=== PATIENT | female | born 1950 | race Caucasian/White ===

== ENCOUNTER 2016-06-30 12:23 | Inpatient (IN) | payer MEDICARE, OTHER ==
[2016-06-30] MEDS ORDERED: Hydrocortisone TAB* 5 MG PO SCH (14:00)
[2016-06-30] MEDS: Heparin VIAL(*) 5000 UNITS/ML VIAL (FIVE THOUSAND) SUBCUT SCH ×2 (15:27→20:55)
--- NOTE | 2016-06-30 15:40 | ECHO ---
Patient: GIOVANNI RADFORD [facility] Rec#: [id number] : 1950 Date: 06/30/2016 Age: 66y Height: 157.48 cm / 62.0 in Weight: 73.48 kg / 161.9 lbs Sex: F BSA: 1.75 Room#: 431 Admit Date#: 06/30/2016 Type: Inpatient Referring: Prakash JOYNER,Gisela Tillman Reading: Regla Bello MD Revenue Cycle Consultant: Magda Pro ANDRZEJ CC: Kwame Walden MD Transthoracic Echocardiogram Indication: Pericardial Effusion/Edema BP: 94/47 HR: 104 Rhythm: Tachycardia Findings History: Stage IV esophageal cancer with metatisis,recent pneumonia,chronic right pleural effusion, a-fib,former smoker, pericardial effusion seen on prior echo09/2015. Technical Comments: The study quality is fair. Completed at 1444. Left Ventricle: The left ventricular chamber size is normal. There is normal left ventricular systolic function. The estimated ejection fraction is 55-60%. septum appears hypokinetic with septal bounce. Abnormal left ventricular diastolic function is observed. Left Atrium: The left atrial chamber size is normal. Right Ventricle: The right ventricular cavity size is normal. The right ventricular global systolic function is normal. Right Atrium: The right atrium is mildly dilated. Aortic Valve: The aortic valve is trileaflet. There is no evidence of aortic regurgitation. There is no evidence of aortic stenosis. Mitral Valve: There is mitral annular calcification. The mitral valve leaflets are mildly thickened. There is mild mitral regurgitation. There is no evidence of mitral stenosis. Tricuspid Valve: The tricuspid valve leaflets are normal. There is trace tricuspid regurgitation. Unable to estimate the right ventricular systolic pressure. Pulmonic Valve: The pulmonic valve appears normal. There is no evidence of pulmonic regurgitation. There is no pulmonic stenosis. Pericardium: There are no signs of significant hemodynamic compromise.MV inflow change,6% LVOT change,12% TV inflow change. There is a circumferential pericardial effusion.Mild to moderate, maximal diameter 1.4 cm. The pericardial effusion is fluid filled. A left pleural effusion is present. There is a large pleural effusion. Aorta: The ascending aorta is not well visualized. There is no dilatation of the aortic arch. There is no dilation of the aortic root. Pulmonary Artery: The main pulmonary artery appears normal. Venous: The inferior vena cava appears normal in size. There is a greater than 50% respiratory change in the inferior vena cava dimension. Conclusions The estimated ejection fraction is 55-60%. septum appears hypokinetic with septal bounce. Abnormal left ventricular diastolic function is observed. The right ventricular global systolic function is normal. There is mild mitral regurgitation. There is trace tricuspid regurgitation. There is a mild to moderate sized circumferential pericardial effusion, maximal diameter 1.4 cm. There are no signs of significant hemodynamic compromise: MV inflow change,6% LVOT change,12% TV inflow change. Septal bounce noted. Compared with prior echo report of 05/19/16, EF is stable, no evidence of increase in pericardial effusion or new filling compromise, compared with the images of prior echo 09/11/15, no significant changes. Measurements Name Value Normal Range RVIDd (AP) 2D 2.5 cm (0.9 - 2.6) RVDdMajor (2D) 3 cm (2.2 - 4.4) RAd ISD 4CH 5.6 cm (3.4 - 4.9) RA (A4C)W 4.2 cm (2.9 - 4.6) IVSd (2D) 1.1 cm (0.6 - 1) LVPWd (2D) 1 cm (0.6 - 1) LVIDd (2D) 3.6 cm (3.6 - 5.4) LVIDs (2D) 2.4 cm - LV FS (2D) 33 % (25 - 45) Aortic Annulus 1.5 cm (1.4 - 2.6) Ao root diameter (2D) 2.7 cm (2.1 - 3.5) Aortic arch 2 cm (1.8 - 3.4) LA dimension (AP) 2D 3 cm (2.3 - 3.8) LAd ISD 4CH 5.5 cm (2.9 - 5.3) LA ISD 4CH W 4.8 cm (2.5 - 4.5) Name Value Normal Range LA ESV SP 4CH (A/L) 73 ml - LA ESV SP 2CH (A/L) 28 ml - LA ESV BP (A/L) 48 ml - LA ESV BP (A/L) index 27.38 ml/m2 - LA ESV SP 4CH (MOD) 75 ml - LA ESV SP 2CH (MOD) 28 ml - Name Value Normal Range MV E-wave Vmax 1.1 m/sec - MV deceleration time 121 msec - MV A-wave Vmax 0.7 m/sec - MV E:A ratio 1.6 ratio - LV septal e' Vmax 0.07 m/sec - LV lateral e' Vmax 0.06 m/sec - LV E:e' septal ratio 15.71 ratio - LV E:e' lateral ratio 18.33 ratio - Name Value Normal Range AV Vmax 1.5 m/sec - AV VTI 28 cm - AV peak gradient 9.39 mmHg - AV mean gradient 5.82 mmHg - LVOT Vmax 1.4 m/sec - LVOT VTI 24.5 cm - LVOT peak gradient 7.56 mmHg - LVOT mean gradient 3.5 mmHg - Name Value Normal Range IVC diameter 1.9 cm - Name Value Normal Range PV Vmax 0.7 m/sec - PV peak gradient 1.93 mmHg -
[2016-06-30] MEDS: Amiodarone TAB* 200 MG PO SCH (17:12)
[2016-06-30] MEDS: Hydrocortisone TAB* 5 MG PO SCH (17:13)
[2016-06-30] MEDS: Zolpidem TAB* 5 MG PO PRN (23:03)
[2016-06-30] MEDS: guaiFENesin/CODIEN 100MG-10MG* 5 ML UDC PO PRN (23:03)
[2016-07-01 05:10] LABS: Add Diff/Slide Review? Slide Review Added; Comments Flag Yes; Hematocrit 24 % (35-47); Hemoglobin 7.8 g/dl (12.0-16.0); Mean Corpuscular HGB Conc 32 g/dl (31-36); Mean Corpuscular Hemoglobin 31 pg (27-31); Mean Corpuscular Volume 95 fL (80-97); Red Blood Count 2.55 10^6/ul (4.0-5.4); Red Cell Distribution Width 16 % (10.5-15); White Blood Count 7.7 10^3/ul (3.5-10.8)
[2016-07-01 05:20] LABS: BUN/Creatinine Ratio 13.8 (8-20); Calcium 8.1 mg/dL (8.6-10.3); EGFR Non-African American 103.4 (>60); Globulin 2.2 g/dL (2-4); Magnesium 1.9 mg/dL (1.9-2.7); Potassium 3.3 mmol/L (3.5-5.0); Total Bilirubin 0.7 mg/dL (0.2-1.0); Total Protein 5.2 g/dL (6.4-8.9)
[2016-07-01] MEDS: Heparin VIAL(*) 5000 UNITS/ML VIAL (FIVE THOUSAND) SUBCUT SCH ×3 (05:46→21:26)
[2016-07-01] MEDS: guaiFENesin/CODIEN 100MG-10MG* 5 ML UDC PO PRN ×2 (05:49→20:19)
[2016-07-01] MEDS ORDERED: Furosemide IV* 10 MG/ML 2 ML VIAL (20 MG) IV ONE ×2 (07:35→09:16)
[2016-07-01] MEDS: Fludrocortisone Acetate TAB* 0.1 MG PO SCH (08:07)
[2016-07-01] MEDS: KCL 20 MEQ/100 ML IVPREMIX* 20 MEQ/100 ML BAG IV SCH ×3 (08:08→13:18)
[2016-07-01] MEDS: Hydrocortisone TAB* 5 MG PO SCH ×3 (08:08→17:34)
--- NOTE | 2016-07-01 08:50 | PN ---
Addendum entered and electronically signed by Catina Sebastian NP 07/01/16 09:47 : Moderate malnutrition: pre-albumin 8, request nutrition consult Original Note: Progress Note - Progress Note SOAP: Subjective: []Very tired, easily exhausted with any exertion. SOB and coughing all the time. "I get coughing and coughing and finally bring up a very tiny bit and then I'm pooped." Denies chest pain and pressure. Slept a little last night. Doesn't feel like her legs changed much at all overnight, though states maybe a little. UO good. Questions if she can have nebs again. Medications: Acetaminophen (Tylenol Tab*) 650 mg PO Q6H PRN PRN Reason: FEVER/PAIN Amiodarone HCl (Cordarone Tab*) 100 mg PO 1700 [facility] Last Admin: 06/30/16 17:12 Dose: 100 mg Fludrocortisone Acetate (Florinef Tab*) 0.2 mg PO QAM [facility] Last Admin: 07/01/16 08:07 Dose: 0.2 mg Guaifenesin/Codeine Phosphate (Robitussin Ac 100mg-10mg*) 5 ml PO Q6HR PRN PRN Reason: COUGH Last Admin: 07/01/16 05:49 Dose: 5 ml Heparin Sodium (Porcine) (Heparin Vial(*)) 5,000 units SUBCUT Q8HR [facility] Last Admin: 07/01/16 05:46 Dose: 5,000 units Heparin Sodium (Porcine) (Heparin Flush Port (Ivad)*) 5 ml FLUSH DAILY [facility] PRN Reason: Protocol Last Admin: 07/01/16 08:05 Dose: Not Given Hydrocortisone (Cortef Tab*) 5 mg PO TID WITH MEALS [facility] Last Admin: 07/01/16 08:08 Dose: 5 mg Potassium Chloride (Potassium Chloride 20 Meq/100 Ml Ivpremix*) 20 meq in 100 mls @ 50 mls/hr IV Q2H [facility] Stop: 07/01/16 13:59 Last Admin: 07/01/16 08:08 Dose: 50 mls/hr Oxycodone HCl (Roxycodone Tab*) 5 mg PO Q6HR PRN PRN Reason: PAIN Potassium Chloride (Klor-Con Liquid*) 40 meq PO QAM [facility] Last Admin: 07/01/16 08:07 Dose: 40 meq Prochlorperazine (Compazine Tab*) 10 mg PO Q6H PRN PRN Reason: NAUSEA Zolpidem Tartrate (Ambien Tab*) 5 mg PO BEDTIME PRN PRN Reason: INSOMNIA Last Admin: 06/30/16 23:03 Dose: 5 mg Objective: [] Vital Signs Temp Pulse Resp BP Pulse Ox 99.0 F 98 20 92/50 97 07/01/16 03:49 07/01/16 03:52 07/01/16 03:49 07/01/16 03:52 07/01/16 03:49 A&Ox3, EOMI, PERRLA, LOVELACE, neuro grossly non-focal HRR, slight murmur noted, S1S2, ST on tele per my review -- EKG with increasing QT interval over last year LS diminished to bilat. bases with wet cough and crackles noted intermittently +BS, abd. soft and non-tender +PP=bilat Laboratory Results - last 24 hr 07/01/16 07/01/16 07/01/16 04:53 04:53 04:53 WBC 7.7 RBC 2.55 L Hgb 7.8 L Hct 24 L MCV 95 MCH 31 MCHC 32 RDW 16 H Plt Count 90 L D Neut % (Auto) 80.4 Lymph % (Auto) 5.9 L [place] % (Auto) 13.0 H Eos % (Auto) 0.4 Baso % (Auto) 0.3 Absolute Neuts (auto) 6.2 Absolute Lymphs (auto) 0.5 L Absolute Monos (auto) 1.0 H Absolute Eos (auto) 0 Absolute Basos (auto) 0 Absolute Nucleated RBC 0.02 Nucleated RBC % 0.3 Sodium 139 Potassium 3.3 L Chloride 101 Carbon Dioxide 34 H Anion Gap 4 BUN 8 Creatinine 0.58 Est GFR ( Amer) 133.0 Est GFR (Non-Af Amer) 103.4 BUN/Creatinine Ratio 13.8 Glucose 93 Calcium 8.1 L Magnesium 1.9 Total Bilirubin 0.70 AST 10 L ALT 6 L Alkaline Phosphatase 86 B-Natriuretic Peptide 870 H Total Protein 5.2 L Albumin 3.0 L Globulin 2.2 Albumin/Globulin Ratio 1.4 Assessment: []66 yo female complicated medical history r/t metastatic esophageal cancer, subsequent MDS, A.Fib, pericardial and pleural effusion, as well as C.Diff in the past r/t abx. admitted with new onset heart failure and fluid overload with minimal improvement overnight with diuresis. Plan: []1. Elevated BNP with edema: echo with left diastolic dysfunction but with preserved LVEF 55-60%, question diastolic failure; pericardial effusion appears unchanged. Will cont. soft diuresis (as she is hypotensive) with IV lasix. QT prolongation over last year on Amiodarone therefore will hold zofran, Cardiology consult pending (sincerely appreciate their expertise). -- to note her underlying condition may play a roll (chemotherapy tx. and less likely infection at this time) 2. Hypokalemia: long standing but with diuresis will replace aggressively, Mg current stable and will follow 3. Anemia: recently diagnosed with MDS likely as a result of halfway chemotherapy, with acute overload will hold off on transfusion for now, recheck in AM 4. Hypotension: long standing and felt to be r/t adrenal deficiency in setting of advanced cancer, cont. steroids, and monitor 5. Recent PNA: very wet cough and question of progressive pleural effusion therefore will check Chest CT [place] 6. Metasatatic Esophageal Cancer: has been stable on chemotherapy for some time , therapy currently on hold d/t acute admission
[2016-07-01] MEDS ORDERED: Potassium Chloride LIQUID* 20 MEQ PACKET PO SCH (09:00)
[2016-07-01] MEDS ORDERED: Iodixanol* (CONTRAST) 320 MG/ML 100 ML SDV IV ONE (09:39)
--- NOTE | 2016-07-01 10:45 | RAD ---
INDICATION: Shortness of breath. Effusion, heart failure. History of esophageal carcinoma. COMPARISON: June 23, 2016 TECHNIQUE: Multidetector CT images were obtained from the lung apices to the upper abdomen with 80 mL Visipaque 320 IV contrast. Multiplanar reformation. REPORT: Unchanged RIGHT greater than LEFT paramediastinal geographic demarcated confluent consolidation with air bronchograms most consistent with postradiation fibrosis. Remainder of the lungs remarkable for interstitial edema with interlobular septal thickening. Moderate LEFT and small RIGHT dependent pleural effusions with interval increase with associated compressive atelectasis. Asymmetric consolidation at the RIGHT lung base mildly disproportionate to volume of pleural fluid/volume loss consolidation at the RIGHT lung base without change. Negative for pneumothorax. Negative for thoracic lymphadenopathy. Negative for cardiomegaly. Small pericardial effusion without change. Normal diameter thoracic aorta with mild atherosclerotic plaque. Patent superior vena cava with tip of the RIGHT chest port at level of the superior vena cava RIGHT atrial junction. Patent visualized central pulmonary arteries. Unchanged magnitude of long segment circumferential mural thickening of the esophagus. Unremarkable Limited images at the upper abdomen. 2 cm exophytic cyst at the upper pole of the RIGHT kidney noted. Mild compression deformities involving the superior endplate of the T7 and T9 vertebral bodies are chronic. No new thoracic fractures or suspicious osseous lesions noted. Bilateral C7 cervical ribs noted. IMPRESSION: 1. The constellation of findings is most suggestive of bilateral interstitial pulmonary edema superimposed on chronic lung disease. Moderate LEFT and small RIGHT dependent pleural effusions with interval increase. Asymmetric consolidation at the RIGHT lung base mildly disproportionate to volume of pleural fluid/volume loss consolidation at the RIGHT lung base without change raising concern for potential superimposed inflammatory infiltrate. 2. Unchanged magnitude of long segment circumferential mural thickening of the esophagus and stigmata of paramediastinal radiation fibrosis.
[2016-07-01 16:32] LABS: TSH (Thyroid Stimulating Horm) 0.89 mcIU/mL (0.34-5.60)
[2016-07-01] MEDS: Amiodarone TAB* 200 MG PO SCH (17:34)
[2016-07-01] MEDS: Prochlorperazine TAB* 10 MG PO PRN (18:46)
[2016-07-01] MEDS ORDERED: Ondansetron TAB* 4 MG PO PRN (19:45)
--- NOTE | 2016-07-01 20:39 | CONS ---
CC: Gisela Randall MD; Boone Gonzalez MD CARDIOLOGY CONSULTATION: DATE OF CONSULT: 07/01/16 HISTORY OF PRESENT ILLNESS: I was asked by Dr. Randall to see this 66-year-old female patient who was hospitalized with acute congestive heart failure and elevated BNP about 900. The patient does h ave complex medical history including history of esophageal cancer and on single agent 5-FU treatmen t. A week ago, she was hospitalized with low-grade fever, fatigue, cough diagnosed with pneumonia a nd urinary tract infection. She was treated with antibiotics treatment and hydration. According to the patient when she left hospital because of aggressive IV hydration, she gained 12 pounds heavier. She does have a history of pericardial effusion and an echo done yesterday showed a small to moder ate pericardial effusion, no signs of tamponade, normal left ventricular systolic function with EF 5 5% to 60%. Yesterday, she felt very short of breath, although she states she does have chronic histo ry of shortness of breath. She was hospitalized with assumption of congestive heart failure, treate d with IV Lasix, and she started to feel better. Cardiology consult was further requested to help i n the further management of her congestive heart failure. She does have a history of atrial fibrill ation in the past, but her EKG showed her to be in low voltage and probably sinus rhythm or ectopic atrial rhythm. She does have history of hypertension as well. She gives no chest pain, no orthopne a. She is still coughing and having some difficulty bringing her phlegm out. If it comes out, it i s yellow according to the patient. But, she gives no fever, no chills, no nausea, no vomiting, no h ematochezia, no skin rash, no abdominal pain, no syncope, no swelling in the lower extremities. She gives no history of congestive heart failure in the past. She gives no history of diabetes mellitu s and no history of myocardial infarction, no history of coronary artery disease, no history of jessie enital heart disease. She started to feel better today. PAST MEDICAL HISTORY: Includes history of arthritis, atrial fibrillation, hypertension. PAST SURGICAL HISTORY: Includes tonsillectomy. CURRENT MEDICATIONS: Include: 1. Tylenol 650 mg p.o. q.6 hours p.r.n. for fever or pain. 2. DuoNeb treatment one nebulizer q.4 hours p.r.n. for wheeze and shortness of breath. 3. Amiodarone 100 mg p.o. daily. 4. Florinef 0.2 mg daily. 5. Robitussin 5 mL q.6 hours p.r.n. for cough. 6. Heparin 5000 units subcu q.8 hours. 7. Hydrocortisone 5 mg p.o. t.i.d. 8. Oxycodone 5 mg p.o. q.6 hours. 9. Potassium chloride 40 mEq q.a.m. 10. Compazine 10 mg p.o. q.6 hours. 11. She had Lasix treatment IV. She was given 2 doses of 20 mg today. FAMILY HISTORY: There is no family history of premature coronary artery disease. SOCIAL HISTORY: She used to smoke, but she quit. She smoked for long period of time. She drinks a lcohol occasionally. No history of illicit drug use. REVIEW OF SYSTEMS: Her review of all other systems essentially is negative. PHYSICAL EXAM: General: She is out of bed. She is not in acute distress. She is coughing. She h ad no fever. Vital Signs: Blood pressure 89/45. She does have a baseline low blood pressure about 90, temperature 98.7, respiratory rate 20, and heart rate about 100. Head and Neck Exam: Normocep halic, atraumatic. Head, ears, nose, and throat: Essentially benign. Neck: Supple. JVP is not e levated. No carotid bruits. No masses in the neck is appreciated. Chest: Diminished air entry bi laterally with bilateral rhonchi. Heart: Normal, regular S1, S2. No added sounds. No gallops. N o rubs. Abdomen: Benign, positive bowel sounds. Extremities: No edema. No cyanosis. No clubbing . Skin exam is normal. Psych: Normal affect and mood. DEVOPS ARCHITECT: No focal deficits appreciated. DIAGNOSTIC STUDIES/LABORATORY DATA: Her echocardiogram reported EF to be 55% to 60%, abnormal left ventricular diastolic function, mild mitral insufficiency, trace tricuspid insufficiency, mild to mo derate pericardial effusion. No tamponade. Her labs: White blood cells 7.7, hemoglobin 7.8, hemat ocrit 24, platelets 90. Sodium 139, potassium 3.3, chloride 101, carbon dioxide 34, BUN 8, creatini ne 0.58. AST 10, ALT 6, BNP 870, total protein 5.2, albumin is 3, globulin 2.2. Her CT chest was r eported to have pulmonary edema and also consolidation at the right lung base. Her EKG today showed her to be in low voltage, possible poor R-wave progression, and sinus or ectopic tachycardia, heart rate 109. IMPRESSION: The patient is a 66-year-old female patient with very complex medical history including : 1. Esophageal cancer, followed up with Dr. Randall. 2. History of pericardial effusion, small to moderate. No tamponade. Stable since previous echo. 3. Recent pneumonia and urinary tract infection. 4. Left ventricular diastolic dysfunction. 5. Significant anemia. 6. Thrombocytopenia. 7. Abnormal EKG as described. 8. Hypotension, chronic, on Florinef. 9. Elevated BNP and CT chest consistent with congestive heart failure. PLAN: Complex challenging medical treatment because of her chronic baseline low blood pressure and also because of her small to moderate size pericardial effusion. Her congestive heart failure could be multifactorial in nature including significant anemia, recent pneumonia, and urinary tract infect ion, significant fluid especially she gained 12 pounds in the short period of time, although she sawyer s have normal left ventricular systolic function. I would like to order a thyroid profile to make s ure she does not have significant hypothyroidism given she is on amiodarone treatment. I agree with IV Lasix and keep a close eye on her blood pressure and continue the rest of the medications as ord ered, keep the Florinef for now, correct potassium aggressively especially significantly low as you are already doing, keep a close eye on her BUN and creatinine and any further recommendations will b e pending her clinical outcome. I discussed this plan with the patient. I answered all her concern s and questions up to her satisfaction. TIME SPENT: More than half of at least 60 to 65 plus minutes was in the eduction, counseling mode f elton-to-face explaining all of the above to the patient and the family member with her and answering all of her concerns and questions up to her satisfaction. [id number]/[facility] #: [id number]
[2016-07-01 22:54] LABS: T4 7.15 g/dL (6.09-12.23)
[2016-07-01 23:03] LABS: Total T3 0.59 ng/mL (0.87-1.78)
[2016-07-02] MEDS: Fludrocortisone Acetate TAB* 0.1 MG PO SCH ×2 (03:53→07:12)
[2016-07-02] MEDS ORDERED: Fludrocortisone Acetate TAB* 0.1 MG PO ONE (04:30)
[2016-07-02] MEDS: Acetaminophen TAB* 325 MG PO PRN (04:36)
[2016-07-02] MEDS: Heparin VIAL(*) 5000 UNITS/ML VIAL (FIVE THOUSAND) SUBCUT SCH ×3 (05:51→21:18)
[2016-07-02 06:27] LABS: Hematocrit 24 % (35-47); Hemoglobin 7.6 g/dl (12.0-16.0); Mean Corpuscular HGB Conc 32 g/dl (31-36); Mean Corpuscular Hemoglobin 31 pg (27-31); Mean Corpuscular Volume 96 fL (80-97); Mean Platelet Volume 9 um3 (7.4-10.4); Red Blood Count 2.47 10^6/ul (4.0-5.4); Red Cell Distribution Width 16 % (10.5-15); White Blood Count 7.1 10^3/ul (3.5-10.8)
[2016-07-02 06:34] LABS: Add Diff/Slide Review? Slide Review Added
[2016-07-02 06:39] LABS: Albumin 2.7 g/dL (3.2-5.2); BUN/Creatinine Ratio 18.3 (8-20); EGFR African American 127.9 (>60); EGFR Non-African American 99.4 (>60); Globulin 2.2 g/dL (2-4); Magnesium 1.5 mg/dL (1.9-2.7); Potassium 3.5 mmol/L (3.5-5.0); Total Bilirubin 0.6 mg/dL (0.2-1.0); Total Protein 4.9 g/dL (6.4-8.9)
[2016-07-02] MEDS ORDERED: Magnesium Sulf 4 GM/100 ML IV* 4,000 MG/100 ML BAG IVPB ONE (07:30)
[2016-07-02] MEDS ORDERED: Furosemide IV* 10 MG/ML 2 ML VIAL (20 MG) IV SLOW PU ONE (07:30)
--- NOTE | 2016-07-02 07:41 | PN ---
Progress Note - Progress Note SOAP: Subjective: she was woken up for vitals last night and was noted to be quite hypotensive in the 70s. she reported light headedness and dizziness with this (again, was sleeping comfortably until awoken for vitals). Florinef given early and BP quickly came up into the 80s and low 90s. Reports that she can only take a few steps before becoming very short of breath. no abdominal pain. mild ongoing diarrhea, chronic for her and nothing like her prior c diff diarrhea. Objective: Vital Signs Temp Pulse Resp BP Pulse Ox 98.4 F 102 20 90/46 93 07/02/16 03:41 07/02/16 03:41 07/02/16 03:41 07/02/16 04:30 07/02/16 03:41 weak appearing, still dyspneic perr eomi op dry dec bs bases bilaterally R>L tachy soft nt +bs 1+ LE edema bl A+O x 3, nonfocal neurological exam Laboratory Results - last 24 hr 07/01/16 07/01/16 07/02/16 04:53 04:53 06:00 WBC 7.1 RBC 2.47 L Hgb 7.6 L Hct 24 L MCV 96 MCH 31 MCHC 32 RDW 16 H Plt Count 60 L MPV 9 Neut % (Auto) 76.3 Lymph % (Auto) 6.4 L [place] % (Auto) 16.6 H Eos % (Auto) 0.3 Baso % (Auto) 0.4 Absolute Neuts (auto) 5.4 Absolute Lymphs (auto) 0.5 L Absolute Monos (auto) 1.2 H Absolute Eos (auto) 0 Absolute Basos (auto) 0 Absolute Nucleated RBC 0.04 Nucleated RBC % 0.6 Sodium Potassium Chloride Carbon Dioxide Anion Gap BUN Creatinine Est GFR ( Amer) Est GFR (Non-Af Amer) BUN/Creatinine Ratio Glucose Calcium Magnesium Total Bilirubin AST ALT Alkaline Phosphatase B-Natriuretic Peptide 870 H Total Protein Albumin Globulin Albumin/Globulin Ratio Prealbumin 8 L TSH 0.89 Thyroxine (T4) 7.15 Total T3 0.59 L 07/02/16 06:00 WBC RBC Hgb Hct MCV MCH MCHC RDW Plt Count MPV Neut % (Auto) Lymph % (Auto) [place] % (Auto) Eos % (Auto) Baso % (Auto) Absolute Neuts (auto) Absolute Lymphs (auto) Absolute Monos (auto) Absolute Eos (auto) Absolute Basos (auto) Absolute Nucleated RBC Nucleated RBC % Sodium 139 Potassium 3.5 Chloride 102 Carbon Dioxide 33 H Anion Gap 4 BUN 11 Creatinine 0.60 Est GFR ( Amer) 127.9 Est GFR (Non-Af Amer) 99.4 BUN/Creatinine Ratio 18.3 Glucose 96 Calcium 8.0 L Magnesium 1.5 L Total Bilirubin 0.60 AST 9 L ALT 5 L Alkaline Phosphatase 84 B-Natriuretic Peptide Total Protein 4.9 L Albumin 2.7 L Globulin 2.2 Albumin/Globulin Ratio 1.2 Prealbumin TSH Thyroxine (T4) Total T3 Acetaminophen (Tylenol Tab*) 650 mg PO Q6H PRN PRN Reason: FEVER/PAIN Last Admin: 07/02/16 04:36 Dose: 650 mg Albuterol/Ipratropium (Duoneb Neb.Em*) 1 neb INH Q4H PRN PRN Reason: SOB/WHEEZING Amiodarone HCl (Cordarone Tab*) 100 mg PO 1700 [facility] Last Admin: 07/01/16 17:34 Dose: 100 mg Fludrocortisone Acetate (Florinef Tab*) 0.2 mg PO QAM [facility] Last Admin: 07/02/16 07:12 Dose: Not Given Guaifenesin/Codeine Phosphate (Robitussin Ac 100mg-10mg*) 5 ml PO Q6HR PRN PRN Reason: COUGH Last Admin: 07/01/16 20:19 Dose: 5 ml Heparin Sodium (Porcine) (Heparin Vial(*)) 5,000 units SUBCUT Q8HR [facility] Last Admin: 07/02/16 05:51 Dose: 5,000 units Heparin Sodium (Porcine) (Heparin Flush Port (Ivad)*) 5 ml FLUSH DAILY [facility] PRN Reason: Protocol Last Admin: 07/02/16 07:11 Dose: Not Given Hydrocortisone (Cortef Tab*) 5 mg PO TID WITH MEALS [facility] Last Admin: 07/01/16 17:34 Dose: 5 mg Magnesium Sulfate (Magnesium Sulf 4 Gm/100 Ml Iv*) 4,000 mg in 100 mls @ 33.333 mls/hr IVPB ONCE ONE Stop: 07/02/16 10:29 Potassium Chloride (Potassium Chloride 20 Meq/100 Ml Ivpremix*) 20 meq in 100 mls @ 50 mls/hr IV Q2H [facility] Stop: 07/02/16 13:59 Magnesium Citrate (Citrate Of Magnesia*) 15 ml PO BID [facility] Ondansetron HCl (Zofran Tab*) 4 mg PO Q6H PRN PRN Reason: NAUSEA Last Admin: 07/01/16 19:57 Dose: 4 mg Oxycodone HCl (Roxycodone Tab*) 5 mg PO Q6HR PRN PRN Reason: PAIN Potassium Chloride (Klor-Con Liquid*) 40 meq PO TID [facility] Prochlorperazine (Compazine Tab*) 10 mg PO Q6H PRN PRN Reason: NAUSEA Last Admin: 07/01/16 18:46 Dose: 10 mg Zolpidem Tartrate (Ambien Tab*) 5 mg PO BEDTIME PRN PRN Reason: INSOMNIA Last Admin: 06/30/16 23:03 Dose: 5 mg Assessment: 66 yo F w metastatic esophageal CA with good control of disease presenting with diastolic heart failure exacerbation of unclear etiology. She is slowly diuresing, but clearly will be difficult to manage with her low blood pressure. Plan: Diastolic HF exacerbation, acute: cont PRN lasix. she is diuresing by evidence of loosing 4 lbs in 1 dy -will give lasix after 1 u PRBC today -appreciate cardiology input -TSH wnl -cont florinef and hydrocortisone - moderate protein calorie malnutrition: prealbumin low. appreciate nutrition consult. will readdress with them specifically how to increase protein in diet as I feel that her weight is not a good reflection of her nutritional status (she is clearly anasarcic) -ensure 1 daily recommended at this time. pancytopenia: chemotherapy induced MDS (del 5q) plus anemia of chronic disease -will give procrit 40,000 IU weekly while inpatient and switch to aranesp 500 mcg q3 weeks as outpatient -transfuse 1 u PRBC today hypomag/hypokalemia: cont aggressive repletion full code
[2016-07-02] MEDS: Hydrocortisone TAB* 5 MG PO SCH ×3 (07:59→16:40)
[2016-07-02] MEDS: Potassium Chloride LIQUID* 20 MEQ PACKET PO SCH ×3 (07:59→19:58)
[2016-07-02] MEDS ORDERED: [UNRECOGNIZED DRUG - OTHER] SUBCUT ONE (08:30)
[2016-07-02] MEDS ORDERED: EPOETIN ALFA SUBCUT ONE (08:30)
[2016-07-02] MEDS: Magnesium CITRATE* 300 ML BTL PO SCH ×2 (09:44→19:58)
[2016-07-02] MEDS: guaiFENesin/CODIEN 100MG-10MG* 5 ML UDC PO PRN ×3 (10:55→23:16)
[2016-07-02] MEDS: KCL 20 MEQ/100 ML IVPREMIX* 20 MEQ/100 ML BAG IV SCH ×3 (11:01→18:24)
[2016-07-02] MEDS: oxyCODONE TAB* 5 MG TAB PO PRN (15:44)
[2016-07-02] MEDS: Amiodarone TAB* 200 MG PO SCH (16:40)
[2016-07-02] MEDS: Albuterol/Ipratropium NEB.SOL* Albuterol 2.5 MG/Ipratropium 0.5 MG 3 ML INH PRN ×2 (16:49→21:25)
[2016-07-02] MEDS ORDERED: Furosemide IV* 10 MG/ML 2 ML VIAL (20 MG) IV ONE (17:00)
[2016-07-02] MEDS ORDERED: KCL 20 MEQ/100 ML IVPREMIX* 20 MEQ/100 ML BAG ONE (18:22)
[2016-07-03] MEDS ORDERED: Furosemide IV* 10 MG/ML 2 ML VIAL (20 MG) IV ONE (02:50)
[2016-07-03] MEDS ORDERED: Furosemide IV* 10 MG/ML 10 ML VIAL (100 MG) IV ONE (02:50)
--- NOTE | 2016-07-03 03:16 | PN ---
Progress Note - Progress Note Note: Paged by RN concern for possible CAT call on patient with fluid overload, increase work of breathing and hypoxic. On evaluation on oxymask 15L, in mod respiratory distress, with crackles b/l throughout. Soft BP's currently and sinus tach on EKG. CXR shows pulmonary edema. Will transfer to ICU to place on CPAP and continue to gently diurese patient.
[2016-07-03] MEDS: Acetaminophen TAB* 325 MG PO PRN ×2 (04:29→11:13)
[2016-07-03] MEDS: Heparin VIAL(*) 5000 UNITS/ML VIAL (FIVE THOUSAND) SUBCUT SCH ×3 (05:37→20:26)
[2016-07-03 05:46] LABS: Hematocrit 27 % (35-47); Hemoglobin 8.9 g/dl (12.0-16.0); Mean Corpuscular HGB Conc 33 g/dl (31-36); Mean Corpuscular Hemoglobin 31 pg (27-31); Mean Corpuscular Volume 94 fL (80-97); Red Blood Count 2.91 10^6/ul (4.0-5.4); Red Cell Distribution Width 18 % (10.5-15); White Blood Count 16.4 10^3/ul (3.5-10.8)
[2016-07-03 05:59] LABS: BUN/Creatinine Ratio 15.4 (8-20); Calcium 8.3 mg/dL (8.6-10.3); EGFR African American 94.5 (>60); EGFR Non-African American 73.4 (>60); Magnesium 1.7 mg/dL (1.9-2.7)
[2016-07-03 06:01] LABS: Comments Flag Yes
[2016-07-03] MEDS ORDERED: CEFTAZIDIME 2 GM IVPB ONE ×2 (06:15)
[2016-07-03] MEDS: Hydrocortisone TAB* 5 MG PO SCH ×3 (08:42→16:01)
[2016-07-03] MEDS: Fludrocortisone Acetate TAB* 0.1 MG PO SCH (08:43)
[2016-07-03] MEDS: Potassium Chloride LIQUID* 20 MEQ PACKET PO SCH ×4 (08:43→20:31)
--- NOTE | 2016-07-03 08:52 | PN ---
Progress Note - Progress Note SOAP: Subjective: []Events of last night noted. Had blood transfusion yesterday. Last night got up and went to bathroom. Coughing that would not stop, tachycardia and SOB. Saturation to 80%s, HR 130. Transferred to ICU and is on positive pressure, saturation improved. Developed fever 103 overnight. Today feeling a little better, SOB continues. BP 80s. Active Medications Generic Name Dose Route Start Last Admin Trade Name Freq PRN Reason Stop Dose Admin Acetaminophen 650 mg 06/30/16 12:54 07/03/16 04:29 Tylenol Tab* PO 650 mg Q6H PRN Administration FEVER/PAIN Albuterol/Ipratropium 1 neb 07/01/16 09:16 07/02/16 21:25 Duoneb Neb.Em* INH 1 neb Q4H PRN Administration SOB/WHEEZING Amiodarone HCl 100 mg 06/30/16 17:00 07/02/16 16:40 Cordarone Tab* PO 100 mg 1700 DIANN Administration Fludrocortisone Acetate 0.2 mg 07/01/16 09:00 07/03/16 08:43 Florinef Tab* PO 0.2 mg QAM DIANN Administration Guaifenesin/Codeine Phosphate 5 ml 06/30/16 12:54 07/02/16 23:16 Robitussin Ac 100mg-10mg* PO 5 ml Q6HR PRN Administration COUGH Heparin Sodium (Porcine) 5,000 units 06/30/16 14:00 07/03/16 05:37 Heparin Vial(*) SUBCUT 5,000 units Q8HR DIANN Administration Heparin Sodium (Porcine) 5 ml 06/30/16 19:00 07/03/16 03:22 Heparin Flush Port (Ivad)* FLUSH 5 ml DAILY DIANN Administration Protocol Hydrocortisone 5 mg 06/30/16 17:00 07/03/16 08:42 Cortef Tab* PO 5 mg TID WITH MEALS DIANN Administration Magnesium Citrate 15 ml 07/02/16 09:00 07/02/16 19:58 Citrate Of Magnesia* PO 15 ml BID DIANN Administration Ondansetron HCl 4 mg 07/01/16 19:45 07/01/16 19:57 Zofran Tab* PO 4 mg Q6H PRN Administration NAUSEA Oxycodone HCl 5 mg 06/30/16 12:54 07/02/16 15:44 Roxycodone Tab* PO 5 mg Q6HR PRN Administration PAIN Potassium Chloride 40 meq 07/02/16 09:00 07/03/16 08:43 Klor-Con Liquid* PO 40 meq TID DIANN Administration Prochlorperazine 10 mg 06/30/16 12:54 07/01/16 18:46 Compazine Tab* PO 10 mg Q6H PRN Administration NAUSEA Zolpidem Tartrate 5 mg 06/30/16 21:07 06/30/16 23:03 Ambien Tab* PO 5 mg BEDTIME PRN Administration INSOMNIA Objective: [] Vital Signs Temp Pulse Resp BP Pulse Ox 100.4 F 115 20 81/45 100 07/03/16 07:23 07/03/16 08:05 07/03/16 08:05 07/03/16 08:00 07/03/16 08:05 Intake & Output 07/01/16 07/02/16 07/03/16 07/04/16 06:59 06:59 06:59 06:59 Intake Total 498.7 1583 2220 Output Total 2775 400 Balance 498.7 1583 -555 -400 Weight 163 lb 12.8 oz 159 lb 14.4 oz 167 lb 15.876 oz Intake: IV Fluids 198.7 217 302 Magnesium 100.0 NS (0.9%) 217 Potassium 98.7 272 blood products 30 IVPB 316 598 Potassium 316 306 blood products 292 Oral 300 1050 1320 Output: Urine 2775 Liquid Stool 400 Other: Estimated Void Small Small # Bowel Movements 0 0 1 Estimated Stool Amount Small Small # Voids 1 1 1 Intake & Output 07/01/16 07/02/16 07/03/16 07/04/16 06:59 06:59 06:59 06:59 Intake Total 498.7 1583 2220 Output Total 2775 400 Balance 498.7 1583 -555 -400 Weight 163 lb 12.8 oz 159 lb 14.4 oz 167 lb 15.876 oz Intake: IV Fluids 198.7 217 302 Magnesium 100.0 NS (0.9%) 217 Potassium 98.7 272 blood products 30 IVPB 316 598 Potassium 316 306 blood products 292 Oral 300 1050 1320 Output: Urine 2775 Liquid Stool 400 Other: Estimated Void Small Small # Bowel Movements 0 0 1 Estimated Stool Amount Small Small # Voids 1 1 1 HEENT - Face mask. Pale, no JVD. No thrush. Lungs - Crackles on right base, left base decreased sounds. RRR S1S2 Abd - NT/ND and good BS Ext +2 edema Abnormal Lab Results 07/02/16 07/02/16 07/03/16 06:00 06:00 05:17 WBC RBC Hgb Hct MCV MCH MCHC RDW Plt Count Sodium 138 Potassium 4.0 Chloride 100 L Carbon Dioxide 34 H Anion Gap 4 BUN 12 Creatinine 0.78 Est GFR ( Amer) 94.5 Est GFR (Non-Af Amer) 73.4 BUN/Creatinine Ratio 15.4 Glucose 109 H Calcium 8.3 L Magnesium 1.7 L B-Natriuretic Peptide 834 H Blood Type A Positive Antibody Screen Negative Crossmatch See Detail 07/03/16 05:17 WBC 16.4 H RBC 2.91 L Hgb 8.9 L Hct 27 L MCV 94 MCH 31 MCHC 33 RDW 18 H Plt Count 60 L Sodium Potassium Chloride Carbon Dioxide Anion Gap BUN Creatinine Est GFR ( Amer) Est GFR (Non-Af Amer) BUN/Creatinine Ratio Glucose Calcium Magnesium B-Natriuretic Peptide Blood Type Antibody Screen Crossmatch Assessment: []66 year old with metastatic esophageal cancer with good disease control but 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 Also h/o C.Diff. Was in hospital for 2 weeks for pneumonia, discharged but admitted on 07/01 after 3 days at home with fluid overload, diastolic dysfunction. Treated with gentle dieresis. Course complicated last night by fever and respiratory decompensation, hypertension. Ddx fever: infection, pneumonia, UTI, other, delayed transfusion reaction. Stable this am but on high O2 and SBP remains in 80s Plan: []1. CHF. Remains fluid overload but improved from admission. Given decreased BP will hold on further diuretics today and follow. Check BNP daily. 2. Pulm. Question of recurrent pneumonia, fluid overload or increased demand with fever. CXR reviewed with Dr. Diaz, volume loss on right, possible pneumonia as well as fluid overload. Dr. Diaz will consult, possible Bipap. 3. ID. Fever, WBC, possible pneumonia, UTI. Given time in hospital will treat as hospital acquired infection. Meropenem and dose per Dr. Diaz. Blood cultures pending and check urine. 4. FEN. Continue Mg and K oral, no IV today and will add Aldactone once BP increased. 5. Heme. No transfusions, follow
--- NOTE | 2016-07-03 09:11 | RAD ---
INDICATION: Shortness of breath. COMPARISON: Chest x-ray dated June 23, 2016 TECHNIQUE: Single AP portable view of the chest was obtained. FINDINGS: Image quality is compromised due to the relative inferiority of a portable chest x-ray. Again seen is a right subclavian vein Mediport with the tip terminating in the superior vena cava. Similar the previous chest x-ray there is mild cardiomegaly. The heart and mediastinum are otherwise normal in contour. There is increased density at the right lung base obscuring the diaphragm and causing costophrenic angle blunting. There is new costophrenic angle blunting and slight obscuration of the left hemidiaphragm as well. There is no evidence of a large pleural effusion. Visualized bones are normal for the patient's age. IMPRESSION: Radiographic findings are most consistent with pulmonary edema with likely right greater than left lung base pleural effusions and adjacent compressive atelectasis.
[2016-07-03] MEDS: Magnesium CITRATE* 300 ML BTL PO SCH ×2 (09:34→19:48)
[2016-07-03] MEDS: Meropenem 1 GM PREMIX(*) 1 GM/50 ML BAG IV SCH ×2 (09:52→17:59)
--- NOTE | 2016-07-03 11:44 | RAD ---
INDICATION: Respiratory distress COMPARISON: Previous chest x-rays dated June 23, 2016 TECHNIQUE: Single AP portable view of the chest was obtained. FINDINGS: Image quality is compromised due to the relative inferiority of a portable chest x-ray. The patient's right subclavian vein Mediport terminates at the superior vena cava similar in appearance to the previous chest x-ray. There is mild cardiomegaly similar in appearance to the previous chest x-ray. Density obscures the right greater than left lung base causing costophrenic angle blunting. Visualized bones are normal for the patient's age. IMPRESSION: Density at the right greater than left lung base could represent pleural effusion and/or consolidation.
--- NOTE | 2016-07-03 12:57 | PN ---
Subjective Date of Service: 07/03/16 - CC: SOB Interval History: The patient and her provided history. The patient was improving with diuresis, she then received PRBC and per her huband developed violent coughing and respiratory distress. Temp of 103 F noted as well. The patient's has noted she coughs up thick yellow phlegm. Currently she feels better with CPAP. Medications Active Medications: Acetaminophen (Tylenol Tab*) 650 mg PO Q6H PRN PRN Reason: FEVER/PAIN Last Admin: 07/03/16 11:13 Dose: 650 mg Albuterol/Ipratropium (Duoneb Neb.Em*) 1 neb INH Q4H PRN PRN Reason: SOB/WHEEZING Last Admin: 07/02/16 21:25 Dose: 1 neb Amiodarone HCl (Cordarone Tab*) 100 mg PO 1700 [facility] Last Admin: 07/02/16 16:40 Dose: 100 mg Fludrocortisone Acetate (Florinef Tab*) 0.2 mg PO QAM [facility] Last Admin: 07/03/16 08:43 Dose: 0.2 mg Guaifenesin/Codeine Phosphate (Robitussin Ac 100mg-10mg*) 5 ml PO Q6HR PRN PRN Reason: COUGH Last Admin: 07/02/16 23:16 Dose: 5 ml Heparin Sodium (Porcine) (Heparin Vial(*)) 5,000 units SUBCUT Q8HR [facility] Last Admin: 07/03/16 05:37 Dose: 5,000 units Heparin Sodium (Porcine) (Heparin Flush Port (Ivad)*) 5 ml FLUSH DAILY [facility] PRN Reason: Protocol Last Admin: 07/03/16 03:22 Dose: 5 ml Hydrocortisone (Cortef Tab*) 5 mg PO TID WITH MEALS [facility] Last Admin: 07/03/16 08:42 Dose: 5 mg Meropenem (Merrem 1 Gm Premix(*)) 1 gm in 50 mls @ 100 mls/hr IV Q8H [facility] Last Admin: 07/03/16 09:52 Dose: 100 mls/hr Magnesium Citrate (Citrate Of Magnesia*) 15 ml PO BID [facility] Last Admin: 07/03/16 09:34 Dose: 15 ml Ondansetron HCl (Zofran Tab*) 4 mg PO Q6H PRN PRN Reason: NAUSEA Last Admin: 07/01/16 19:57 Dose: 4 mg Oxycodone HCl (Roxycodone Tab*) 5 mg PO Q6HR PRN PRN Reason: PAIN Last Admin: 07/02/16 15:44 Dose: 5 mg Potassium Chloride (Klor-Con Liquid*) 40 meq PO TID DIANN Last Admin: 07/03/16 08:43 Dose: 40 meq Prochlorperazine (Compazine Tab*) 10 mg PO Q6H PRN PRN Reason: NAUSEA Last Admin: 07/01/16 18:46 Dose: 10 mg Zolpidem Tartrate (Ambien Tab*) 5 mg PO BEDTIME PRN PRN Reason: INSOMNIA Last Admin: 06/30/16 23:03 Dose: 5 mg Objective Vital Signs: Temp Pulse Resp BP Pulse Ox 102.6 F 119 17 78/45 93 07/03/16 11:17 07/03/16 10:30 07/03/16 10:30 07/03/16 10:30 07/03/16 10:30 Oxygen Devices in Use Now: CPAP/BiPAP Eyes: PERRLA Ears/Nose/Mouth/Throat: Clear Oropharnyx Neck: Trachea Midline Respiratory: - - Diminished throughout, best breath sounds in VERNON field, R lung no good air movement heard. Cardiovascular: RRR Abdominal: NL Sounds; No Tenderness; No Distention Extremities: No Edema Skin: No Rash or Ulcers Neurological: Alert and Oriented x 3, NL Muscle Strength and Tone Laboratory Results: 07/03/16 05:17 07/03/16 05:17 Total Bilirubin 0.60 mg/dL (0.2-1.0) 07/02/16 06:00 AST 9 U/L (13-39) L 07/02/16 06:00 ALT 5 U/L (7-52) L 07/02/16 06:00 Alkaline Phosphatase 84 U/L (34-104) 07/02/16 06:00 B-Natriuretic Peptide 834 pg/mL (-100) H 07/02/16 06:00 Total Protein 4.9 g/dL (6.4-8.9) L 07/02/16 06:00 Albumin 2.7 g/dL (3.2-5.2) L 07/02/16 06:00 Globulin 2.2 g/dL (2-4) 07/02/16 06:00 Albumin/Globulin Ratio 1.2 (1-3) 07/02/16 06:00 TSH 0.89 mcIU/mL (0.34-5.60) 07/01/16 04:53 Diagnostic Imaging: CXR: pulmonary edema R>L CT: ? trapped lung R base and pleural effusion greater on L than R. EKG Data: Sinus tachycardia 110 bpm. 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 Initial improvement with diuresis, decompensated last evening post PRBC with violent coughing and fever. Differential of exacerbation of her diastolic CHF from blood and/or aspiration pneumonia vs. other pneumonia, lower respiratory process. Points of Discussion: Cardiac: Paroxysmal afib: maintaining SR on amiodarone, continue for now. CHF: diastolic CHF, and coughing yesterday could have been secondary to PRBC. I am aware diuretics being held due to low BP, manual BP's a bit better, 90/58 L , 80/48 R. Consider gentle diuresis when BP allows, this patient will be at risk for fluid retention with steroids. Avoid tachycardia if able to minimize risk of worsening diastolic CHF. -Would Xopenex be better than albuterol? Pulmonary: Aware CPAP improved oxygenation significantly and concerns for trapped lung, see if things improve time/lung expansion. Fever: pneumonia vs. pneumonitis vs. other: defer to Oncology and ICU care. Will follow actively in this complex patient.
[2016-07-03] MEDS: Prochlorperazine TAB* 10 MG PO PRN (16:00)
[2016-07-03] MEDS: Amiodarone TAB* 200 MG PO SCH (16:01)
[2016-07-03] MEDS: Magnesium Sulfate 2 GM IV IVPB SCH (20:25)
--- NOTE | 2016-07-03 22:39 | CONS ---
CRITICAL CARE CONSULTATION REPORT: DATE OF CONSULT: 07/03/16 REASON FOR CONSULT: Progressive respiratory distress. HISTORY OF PRESENT ILLNESS: This patient is a 66-year-old white female with esophageal CA ,diastolic heart failure, and a history of both pleural and pericardial effusions (both requiring drainage, and presumably neoplastic in origin). She was admitted on 06/30/16 with increasing shortness of breath, believed secondary to diastolic heart failure. Initial management consisted primarily of diuresis, which resulted in decreasing blood pressure without marked improvement in symptomatology, and the patient was subsequently transferred to the intensive care unit in the evening of 07/02/16. She was placed on CPAP and did show improvement in oxygenation and symptomatology. The patient also has a history of recurrent atrial fibrillation for which she receives amiodarone 100 mg daily, but has not had problems with atrial fibrillation on this admission. MEDICATIONS: Ongoing medications at the time of consultation included: 1. Albuterol neb treatments. 2. Amiodarone 100 mg p.o. daily. 3. Fludrocortisone acetate 0.2 mg p.o. daily. 4. Hydrocortisone tablets 5 mg p.o. 3 times daily. 5. Meropenem 1 gram IV q.8h 6. Oxycodone 5 mg as needed for pain. Most recent chemotherapy has been 5-FU, which the patient is not currently receiving. DRUG ALLERGIES: METOPROLOL: type of reaction unknown. PHYSICAL EXAM: The patient was resting comfortably in bed and was alert and oriented. Vital Signs: Temp was 100.4, heart rate 118 and regular, respirations 18 per minute, blood pressure was 75/45, O2 sat was 96% on 50% oxygen by face mask. HEENT: Oropharynx is clear. Lungs: Occasional rhonchi bilaterally and crackles at the left lung base, with no wheezes. Cardia exam revealed no murmurs, rubs, or gallops. Abdomen was not distended and nontender. Extremities were warm, not cyanotic, and there was 1+ edema. DIAGNOSTIC STUDIES/LAB DATA: Chest x-ray showed cardiomegaly with bibasilar infiltrates, greater on the right, and volume loss in the right lower lung field. CT scan of the chest on admission showed bilateral pleural opacifications (effusion vs fibrosis). EKG on admission showed a sinus tachycardia with poor R-wave progression across the precordium. Laboratory tests were significant for white count of 16.4 (today), up from 7.1 ( yesterday), and a platelet count of 60K (today), down from 90K (2 days ago). Electrolyte abnormalities include a bicarbonate of 34 and a magnesium of 1.7. BNP was 870 on admission and 834 yesterday. DICTATION ENDS ABRUPTLY: SEE FOLLOWUP DICTATION FOR IMPRESSION AND PLAN. [id number]/[facility] #: [id number] [facility]OSPITALSaravanan
--- NOTE | 2016-07-03 22:55 | CONS ---
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 The improvement with CPAP would be explained on the basis of the heart failure and/or the volume loss at the right lung base. The increasing white count, in the face of a "trapped lung " at the right base, could also represent a localized pneumonia. RECOMMENDATION: Continue CPAP treatments, and would not encourage more aggressive diuresis at this time because of the low blood pressure. If necessary , ultrasound of the right pleural space will help to identify fibrosis versus fluid accumulation. I agree with empiric antibiotic coverage (with meropenem) for possible pneumonia. TIME SPENT: Critical care time spent with this patient: 60 minutes. [id number]/[facility] #: [id number] OSEAS
[2016-07-04] MEDS: Meropenem 1 GM PREMIX(*) 1 GM/50 ML BAG IV SCH (01:51)
[2016-07-04] MEDS: Heparin VIAL(*) 5000 UNITS/ML VIAL (FIVE THOUSAND) SUBCUT SCH ×3 (05:24→22:15)
[2016-07-04 05:44] LABS: Hematocrit 26 % (35-47); Hemoglobin 8.2 g/dl (12.0-16.0); Mean Corpuscular HGB Conc 32 g/dl (31-36); Mean Corpuscular Hemoglobin 30 pg (27-31); Mean Corpuscular Volume 94 fL (80-97); Red Blood Count 2.75 10^6/ul (4.0-5.4); Red Cell Distribution Width 17 % (10.5-15); White Blood Count 17.6 10^3/ul (3.5-10.8)
[2016-07-04 05:59] LABS: Albumin 2.7 g/dL (3.2-5.2); BUN/Creatinine Ratio 17.5 (8-20); Calcium 8.1 mg/dL (8.6-10.3); EGFR African American 73.4 (>60); EGFR Non-African American 57.1 (>60); Globulin 2.1 g/dL (2-4); Total Bilirubin 0.9 mg/dL (0.2-1.0); Total Protein 4.8 g/dL (6.4-8.9)
[2016-07-04 06:13] LABS: Add Diff/Slide Review? Slide Review Added; Comments Flag Yes
[2016-07-04 06:36] LABS: Mean Platelet Volume 9 um3 (7.4-10.4)
[2016-07-04] MEDS: Hydrocortisone TAB* 5 MG PO SCH ×3 (08:09→16:54)
[2016-07-04] MEDS: Potassium Chloride LIQUID* 20 MEQ PACKET PO SCH ×3 (09:00→21:10)
--- NOTE | 2016-07-04 11:56 | PN ---
Subjective Date of Service: 07/04/16 - CC: SOB Interval History: On BiPAP, breathing improved. C. diff + noted. Medications Active Medications: Acetaminophen (Tylenol Tab*) 650 mg PO Q6H PRN PRN Reason: FEVER/PAIN Last Admin: 07/03/16 11:13 Dose: 650 mg Albuterol/Ipratropium (Duoneb Neb.Em*) 1 neb INH Q4H PRN PRN Reason: SOB/WHEEZING Last Admin: 07/02/16 21:25 Dose: 1 neb Amiodarone HCl (Cordarone Tab*) 100 mg PO 1700 [facility] Last Admin: 07/03/16 16:01 Dose: 100 mg Fludrocortisone Acetate (Florinef Tab*) 0.2 mg PO QAM [facility] Last Admin: 07/03/16 08:43 Dose: 0.2 mg Guaifenesin/Codeine Phosphate (Robitussin Ac 100mg-10mg*) 5 ml PO Q6HR PRN PRN Reason: COUGH Last Admin: 07/02/16 23:16 Dose: 5 ml Heparin Sodium (Porcine) (Heparin Vial(*)) 5,000 units SUBCUT Q8HR [facility] Last Admin: 07/04/16 05:24 Dose: 5,000 units Heparin Sodium (Porcine) (Heparin Flush Port (Ivad)*) 5 ml FLUSH DAILY [facility] PRN Reason: Protocol Last Admin: 07/03/16 13:34 Dose: Not Given Hydrocortisone (Cortef Tab*) 5 mg PO TID WITH MEALS [facility] Last Admin: 07/03/16 16:01 Dose: 5 mg Meropenem (Merrem 1 Gm Premix(*)) 1 gm in 50 mls @ 100 mls/hr IV Q8H [facility] Last Admin: 07/04/16 01:51 Dose: 100 mls/hr Magnesium Sulfate (Magnesium Sulfate 2 Gm Iv*) 2 gm in 50 mls @ 50 mls/hr IVPB Q24H [facility] Last Admin: 07/03/16 20:25 Dose: 50 mls/hr Ondansetron HCl (Zofran Tab*) 4 mg PO Q6H PRN PRN Reason: NAUSEA Last Admin: 07/01/16 19:57 Dose: 4 mg Oxycodone HCl (Roxycodone Tab*) 5 mg PO Q6HR PRN PRN Reason: PAIN Last Admin: 07/02/16 15:44 Dose: 5 mg Potassium Chloride (Klor-Con Liquid*) 40 meq PO TID DIANN Last Admin: 07/03/16 20:31 Dose: Not Given Prochlorperazine (Compazine Tab*) 10 mg PO Q6H PRN PRN Reason: NAUSEA Last Admin: 07/03/16 16:00 Dose: 10 mg Zolpidem Tartrate (Ambien Tab*) 5 mg PO BEDTIME PRN PRN Reason: INSOMNIA Last Admin: 06/30/16 23:03 Dose: 5 mg Objective Vital Signs: Temp Pulse Resp BP Pulse Ox 99.5 F 118 16 94/48 95 07/04/16 11:28 07/04/16 05:00 07/04/16 05:18 07/04/16 05:00 07/04/16 05:00 Oxygen Devices in Use Now: CPAP/BiPAP Eyes: PERRLA Ears/Nose/Mouth/Throat: Clear Oropharnyx Neck: Trachea Midline Respiratory: - - Diminished throughout, marked improvement in R lung, air movement heard throughout. L. base diminished BS. Cardiovascular: RRR - tachycardic, murmer apex/LSB. Abdominal: NL Sounds; No Tenderness; No Distention Extremities: No Edema Skin: No Rash or Ulcers Neurological: Alert and Oriented x 3, NL Muscle Strength and Tone Laboratory Results: 07/04/16 05:30 07/04/16 05:30 Total Bilirubin 0.90 mg/dL (0.2-1.0) 07/04/16 05:30 AST 10 U/L (13-39) L 07/04/16 05:30 ALT 6 U/L (7-52) L 07/04/16 05:30 Alkaline Phosphatase 78 U/L (34-104) 07/04/16 05:30 B-Natriuretic Peptide 834 pg/mL (-100) H 07/02/16 06:00 Total Protein 4.8 g/dL (6.4-8.9) L 07/04/16 05:30 Albumin 2.7 g/dL (3.2-5.2) L 07/04/16 05:30 Globulin 2.1 g/dL (2-4) 07/04/16 05:30 Albumin/Globulin Ratio 1.3 (1-3) 07/04/16 05:30 TSH 0.89 mcIU/mL (0.34-5.60) 07/01/16 04:53 Diagnostic Imaging: No imaging studies today. EKG Data: Sinus tachycardia 110 bpm. 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 Initial improvement with diuresis, decompensated last evening post PRBC with violent coughing and fever. Differential of exacerbation of her diastolic CHF from blood and/or aspiration pneumonia vs. other pneumonia, lower respiratory process. Pt now noted to be C diff positive as well. BP's remain very low, SBP 70-90. Marked improvement in aeration of the R lung post BiPAP. Points of Discussion: Cardiac: Paroxysmal afib: maintaining SR on amiodarone, continue for now. SOB/Pulmonary: BiPAP improving air movement. BP too low for additional diuretics at this point. ID: C. diff noted, also possible aspiration/other pulmonary infection. Will follow actively in this complex patient.
--- NOTE | 2016-07-04 12:27 | PN ---
Critical Care Services: Oxygenation improved on CPAP, but tolerance is poor. WBC count up to 17, and stool positive for C difficile (by PCR assay, not toxin assay) - had a similar episode in January of this year. Vital Signs: Temp Pulse Resp BP SpO2 FiO2 99.5 F 118 16 94/48 95 40 Physical Exam: Gen:Resting comfortably but appears weak. No difficulty breathing. Lungs: no crackles Abdomen: No distension Extremities:No cyanosis or edema. Fluid Balance (Past 24 Hours): 07/04/16 06:59 Intake Total 1180 Output Total ? Balance Weight 163 lb Intake: IV Fluids 530 NS (0.9%) 530 Potassium blood products IVPB Potassium blood products Oral 650 Output: Urine ? Liquid Stool 400 Other: Estimated Void Small # Bowel Movements 1 Estimated Stool Amount Large # Voids 1 Labs: 07/04/16 07/04/16 05:30 05:30 WBC 17.6 Hgb 8.2 Hct 26 Plt Count 32 MPV 9 Sodium 139 Potassium 4.0 Chloride 102 Carbon Dioxide 33 BUN 17 Creatinine 0.97 Glucose 117 Magnesium 2.0 Total Bilirubin 0.90 AST 10 L ALT 6 L Alkaline Phosphatase 78 Total Protein 4.8 L Albumin 2.7 Studies: ECHO of right chest - small pleural effusion. No pleural thickening noted. Nutrition: Oral diet Impression: 1. Clinical improvement on BiPAP - related to expansion of right lung base and/ or CHF. 2. No evidence of pleural entrapment of right lung base - volume loss could therefore be from past pneumonias or an endobronchial lesion (latter seems unlikely.) 3. Recurrent C. difficile colitis (although there are false positives with PCR assay). Plan: 1. Fidaxomicin not available, so will treat recurrent C difficile infection with oral vancomycin. (Further recurrences can be managed with fecal transplantation.) 2. Continue alveolar recruitment Rx with CPAP or BiPAP. Prognosis is guarded at this time.
--- NOTE | 2016-07-04 12:53 | RAD ---
INDICATION: Shortness of breath COMPARISON: Chest x-ray July 03, 2016 TECHNIQUE: Real time ultrasound images of the right hemithorax were acquired with ambrocio scale and Doppler color flow imaging. FINDINGS: A small pleural effusion is visualized. IMPRESSION: Very small right-sided pleural effusion.
[2016-07-04] MEDS: Fludrocortisone Acetate TAB* 0.1 MG PO SCH (13:10)
[2016-07-04] MEDS: Vancomycin CAP* 125 MG CAP PO SCH ×3 (13:11→21:10)
[2016-07-04] MEDS ORDERED: metroNIDAZOLE TAB* 250 MG PO SCH (14:00)
--- NOTE | 2016-07-04 15:21 | PN ---
Progress Note - Progress Note SOAP: Subjective: []Not feeling well. C. Diff positive. Fever last night. Breathing better but not tolerate CPAP. She is on NC on exam. No respiratory distress, some diarrhea. Active Medications Generic Name Dose Route Start Last Admin Trade Name Freq PRN Reason Stop Dose Admin Acetaminophen 650 mg 06/30/16 12:54 07/03/16 11:13 Tylenol Tab* PO 650 mg Q6H PRN Administration FEVER/PAIN Albuterol/Ipratropium 1 neb 07/01/16 09:16 07/02/16 21:25 Duoneb Neb.Em* INH 1 neb Q4H PRN Administration SOB/WHEEZING Amiodarone HCl 100 mg 06/30/16 17:00 07/03/16 16:01 Cordarone Tab* PO 100 mg 1700 DIANN Administration Fludrocortisone Acetate 0.2 mg 07/01/16 09:00 07/04/16 13:10 Florinef Tab* PO 0.2 mg QAM DIANN Administration Guaifenesin/Codeine Phosphate 5 ml 06/30/16 12:54 07/02/16 23:16 Robitussin Ac 100mg-10mg* PO 5 ml Q6HR PRN Administration COUGH Heparin Sodium (Porcine) 5,000 units 06/30/16 14:00 07/04/16 05:24 Heparin Vial(*) SUBCUT 5,000 units Q8HR DIANN Administration Heparin Sodium (Porcine) 5 ml 06/30/16 19:00 07/03/16 13:34 Heparin Flush Port (Ivad)* FLUSH Not Given DAILY [facility] Protocol Hydrocortisone 5 mg 06/30/16 17:00 07/04/16 13:10 Cortef Tab* PO 5 mg TID WITH MEALS DIANN Administration Magnesium Sulfate 2 gm in 50 mls @ 50 mls/hr 07/03/16 18:10 07/03/16 20:25 Magnesium Sulfate 2 Gm Iv* IVPB 50 mls/hr Q24H DIANN Administration Ondansetron HCl 4 mg 07/01/16 19:45 07/01/16 19:57 Zofran Tab* PO 4 mg Q6H PRN Administration NAUSEA Oxycodone HCl 5 mg 06/30/16 12:54 07/02/16 15:44 Roxycodone Tab* PO 5 mg Q6HR PRN Administration PAIN Potassium Chloride 40 meq 07/02/16 09:00 07/03/16 20:31 Klor-Con Liquid* PO Not Given TID DIANN Prochlorperazine 10 mg 06/30/16 12:54 07/03/16 16:00 Compazine Tab* PO 10 mg Q6H PRN Administration NAUSEA Vancomycin HCl 125 mg 07/04/16 13:00 07/04/16 13:11 Vancomycin Cap* PO 125 mg QID DIANN Administration Zolpidem Tartrate 5 mg 06/30/16 21:07 06/30/16 23:03 Ambien Tab* PO 5 mg BEDTIME PRN Administration INSOMNIA Objective: [] Vital Signs Temp Pulse Resp BP Pulse Ox 99.5 F 110 11 108/54 97 07/04/16 11:28 07/04/16 14:00 07/04/16 14:00 07/04/16 14:00 07/04/16 14:00 T max 102.7 HEENT - Mucosa moist, pale Decreased BS and crackles right base, left decreased sounds Tachy but regular. Abd distension, but not different. +BS Ext - Tr edema. Abnormal Lab Results 07/04/16 07/04/16 05:30 05:30 WBC 17.6 H RBC 2.75 L Hgb 8.2 L Hct 26 L MCV 94 MCH 30 MCHC 32 RDW 17 H Plt Count 32 L MPV 9 Neut % (Auto) 89.4 H Lymph % (Auto) 1.5 L [place] % (Auto) 8.8 Eos % (Auto) 0 Baso % (Auto) 0.3 Absolute Neuts (auto) 15.7 H Absolute Lymphs (auto) 0.3 L Absolute Monos (auto) 1.5 H Absolute Eos (auto) 0 Absolute Basos (auto) 0.1 Absolute Nucleated RBC 0.07 Nucleated RBC % 0.4 Sodium 139 Potassium 4.0 Chloride 102 Carbon Dioxide 33 H Anion Gap 4 BUN 17 Creatinine 0.97 H Est GFR ( Amer) 73.4 Est GFR (Non-Af Amer) 57.1 BUN/Creatinine Ratio 17.5 Glucose 117 H Calcium 8.1 L Magnesium 2.0 Total Bilirubin 0.90 AST 10 L ALT 6 L Alkaline Phosphatase 78 Total Protein 4.8 L Albumin 2.7 L Globulin 2.1 Albumin/Globulin Ratio 1.3 Assessment: []66 year old with metastatic esophageal cancer with good disease control but 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 Also h/o C.Diff. Was in hospital for 2 weeks for pneumonia, discharged but admitted on 07/01 after 3 days at home with fluid overload, diastolic dysfunction. Treated with gentle dieresis. Course complicated by fever and respiratory decompensation, hypertension. Now diagnosed with recurrent C. Diff. Plan: []1. CHF. Remains fluid overload but improved from admission. Given decreased BP will hold on further diuretics, echo pending. 2. Pulm. Working with ICU team and respiratory, stable today and sating and 95% on RA 3. ID. Oral vancomycin at this time. Had not responded in past to extensive therapy. Will to to Fidaxomicin 200 mg po bid. 4. FEN. Mg IV, no oral. K oral and follow. 5. Heme. No transfusions, follow daily. []
[2016-07-04] MEDS: Magnesium Sulfate 2 GM IV IVPB SCH (16:53)
[2016-07-04] MEDS: Amiodarone TAB* 200 MG PO SCH (16:54)
[2016-07-05] MEDS: Heparin VIAL(*) 5000 UNITS/ML VIAL (FIVE THOUSAND) SUBCUT SCH ×3 (05:40→21:34)
[2016-07-05 06:19] LABS: BUN/Creatinine Ratio 26.7 (8-20); Calcium 8.2 mg/dL (8.6-10.3); EGFR African American 98.8 (>60); EGFR Non-African American 76.8 (>60); Hematocrit 28 % (35-47); Hemoglobin 8.9 g/dl (12.0-16.0); Mean Corpuscular HGB Conc 32 g/dl (31-36); Mean Corpuscular Hemoglobin 30 pg (27-31); Mean Corpuscular Volume 94 fL (80-97); Potassium 4.1 mmol/L (3.5-5.0); Red Blood Count 2.99 10^6/ul (4.0-5.4); Red Cell Distribution Width 17 % (10.5-15); White Blood Count 15.7 10^3/ul (3.5-10.8)
[2016-07-05 06:20] LABS: Comments Flag Yes
[2016-07-05] MEDS: Hydrocortisone TAB* 5 MG PO SCH ×3 (07:55→16:36)
[2016-07-05] MEDS: Fludrocortisone Acetate TAB* 0.1 MG PO SCH (07:55)
[2016-07-05] MEDS: Vancomycin CAP* 125 MG CAP PO SCH ×4 (07:55→21:33)
[2016-07-05] MEDS: Potassium Chloride LIQUID* 20 MEQ PACKET PO SCH ×2 (07:56→13:00)
--- NOTE | 2016-07-05 08:03 | RAD ---
INDICATION: Cardiac failure COMPARISON: Chest x-ray dated July 03, 2016 TECHNIQUE: Single AP portable view of the chest was obtained. FINDINGS: Image quality is compromised due to the relative inferiority of a portable chest x-ray. The right subclavian vein Mediport terminates in the superior vena cava unchanged in the previous chest x-ray. There is mild cardiomegaly. Densities again seen obscuring the right lung base and to a lesser extent the left lung base. Visualized bones are normal for the patient's age. IMPRESSION: No significant change in the degree of hypoaeration with density obscuring the right lung base and right hemidiaphragm.
--- NOTE | 2016-07-05 08:56 | PN ---
Progress Note - Progress Note SOAP: Subjective: []Feels better, more awake and alert. Eating well. Diarrhea has not decreased. No fevers. Feels less fluid overloaded. Breathing is fine. Not getting out of bed. Active Medications Generic Name Dose Route Start Last Admin Trade Name Freq PRN Reason Stop Dose Admin Acetaminophen 650 mg 06/30/16 12:54 07/03/16 11:13 Tylenol Tab* PO 650 mg Q6H PRN Administration FEVER/PAIN Albuterol/Ipratropium 1 neb 07/01/16 09:16 07/02/16 21:25 Duoneb Neb.Em* INH 1 neb Q4H PRN Administration SOB/WHEEZING Amiodarone HCl 100 mg 06/30/16 17:00 07/04/16 16:54 Cordarone Tab* PO 100 mg 1700 DIANN Administration Fludrocortisone Acetate 0.2 mg 07/01/16 09:00 07/05/16 07:55 Florinef Tab* PO 0.2 mg QAM DIANN Administration Guaifenesin/Codeine Phosphate 5 ml 06/30/16 12:54 07/02/16 23:16 Robitussin Ac 100mg-10mg* PO 5 ml Q6HR PRN Administration COUGH Heparin Sodium (Porcine) 5,000 units 06/30/16 14:00 07/05/16 05:40 Heparin Vial(*) SUBCUT 5,000 units Q8HR DIANN Administration Heparin Sodium (Porcine) 5 ml 06/30/16 19:00 07/05/16 07:57 Heparin Flush Port (Ivad)* FLUSH Not Given DAILY [facility] Protocol Hydrocortisone 5 mg 06/30/16 17:00 07/05/16 07:55 Cortef Tab* PO 5 mg TID WITH MEALS DIANN Administration Magnesium Sulfate 2 gm in 50 mls @ 50 mls/hr 07/03/16 18:10 07/04/16 16:53 Magnesium Sulfate 2 Gm Iv* IVPB 50 mls/hr Q24H DIANN Administration Non Formulary Med: 1 dose 07/05/16 09:00 07/05/16 07:56 Fidaxomicin 200mg PO 07/14/16 21:01 Not Given Tab BID DIANN Ondansetron HCl 4 mg 07/01/16 19:45 07/01/16 19:57 Zofran Tab* PO 4 mg Q6H PRN Administration NAUSEA Oxycodone HCl 5 mg 06/30/16 12:54 07/02/16 15:44 Roxycodone Tab* PO 5 mg Q6HR PRN Administration PAIN Potassium Chloride 40 meq 07/02/16 09:00 07/05/16 07:56 Klor-Con Liquid* PO 40 meq TID DIANN Administration Prochlorperazine 10 mg 06/30/16 12:54 07/03/16 16:00 Compazine Tab* PO 10 mg Q6H PRN Administration NAUSEA Vancomycin HCl 125 mg 07/04/16 13:00 07/05/16 07:55 Vancomycin Cap* PO 125 mg QID DIANN Administration Zolpidem Tartrate 5 mg 06/30/16 21:07 06/30/16 23:03 Ambien Tab* PO 5 mg BEDTIME PRN Administration INSOMNIA Objective: [] Vital Signs Temp Pulse Resp BP Pulse Ox 98.6 F 100 8 84/52 97 07/05/16 03:46 07/05/16 07:00 07/05/16 07:30 07/05/16 07:30 07/05/16 07:00 HEENT - Mucosa moist. Pale. No thrush CTA with yellow stethoscope. RRR S1S2 104 Abd not changed, distended and possitive BS. Labs - Reviewed. []Assessment: []66 year old with metastatic esophageal cancer with good disease control but 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 Also h/o C.Diff. Was in hospital for 2 weeks for pneumonia, discharged but admitted on 07/01 after 3 days at home with fluid overload, diastolic dysfunction. Treated with gentle dieresis. Course complicated by fever and respiratory decompensation, hypertension. Now diagnosed with recurrent C. Diff. Plan: []1. CHF. Appears improved. Given decreased BP will hold on further diuretics. Check BNP today and tomorrow. 2. Pulm. Improved and on 4L NC, no distress. 3. ID. Oral vancomycin at this time. Had not responded in past to extensive therapy. Fidaxomicin 200 mg po bid will start today. 4. FEN. Mg IV, no oral. K oral. Check Mg and K today. 5. Heme. No transfusions, follow daily. 6. PT - evaluate gait, has not walked since Sat 7. To floor tomorrow if continue to improve. []
[2016-07-05] MEDS ORDERED: FIDAXOMICIN 200 MG PO SCH (09:00)
[2016-07-05] MEDS: FIDAXOMICIN 200 MG PO SCH ×2 (11:15→21:33)
--- NOTE | 2016-07-05 15:15 | PN ---
Critical Care Services: Alert, and breathing comfortably in bed on nasal O2, with spO2 = 96%. Foul- smelling diarrhea continues. Vital Signs: Temp Pulse Resp BP SpO2 FiO2 97.5 F 100 15 94/51 97 40 Physical Exam: Gen:Alert, oriented, no distress Lungs:coarse rhonchoi. Diminished breath sounds right base poosteriorly. Abdomen: Not distended Extremities:no cyanosis - trace edema. Fluid Balance (Past 24 Hours): 07/05/16 06:59 Intake Total 607 Output Total 525 Balance 82 Weight 151 lb Intake: IV Fluids NS (0.9%) Potassium blood products IVPB 292 NS (0.9%) 292 Potassium blood products Oral 315 Output: Urine 525 Liquid Stool Other: Estimated Void Medium # Bowel Movements 1 Estimated Stool Amount Small Labs: 07/05/16 07/05/16 05:40 05:40 WBC 15.7 Hgb 8.9 Hct 28 Plt Count 53 Sodium 139 Potassium 4.1 Chloride 102 Carbon Dioxide 34 BUN 20 Creatinine 0.75 Glucose 93 Calcium 8.2 Studies: CXR: Volume loss and opacification at right base - no change from prior CXR. Nutrition: Oral diet Impression: Respiratory status improved with CPAP/BiPAP intermittently. Recurrent C diff enterocolitis - continues to be symptomatic. Plan: 1. Start fidaxomicin today for recurrent C diff. May need fecal transplantation for unresolved or recurrent episodes. 2. Continue "recruitment Rx" with CPAP/BiPAP intermittently. 3. Hold diuresis because of low BP
[2016-07-05] MEDS: Amiodarone TAB* 200 MG PO SCH (16:36)
[2016-07-05] MEDS: Magnesium Sulfate 2 GM IV IVPB SCH (16:36)
[2016-07-05] MEDS: oxyCODONE TAB* 5 MG TAB PO PRN (21:43)
[2016-07-05] MEDS: Meropenem 1 GM PREMIX(*) 1 GM/50 ML BAG IV SCH (21:59)
[2016-07-06] MEDS: Acetaminophen TAB* 325 MG PO PRN ×2 (02:12→08:14)
[2016-07-06 06:15] LABS: Comments Flag Yes; Hematocrit 28 % (35-47); Hemoglobin 8.9 g/dl (12.0-16.0); Mean Corpuscular HGB Conc 32 g/dl (31-36); Mean Corpuscular Hemoglobin 30 pg (27-31); Mean Corpuscular Volume 96 fL (80-97); Red Blood Count 2.97 10^6/ul (4.0-5.4); Red Cell Distribution Width 17 % (10.5-15)
[2016-07-06 06:16] LABS: Add Diff/Slide Review? Slide Review Added
[2016-07-06 06:35] LABS: Albumin 2.7 g/dL (3.2-5.2); Calcium 8.3 mg/dL (8.6-10.3); EGFR African American 98.8 (>60); EGFR Non-African American 76.8 (>60); Globulin 2.5 g/dL (2-4); Magnesium 2.2 mg/dL (1.9-2.7); Total Bilirubin 0.7 mg/dL (0.2-1.0); Total Protein 5.2 g/dL (6.4-8.9)
[2016-07-06] MEDS: Heparin VIAL(*) 5000 UNITS/ML VIAL (FIVE THOUSAND) SUBCUT SCH ×2 (07:52→15:24)
[2016-07-06] MEDS: FIDAXOMICIN 200 MG PO SCH ×2 (07:59→21:28)
[2016-07-06] MEDS: Fludrocortisone Acetate TAB* 0.1 MG PO SCH (07:59)
[2016-07-06] MEDS: Vancomycin CAP* 125 MG CAP PO SCH ×4 (07:59→21:28)
[2016-07-06] MEDS: Hydrocortisone TAB* 5 MG PO SCH ×3 (07:59→16:46)
[2016-07-06] MEDS: Magnesium Sulfate 2 GM IV IVPB SCH (16:46)
[2016-07-06] MEDS: Amiodarone TAB* 200 MG PO SCH (16:46)
[2016-07-07 00:59] LABS: Urine Bacteria Absent (Absent); Urine Bilirubin Negative (Negative); Urine Glucose Negative (Negative); Urine Nitrite Negative (Negative)
[2016-07-07 06:36] LABS: Hematocrit 28 % (35-47); Hemoglobin 8.8 g/dl (12.0-16.0); Mean Corpuscular HGB Conc 32 g/dl (31-36); Mean Corpuscular Hemoglobin 30 pg (27-31); Mean Corpuscular Volume 96 fL (80-97); Mean Platelet Volume 10 um3 (7.4-10.4); Red Blood Count 2.91 10^6/ul (4.0-5.4); Red Cell Distribution Width 17 % (10.5-15)
[2016-07-07 06:41] LABS: Albumin 2.7 g/dL (3.2-5.2); BUN/Creatinine Ratio 22.2 (8-20); EGFR African American 120.9 (>60); Globulin 2.2 g/dL (2-4); Magnesium 1.8 mg/dL (1.9-2.7); Potassium 3.3 mmol/L (3.5-5.0); Total Bilirubin 0.8 mg/dL (0.2-1.0); Total Protein 4.9 g/dL (6.4-8.9)
[2016-07-07 06:45] LABS: Comments Flag Yes
[2016-07-07] MEDS: Fludrocortisone Acetate TAB* 0.1 MG PO SCH (09:35)
[2016-07-07] MEDS: FIDAXOMICIN 200 MG PO SCH ×2 (09:36→21:25)
[2016-07-07] MEDS: Vancomycin CAP* 125 MG CAP PO SCH ×4 (09:36→21:25)
[2016-07-07] MEDS: Hydrocortisone TAB* 5 MG PO SCH ×3 (09:36→17:36)
[2016-07-07] MEDS: KCL 20 MEQ/100 ML IVPREMIX* 20 MEQ/100 ML BAG IV SCH ×2 (11:35→14:59)
--- NOTE | 2016-07-07 15:10 | CONS ---
CONSULTATION REPORT: DATE OF CONSULT: 07/07/16 REQUESTING PHYSICIAN: Dr. Randall. CONSULTING SERVICE: Infectious Disease. REASON FOR CONSULT: C. difficile associated diarrhea. IMPRESSION: 1. Recent antibiotic use for pneumonia, developed frequent stools with crampy abdominal pain and leukocytosis. Clostridium difficile PCR was positive. She has been on vancomycin and fidaxomicin, down to one semiformed stool a day so far. Her crampy abdominal pain has resolved. 2. Recent chemotherapy and ongoing hydrocortisone therapy. 3. Metastatic esophageal cancer. 4. Thrombocytopenia, felt to be chemotherapy related. 5. Leukocytosis, improving, likely due to Clostridium difficile. RECOMMENDATION: Agree with vancomycin 125 mg by mouth four times a day. We will stop the fidaxomicin given that she is improving steadily and usually not helpful in the first episode of C. difficile infection. HISTORY OF PRESENT ILLNESS: This is a 66-year-old woman with metastatic esophageal cancer, admitted with dyspnea, being treated recently for pneumonia, who had developed severe diarrhea on the . She had C. diff test on the , it was positive. She was started on vancomycin and fidaxomicin was added on the . She had already started to have improvement in her diarrhea symptoms by the , decreased from once an hour to once every 2 to 3 hours and now is down to one so far a day which is semiformed. No abdominal pain or fever. PAST MEDICAL HISTORY: 1. Metastatic esophageal cancer, ongoing chemotherapy. 2. Status post tonsillectomy. 3. Arthritis. 4. Atrial fibrillation. 5. DVT. 6. Hypertension. 7. Clostridium dificile diarrhea, treated with fecal transplant MEDICATIONS: 1. Amiodarone. 2. Fidaxomicin 200 mg by mouth twice daily. 3. Fludrocortisone. 4. Hydrocortisone. 5. Vancomycin 125 mg by mouth four times a day. 6. Ambien. ALLERGIES: METOPROLOL. FAMILY HISTORY: No recurrent infections. SOCIAL HISTORY: Lives with her in [place]. No sick contacts. REVIEW OF SYSTEMS: All negative except as noted above. PHYSICAL EXAM: Vital Signs: Temperature is 36.3, heart rate 90, respiratory rate 18, blood pressure 94/49, O2 sat 95% on room air. General: She is awake and oriented x3, in no acute distress. HEENT: Pupils equal, round, and reactive to light without conjunctival hemorrhage. Oropharynx: Without lesions. Neck: Supple without nuchal rigidity. Lymph Nodes: There is no cervical, supraclavicular, inguinal, axillary, or epitrochlear lymphadenopathy. Heart: Regular rate and rhythm without murmurs, rubs, or gallop. Lungs: Clear to auscultation bilaterally. Abdomen: Soft, nontender, nondistended. There are bowel sounds present. Skin: There is no rash or splinter hemorrhages. Musculoskeletal: There is no spine tenderness to palpation. LABORATORY DATA: White blood cell count 11, hemoglobin 8.8, platelets 33. Creatinine is 0.6. BNP of 1100. Please see impressions and recommendations as outlined above. Thanks for asking me to see Ms. Huitron in consultation. [id number]/[facility] #: [id number] OSEAS
[2016-07-07] MEDS: Magnesium Sulfate 2 GM IV IVPB SCH (17:36)
[2016-07-07] MEDS: Amiodarone TAB* 200 MG PO SCH (17:36)
[2016-07-07] MEDS: Zolpidem TAB* 5 MG PO PRN (21:30)
[2016-07-08 04:37] LABS: Hematocrit 30 % (35-47); Hemoglobin 9.4 g/dl (12.0-16.0); Mean Corpuscular HGB Conc 32 g/dl (31-36); Mean Corpuscular Hemoglobin 30 pg (27-31); Mean Corpuscular Volume 95 fL (80-97); Red Cell Distribution Width 17 % (10.5-15); White Blood Count 8.9 10^3/ul (3.5-10.8)
[2016-07-08 04:43] LABS: Comments Flag Yes
[2016-07-08 04:44] LABS: Add Diff/Slide Review? Slide Review Added
[2016-07-08 04:53] LABS: BUN/Creatinine Ratio 17.7 (8-20); EGFR African American 123.1 (>60); EGFR Non-African American 95.7 (>60); Magnesium 1.9 mg/dL (1.9-2.7); Potassium 3.3 mmol/L (3.5-5.0)
[2016-07-08] MEDS ORDERED: Furosemide TAB* 20 MG PO ONE (07:20)
--- NOTE | 2016-07-08 07:37 | PN ---
Progress Note - Progress Note SOAP: Subjective: overall feeling weak and frustrated by that. biggest complaint is her anasarca. 2 loose BMs yesterday, which is back to her baseline. no crampy pain. able to ambulate short distances but gets tired and winded. Objective: Vital Signs Temp Pulse Resp BP Pulse Ox 97.5 F 80 15 85/57 99 07/07/16 23:08 07/07/16 23:08 07/07/16 23:08 07/07/16 23:08 07/07/16 23:08 sitting up in chair sleeping initially op dry dec bs right base s1 s2 nl soft nt +bs anasarcic A+O x 3, nonfocal neurological exam but globally weak Laboratory Results - last 24 hr 07/08/16 07/08/16 04:20 04:20 WBC 8.9 RBC 3.10 L Hgb 9.4 L Hct 30 L MCV 95 MCH 30 MCHC 32 RDW 17 H Plt Count 60 L D Neut % (Auto) 79.1 Lymph % (Auto) 8.0 L [place] % (Auto) 12.0 H Eos % (Auto) 0.4 Baso % (Auto) 0.5 Absolute Neuts (auto) 7.1 Absolute Lymphs (auto) 0.7 L Absolute Monos (auto) 1.1 H Absolute Eos (auto) 0 Absolute Basos (auto) 0 Absolute Nucleated RBC 0.05 Nucleated RBC % 0.6 Sodium 141 Potassium 3.3 L Chloride 105 Carbon Dioxide 33 H Anion Gap 3 BUN 11 Creatinine 0.62 Est GFR ( Amer) 123.1 Est GFR (Non-Af Amer) 95.7 BUN/Creatinine Ratio 17.7 Glucose 103 H Calcium 8.0 L Magnesium 1.9 Acetaminophen (Tylenol Tab*) 650 mg PO Q6H PRN PRN Reason: FEVER/PAIN Last Admin: 07/06/16 08:14 Dose: 650 mg Albuterol/Ipratropium (Duoneb Neb.Em*) 1 neb INH Q4H PRN PRN Reason: SOB/WHEEZING Last Admin: 07/02/16 21:25 Dose: 1 neb Amiodarone HCl (Cordarone Tab*) 100 mg PO 1700 DIANN Last Admin: 07/07/16 17:36 Dose: 100 mg Fidaxomicin (Dificid (Nf)) 200 mg PO BID DIANN Last Admin: 07/07/16 21:25 Dose: 200 mg Fludrocortisone Acetate (Florinef Tab*) 0.2 mg PO QAM [facility] Last Admin: 07/07/16 09:35 Dose: 0.2 mg Furosemide (Lasix Tab*) 10 mg PO ONCE ONE Stop: 07/08/16 07:21 Guaifenesin/Codeine Phosphate (Robitussin Ac 100mg-10mg*) 5 ml PO Q6HR PRN PRN Reason: COUGH Last Admin: 07/02/16 23:16 Dose: 5 ml Heparin Sodium (Porcine) (Heparin Flush Port (Ivad)*) 5 ml FLUSH DAILY [facility] PRN Reason: Protocol Last Admin: 07/07/16 21:33 Dose: 5 ml Hydrocortisone (Cortef Tab*) 5 mg PO TID WITH MEALS [facility] Last Admin: 07/07/16 17:36 Dose: 5 mg Magnesium Sulfate (Magnesium Sulfate 2 Gm Iv*) 2 gm in 50 mls @ 50 mls/hr IVPB Q24H [facility] Last Admin: 07/07/16 17:36 Dose: 50 mls/hr Potassium Chloride (Potassium Chloride 20 Meq/100 Ml Ivpremix*) 20 meq in 100 mls @ 50 mls/hr IV Q2H [facility] Stop: 07/08/16 11:59 Ondansetron HCl (Zofran Tab*) 4 mg PO Q6H PRN PRN Reason: NAUSEA Last Admin: 07/01/16 19:57 Dose: 4 mg Oxycodone HCl (Roxycodone Tab*) 5 mg PO Q6HR PRN PRN Reason: PAIN Last Admin: 07/05/16 21:43 Dose: 5 mg Potassium Chloride (Klor-Con Liquid*) 40 meq PO DAILY [facility] Prochlorperazine (Compazine Tab*) 10 mg PO Q6H PRN PRN Reason: NAUSEA Last Admin: 07/03/16 16:00 Dose: 10 mg Zolpidem Tartrate (Ambien Tab*) 5 mg PO BEDTIME PRN PRN Reason: INSOMNIA Last Admin: 07/07/16 21:30 Dose: 5 mg Assessment: 66 yo F w metastatic esophageal CA with stable disease, treatment related MDS, and a history of c diff sp fecal transplant admitted with fatigue, weakness, and generalized anasarca in the setting of an acute diastolic heart failure exacerbation of unclear etiology. Her course now complicated by increased respiratory failure that has improved and recurrent c diff infection now on fidaxomicin. Clinically she is certainly improved over this weekend, though globally weak and still anasarcic. Ideally we will be able to discharge her in the next day or two. Plan: diastolic heart failure exacerbation, acute: still grossly anasarcic with elevated BNP but course complicated by baseline hypotension. will try to give 20 mg PO lasix today -daily weights -cont amiodarone for afib, in sinus and well controlled -no anticoagulation given thrombocytopenia -watch electrolytes closely, add back PO KCL and give runs today -cont hydrocortisone and florinef, increase dose to 0.3 mg daily moderate protein calorie malnutrition: -per dietary appears to be eating ~50-80% of meals. continue to encourage ensure and high protein options as tolerated given low prealbumin -recheck prealbumin today c diff: certainly improved on fidaxomicin -cont c diff precautions one more day -if need for future abx will try to limit to doxy, bactrim and azithro if possible as these cause less c diff MDS: treatment related, stable esophageal CA: currently holding treatment given above medical issues, but last scan stable full code no dvt prophylaxis if plts <50. today 60 but in general <50 so will hold
[2016-07-08] MEDS ORDERED: Potassium Chloride LIQUID* 20 MEQ PACKET PO SCH (09:00)
[2016-07-08] MEDS: Hydrocortisone TAB* 5 MG PO SCH ×3 (09:17→19:12)
[2016-07-08] MEDS: Fludrocortisone Acetate TAB* 0.1 MG PO SCH (09:18)
[2016-07-08] MEDS: FIDAXOMICIN 200 MG PO SCH ×2 (09:18→21:29)
[2016-07-08] MEDS: KCL 20 MEQ/100 ML IVPREMIX* 20 MEQ/100 ML BAG IV SCH ×2 (09:19→11:58)
--- NOTE | 2016-07-08 10:14 | PN ---
Progress Note - Progress Note SOAP: Subjective: DOS: 07/08/16 CC: diarrhea HPI: 66 year old woman with metastatic esophageal cancer and recent treatment for PNA now with Cdif diarrhea. 1 BM today, a little more loose this morning, eating more and varied food. No abd pain or fever. Objective: [] Vital Signs Temp 36.3 C 07/08/16 07:28 Pulse 90 07/08/16 09:55 Resp 18 07/08/16 09:55 BP 85/49 07/08/16 07:28 Pulse Ox 97 07/08/16 09:55 Intake & Output 07/07/16 07/08/16 07/08/16 18:59 06:59 18:59 Intake Total 875 748 Output Total 300 300 Balance 575 448 Weight 160 lb 4.8 oz Intake: IV Fluids 308 Magnesium 60 NS (0.9%) 248 IVPB 230 NS (0.9%) 115 Potassium 115 Oral 645 440 Output: Urine 300 300 Other: Estimated Void Medium Date of Last Bowel 07/08/16 Movement # Bowel Movements 1 1 Estimated Stool Amount Small Small # Voids 1 Gen:Awake Ox3 Neck: supple HEENT:PERRL, MMM Heart:RRR no murmur Lungs:CTA BL Abd:+BS NTND soft Skin: no rash Chest: R chest port Assessment: 1. recurrent Cdif Associated diarrhea 2. pancytopenia 3. metastatic esophageal cancer, recent chemotherapy Plan: 1. continue fidaxomicin then vanco 125 mg po bid x14 days, then daily for 7 days then every other day for 7 doses then every third day for [address] Randall
[2016-07-08] MEDS ORDERED: Potassium Chloride LIQUID* 20 MEQ PACKET PO ONE (17:15)
[2016-07-08] MEDS: Amiodarone TAB* 200 MG PO SCH (19:12)
[2016-07-08] MEDS: Magnesium Sulfate 2 GM IV IVPB SCH (19:13)
[2016-07-08] MEDS: Nystatin TOP POWDER* 15 GM BTL TOPICAL SCH (21:29)
[2016-07-08] MEDS: Potassium Chloride LIQUID* 20 MEQ PACKET PO SCH (21:29)
[2016-07-08] MEDS: Zolpidem TAB* 5 MG PO PRN (21:29)
[2016-07-09 07:44] VITALS: BP 101/46
[2016-07-09] MEDS: Potassium Chloride LIQUID* 20 MEQ PACKET PO SCH (08:35)
[2016-07-09] MEDS: Fludrocortisone Acetate TAB* 0.1 MG PO SCH (08:35)
[2016-07-09] MEDS: Hydrocortisone TAB* 5 MG PO SCH ×2 (08:35→12:52)
[2016-07-09] MEDS: FIDAXOMICIN 200 MG PO SCH ×2 (08:36→15:00)
[2016-07-09] MEDS: Nystatin TOP POWDER* 15 GM BTL TOPICAL SCH (08:45)
[2016-07-09] MEDS ORDERED: KCL 20 MEQ/100 ML IVPREMIX* 20 MEQ/100 ML BAG IV SCH (10:00)
[2016-07-09 10:33] LABS: BUN/Creatinine Ratio 14.3 (8-20); Calcium 8.2 mg/dL (8.6-10.3); EGFR African American 138.5 (>60); EGFR Non-African American 107.7 (>60); Potassium 3.5 mmol/L (3.5-5.0)
--- NOTE | 2016-07-12 04:20 | DS ---
DISCHARGE SUMMARY: DATE OF ADMISSION: 06/30/16 DISCHARGE DATE: 07/09/16 DISCHARGE DIAGNOSES: 1. Diastolic heart failure, stable, with normal EF. 2. Respiratory failure: Secondary to fluid overload, resolved. 3. Clostridium difficile: Secondary to broad spectrum antibiotics, improving on p.o. ABX. 4. Moderate protein calorie malnutrition: Albumin 11 on discharge, focus on high- protein diet. 5. Anasarca: Secondary to heart failure. 6. Metastatic esophageal cancer: Stable, treatment currently on hold. 7. Myelodysplastic syndrome: Secondary to extensive chemotherapy treatment, stable. DISCHARGE MEDICATIONS': 1. Furosemide 20 mg p.o. every other day. 2. Nystatin topical powder applied b.i.d. to groin. 3. Potassium chloride 40 mEq p.o. b.i.d. 4. Vancomycin 125 mg 1 b.i.d. x14 days then 1 daily x7 days then 1 every other day x7 doses, then 1 every third day x7 doses. 5. Zolpidem 5 mg p.o. q.h.s. p.r.n. insomnia. 6. Amiodarone 100 mg p.o. q.1700. 7. Prochlorperazine 10 mg p.o. q.6h. p.r.n. 8. Florinef 0.2 mg p.o. q.a.m. 9. Oxycodone 5 mg p.o. q.6 hours p.r.n. pain. 10. Ondansetron 4 mg p.o. q.6 hours p.r.n. nausea. 11. Hydrocortisone 5 mg p.o. t.i.d. 12. Acetaminophen 650 mg p.o. q.6 hours p.r.n. fever/pain. 13. Guaifenesin/codeine 100-10/5 mL (5 mL p.o. q.6 hours p.r.n. cough). 14. Magnesium 1200 mg p.o. b.i.d. HOSPITAL COURSE: Please see admission note for full H and P; however, briefly, Ms Huitron is well know n to our service due to unfortunate diagnosis of metastatic esophageal cancer, currently stable on c hemotherapy (that is on hold due to acute health crisis). Ms. Huitron was recently in the hospital rel ated to sepsis, having on home on ABX and managed as an outpatient. She presented to the office on 06/30/16 with shortness of breath complaint and symptoms of heart failure. Her BNP was approximatel y 900 and she was admitted for diuresis. Ms. Huitron has had multiple complications with therapy inclu ding history of pericardial effusion, pleural effusion, cholecystitis, multiple infections, and most recently MDS. On admission she was close to 12 pounds heavier than her norm with extensive edema. She was admitted with echocardiogram, IV Lasix and electrolyte replacement. The following day her prealbumin was checked as it was felt the component may be related to malnutrition. This was at 8 e qualing moderate malnutrition. Her echocardiogram in the prior day confirmed diastolic heart failur e with preserved EF. Consultation with Cardiology was obtained and this completed by Dr. Gonzalez on 07/01/16. Ultimately per Cardiology, her heart failure was felt to be multifactorial and plan was agreed in regards to IV diuresis. In combination with IV diuresis, Ms. Huitron experienced several ep isodes of hypotension, however, with her Florinef on board, this remained stable with a systolic in the 80s. She has not been symptomatic with this blood pressure as it has been longstanding. The pa tient appeared to be improving, however, in the very instructional coach of 07/03/16, on-call assessment t eam was called due to increased respiratory effort, hypoxia, and crackles in the lungs. Ms. Huitron was transferred to the ICU in acute respiratory failure secondary to fluid overload. Dr. Diaz was se en in consultation for intensive care. The patient was placed on CPAP and continued to be monitored by aggressive diuresis. She was also initiated on broad spectrum IV antibiotics with meropenem for concern of pneumonia. She developed a temperature up to 103 at this time. By 07/04/16, Ms. Huitron de veloped diarrhea at which time she had positive C. diff stools. She has had a history of this in past with broad spectrum antibiotics. The patient was initiated on oral vancomycin, however, due to past history was transitioned fidaxomicin 200 mg p.o. b.i.d. on the 07/04/16. By the , Ms. Delmar pizano was feeling much better with decrease in diarrhea and no further fevers and she was transferred t o the general medical floor the following day. Over the next several days. she continue to improve with close monitoring of electrolytes and cautious diuresis. Throughout her stay her biggest complai nt has been anasarca. Yesterday, on 07/08/16, Ms. Huitron wanted very much to be discharged home, arevalo thuan, with extensive illness during admission and hypokalemia, it was felt she required monitoring ov ernight with evaluation in the a.m. for discharge. At this time the plan was made for transition to p.o. vancomycin and discharge home. The patient was consulted with Dr. Hickey of Infectious Dise ase who is familiar with her care. Today on July 09, Mr. Huitron is feeling well overall and very m uch would like to go home. She understands the plan for p.o. vancomycin. She also understands that anasarca may take sometime to improve, however, we will attempt gentle diuresis at home with Lasix every other day. She has been encouraged to continue utilizing incentive spirometer as well as CATHI stockings during the day. I have encouraged her to ambulate in her home and she will be discharged on p.o. electrolyte replacement. Ms. Huitron will return to our office on 07/12/16 for recheck of her labs and will followup with physician's assistant real estate manager, on 07/16/16 in regards to her ove rall care. To note, Ms. Huitron's BNP has stayed stable in the 800s at this point. TIME SPENT: Greater than 40 minutes was spent with greater than 50% [id number] counseling. KURTIS RIVAS, SONG [id number]/[facility] #: [id number]
== END 2016-07-09 15:20 | disposition home or self-care (01) | DRG 291 ==
LOC: MEDTELE 13:47 → ICU 07-03 03:17 → MED 07-06 16:10
PROVIDERS: ADMIT Internal Medicine Hematology & Oncology; ATTEND Internal Medicine Hematology & Oncology
PROC: 30233N1 Transfusion of Nonautologous Red Blood Cells into Peripheral Vein, Percutaneous Approach (ICD-10-PCS; 2016-07-02)
PROC: 5A09357 Assistance with Respiratory Ventilation, Less than 24 Consecutive Hours, Continuous Positive Airway Pressure (ICD-10-PCS; principal; 2016-07-03)
DX: I11.0 Hypertensive heart disease with heart failure (principal); J96.91 Respiratory failure, unspecified with hypoxia; J18.9 Pneumonia, unspecified organism; E44.0 Moderate protein-calorie malnutrition; D61.818 Other pancytopenia; I95.9 Hypotension, unspecified; C15.9 Malignant neoplasm of esophagus, unspecified; A04.7 Enterocolitis due to Clostridium difficile; I31.3 Pericardial effusion (noninflammatory); I48.0 Paroxysmal atrial fibrillation; M19.90 Unspecified osteoarthritis, unspecified site; Z87.891 Personal history of nicotine dependence; Z87.440 Personal history of urinary (tract) infections; Z88.8 Allergy status to other drugs, medicaments and biological substances; Z86.718 Personal history of other venous thrombosis and embolism; D46.9 Myelodysplastic syndrome, unspecified; E87.6 Hypokalemia; I50.33 Acute on chronic diastolic (congestive) heart failure; T45.1X5A Adverse effect of antineoplastic and immunosuppressive drugs, initial encounter; D53.9 Nutritional anemia, unspecified
CPT/HCPCS: 36415; 36591; 71010; 71260; 76604; 80048; 80053; 81003; 81015; 83735; 83880; 84134; 84436; 84443; 84479; 84484; 85025; 85027; 85730; 86850; 86900; 86901; 86922; 87040; 87086; 87493; 87641; 93005; 93306; 94640; 94660; 94760; 96365; 96366; 96374; 99215; 99223; 99232; 99233; 99239; A9270-GY; G0463; J0713; J0885; J1642; J1644; J1940; J2185; J3475; J3480; P9040; Q0164; Q9967

== ENCOUNTER 2016-07-16 14:58 | Inpatient (IN) | payer MEDICARE, OTHER ==
[2016-07-16] MEDS ORDERED: Furosemide IV* 10 MG/ML 10 ML VIAL (100 MG) IV SCH ×2 (15:14)
[2016-07-16] MEDS ORDERED: guaiFENesin/CODIEN 100MG-10MG* 5 ML UDC PO PRN (15:24)
[2016-07-16] MEDS ORDERED: Zolpidem TAB* 5 MG PO PRN (15:24)
[2016-07-16] MEDS ORDERED: Ondansetron TAB* 4 MG PO PRN (15:24)
[2016-07-16] MEDS ORDERED: Prochlorperazine TAB* 10 MG PO PRN (15:24)
[2016-07-16] MEDS ORDERED: Metolazone TAB* 5 MG PO SCH (16:30)
[2016-07-16] MEDS: Vancomycin CAP* 125 MG CAP PO SCH ×2 (17:27→21:00)
[2016-07-16] MEDS: Hydrocortisone TAB* 5 MG PO SCH (17:28)
[2016-07-16] MEDS: Potassium Chlor TAB* 20 MEQ TAB.ER PO SCH ×2 (17:28→21:05)
--- NOTE | 2016-07-16 20:08 | RAD ---
INDICATION: Fluid overload. Fever. Question of pneumonia. History of esophageal and lung cancer. COMPARISON: July 16, 2016 chest radiograph. July 01, [address] TECHNIQUE: Multidetector CT images were obtained from the lung apices to the upper abdomen. Evaluation of the viscera is limited without IV contrast. REPORT: Diffuse prominence of the interstitial markings with thickened peripheral interlobular septa. Geographic RIGHT paramediastinal pulmonary consolidation with air bronchograms without change compared with the prior CT. New 3.0 x 2.6 cm focus of consolidation at the anterior segment of the RIGHT lower lobe. Additional smaller foci of new consolidation in the RIGHT lung. Small RIGHT and small to moderate LEFT pleural effusions without significant change. Negative for pneumothorax. Mild cardiomegaly. Small pericardial effusion without change. Tip of RIGHT chest port at level of superior vena cava RIGHT atrial junction. Diffuse circumferential thickening of the mid to distal thoracic esophagus. Extensive soft tissue edema in the RIGHT breast and chest wall increased over the prior exam. Negative for suspicious osseous lesions. IMPRESSION: 1. Stigmata of interstitial pulmonary edema with associated unchanged small RIGHT and moderate LEFT pleural effusions. 2. New areas of parenchymal consolidation in the RIGHT lung most concerning for pneumonia given interval change compared with the July 01, 2016 CT. 3. RIGHT para midline consolidation in the RIGHT lung without change likely represents postradiation fibrosis 4. No significant change in long segment circumferential mural thickening of the esophagus. 5. Unchanged small pericardial effusion.
[2016-07-16] MEDS: Potassium Chloride LIQUID* 20 MEQ PACKET PO SCH (20:59)
[2016-07-16] MEDS: Magnesium Oxide TAB* 400 MG PO SCH (20:59)
[2016-07-16] MEDS: Amiodarone TAB* 200 MG PO SCH (21:00)
[2016-07-16] MEDS: Nystatin TOP POWDER* 15 GM BTL TOPICAL SCH (21:00)
[2016-07-17 06:14] LABS: Hematocrit 26 % (35-47); Hemoglobin 8.5 g/dl (12.0-16.0); Mean Corpuscular HGB Conc 33 g/dl (31-36); Mean Corpuscular Hemoglobin 29 pg (27-31); Mean Corpuscular Volume 89 fL (80-97); Mean Platelet Volume 10 um3 (7.4-10.4); Red Blood Count 2.89 10^6/ul (4.0-5.4); Red Cell Distribution Width 19 % (10.5-15); White Blood Count 8.1 10^3/ul (3.5-10.8)
[2016-07-17 06:25] LABS: Comments Flag Yes
[2016-07-17 06:29] LABS: Albumin 2.9 g/dL (3.2-5.2); BUN/Creatinine Ratio 13.6 (8-20); Calcium 8.5 mg/dL (8.6-10.3); EGFR African American 130.4 (>60); EGFR Non-African American 101.4 (>60); Globulin 2.2 g/dL (2-4); Magnesium 1.2 mg/dL (1.9-2.7); Potassium 2.9 mmol/L (3.5-5.0); Total Bilirubin 1.3 mg/dL (0.2-1.0); Total Protein 5.1 g/dL (6.4-8.9)
[2016-07-17] MEDS: Acetaminophen TAB* 325 MG PO PRN (07:09)
[2016-07-17] MEDS ORDERED: Magnesium Sulf 4 GM/100 ML IV* 4,000 MG/100 ML BAG IVPB ONE (07:30)
[2016-07-17] MEDS ORDERED: NS 0.9% 250 ML* 250 ML ONE (08:27)
--- NOTE | 2016-07-17 08:28 | PN ---
Progress Note - Progress Note SOAP: Subjective: dry cough this am. still SOB with activity. loose stools ~3 per day Objective: Vital Signs Temp Pulse Resp BP Pulse Ox 98.6 F 106 20 98/58 96 07/17/16 03:54 07/17/16 03:54 07/17/16 03:54 07/17/16 06:10 07/17/16 03:54 sitting up, tired appearing, speaking full sentences perr eomi op dry dec bs left base, mild rhonchi on right soft nt +bs 1+ LE edema A+O x 3, nonfocal neurological exam Laboratory Results - last 24 hr 07/16/16 07/17/16 07/17/16 13:05 05:50 05:50 WBC 8.1 RBC 2.89 L Hgb 8.5 L Hct 26 L MCV 89 MCH 29 MCHC 33 RDW 19 H Plt Count 42 L MPV 10 Sodium 138 Potassium 2.9 L Chloride 94 L Carbon Dioxide 41 H* Anion Gap 3 BUN 8 Creatinine 0.59 Est GFR ( Amer) 130.4 Est GFR (Non-Af Amer) 101.4 BUN/Creatinine Ratio 13.6 Glucose 86 Calcium 8.5 L Magnesium 1.2 L Total Bilirubin 1.30 H AST 9 L ALT 6 L Alkaline Phosphatase 88 Total Protein 5.1 L Albumin 2.9 L Globulin 2.2 Albumin/Globulin Ratio 1.3 Blood Type A Positive Antibody Screen Negative Crossmatch See Detail Acetaminophen (Tylenol Tab*) 650 mg PO Q6H PRN PRN Reason: PAIN OR TEMPERATURE Last Admin: 07/17/16 07:09 Dose: 650 mg Amiodarone HCl (Cordarone Tab*) 100 mg PO BEDTIME DIANN Last Admin: 07/16/16 21:00 Dose: 100 mg Fludrocortisone Acetate (Florinef Tab*) 0.2 mg PO DAILY WITH MEAL DIANN Furosemide (Lasix Iv*) 40 mg IV DAILY DIANN Guaifenesin/Codeine Phosphate (Robitussin Ac 100mg-10mg*) 5 ml PO Q6H PRN PRN Reason: COUGH Hydrocortisone (Cortef Tab*) 5 mg PO TID WITH MEALS [facility] Last Admin: 07/16/16 17:28 Dose: 5 mg Magnesium Sulfate (Magnesium Sulf 4 Gm/100 Ml Iv*) 4,000 mg in 100 mls @ 33.333 mls/hr IVPB ONCE ONE Stop: 07/17/16 10:29 Potassium Chloride (Potassium Chloride 20 Meq/100 Ml Ivpremix*) 20 meq in 100 mls @ 100 mls/hr IV Q1H [facility] Stop: 07/17/16 11:59 Doxycycline Hyclate 100 mg/ (Sodium Chloride) 250 mls @ 250 mls/hr IVPB Q12H [facility] Magnesium Oxide (Magox 400 Tab*) 1,200 mg PO BID [facility] Last Admin: 07/16/16 20:59 Dose: 1,200 mg Metolazone (Zaroxolyn Tab*) 5 mg PO 0840 [facility] Nystatin (Nystatin Top Powder*) 1 applic TOPICAL BID [facility] Last Admin: 07/16/16 21:00 Dose: Not Given Ondansetron HCl (Zofran Tab*) 4 mg PO Q4H PRN PRN Reason: NAUSEA Oxycodone HCl (Roxycodone Tab*) 5 mg PO Q6H PRN PRN Reason: PAIN Potassium Chloride (Klor-Con Liquid*) 40 meq PO BID WITH MEALS [facility] Last Admin: 07/16/16 20:59 Dose: 40 meq Prochlorperazine (Compazine Tab*) 10 mg PO Q6H PRN PRN Reason: NAUSEA Vancomycin HCl (Vancomycin Cap*) 125 mg PO QID [facility] Last Admin: 07/16/16 21:00 Dose: 125 mg Zolpidem Tartrate (Ambien Tab*) 5 mg PO BEDTIME PRN PRN Reason: SLEEP Assessment: 66 yo F w metastatic esophageal CA, recurrent c diff, and a recent admission for a diastolic heart failure exacerbation admitted with progressive shortness of breath and low grade fevers with CT showing right sided pneumonia (in addition to her known radiation fibrosis). I discussed this with Prince and her at length. Her CHF is very hard to treat with her blood pressures in the 80s-90s, however she is clearly still fluid overloaded. On top of that, she has a hospital acquired pneumonia but also recurrent c diff, all in the setting of metastatic esophageal cancer that has been off treatment for a couple of months 2/2 above AND treatment related MDS. She understands the difficult position but still wants to be aggressive in medical management. Plan: PNA: discussed with Dr. Hickey who recommended doxycycline diastolic heart failure exacerbation: difficult to manage with hypotension -cont IV lasix today as getting electrolyte repletion with significant fluids -cardiology consult -cont florinef and hydrocortisone c diff cont po vanco pancytopenia: treatment related MDS, stable hypokalemia and hypomagnesemia: aggressive IV repletion full code, discussed again. very clear that she would want a trial of chest compressions and intubation
[2016-07-17] MEDS: Metolazone TAB* 5 MG PO SCH (08:46)
[2016-07-17] MEDS: Vancomycin CAP* 125 MG CAP PO SCH ×4 (08:53→20:46)
[2016-07-17] MEDS: Hydrocortisone TAB* 5 MG PO SCH ×3 (08:53→16:25)
[2016-07-17] MEDS: Magnesium Oxide TAB* 400 MG PO SCH ×2 (08:54→20:44)
[2016-07-17] MEDS: Fludrocortisone Acetate TAB* 0.1 MG PO SCH (08:54)
[2016-07-17] MEDS: Furosemide IV* 10 MG/ML 10 ML VIAL (100 MG) IV SCH (09:09)
[2016-07-17] MEDS: KCL 20 MEQ/100 ML IVPREMIX* 20 MEQ/100 ML BAG IV SCH ×4 (09:09→15:02)
[2016-07-17] MEDS: Potassium Chloride LIQUID* 20 MEQ PACKET PO SCH ×2 (09:14→16:25)
[2016-07-17] MEDS ORDERED: cefTAZidime 2 GM in NS 0.9% 100 ML* 100 ML IVPB SCH (11:00)
[2016-07-17] MEDS: DOXYcycline IV* 100 MG in NS 0.9% 250 ML* 250 ML IVPB SCH ×2 (11:21→20:49)
[2016-07-17] MEDS: Nystatin TOP POWDER* 15 GM BTL TOPICAL SCH ×2 (14:40→20:49)
[2016-07-17] MEDS: Amiodarone TAB* 200 MG PO SCH (20:46)
[2016-07-18] MEDS: cefTAZidime 2 GM in NS 0.9% 100 ML* 100 ML IVPB SCH ×2 (01:50→13:02)
[2016-07-18] MEDS: Acetaminophen TAB* 325 MG PO PRN (03:08)
[2016-07-18 06:18] LABS: Hematocrit 27 % (35-47); Hemoglobin 8.7 g/dl (12.0-16.0); Mean Corpuscular HGB Conc 32 g/dl (31-36); Mean Corpuscular Hemoglobin 29 pg (27-31); Mean Corpuscular Volume 90 fL (80-97); Red Blood Count 2.98 10^6/ul (4.0-5.4); Red Cell Distribution Width 18 % (10.5-15); White Blood Count 6.6 10^3/ul (3.5-10.8)
[2016-07-18 06:19] LABS: Comments Flag Yes
[2016-07-18 06:21] LABS: Add Diff/Slide Review? Slide Review Added
[2016-07-18 06:32] LABS: Albumin 2.7 g/dL (3.2-5.2); BUN/Creatinine Ratio 12.5 (8-20); Calcium 8.4 mg/dL (8.6-10.3); EGFR African American 138.5 (>60); EGFR Non-African American 107.7 (>60); Globulin 2.4 g/dL (2-4); Magnesium 1.7 mg/dL (1.9-2.7); Potassium 3.1 mmol/L (3.5-5.0); Total Bilirubin 0.9 mg/dL (0.2-1.0); Total Protein 5.1 g/dL (6.4-8.9)
[2016-07-18] MEDS: Potassium Chloride LIQUID* 20 MEQ PACKET PO SCH ×2 (08:04→16:41)
[2016-07-18] MEDS: Furosemide IV* 10 MG/ML 10 ML VIAL (100 MG) IV SCH (08:06)
[2016-07-18] MEDS: Hydrocortisone TAB* 5 MG PO SCH ×3 (08:07→16:41)
[2016-07-18] MEDS: Fludrocortisone Acetate TAB* 0.1 MG PO SCH (08:07)
[2016-07-18] MEDS: Vancomycin CAP* 125 MG CAP PO SCH ×4 (08:07→20:47)
[2016-07-18] MEDS: Magnesium Oxide TAB* 400 MG PO SCH ×2 (08:07→20:48)
[2016-07-18] MEDS: Metolazone TAB* 5 MG PO SCH (08:17)
[2016-07-18] MEDS: oxyCODONE TAB* 5 MG TAB PO PRN (08:18)
[2016-07-18] MEDS: DOXYcycline IV* 100 MG in NS 0.9% 250 ML* 250 ML IVPB SCH ×2 (09:05→20:55)
[2016-07-18] MEDS ORDERED: Potassium Chlor TAB* 20 MEQ TAB.ER PO ONE (09:40)
[2016-07-18] MEDS ORDERED: Magnesium Sulfate 2 GM IV* 2 GM/50 ML BAG IVPB ONE (09:42)
[2016-07-18] MEDS: Nystatin TOP POWDER* 15 GM BTL TOPICAL SCH ×2 (10:26→20:57)
--- NOTE | 2016-07-18 14:41 | PN ---
Subjective Date of Service: 07/18/16 - CC: short of breath Interval History: Breathing and leg edema continue to improve. Stool more formed. Medications Active Medications: Acetaminophen (Tylenol Tab*) 650 mg PO Q6H PRN PRN Reason: PAIN OR TEMPERATURE Last Admin: 07/18/16 03:08 Dose: 650 mg Amiodarone HCl (Cordarone Tab*) 100 mg PO BEDTIME [facility] Last Admin: 07/17/16 20:46 Dose: 100 mg Fludrocortisone Acetate (Florinef Tab*) 0.2 mg PO DAILY WITH MEAL [facility] Last Admin: 07/18/16 08:07 Dose: 0.2 mg Furosemide (Lasix Iv*) 40 mg IV DAILY [facility] Last Admin: 07/18/16 08:06 Dose: 40 mg Guaifenesin/Codeine Phosphate (Robitussin Ac 100mg-10mg*) 5 ml PO Q6H PRN PRN Reason: COUGH Last Admin: 07/17/16 20:45 Dose: 5 ml Heparin Sodium (Porcine) (Heparin Flush Port (Ivad)*) 5 ml IV FLUSH DAILY [facility] PRN Reason: Protocol Last Admin: 07/18/16 11:05 Dose: 5 ml Hydrocortisone (Cortef Tab*) 5 mg PO TID WITH MEALS [facility] Last Admin: 07/18/16 13:02 Dose: 5 mg Doxycycline Hyclate 100 mg/ (Sodium Chloride) 250 mls @ 250 mls/hr IVPB Q12H [facility] Last Admin: 07/18/16 09:05 Dose: 250 mls/hr Ceftazidime 2 gm/ Sodium (Chloride) 100 mls @ 200 mls/hr IVPB Q12H [facility] Last Admin: 07/18/16 13:02 Dose: 200 mls/hr Magnesium Oxide (Magox 400 Tab*) 1,200 mg PO BID [facility] Last Admin: 07/18/16 08:07 Dose: 1,200 mg Metolazone (Zaroxolyn Tab*) 5 mg PO 0840 [facility] Last Admin: 07/18/16 08:17 Dose: 5 mg Nystatin (Nystatin Top Powder*) 1 applic TOPICAL BID [facility] Last Admin: 07/18/16 10:26 Dose: Not Given Ondansetron HCl (Zofran Tab*) 4 mg PO Q4H PRN PRN Reason: NAUSEA Oxycodone HCl (Roxycodone Tab*) 5 mg PO Q6H PRN PRN Reason: PAIN Last Admin: 07/18/16 08:18 Dose: 5 mg Potassium Chloride (Klor-Con Liquid*) 40 meq PO BID WITH MEALS [facility] Last Admin: 07/18/16 08:04 Dose: 40 meq Prochlorperazine (Compazine Tab*) 10 mg PO Q6H PRN PRN Reason: NAUSEA Vancomycin HCl (Vancomycin Cap*) 125 mg PO QID [facility] Last Admin: 07/18/16 13:02 Dose: 125 mg Zolpidem Tartrate (Ambien Tab*) 5 mg PO BEDTIME PRN PRN Reason: SLEEP Objective Vital Signs: Temp Pulse Resp BP Pulse Ox 98.6 F 96 16 80/49 97 07/18/16 11:21 07/18/16 11:21 07/18/16 11:21 07/18/16 11:21 07/18/16 11:21 Appearance: older woman, in bed, 50 degrees, appears more energetic, comfortable. Eyes: No Scleral Icterus, PERRLA Ears/Nose/Mouth/Throat: Clear Oropharnyx, Mucous Membranes Moist Neck: NL Appearance and Movements; NL JVP, Trachea Midline Respiratory: - - diminished breath sounds in the bases bilaterally, dull to percussion, not significantly changed from yesterday. Cardiovascular: RRR - no rub Abdominal: NL Sounds; No Tenderness; No Distention - soft. Extremities: - - mild edema, further improved. Neurological: Alert and Oriented x 3 Laboratory Results: 07/18/16 06:12 07/18/16 06:12 Total Bilirubin 0.90 mg/dL (0.2-1.0) 07/18/16 06:12 AST 8 U/L (13-39) L 07/18/16 06:12 ALT 5 U/L (7-52) L 07/18/16 06:12 Alkaline Phosphatase 87 U/L (34-104) 07/18/16 06:12 Total Protein 5.1 g/dL (6.4-8.9) L 07/18/16 06:12 Albumin 2.7 g/dL (3.2-5.2) L 07/18/16 06:12 Globulin 2.4 g/dL (2-4) 07/18/16 06:12 Albumin/Globulin Ratio 1.1 (1-3) 07/18/16 06:12 EKG Data: Monitor: NSR alternating with bursts of SVT. Assessment/Plan 66 yo female with metastatic esophogeal CA undergoing chemotherapy and is on chronic prednisone and flurinef. Hx paroxysmal atrial fibrillation, chronic pericardial fluid, recurrent CHF ( diastolic). Recent pneumonia, recurrence of C. diff, anemic, now presenting with worsening SOB, LE edema and CT scan shows RT induced pulm. fibrosis, pneumonia, pleural effusions and CHF. Clinical improvement with antibiotics, diuresis and O2. Points of Discussion: Paroxysmal atrial fibrillation: Electrolyte replacement very important: K+ > 4.0, Mag++ > 2.0 are goals. Consider increasing amiodarone to 200 mg/day. CHF, bi ventricular: I agree with aggressive diuresis, looks at or close to euvolemic, follow with daily weights with a goal of adjusting meds to maintain dry weight determined at this admission. While the patient is on steroids it will be an uphill becerra to keep fluid off and afib might be contributing as well as anemia. I don't feel pericardial tap warrented based on her recent echo.
--- NOTE | 2016-07-18 14:46 | CONS ---
CARDIOLOGY CONSULTATION: DATE OF CONSULT: 07/17/16 REASON FOR CONSULT: Congestive heart failure. CHIEF COMPLAINT: Shortness of breath and leg edema. HISTORY OF PRESENT ILLNESS: Ms. Huitron is a 66-year-old woman followed by my partner Dr. Walden for atrial fibrillation and pericardial effusion. The patient has a history of esophageal cancer and is undergoing active treatment for this (5-FU). She was admitted in June with pneumonia and urinary infection and congestive heart failure. In June, she was treated with IV Lasix, initially with improvement in her breathing. However, then, she developed diarrhea, crampy abdominal pain, and leukocytosis and she was PCR positive for Clostridium difficile, which she has been positive for in the past. She was then started on oral vanco. Her blood pressures were very low at that time and diuresis for her congestive heart failure had to be stopped. According to the patient and her , who is present during the interview, when she was discharged, her weight was up and she was able to resume her outpatient medications, including diuretics, but her legs became more swollen and she became more short of breath, which prompted her to come to the emergency room. In the emergency room on July 16, a CT scan confirmed persistent pulmonary edema and pleural effusions bilaterally. There was a consolidation in the right lung suggestive of pneumonia and a consolidation in the right lung suggestive of post- radiation fibrosis. The patient received IV diuretics on admission and she said her legs have markedly improved overnight and her breathing is somewhat improved. PAST MEDICAL HISTORY: Metastatic esophageal cancer, undergoing chemotherapy; history of pericardial effusion; diastolic congestive heart failure; atrial fibrillation; hypertension; recurrent Clostridium difficile infection; history of DVT; arthritis; hypotension. PAST SURGICAL HISTORY: Includes tonsillectomy. INPATIENT MEDICATIONS: Include: 1. Tylenol p.r.n. 2. Amiodarone 100 mg p.o. at bedtime. 3. Ceftazidime 2 g q.12 hours. 4. Doxycycline 250 mg q.12 hours. 5. Florinef 0.2 mg with meals. 6. Lasix 40 mg IV daily. 7. Guaifenesin and codeine. 8. Heparin flush. 9. Cortef 5 mg t.i.d. with meals. 10. Magnesium oxide 1200 mg b.i.d. 11. Magnesium sulfate IV. 12. Zaroxolyn 5 mg in the mornings. 13. Nystatin powder. 14. Zofran p.r.n. 15. Oxycodone p.r.n. 16. Potassium 40 mEq b.i.d. 17. Compazine p.r.n. 18. Oral vancomycin 125 mg q.i.d. 19. Ambien p.r.n. ALLERGIES AND INTOLERANCE: Include METOPROLOL. FAMILY HISTORY: Negative for atherosclerotic heart disease. SOCIAL HISTORY: The patient is . Smoked until relatively recently, 2013. No history of alcohol or drug abuse. REVIEW OF SYSTEMS: Please see history of present illness. All other review of systems negative. She no longer has diarrhea. She denies any recent changes in her steroid doses. She is not using excessive salt or nonsteroidals. PHYSICAL EXAM: Vital Signs: The patient is 5 feet 2 inches and weighs 144 pounds with a BMI of 26. Blood pressure 86/51, pulse in the 80s, respiratory rate 16, saturations 98% on room air, and temperature 98.1 with no bump in temps since admission. General Appearance: Older woman, hair is just growing back, appears chronically ill, but in no distress while sitting at 60 degrees. Psychologic: Calm, cooperative, pleasant. Neurologic: Awake, alert, and oriented to person, place, and time. Cranial nerves II through XII intact. Grossly normal sensory and motor functions in the bed, gait not checked. Skin: Warm and dry. I do not appreciate cyanosis. HEENT: Mucous membranes moderately moist. Lungs: Breath sounds diminished in the bases. No rhonchi or wheezes. They are dull to percussion in the bases as well. Coronary: S1 and S2, irregular without murmurs. Abdomen: Soft, nontender. Lower Extremities : Mild edema (per the patient much improved). DIAGNOSTIC STUDIES/LAB DATA: White count 8.1, hemoglobin 8.5, hematocrit 26, platelets 42. Sodium 138, potassium 2.9, chloride 94, bicarb 41, BUN 8, creatinine 0.59, magnesium 1.2, calcium 8.5, ALT of 6. CT scan as above. No recent EKGs or echos from this admission, but echo from 06/30/16 showed an ejection fraction of 55% to 60% with a paradoxical septum with a bounce, normal right ventricular systolic function, mild mitral insufficiency, mild-to- moderate pericardial effusion measuring 1.4 cm with no evidence of tamponade physiology. IMPRESSION AND PLAN: In summary, Ms. 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 She has evidence of right-sided heart failure with significant lower extremity edema in addition to some left heart failure and Prince is volume overloaded based on her weights. I concur with IV diuretics and the addition of Zaroxolyn; Ms. Huitron is going to be difficult to manage with respect to her fluid status due to her propensity for hypotension with diuresis. Although Ms. Huitron does not show evidence of tamponade physiology and she shows normal systolic function, she seems to be sensitive to some degree of preload, her blood pressures are better when she is volume overloaded, but her breathing and leg edema are better when well diuresed. At this point, I do not believe removing her pericardial effusion will improve her fluid status, but we may need to keep an open mind with this. The patient's anemia is going to contribute to diastolic failure, as her heart rate will increase to try to compensate for oxygen delivery. The anemia is going to also contribute in its own right to her shortness of breath. I would diurese as able. She may need Zaroxolyn as an outpatient once or twice a week based on weights, leg edema, and blood pressure, and again, I think she is going to tend to collect fluid for as long as she is is on steroids and the Florinef, which helps to maintain blood pressure, will contribute as well. CC: Dr. Gisela Randall; Dr. Kwame Walden* [id number]/[facility] #: [id number] [facility]
--- NOTE | 2016-07-18 16:08 | PN ---
Subjective Date of Service: 07/18/16 Interval History: pt feels better today. Leg edema improved. Objective Active Medications: Acetaminophen (Tylenol Tab*) 650 mg PO Q6H PRN PRN Reason: PAIN OR TEMPERATURE Last Admin: 07/18/16 03:08 Dose: 650 mg Amiodarone HCl (Cordarone Tab*) 100 mg PO BEDTIME [facility] Last Admin: 07/17/16 20:46 Dose: 100 mg Fludrocortisone Acetate (Florinef Tab*) 0.2 mg PO DAILY WITH MEAL [facility] Last Admin: 07/18/16 08:07 Dose: 0.2 mg Furosemide (Lasix Iv*) 40 mg IV DAILY [facility] Last Admin: 07/18/16 08:06 Dose: 40 mg Guaifenesin/Codeine Phosphate (Robitussin Ac 100mg-10mg*) 5 ml PO Q6H PRN PRN Reason: COUGH Last Admin: 07/17/16 20:45 Dose: 5 ml Heparin Sodium (Porcine) (Heparin Flush Port (Ivad)*) 5 ml IV FLUSH DAILY [facility] PRN Reason: Protocol Last Admin: 07/18/16 11:05 Dose: 5 ml Hydrocortisone (Cortef Tab*) 5 mg PO TID WITH MEALS [facility] Last Admin: 07/18/16 13:02 Dose: 5 mg Doxycycline Hyclate 100 mg/ (Sodium Chloride) 250 mls @ 250 mls/hr IVPB Q12H [facility] Last Admin: 07/18/16 09:05 Dose: 250 mls/hr Ceftazidime 2 gm/ Sodium (Chloride) 100 mls @ 200 mls/hr IVPB Q12H [facility] Last Admin: 07/18/16 13:02 Dose: 200 mls/hr Magnesium Oxide (Magox 400 Tab*) 1,200 mg PO BID [facility] Last Admin: 07/18/16 08:07 Dose: 1,200 mg Metolazone (Zaroxolyn Tab*) 5 mg PO 0840 [facility] Last Admin: 07/18/16 08:17 Dose: 5 mg Nystatin (Nystatin Top Powder*) 1 applic TOPICAL BID [facility] Last Admin: 07/18/16 10:26 Dose: Not Given Ondansetron HCl (Zofran Tab*) 4 mg PO Q4H PRN PRN Reason: NAUSEA Oxycodone HCl (Roxycodone Tab*) 5 mg PO Q6H PRN PRN Reason: PAIN Last Admin: 07/18/16 08:18 Dose: 5 mg Potassium Chloride (Klor-Con Liquid*) 40 meq PO BID WITH MEALS [facility] Last Admin: 07/18/16 08:04 Dose: 40 meq Prochlorperazine (Compazine Tab*) 10 mg PO Q6H PRN PRN Reason: NAUSEA Vancomycin HCl (Vancomycin Cap*) 125 mg PO QID [facility] Last Admin: 07/18/16 13:02 Dose: 125 mg Zolpidem Tartrate (Ambien Tab*) 5 mg PO BEDTIME PRN PRN Reason: SLEEP Vital Signs 07/17/16 07/17/16 07/17/16 16:11 19:21 19:31 Temperature 98.4 F Pulse Rate 89 93 Respiratory 18 24 20 Rate Blood Pressure 93/54 80/47 (mmHg) O2 Sat by Pulse 96 Oximetry 07/17/16 07/17/16 07/18/16 20:37 23:54 03:59 Temperature 98.2 F 98.3 F Pulse Rate 87 85 Respiratory 16 16 Rate Blood Pressure 92/59 93/53 86/50 (mmHg) O2 Sat by Pulse 96 99 Oximetry 07/18/16 07/18/16 07/18/16 04:01 08:00 08:10 Temperature 98.5 F Pulse Rate 93 Respiratory 18 16 Rate Blood Pressure 94/62 79/50 (mmHg) O2 Sat by Pulse 95 Oximetry 07/18/16 07/18/16 07/18/16 08:18 10:18 11:21 Temperature 98.6 F Pulse Rate 96 Respiratory 18 18 16 Rate Blood Pressure 80/49 (mmHg) O2 Sat by Pulse 97 Oximetry Oxygen Devices in Use Now: Nasal Cannula - at 4 l Appearance: 66 yo F in nAD, aAOx3 Eyes: No Scleral Icterus, PERRLA Ears/Nose/Mouth/Throat: NL Teeth, Lips, Gums, Mucous Membranes Moist Neck: NL Appearance and Movements; NL JVP, Trachea Midline Respiratory: Symmetrical Chest Expansion and Respiratory Effort, - - crackles at b/l bases, distant breath sounds B/L Cardiovascular: NL Sounds; No Murmurs; No JVD, RRR Abdominal: NL Sounds; No Tenderness; No Distention, No Hepatosplenomegaly Lymphatic: No Cervical Adenopathy Extremities: No Clubbing, Cyanosis, - - trace pedal edema b/l Skin: No Rash or Ulcers, No Nodules or Sclerosis Neurological: Alert and Oriented x 3, NL Muscle Strength and Tone Result Diagrams: 07/18/16 06:12 07/18/16 06:12 Assess/Plan/Problems-Billing Assessment: 66 yo F w metastatic esophageal CA, recurrent c diff, and a recent admission for a diastolic heart failure exacerbation admitted with progressive shortness of breath and low grade fevers with CT showing right sided pneumonia ( in addition to her known radiation fibrosis)- hospital acquired pneumonia but also recurrent c diff, all in the setting of metastatic esophageal cancer that has been off treatment for a couple of months / and treatment related MDS. - Patient Problems (1) Systolic and diastolic CHF, acute Comment: treatment complicated by low SBP's cobnt Lasix and Zaroxolyn. Feels much better today. appreciate Dr. Bello's consult echo 06/28/16 shows EF 55% and circumferential pericardial effusion (2) Adrenal insufficiency Comment: Continue fludroscortisone, hydrocortisone. (3) Colitis due to Clostridium difficile Comment: cont PO Vancomycin. Has 2 loose BM's a day denies abd pain (4) Paroxysmal a-fib Comment: telem shows bursts of a. fib. not a candidate for anticoagulation due to MDS cont Amiodarone (5) Electrolyte abnormality Comment: hypokalemia and hypomagnesemia-replacing PO/IV (6) Myelodysplasia (myelodysplastic syndrome) Comment: with anemia and thrombocytopenia-at baseline (7) Hospital-acquired pneumonia Comment: cont Ceftaz/Doxy appreciate ID consult (8) DVT prophylaxis Comment: SCD's ,no anticoagulation due to thrombocytopenia
[2016-07-18] MEDS: Amiodarone TAB* 200 MG PO SCH (20:47)
[2016-07-19] MEDS: cefTAZidime 2 GM in NS 0.9% 100 ML* 100 ML IVPB SCH ×2 (01:16→12:50)
[2016-07-19 07:42] LABS: Hematocrit 29 % (35-47); Hemoglobin 9.3 g/dl (12.0-16.0); Mean Corpuscular HGB Conc 33 g/dl (31-36); Mean Corpuscular Hemoglobin 29 pg (27-31); Mean Corpuscular Volume 90 fL (80-97); Red Blood Count 3.16 10^6/ul (4.0-5.4); Red Cell Distribution Width 18 % (10.5-15); White Blood Count 8.4 10^3/ul (3.5-10.8)
[2016-07-19 07:48] LABS: Comments Flag Yes
[2016-07-19] MEDS ORDERED: NS 0.9% 250 ML* 250 ML ONE (07:55)
[2016-07-19 07:56] LABS: BUN/Creatinine Ratio 13.6 (8-20); Calcium 8.6 mg/dL (8.6-10.3); EGFR African American 130.4 (>60); EGFR Non-African American 101.4 (>60); Globulin 2.4 g/dL (2-4); Magnesium 1.4 mg/dL (1.9-2.7); Potassium 3.2 mmol/L (3.5-5.0); Total Bilirubin 0.9 mg/dL (0.2-1.0); Total Protein 5.4 g/dL (6.4-8.9)
[2016-07-19] MEDS: Metolazone TAB* 5 MG PO SCH (08:02)
[2016-07-19] MEDS: Magnesium Oxide TAB* 400 MG PO SCH ×2 (08:02→20:51)
[2016-07-19] MEDS: Fludrocortisone Acetate TAB* 0.1 MG PO SCH (08:02)
[2016-07-19] MEDS: Hydrocortisone TAB* 5 MG PO SCH ×3 (08:02→16:59)
[2016-07-19] MEDS: Vancomycin CAP* 125 MG CAP PO SCH ×4 (08:03→20:51)
[2016-07-19] MEDS: Potassium Chloride LIQUID* 20 MEQ PACKET PO SCH ×2 (08:03→16:59)
[2016-07-19] MEDS: DOXYcycline IV* 100 MG in NS 0.9% 250 ML* 250 ML IVPB SCH ×2 (08:03→20:47)
[2016-07-19 08:14] LABS: Mean Platelet Volume 10 um3 (7.4-10.4)
[2016-07-19] MEDS ORDERED: Magnesium Sulf 4 GM/100 ML IV* 4,000 MG/100 ML BAG IVPB ONE (08:19)
[2016-07-19] MEDS ORDERED: KCL 20 MEQ/100 ML IVPREMIX* 20 MEQ/100 ML BAG IV SCH (09:00)
[2016-07-19] MEDS: Furosemide IV* 10 MG/ML 10 ML VIAL (100 MG) IV SCH (09:16)
[2016-07-19] MEDS: Nystatin TOP POWDER* 15 GM BTL TOPICAL SCH ×2 (09:23→20:51)
--- NOTE | 2016-07-19 10:13 | PN ---
Progress Note - Progress Note SOAP: Subjective: feels a lot better today than she did on Tuesday. back to dry weight. 2-3 semi-formed stools today Objective: Vital Signs Temp Pulse Resp BP Pulse Ox 99.0 F 93 20 94/44 96 07/19/16 07:46 07/19/16 07:46 07/19/16 07:46 07/19/16 08:08 07/19/16 07:46 perr eomi op dry CTA bl s1 s2 regular soft nt +bs trace LE edema A+O x 3, nonfocal neurological exam Laboratory Results - last 24 hr 07/19/16 07/19/16 07:30 07:30 WBC 8.4 RBC 3.16 L Hgb 9.3 L Hct 29 L MCV 90 MCH 29 MCHC 33 RDW 18 H Plt Count 62 L MPV 10 Sodium 138 Potassium 3.2 L Chloride 94 L Carbon Dioxide 40 H Anion Gap 4 BUN 8 Creatinine 0.59 Est GFR ( Amer) 130.4 Est GFR (Non-Af Amer) 101.4 BUN/Creatinine Ratio 13.6 Glucose 85 Calcium 8.6 Magnesium 1.4 L Total Bilirubin 0.90 AST 9 L ALT 5 L Alkaline Phosphatase 94 Total Protein 5.4 L Albumin 3.0 L Globulin 2.4 Albumin/Globulin Ratio 1.3 ASSESSMENT: 66 yo F w metastatic esophageal CA, recurrent c diff, and a recent admission for a diastolic heart failure exacerbation admitted with progressive shortness of breath and low grade fevers with CT showing right sided pneumonia (in addition to her known radiation fibrosis). Clinically she is markedly better today with aggressive diuresis (which she tolerated despite hypotension) and treatment of her pneumonia. Plan: PNA: Dr. Hickey consulting will switch to PO doxy on discharge diastolic heart failure exacerbation: difficult to manage with hypotension, discussed with Dr. Diaz this am. at baseline volume state. will switch to po lasix and aldactone tomorrow -cont florinef and hydrocortisone c diff cont po vanco pancytopenia: treatment related MDS, stable hypokalemia and hypomagnesemia: aggressive IV repletion increased PO full code no DVT prophylaxis or afib stroke prophylaxis given thrombocytopenia
[2016-07-19] MEDS: KCL 20 MEQ/100 ML IVPREMIX* 20 MEQ/100 ML BAG IV SCH ×4 (10:19→14:05)
--- NOTE | 2016-07-19 10:54 | PN ---
Subjective Date of Service: 07/19/16 Interval History: No dyspnea at rest Edema resolved No lightheadedness Medications Active Medications: Acetaminophen (Tylenol Tab*) 650 mg PO Q6H PRN PRN Reason: PAIN OR TEMPERATURE Last Admin: 07/18/16 03:08 Dose: 650 mg Amiodarone HCl (Cordarone Tab*) 100 mg PO BEDTIME [facility] Last Admin: 07/18/16 20:47 Dose: 100 mg Fludrocortisone Acetate (Florinef Tab*) 0.2 mg PO DAILY WITH MEAL [facility] Last Admin: 07/19/16 08:02 Dose: 0.2 mg Furosemide (Lasix Tab*) 20 mg PO DAILY [facility] Guaifenesin/Codeine Phosphate (Robitussin Ac 100mg-10mg*) 5 ml PO Q6H PRN PRN Reason: COUGH Last Admin: 07/17/16 20:45 Dose: 5 ml Heparin Sodium (Porcine) (Heparin Flush Port (Ivad)*) 5 ml IV FLUSH DAILY [facility] PRN Reason: Protocol Last Admin: 07/19/16 09:13 Dose: Not Given Hydrocortisone (Cortef Tab*) 5 mg PO TID WITH MEALS [facility] Last Admin: 07/19/16 08:02 Dose: 5 mg Doxycycline Hyclate 100 mg/ (Sodium Chloride) 250 mls @ 250 mls/hr IVPB Q12H [facility] Last Admin: 07/19/16 08:03 Dose: 250 mls/hr Ceftazidime 2 gm/ Sodium (Chloride) 100 mls @ 200 mls/hr IVPB Q12H [facility] Last Admin: 07/19/16 01:16 Dose: 200 mls/hr Magnesium Sulfate (Magnesium Sulf 4 Gm/100 Ml Iv*) 4,000 mg in 100 mls @ 33.333 mls/hr IVPB ONCE ONE Stop: 07/19/16 11:18 Last Admin: 07/19/16 09:16 Dose: 33.333 mls/hr Potassium Chloride (Potassium Chloride 20 Meq/100 Ml Ivpremix*) 20 meq in 100 mls @ 100 mls/hr IV Q1H [facility] Stop: 07/19/16 12:59 Last Admin: 07/19/16 10:19 Dose: Not Given Magnesium Oxide (Magox 400 Tab*) 1,200 mg PO BID [facility] Last Admin: 07/19/16 08:02 Dose: 1,200 mg Nystatin (Nystatin Top Powder*) 1 applic TOPICAL BID [facility] Last Admin: 07/19/16 09:23 Dose: Not Given Ondansetron HCl (Zofran Tab*) 4 mg PO Q4H PRN PRN Reason: NAUSEA Oxycodone HCl (Roxycodone Tab*) 5 mg PO Q6H PRN PRN Reason: PAIN Last Admin: 07/18/16 08:18 Dose: 5 mg Potassium Chloride (Klor-Con Liquid*) 80 meq PO BID WITH MEALS [facility] Prochlorperazine (Compazine Tab*) 10 mg PO Q6H PRN PRN Reason: NAUSEA Spironolactone (Aldactone Tab*) 25 mg PO DAILY [facility] Vancomycin HCl (Vancomycin Cap*) 125 mg PO QID [facility] Last Admin: 07/19/16 08:03 Dose: 125 mg Zolpidem Tartrate (Ambien Tab*) 5 mg PO BEDTIME PRN PRN Reason: SLEEP Objective Vital Signs: Temp Pulse Resp BP Pulse Ox 99.0 F 93 20 94/44 96 07/19/16 07:46 07/19/16 07:46 07/19/16 07:46 07/19/16 08:08 07/19/16 07:46 Oxygen Devices in Use Now: Nasal Cannula - at 4 l Appearance: older woman, in bed, 50 degrees, appears more energetic, comfortable. Eyes: No Scleral Icterus, PERRLA Ears/Nose/Mouth/Throat: Clear Oropharnyx, Mucous Membranes Moist Neck: NL Appearance and Movements; NL JVP, Trachea Midline Respiratory: - - diminished breath sounds in the bases bilaterally, dull to percussion, not significantly changed from yesterday. Cardiovascular: RRR - no rub Abdominal: NL Sounds; No Tenderness; No Distention - soft. Extremities: - - mild edema, further improved. Neurological: Alert and Oriented x 3 Laboratory Results: 07/19/16 07:30 07/19/16 07:30 Total Bilirubin 0.90 mg/dL (0.2-1.0) 07/19/16 07:30 AST 9 U/L (13-39) L 07/19/16 07:30 ALT 5 U/L (7-52) L 07/19/16 07:30 Alkaline Phosphatase 94 U/L (34-104) 07/19/16 07:30 Total Protein 5.4 g/dL (6.4-8.9) L 07/19/16 07:30 Albumin 3.0 g/dL (3.2-5.2) L 07/19/16 07:30 Globulin 2.4 g/dL (2-4) 07/19/16 07:30 Albumin/Globulin Ratio 1.3 (1-3) 07/19/16 07:30 EKG Data: Monitor: NSR alternating with bursts of SVT. Assessment/Plan 66 yo female with metastatic esophogeal CA undergoing chemotherapy and is on chronic prednisone and flurinef. Hx paroxysmal atrial fibrillation, chronic pericardial fluid, recurrent CHF ( diastolic). Recent pneumonia, recurrence of C. diff, anemic, now presenting with acute on chronic diastolic HF has had significant improvement with diuresis but hypokalemia/hypomagnesemia with metolazone/IV lasix combination Points of Discussion: Paroxysmal atrial fibrillation: Electrolyte replacement very important: K+ > 4.0, Mag++ > 2.0 are goals. Continue amiodarone Change lasix to oral PO daily, d/c metolazone and add aldactone 25 mg PO daily would be careful with overreplacement electrolytes on this combination We talked sometime about daily self-weights at home, limiting high sodium foods and calling physicians for weight gain to have diuretics increased as needed
[2016-07-19] MEDS: oxyCODONE TAB* 5 MG TAB PO PRN (15:06)
[2016-07-19] MEDS: Amiodarone TAB* 200 MG PO SCH (20:50)
[2016-07-20] MEDS: cefTAZidime 2 GM in NS 0.9% 100 ML* 100 ML IVPB SCH ×2 (01:06→14:41)
[2016-07-20 04:38] LABS: Hematocrit 25 % (35-47); Hemoglobin 8.1 g/dl (12.0-16.0); Mean Corpuscular HGB Conc 32 g/dl (31-36); Mean Corpuscular Hemoglobin 29 pg (27-31); Mean Corpuscular Volume 91 fL (80-97); Red Blood Count 2.77 10^6/ul (4.0-5.4); Red Cell Distribution Width 18 % (10.5-15); White Blood Count 5.3 10^3/ul (3.5-10.8)
[2016-07-20 04:47] LABS: Albumin 2.8 g/dL (3.2-5.2); BUN/Creatinine Ratio 18.5 (8-20); Calcium 8.4 mg/dL (8.6-10.3); EGFR African American 144.4 (>60); EGFR Non-African American 112.3 (>60); Globulin 2.3 g/dL (2-4); Magnesium 1.8 mg/dL (1.9-2.7); Potassium 3.5 mmol/L (3.5-5.0); Total Bilirubin 0.7 mg/dL (0.2-1.0); Total Protein 5.1 g/dL (6.4-8.9)
[2016-07-20 04:53] LABS: Comments Flag Yes
[2016-07-20 05:12] LABS: Mean Platelet Volume 10 um3 (7.4-10.4)
[2016-07-20] MEDS ORDERED: NS 0.9% 250 ML* 250 ML ONE (08:35)
[2016-07-20] MEDS ORDERED: Potassium Chloride LIQUID* 20 MEQ PACKET ONE (08:37)
[2016-07-20] MEDS: DOXYcycline IV* 100 MG in NS 0.9% 250 ML* 250 ML IVPB SCH (08:44)
[2016-07-20] MEDS: Fludrocortisone Acetate TAB* 0.1 MG PO SCH (09:03)
[2016-07-20] MEDS: Magnesium Oxide TAB* 400 MG PO SCH ×2 (09:03→20:13)
[2016-07-20] MEDS: Hydrocortisone TAB* 5 MG PO SCH ×3 (09:03→16:53)
[2016-07-20] MEDS: Vancomycin CAP* 125 MG CAP PO SCH ×4 (09:03→20:14)
[2016-07-20] MEDS: Furosemide TAB* 20 MG PO SCH (09:04)
[2016-07-20] MEDS: Spironolactone TAB* 25 MG PO SCH (09:04)
[2016-07-20] MEDS: Acetaminophen TAB* 325 MG PO PRN (09:04)
[2016-07-20] MEDS: Nystatin TOP POWDER* 15 GM BTL TOPICAL SCH ×2 (09:05→20:19)
[2016-07-20] MEDS ORDERED: Magnesium Sulf 4 GM/100 ML IV* 4,000 MG/100 ML BAG IVPB ONE (09:09)
[2016-07-20] MEDS: Potassium Chloride LIQUID* 20 MEQ PACKET PO SCH ×2 (10:15→16:53)
[2016-07-20] MEDS: KCL 20 MEQ/100 ML IVPREMIX* 20 MEQ/100 ML BAG IV SCH ×2 (10:32→12:46)
--- NOTE | 2016-07-20 12:27 | DS ---
DISCHARGE SUMMARY: DATE OF ADMISSION: 07/16/16 DATE OF DISCHARGE: Pending, 07/20/16 PRINCIPAL DIAGNOSES: Include: 1. Electrolyte abnormalities. 2. Hospital-acquired pneumonia. 3. Myelodysplastic syndrome. 4. Paroxysmal atrial fibrillation. 5. Systolic and diastolic congestive heart failure, acute. 6. Adrenal insufficiency. 7. Back pain. 8. Cellulitis of the elbow. 9. Chest pain. 10. Cholecystitis. 11. Colitis due to Clostridium difficile. 12. Esophageal cancer. 13. History of blood clots. DISCHARGE MEDICATIONS: Will include: 1. Tylenol as needed for fever or pain. 2. Amiodarone 100 mg at bedtime. 3. Doxycycline 100 mg twice daily for 10 additional days. 4. Florinef one-tenth mg 2 tabs p.o. daily with meals. 5. Furosemide 20 mg p.o. daily. 6. Cortef 5 mg p.o. t.i.d. 7. Magnesium oxide 400 mg 3 tabs p.o. twice daily. 8. Nystatin powder apply topically twice daily as needed. 9. Zofran 4 mg as needed every 4 hours for nausea. 10. Potassium chloride packets 80 mEq p.o. twice daily with meals. 11. Compazine 10 mg p.o. q.6 hours p.r.n. nausea. 12. Spironolactone 25 mg p.o. daily. 13. Vancomycin taper 125 mg p.o. t.i.d. and then b.i.d. as indicated on her discharge plan. 14. Ambien 5 mg at bedtime for sleep. 15. Guaifenesin and codeine as needed for cough 5 mL p.o. q.6 hours p.r.n. 16. Oxycodone 5 mg p.o. q.6 hours p.r.n. pain. DISCHARGE DIET: The patient will remain on a regular diet as tolerated. ACTIVITY LEVEL: Get up and move as tolerated. DISCHARGE INSTRUCTIONS: She will follow up with Dr. Kwame Walden for Cardiology in approximately 1 week and she is to call for their appointment. She will need to come into the [facility] office on for repeat chemistries and follow up with Dr. Randall in approximately 1 week after her discharge and to call for that appointment as well. She will continue on home oxygen as she has prior and follow up closely as her electrolyte requirements are potassium greater than 4 level and magnesium greater than 2.0 level on her chemistry and to maintain that with her oral replacements. Also, discussed with Dr. Louie Hickey regarding her antibiotic coverage and he texted me his orders. HOSPITAL COURSE: Briefly, the patient was admitted to the hospital with severe shortness of breath and found to have consolidative pneumonia, which seemed to be multifactorial. She also had significant anasarca during her hospital stay and we initiated a Cardiology consult with her existing cardiology group of Dr. Walden. Her medications were manipulated significantly. She had required telemetry during her hospital stay for rate and rhythm and she remained stable through-out her hospital stay with the addition of significant medication changes. She will need followup for her pneumonia with a chest x- ray if it does not completely resolve. Of note, she has had a previous history of Clostridium difficile and did require oral vancomycin with the recommendation of Dr. Louie Hickey as he has been following her chronically for her C. diff. Overall, the patient has improved significantly during her hospital stay and is stable with vital signs and ready to go home as soon as her IV replacement of potassium and magnesium is complete today. HEATHER MITCHELL [id number]/[facility] #: [id number]
[2016-07-20] MEDS ORDERED: NS 0.9% 100 ML* 100 ML ONE (13:45)
[2016-07-20] MEDS: DOXYcycline CAP(*) 100 MG PO SCH (20:13)
[2016-07-20] MEDS: Amiodarone TAB* 200 MG PO SCH (20:14)
[2016-07-21] MEDS: cefTAZidime 2 GM in NS 0.9% 100 ML* 100 ML IVPB SCH (01:06)
[2016-07-21] MEDS: Furosemide TAB* 20 MG PO SCH (08:25)
[2016-07-21] MEDS: Hydrocortisone TAB* 5 MG PO SCH (08:25)
[2016-07-21] MEDS: Spironolactone TAB* 25 MG PO SCH (08:26)
[2016-07-21] MEDS: Vancomycin CAP* 125 MG CAP PO SCH (08:26)
[2016-07-21] MEDS: Fludrocortisone Acetate TAB* 0.1 MG PO SCH (08:27)
[2016-07-21] MEDS: Potassium Chloride LIQUID* 20 MEQ PACKET PO SCH (08:28)
[2016-07-21] MEDS: Magnesium Oxide TAB* 400 MG PO SCH (08:28)
[2016-07-21] MEDS: DOXYcycline CAP(*) 100 MG PO SCH (08:28)
[2016-07-21] MEDS: Nystatin TOP POWDER* 15 GM BTL TOPICAL SCH (08:33)
[2016-07-21 09:19] VITALS: BP 97/45
== END 2016-07-21 10:10 | disposition home or self-care (01) | DRG 291 ==
LOC: MEDTELE 15:12
PROVIDERS: ADMIT Registered Nurse Oncology; ATTEND Internal Medicine Hematology & Oncology
PROC: 30233N1 Transfusion of Nonautologous Red Blood Cells into Peripheral Vein, Percutaneous Approach (ICD-10-PCS; principal; 2016-07-16)
DX: I11.0 Hypertensive heart disease with heart failure (principal); J18.9 Pneumonia, unspecified organism; D61.818 Other pancytopenia; I95.9 Hypotension, unspecified; C15.9 Malignant neoplasm of esophagus, unspecified; A04.7 Enterocolitis due to Clostridium difficile; I48.0 Paroxysmal atrial fibrillation; E27.40 Unspecified adrenocortical insufficiency; E83.42 Hypomagnesemia; L03.119 Cellulitis of unspecified part of limb; I50.41 Acute combined systolic (congestive) and diastolic (congestive) heart failure; Y95 Nosocomial condition; D46.9 Myelodysplastic syndrome, unspecified; E87.6 Hypokalemia; R06.00 Dyspnea, unspecified; M19.90 Unspecified osteoarthritis, unspecified site; Z88.8 Allergy status to other drugs, medicaments and biological substances; Z79.1 Long term (current) use of non-steroidal anti-inflammatories (NSAID); Z79.891 Long term (current) use of opiate analgesic; Z79.899 Other long term (current) drug therapy; Z87.891 Personal history of nicotine dependence; Z79.52 Long term (current) use of systemic steroids
CPT/HCPCS: 36415; 36591; 71020; 71250; 80053; 81003; 83605; 83735; 83880; 85025; 85027; 86850; 86900; 86901; 86922; 87040; 88381; 94760; 96361; 96365; 99213; 99215; 99223; 99233; 99239; A9270-GY; G0463; J0713; J1642; J1940; J3475; J3480; P9016; Q0164

== ENCOUNTER 2016-12-02 09:49 | Emergency (ER) | payer MEDICARE, OTHER ==
[2016-12-02] MEDS ORDERED: Aspirin Low Dose CHEW TAB* 81 MG PO ONE (10:18)
[2016-12-02 10:46] LABS: Hematocrit 23 % (35-47); Hemoglobin 7.5 g/dl (12.0-16.0); Mean Corpuscular HGB Conc 33 g/dl (31-36); Mean Corpuscular Hemoglobin 30 pg (27-31); Mean Corpuscular Volume 92 fL (80-97); Red Cell Distribution Width 19 % (10.5-15); White Blood Count 5.4 10^3/ul (3.5-10.8)
[2016-12-02 10:48] LABS: Add Diff/Slide Review? Slide Review Added; Comments Flag Yes
[2016-12-02 11:02] LABS: Troponin I 0.03 ng/mL (<0.04)
--- NOTE | 2016-12-02 11:05 | RAD ---
HISTORY: Chest pain COMPARISONS: November 11, 2016, CT dated September 01, 2016 VIEWS:1: Single frontal portable view of the chest at 10:45 AM FINDINGS: LINES AND TUBES: A right-sided chest port is noted from a subclavian approach with the tip overlying the superior vena cava CARDIOMEDIASTINAL SILHOUETTE: The cardiac silhouette is mildly enlarged. The cardiomediastinal silhouette is otherwise normal for portable technique. PLEURA: There is a small right pleural effusion versus chronic pleural thickening LUNG PARENCHYMA: There is persistent reticular opacification of the right lung field ABDOMEN: The upper abdomen is clear. There is no subphrenic gas. BONES AND SOFT TISSUES: No bone or soft tissue abnormalities are noted. IMPRESSION: 1. LINES AND TUBES ABOVE. 2. MILD CARDIOMEGALY. 3. PERSISTENT INTERSTITIAL OPACIFICATION OF THE RIGHT LUNG. 4. SMALL RIGHT EFFUSION VERSUS CHRONIC PLEURAL THICKENING
[2016-12-02 11:07] LABS: Eosinophils % 1 % (0-6); Immature Granulocytes 2 % (0-9); Myelocytes % 2 % (0-1); Neutrophil % 76 % (38-83)
[2016-12-02 11:08] LABS: Hypochromasia 1+; Macrocytosis 1+; Microcytosis 1+
[2016-12-02 11:12] LABS: Albumin 3.3 g/dL (3.2-5.2); BUN/Creatinine Ratio 14.6 (8-20); Calcium 8.8 mg/dL (8.6-10.3); EGFR African American 81.1 (>60); EGFR Non-African American 63.1 (>60); Globulin 2.3 g/dL (2-4); Potassium 3.5 mmol/L (3.5-5.0); Total Bilirubin 0.8 mg/dL (0.2-1.0); Total Protein 5.6 g/dL (6.4-8.9)
[2016-12-02 13:18] VITALS: BP 85/37
--- NOTE | 2016-12-03 09:08 | ED ---
Ricardo Salvador Benjamin, scribed for Manpreet Bautista MD on 12/02/16 at 1017 . HPI Chest Pain - HPI Summary HPI Summary: 66yo female c/o chest pressure, dizziness, and lightheadedness since last night. Pt has been recently dx'ed with PNA and now taking doxycycline. Pt has chronic SOB and is on 3L oxygen at home. Hx of esophageal CA, which makes pt get CP sometimes, but pt states that today's Cp is different that pt has productive cough. - History of Current Complaint Chief Complaint: EDChestPainROMI Time Seen by Provider: 12/02/16 09:58 Hx Obtained From: Patient, Family/Installer Technician Onset/Duration: Started Days Ago - 1 day, Still Present Timing: Intermittent Initial Severity: Mild Current Severity: None Pain Intensity: 0 Pain Scale Used: 0-10 Numeric Chest Pain Location: Diffuse Chest Pain Radiates: No Character: Pressure/Squeezing Aggravating Factor(s): Nothing Alleviating Factor(s): Nothing Associated Signs and Symptoms: Positive: Shortness of Breath - chronic, Productive Cough - Additional Pertinent History Primary Care Physician: [id number] - Allergy/Home Medications Allergies/Adverse Reactions: Allergies Allergy/AdvReac Type Severity Reaction Status Date / Time Metoprolol Allergy Intermediate Rash Verified 12/02/16 13:34 PMH/Surg Hx/FS Hx/Imm Hx Endocrine/Hematology History: Reports: Hx Anticoagulant Therapy, Hx Blood Transfusions, Hx Anemia, Other Endocrine/Hematological Disorders - chronic normocyte anemia, adrenal insufficiency Denies: Hx Diabetes, Hx Systemic Lupus Erythematosus Cardiovascular History: Reports: Hx Congestive Heart Failure, Hx Hypertension, Hx Syncope, Other Cardiovascular Problems/Disorders - pericardial effusion window Denies: Hx Aneurysm, Hx Angina, Hx Congenital Heart Disease, Hx Pacemaker/ICD Respiratory History: Reports: Hx Lung Cancer, Hx Pleural Effusion - Chronic, Hx Pneumonia, Hx Pulmonary Embolism, Hx Sleep Apnea - unconfirmed, Other Respiratory Problems/Disorders - PT STATES LUNG CA/ESOPHAGUS CA Denies: Hx Asthma GI History: Reports: Hx Gall Bladder Disease, Hx Gastroesophageal Reflux Disease , Other GI Disorders - DIFFICULTY SWALLOWING SOMETIME ESPECIALLY WITH PILLS R/T THE CANCER History: Denies: Hx Dialysis, Hx Renal Disease Musculoskeletal History: Reports: Hx Arthritis - SLIGHT, Hx Rheumatoid Arthritis Sensory History: Reports: Hx Contacts or Glasses Denies: Hx Cataracts, Hx Eye Injury, Hx Eye Prosthesis, Hx Glaucoma, Hx Legally Blind, Hx Macular Degeneration, Hx Vision Problem, Hx Deafness, Hx Hearing Aid, Hx Hearing Problem, Other Sensory Impairments Opthamlomology History: Reports: Hx Contacts or Glasses Denies: Hx Cataracts, Hx Eye Injury, Hx Eye Prosthesis, Hx Glaucoma, Hx Legally Blind, Hx Macular Degeneration, Hx Vision Problem, Other Sensory Impairments Neurological History: Reports: Hx Headaches, Other Neuro Impairments/Disorders - HX OF DIZZINESS, Syncope Psychiatric History: Denies: Hx Panic Disorder - Cancer History Cancer Type, Location and Year: esphogeal, lung cancer Hx Chemotherapy: Yes Hx Radiation Therapy: Yes Hx Palliative Cancer Treatment: No - Surgical History Surgery Procedure, Year, and Place: TONSILLECTOMY A CHILD. PEG tube - NO LONGER IN,. 2002 CYST REMOVED FROM RIGHT FOOT, [facility] [place]. 04/2015 PLEURX CATHETER INSERTION, [facility] [place]. 05/2015 PERICARDIAL WINDOW, [facility] [place]. 10/06/2015 INSERTION OF CATHETER TO DRAIN GALLBLADDER, [facility] [place] Hx Anesthesia Reactions: No - Immunization History Date of Tetanus Vaccine: up to date Date of Influenza Vaccine: up to date Infectious Disease History: No Infectious Disease History: Reports: Hx Clostridium Difficile Denies: Hx Hepatitis, Hx Human Immunodeficiency Virus (HIV), Hx of Known/ Suspected MRSA, Hx Shingles, Hx Tuberculosis, Hx Known/Suspected VRE, Hx Known/ Suspected VRSA, History Other Infectious Disease, Traveled Outside the in Last 30 Days - Family History Known Family History: Negative: Cardiac Disease, Hypertension, Diabetes Family History: Per H&P from 05/12/16, both parents have no current problems. - Social History Occupation: Retired Lives: With Family Alcohol Use: None Substance Use Type: Reports: None Hx Tobacco Use: Yes Smoking Status (MU): Former Smoker Type: Cigarettes Amount Used/How Often: 1/2 PPD FOR ABOUT 30+ YEARS Length of Time of Smoking/Using Tobacco: 30 YEARS Have You Smoked in the Last Year: No Review of Systems Constitutional: Negative Eyes: Negative ENT: Negative Positive: Chest Pain Positive: Shortness Of Breath, Cough Gastrointestinal: Negative Genitourinary: Negative Musculoskeletal: Negative Skin: Negative Neurological: Other - dizziness, lightheadedness Psychological: Normal All Other Systems Reviewed And Are Negative: Yes Physical Exam Triage Information Reviewed: Yes Vital Signs On Initial Exam: Initial Vitals Temp Pulse Resp BP Pulse Ox 97.7 F 96 16 95/47 98 06/01/17 09:57 12/02/16 09:57 12/02/16 09:57 12/02/16 09:57 12/02/16 09:57 Vital Signs Reviewed: Yes Appearance: Positive: Well-Appearing, No Pain Distress, Well-Nourished Skin: Positive: Warm, Skin Color Reflects Adequate Perfusion, Dry Head/Face: Positive: Normal Head/Face Inspection Eyes: Positive: Normal ENT: Positive: Normal ENT inspection Neck: Positive: Supple, Nontender Respiratory/Lung Sounds: Positive: Clear to Auscultation, Decreased Breath Sounds - on the right lung Cardiovascular: Positive: RRR Abdomen Description: Positive: Nontender, Soft Bowel Sounds: Positive: Present Musculoskeletal: Positive: Normal Neurological: Positive: Normal Psychiatric: Positive: Affect/Mood Appropriate Diagnostics - Vital Signs Vital Signs Temp Pulse Resp BP Pulse Ox 12/02/16 09:57 97.7 F 98 14 95/47 97 - Laboratory Lab Results: Lab Results 12/02/16 12/02/16 12/02/16 Range/Units 10:27 10:27 10:27 WBC 5.4 (3.5-10.8) 10^3/ul RBC 2.50 L (4.0-5.4) 10^6/ul Hgb 7.5 L (12.0-16.0) g/dl Hct 23 L (35-47) % MCV 92 (80-97) fL MCH 30 (27-31) pg MCHC 33 (31-36) g/dl RDW 19 H (10.5-15) % Plt Count 90 L (150-450) 10^3/ul MPV Not Reportable Immature Gran % (Auto) 2 (0-9) % Neut % (Auto) 74.3 (38-83) % Lymph % (Auto) 8.0 L (25-47) % [place] % (Auto) 17.0 H (1-9) % Eos % (Auto) 0.2 (0-6) % Baso % (Auto) 0.5 (0-2) % Absolute Neuts (auto) 4.0 (1.5-7.7) 10^3/ul Absolute Lymphs (auto) 0.4 L (1.0-4.8) 10^3/ul Absolute Monos (auto) 0.9 H (0-0.8) 10^3/ul Absolute Eos (auto) 0 (0-0.6) 10^3/ul Absolute Basos (auto) 0 (0-0.2) 10^3/ul Absolute Nucleated RBC 0.02 10^3/ul Neutrophils % 76 (38-83) % Lymphocytes % 9 L (25-47) % Monocytes % 12 (0-13) % Eosinophils % 1 (0-6) % Myelocytes % 2 H (0-1) % Nucleated RBC % 0.3 Normal RBC Morphology Not Reportable Hypochromasia 1+ Microcytosis 1+ Macrocytosis 1+ Sodium 138 (133-145) mmol/L Potassium 3.5 (3.5-5.0) mmol/L Chloride 99 L (101-111) mmol/L Carbon Dioxide 33 H (22-32) mmol/L Anion Gap 6 (2-11) mmol/L BUN 13 (6-24) mg/dL Creatinine 0.89 (0.51-0.95) mg/dL Est GFR ( Amer) 81.1 (>60) Est GFR (Non-Af Amer) 63.1 (>60) BUN/Creatinine Ratio 14.6 (8-20) Glucose 153 H (70-100) mg/dL Lactic Acid 1.8 (0.5-2.0) mmol/L Calcium 8.8 (8.6-10.3) mg/dL Total Bilirubin 0.80 (0.2-1.0) mg/dL AST 7 L (13-39) U/L ALT 4 L (7-52) U/L Alkaline Phosphatase 96 (34-104) U/L Troponin I 0.03 (<0.04) ng/mL Total Protein 5.6 L (6.4-8.9) g/dL Albumin 3.3 (3.2-5.2) g/dL Globulin 2.3 (2-4) g/dL Albumin/Globulin Ratio 1.4 (1-3) Blood Type Antibody Screen Crossmatch 12/02/16 Range/Units 10:27 WBC (3.5-10.8) 10^3/ul RBC (4.0-5.4) 10^6/ul Hgb (12.0-16.0) g/dl Hct (35-47) % MCV (80-97) fL MCH (27-31) pg MCHC (31-36) g/dl RDW (10.5-15) % Plt Count (150-450) 10^3/ul MPV Immature Gran % (Auto) (0-9) % Neut % (Auto) (38-83) % Lymph % (Auto) (25-47) % [place] % (Auto) (1-9) % Eos % (Auto) (0-6) % Baso % (Auto) (0-2) % Absolute Neuts (auto) (1.5-7.7) 10^3/ul Absolute Lymphs (auto) (1.0-4.8) 10^3/ul Absolute Monos (auto) (0-0.8) 10^3/ul Absolute Eos (auto) (0-0.6) 10^3/ul Absolute Basos (auto) (0-0.2) 10^3/ul Absolute Nucleated RBC 10^3/ul Neutrophils % (38-83) % Lymphocytes % (25-47) % Monocytes % (0-13) % Eosinophils % (0-6) % Myelocytes % (0-1) % Nucleated RBC % Normal RBC Morphology Hypochromasia Microcytosis Macrocytosis Sodium (133-145) mmol/L Potassium (3.5-5.0) mmol/L Chloride (101-111) mmol/L Carbon Dioxide (22-32) mmol/L Anion Gap (2-11) mmol/L BUN (6-24) mg/dL Creatinine (0.51-0.95) mg/dL Est GFR ( Amer) (>60) Est GFR (Non-Af Amer) (>60) BUN/Creatinine Ratio (8-20) Glucose (70-100) mg/dL Lactic Acid (0.5-2.0) mmol/L Calcium (8.6-10.3) mg/dL Total Bilirubin (0.2-1.0) mg/dL AST (13-39) U/L ALT (7-52) U/L Alkaline Phosphatase (34-104) U/L Troponin I (<0.04) ng/mL Total Protein (6.4-8.9) g/dL Albumin (3.2-5.2) g/dL Globulin (2-4) g/dL Albumin/Globulin Ratio (1-3) Blood Type A Positive Antibody Screen Negative Crossmatch See Detail Result Diagrams: 12/02/16 10:27 12/02/16 10:27 Lab Statement: Any lab studies that have been ordered have been reviewed, and results considered in the medical decision making process. - Radiology CXR Xray Interpretation: Positive (See Comments) - IMPRESSION: 1. LINES AND TUBES ABOVE. 2. MILD CARDIOMEGALY. 3. PERSISTENT INTERSTITIAL OPACIFICATION OF THE RIGHT LUNG. 4. SMALL RIGHT EFFUSION VERSUS CHRONIC PLEURAL THICKENING Radiology Interpretation Completed By: Radiologist - EKG 1000. Cardiac Rate: Other Rate - borderline tachycardia EKG Rhythm: Sinus Tachycardia - borderline EKG Interpretation: low voltage Re-Evaluation - Re-Evaluation First Eval Re-Evaluation Time: 12:22 Comment: updated pt with the course of treatment. Second Eval Re-Evaluation Time: 12:32 Comment: Updated treatment plans after talking to Dr. Gonzales. Chest Pain Course/Dx - Course Course Of Treatment: Discussed with Dr. Gonzales (oncology) at 1229. Assessment/Plan: Ms. Huitron presented C/O weakness and was found to quite anemic. Dr. Gonzales offered her admission for transfusion or outpatient transfusion today or tomorrow and she chose to go home. She is stable. - Diagnoses Provider Diagnoses: Severe anemia - Provider Notifications Discussed Care Of Patient With: Fidel Gonzales Discharge - Discharge Plan Condition: Stable Disposition: HOME Patient Education Materials: Anemia (ED) Referrals: Hermelindo Villa MD [Primary Care Provider] - Fidel Gonzales MD [Medical Doctor] - Additional Instructions: FOLLOW UP WITH DR. GONZALES THIS AFTERNOON FOR A TRANSFUSION. The documentation as recorded by the Ricardo tolentino Benjamin accurately reflects the service I personally performed and the decisions made by me, Manpreet Bautista MD.
== END 2016-12-02 13:18 | disposition home or self-care (01) ==
LOC: ED 09:49
DX: D64.89 Other specified anemias (principal); R06.02 Shortness of breath; R00.0 Tachycardia, unspecified; R05 Cough; I10 Essential (primary) hypertension; I50.9 Heart failure, unspecified; Z86.711 Personal history of pulmonary embolism; Z79.01 Long term (current) use of anticoagulants; Z85.118 Personal history of other malignant neoplasm of bronchus and lung; Z85.01 Personal history of malignant neoplasm of esophagus; Z88.8 Allergy status to other drugs, medicaments and biological substances
CPT/HCPCS: 36415; 71010; 80053; 83605; 84484; 85025; 86850; 86900; 86901; 86922; 93005; 99283; A9270-GY; P9040

== ENCOUNTER 2016-12-06 13:36 | Inpatient (IN) | payer MEDICARE, OTHER ==
[2016-12-06] MEDS ORDERED: NS 0.9% 1000 ML* 500 ML IV ONE (15:26)
[2016-12-06 15:58] LABS: Urine Bacteria Absent (Absent); Urine Bilirubin Negative (Negative); Urine Glucose Negative (Negative); Urine Nitrite Negative (Negative)
--- NOTE | 2016-12-06 16:13 | RAD ---
INDICATION: Cough. COMPARISON: Comparison is made with a prior chest x-ray studies from August 02, 2016, November 11, 2016 and December 02, 2016. TECHNIQUE: Dual-energy PA and lateral views of the chest were obtained. FINDINGS: The heart is mildly enlarged and unchanged from the prior studies. There is a power port central venous catheter present on the right side. There is mild diffuse prominence of the interstitial markings and volume loss within the right lung which is unchanged.. There is an infiltrate present in the right mid and lower lung field and a small right pleural effusion. These findings are all unchanged. IMPRESSION: 1. MILD CARDIOMEGALY, UNCHANGED. 2. RIGHT INFILTRATE AND PLEURAL EFFUSION, UNCHANGED.
[2016-12-06 16:18] LABS: Hematocrit 24 % (35-47); Hemoglobin 7.8 g/dl (12.0-16.0); Mean Corpuscular HGB Conc 33 g/dl (31-36); Mean Corpuscular Hemoglobin 30 pg (27-31); Mean Corpuscular Volume 91 fL (80-97); Red Cell Distribution Width 19 % (10.5-15); White Blood Count 5.1 10^3/ul (3.5-10.8)
[2016-12-06 16:19] LABS: Add Diff/Slide Review? Slide Review Added; Comments Flag Yes
[2016-12-06] MEDS ORDERED: levETIRAcetam TAB* 500 MG PO ONE (16:28)
[2016-12-06 16:38] LABS: Troponin I 0.05 ng/mL (<0.04)
[2016-12-06] MEDS ORDERED: Levofloxacin 750 MG IVPREMIX(* 750 MG/150 ML BAG IVPB ONE (16:41)
[2016-12-06 16:44] LABS: Albumin 3.4 g/dL (3.2-5.2); BUN/Creatinine Ratio 17.9 (8-20); EGFR African American 86.7 (>60); EGFR Non-African American 67.4 (>60); Globulin 2.2 g/dL (2-4); Potassium 3.8 mmol/L (3.5-5.0); Total Bilirubin 1.2 mg/dL (0.2-1.0); Total Protein 5.6 g/dL (6.4-8.9)
[2016-12-06 16:46] LABS: Hypochromasia 2+
[2016-12-06 16:47] LABS: Microcytosis 1+; Schistocytes 1+
[2016-12-06] MEDS ORDERED: Furosemide IV* 10 MG/ML 2 ML VIAL (20 MG) IV SLOW PU ONE (17:14)
[2016-12-06] MEDS ORDERED: Acetaminophen TAB* 325 MG PO PRN (17:18)
[2016-12-06] MEDS ORDERED: Iohexol 350* (CONTRAST) 500 ML MDV IV ONE (17:23)
[2016-12-06 18:06] LABS: Erythrocyte Sed Rate 52 mm/Hr (0-40)
[2016-12-06] MEDS ORDERED: cefTRIAXone(*) 1 GM ADVAN ONE (18:12)
--- NOTE | 2016-12-06 18:15 | RAD ---
INDICATION: Cough, shortness of breath lung carcinoma. COMPARISON: Comparison is made with a prior CT angiogram of the chest from September 01, 2016. TECHNIQUE: A CT angiogram of the chest was performed with intravenous following intravenous injection of 63 ml of Omnipaque 350 nonionic contrast. Contiguous axial sections were obtained from the lung apices through the lung bases. Images were reconstructed in the coronal and sagittal planes. FINDINGS: There is relatively homogeneous opacification of the pulmonary arteries. No intraluminal filling defect or pulmonary embolism is seen. The heart is mildly enlarged. There is a small pericardial effusion which is unchanged from the prior study. The thoracic aorta is normal in caliber and demonstrates homogeneous contrast opacification. There are enlarged subcarinal lymph nodes measuring up to 2.5 cm in transverse dimension which are unchanged. No enlarged left hilar lymph nodes are seen. The right hilum is obscured by an adjacent infiltrate. There is circumferential wall thickening in the mid and distal esophagus, unchanged. There is bilateral prominence of the interstitial markings right greater than left which are unchanged. There is paramediastinal increased density present throughout the right lung which is unchanged. There is volume loss in the right lung which is unchanged. There are nodular patchy densities present in the right upper and lower lobes which appear unchanged. There is a small left pleural effusion which is also unchanged. No significant focal osseous abnormality is seen. IMPRESSION: 1. NO EVIDENCE FOR PULMONARY EMBOLISM. 2. SMALL PERICARDIAL EFFUSION, UNCHANGED. 3. MEDIASTINAL LYMPHADENOPATHY, UNCHANGED. 4. SMALL LEFT PLEURAL EFFUSION, UNCHANGED. 5.. PARAMEDIASTINAL AND PERIPHERAL INFILTRATES WITHIN THE RIGHT LUNG, UNCHANGED MOST CONSISTENT WITH POST RADIATION CHANGE AND OR RECURRENT TUMOR. 6. ESOPHAGEAL WALL THICKENING, UNCHANGED.
[2016-12-06] MEDS: cefTRIAXone VIAL(*) 1,000 MG in NS 0.9% 50 ML* 50 ML IVPB SCH ×2 (18:19→21:52)
--- NOTE | 2016-12-06 18:38 | HP ---
ADDENDUM NOW INCLUDED ON THIS REPORT HISTORY AND PHYSICAL: DATE OF ADMISSION: 12/06/16 PRIMARY CARE PROVIDER: Dr. Villa. PRIMARY ONCOLOGIST: Dr. Randall. CONSULTING ONCOLOGIST: Dr. Frances. MY ATTENDING PHYSICIAN WHILE IN THE HOSPITAL: Dr. Maia Kiran* (report dictated by Khadijah Gil NP). CHIEF COMPLAINT: 1. Cough. 2. Shortness of breath. 3. Fever. HISTORY OF PRESENT ILLNESS: Ms. Huitron is a 66-year-old female patient. She has a history of esophageal cancer, AFib. She has right upper extremity DVT. She has a history of hypertension, arthritis, myelodysplastic syndrome, CHF, and a history of adrenal insufficiency. She comes in today stating that she recently finished antibiotics in the form of doxycycline for presumed pneumonia, but despite that, over the weekend and today, she has had progressively worsening cough bringing up sputum. She noted fever today at the house of 103 to 102. She did not feel well. She was aching all over. When she coughed, she was bringing up yellow sputum. She was feeling short of breath and she was concerned and came in to the ER. She does state that she has had some pressure in her chest that gets worse when she takes a deep breath. She denies having any abdominal discomfort. There has been no nausea. There was some vomiting. When she vomited, it was mostly yellow phlegm. She has noticed that she had been progressively short of breath, particularly with exertion. She was concerned and came in to the ER today, was evaluated and we were asked to evaluate because there was concern for possible pneumonia and a new right- sided pleural effusion. PAST MEDICAL HISTORY: Significant for: 1. Esophageal cancer. 2. AFib. 3. DVT of the right upper extremity. 4. Hypertension. 5. Arthritis. 6. Myelodysplastic syndrome. 7. CHF. 8. Adrenal insufficiency. PAST SURGICAL HISTORY: 1. She has had a tonsillectomy. 2. Port placement. 3. She has had a pericardial window. HOME MEDICATIONS: According to the list that she provided me include: 1. Morphine concentrate 5 mg p.o. every 6 hours as needed. 2. Ativan 0.5 mg p.o. at bedtime as needed. 3. Spironolactone 25 mg daily. 4. Zofran 4 mg p.o. every 4 hours as needed. 5. Potassium 40 mEq p.o. b.i.d. 6. Oxycodone 5 mg p.o. 4 times a day as needed. 7. Guaifenesin with codeine 5 cc p.o. every 6 hours as needed. 8. Magnesium oxide 1200 mg p.o. b.i.d. 9. Lasix 20 mg daily. 10. Florinef 0.2 mg p.o. daily. 11. Lovenox 60 mg subcu b.i.d. 12. Cortef 5 mg p.o. t.i.d. 13. Ambien 10 mg at bedtime as needed. 14. Compazine 10 mg p.o. every 6 hours as needed. 15. Amiodarone 100 mg p.o. bedtime. 16. Tylenol 650 mg p.o. every 6 hours as needed. ALLERGIES TO MEDICATIONS: Include LOPRESSOR. FAMILY HISTORY: Mother had cancer. Father had bone cancer. SOCIAL HISTORY: She is a former smoker. She does not drink alcohol. Surrogate decision maker is her . REVIEW OF SYSTEMS: There is a documented fever. She does admit to having no significant weight change. She does admit to having significant swelling and anasarca which is not new for her. She did admit to having chest discomfort. She did admit to having cough that was productive. No rhinorrhea. No sore throat. There was an episode of nausea with vomiting. There was no dysuria. No frequency. There was no loss of consciousness. There was no seizure. There is no pruritus and no skin ulcerations. Review of 14 systems completed, all others negative. PHYSICAL EXAMINATION GENERAL: At this time, Ms. Huitron is a 66-year-old female patient. She is chronically ill appearing. She is sitting in the ER stretcher. She does not appear to be in any acute distress. VITAL SIGNS: Blood pressure 103/57, pulse 110, respirations 20, O2 sat 96%, and temperature of 97.9. HEENT: Head is atraumatic and normocephalic. Eyes: EOMs intact. Sclerae anicteric and not pale. Throat: Oral mucosa appears to be moist. No oropharyngeal erythema. NECK: Supple. LUNGS: She had rhonchi throughout. She was diminished on the right lower base , she had equal diaphragmatic expansion. HEART: Sounds S1, S2. Irregularly irregular rate. No murmurs, rubs, or gallops. ABDOMEN: Soft, flat, and nontender. Bowel sounds present. EXTREMITIES: She had +4 pitting edema bilaterally. She had 5/5 strength. NEUROLOGIC: She is awake, alert, and oriented x3. Tongue midline. Link Cutter were equal. No gross focal deficits. SKIN: Grossly intact. LABORATORY DATA AND DIAGNOSTIC STUDIES: Today revealed a WBC of 5.1, RBC of 2.60, hemoglobin 7.8, last hemoglobin 7.5, hematocrit 24, platelet count 111, 000. The sodium was 136, potassium was 3.8, chloride of 98, bicarb was 33, BUN was 15, creatinine of 0.84, glucose pending, lactic 0.8, calcium 9. Total bili 1.2, AST 9, ALT 5, alk phos 121. Troponin was 0.05, it is really near her baseline. CRP was 45. Albumin was 3.4. Urine was obtained, it was negative. She did have a chest x-ray obtained today which revealed on my impression, it did appear that she had a right-sided pleural effusion and it also appeared that she had a right infiltrate. Radiology read it as mild cardiomegaly and unchanged right infiltrate and pleural effusion, unchanged. There was an EKG obtained today which was a low voltage EKG. It did show a sinus rhythm with a rate of 96. No ST elevation or T-wave inversions. It was reviewed with previous EKG, it is similar. She did have an echo in June 2016 which revealed an EF of 55% to 60%. Old medical records were reviewed. ASSESSMENT AND PLAN: Ms. Huitron is a 66-year-old female patient with multiple medical problems coming into the ER today with complaints of cough, fever, on evaluation found to have a pleural effusion. In addition to this, possible infiltrate. She will be admitted under inpatient status for: 1. Shortness of breath: At this point, I suspect she probably has underlying pneumonia. I am going to check Legionella and strep antigens. I am going to get blood cultures as well. I will go ahead and try to get that sputum culture. I did place a call out to Radiology to see if they can do a thoracentesis tomorrow as I think this would be helpful for the patient's symptomatology as she does feel pretty short of breath with exertion. I am going to hold her Lovenox tomorrow morning to see if we can get the thoracentesis done tomorrow. I am also getting a CTA of the chest. 2. Esophageal cancer: She can follow with her primary oncology team. 3. Atrial fibrillation: She appears to be in sinus rhythm. We will continue her current medical regimen. 4. History of right upper extremity deep venous thrombosis: Again, we will continue Lovenox. We are holding tomorrow morning's dose for possible thoracentesis. 5. Arthritis: Continue medications as prescribed. 6. History of congestive heart failure: We will diurese her as needed. I am going to give her a little bit of Lasix. She got some fluid here in the ER and became more short of breath, so I think she is euvolemic at this point. We will continue to monitor. 7. Myelodysplastic syndrome: Her H and H is stable. Transfuse as needed. 8. History of congestive heart failure: Again, diurese as needed. 9. Adrenal insufficiency. In the setting of an acute illness like this, I think she deserves stress dose steroids. Put her on hydrochlorothiazide 100 mg IV t.i.d. 10. DVT prophylaxis: Again, she is on therapeutic Lovenox for the time being. We will hold tomorrow's dose and then we will get back her on her Lovenox after the procedure. 11. Fluids, electrolytes, and nutrition: She can have a regular diet and n.p.o. after midnight. 12. Code status: Full code. TIME SPENT: Time spent on the admission was 70 minutes; greater than half the time was spent [id number] with the patient obtaining my history and physical, other half the time spent going over the plan of care with the patient and implementing plan of care. I did discuss the plan of care with my attending, Dr. Kiran; she is in agreement. KHADIJAH GIL NP ADDENDUM: I did review the CTA of this patient's chest. It looks like on the right lower lobe that was apparent on the x-ray, there appeared to be may be a right pleural effusion, actually appears to be chronic interstitial changes possibly from radiation. There may be an infiltrate there as well, but I do not see a drainable fluid collection, so I have canceled thoracentesis. We will continue with antibiotics and see we can improve with antibiotics as she does appear to have an underlying pneumonia. I did touch with Dr. Frances about this and he was in agreement. KHADIJAH GIL NP CC: Dr. Villa; Dr. Randall; Dr. Frances * [id number]/[facility] #: [id number]/[facility] #: [id number] OSEAS
[2016-12-06] MEDS: Azithromycin IV(*) 500 MG in NS 0.9% 250 ML* 250 ML IVPB SCH (19:40)
[2016-12-06] MEDS: Hydrocortisone INJ* 100 MG VIAL IV SCH (19:40)
[2016-12-06] MEDS ORDERED: Vancomycin CAP* 125 MG CAP PO SCH (21:00)
[2016-12-06] MEDS ORDERED: LORazepam TAB(*) 0.5 MG PO PRN (21:00)
[2016-12-06] MEDS: Potassium Chlor TAB* 20 MEQ TAB.ER PO SCH (21:17)
[2016-12-06] MEDS: Magnesium Oxide TAB* 400 MG PO SCH (21:18)
[2016-12-06] MEDS: Amiodarone TAB* 200 MG PO SCH (21:21)
[2016-12-06] MEDS: Enoxaparin(*) 60 MG/0.6 ML SYR SUBCUT SCH (21:21)
--- NOTE | 2016-12-06 21:30 | HP ---
HISTORY AND PHYSICAL:* ADDENDUM: I did review the CTA of this patient's chest. It looks like on the right lower lobe that was apparent on the x-ray, there appeared to be may be a right pleural effusion, actually appears to be chronic interstitial changes possibly from radiation. There may be an infiltrate there as well, but I do not see a drainable fluid collection, so I have canceled thoracentesis. We will continue with antibiotics and see we can improve with antibiotics as she does appear to have an underlying pneumonia. I did touch with Dr. Frances about this and he was in agreement. KHADIJAH GREEN, MANNEQUIN WIG MAKER [id number]/[facility] #: [id number] OSEAS
[2016-12-06] MEDS: Zolpidem TAB* 10 MG PO PRN (22:41)
[2016-12-07] MEDS: Hydrocortisone INJ* 100 MG VIAL IV SCH ×3 (02:35→17:01)
[2016-12-07] MEDS: guaiFENesin/CODIEN 100MG-10MG* 5 ML UDC PO PRN ×2 (02:43→09:12)
[2016-12-07 06:12] LABS: Add Diff/Slide Review? Slide Review Added; Comments Flag Yes; Hematocrit 23 % (35-47); Hemoglobin 7.6 g/dl (12.0-16.0); Mean Corpuscular HGB Conc 33 g/dl (31-36); Mean Corpuscular Hemoglobin 30 pg (27-31); Mean Corpuscular Volume 91 fL (80-97); Red Blood Count 2.54 10^6/ul (4.0-5.4); Red Cell Distribution Width 19 % (10.5-15); White Blood Count 4.6 10^3/ul (3.5-10.8)
[2016-12-07 06:22] LABS: BUN/Creatinine Ratio 22.1 (8-20); Calcium 8.5 mg/dL (8.6-10.3); EGFR African American 95.9 (>60); EGFR Non-African American 74.5 (>60); Potassium 3.8 mmol/L (3.5-5.0)
--- NOTE | 2016-12-07 08:09 | ED ---
Jean Salvador SooYoung, scribed for Yaya Warner MD on 12/06/16 at 1514 . Shortness of Breath - HPI Summary HPI Summary: A 66 y/o F presents to ED with c/o SOB onset approx 0800. Associated sx: productive cough, vomiting, fever. Recent PNA approx 3 weeks ago in L lung. Pert PMHx: esophageal CA, she is no longer on chemo or radiation, finished on . Pt spoke with her oncologist, Dr. Randall, today. - History of Current Complaint Chief Complaint: EDShortnessOfBreath Time Seen by Provider: 12/06/16 15:09 Hx Obtained From: Patient, Family/Electroencephalographic Technician - Onset/Duration: Lasting Days, Still Present Timing: Constant Current Severity: Moderate Dyspnea At: Rest Associated Signs & Symptoms: Cough (Productive), Fever - Allergy/Home Medications Allergies/Adverse Reactions: Allergies Allergy/AdvReac Type Severity Reaction Status Date / Time Metoprolol Allergy Intermediate Rash Verified 12/02/16 13:34 Home Medications: Home Medications Enoxaparin(*) [Lovenox(*)] 60 mg SUBCUT BID 12/06/16 [History Confirmed 12/06/16 ] LORazepam TAB(*) [Ativan 0.5 MG TAB (*)] 0.5 mg PO BEDTIME PRN 12/06/16 [ History Confirmed 12/06/16] Morphine ORAL CONCENTRATE* 5 mg PO Q6H PRN 12/06/16 [History Confirmed 12/06/16] Spironolactone TAB* [Aldactone TAB*] 25 mg PO QAM 12/06/16 [History Confirmed ] Zolpidem TAB* [Ambien TAB*] 10 mg PO BEDTIME PRN 12/06/16 [History Confirmed 11/17] oxyCODONE TAB* [Roxycodone TAB 5 mg*] 5 mg PO QID PRN 12/06/16 [History Confirmed 12/06/16] PMH/Surg Hx/FS Hx/Imm Hx Previously Healthy: No Endocrine/Hematology History: Reports: Hx Anticoagulant Therapy, Hx Blood Transfusions, Hx Anemia, Other Endocrine/Hematological Disorders - chronic normocyte anemia, adrenal insufficiency Denies: Hx Diabetes, Hx Systemic Lupus Erythematosus Cardiovascular History: Reports: Hx Congestive Heart Failure, Hx Hypertension, Hx Syncope, Other Cardiovascular Problems/Disorders - pericardial effusion window Denies: Hx Aneurysm, Hx Angina, Hx Congenital Heart Disease, Hx Pacemaker/ICD Respiratory History: Reports: Hx Lung Cancer, Hx Pleural Effusion - Chronic, Hx Pneumonia, Hx Pulmonary Embolism, Hx Sleep Apnea - unconfirmed, Other Respiratory Problems/Disorders - PT STATES LUNG CA/ESOPHAGUS CA Denies: Hx Asthma GI History: Reports: Hx Gall Bladder Disease, Hx Gastroesophageal Reflux Disease , Other GI Disorders - DIFFICULTY SWALLOWING SOMETIME ESPECIALLY WITH PILLS R/T THE CANCER History: Denies: Hx Dialysis, Hx Renal Disease Musculoskeletal History: Reports: Hx Arthritis - SLIGHT, Hx Rheumatoid Arthritis Sensory History: Reports: Hx Contacts or Glasses Denies: Hx Cataracts, Hx Eye Injury, Hx Eye Prosthesis, Hx Glaucoma, Hx Legally Blind, Hx Macular Degeneration, Hx Vision Problem, Hx Deafness, Hx Hearing Aid, Hx Hearing Problem, Other Sensory Impairments Opthamlomology History: Reports: Hx Contacts or Glasses Denies: Hx Cataracts, Hx Eye Injury, Hx Eye Prosthesis, Hx Glaucoma, Hx Legally Blind, Hx Macular Degeneration, Hx Vision Problem, Other Sensory Impairments Neurological History: Reports: Hx Headaches, Other Neuro Impairments/Disorders - HX OF DIZZINESS, Syncope Psychiatric History: Denies: Hx Panic Disorder - Cancer History Cancer Type, Location and Year: esphogeal, lung cancer Hx Chemotherapy: Yes Hx Radiation Therapy: Yes Hx Palliative Cancer Treatment: No - Surgical History Surgery Procedure, Year, and Place: TONSILLECTOMY A CHILD. PEG tube - NO LONGER IN,. 2003 CYST REMOVED FROM RIGHT FOOT, [facility] [place]. 04/2015 PLEURX CATHETER INSERTION, [facility]. 05/2015 PERICARDIAL WINDOW, [facility]. 10/06/2015 INSERTION OF CATHETER TO DRAIN GALLBLADDER, [facility] Hx Anesthesia Reactions: No - Immunization History Date of Tetanus Vaccine: up to date Date of Influenza Vaccine: up to date Infectious Disease History: Yes Infectious Disease History: Reports: Hx Clostridium Difficile Denies: Hx Hepatitis, Hx Human Immunodeficiency Virus (HIV), Hx of Known/ Suspected MRSA, Hx Shingles, Hx Tuberculosis, Hx Known/Suspected VRE, Hx Known/ Suspected VRSA, History Other Infectious Disease, Traveled Outside the [place] in Last 30 Days - Family History Known Family History: Positive: Other - neg: breast CA Negative: Diabetes Family History: Per H&P from 05/12/16, both parents have no current problems. - Social History Lives: With Family Alcohol Use: None Hx Substance Use: No Substance Use Type: Reports: None Hx Tobacco Use: Yes Smoking Status (MU): Former Smoker Type: Cigarettes Amount Used/How Often: 1/2 PPD FOR ABOUT 30+ YEARS Length of Time of Smoking/Using Tobacco: 30 YEARS Have You Smoked in the Last Year: No Review of Systems Positive: Fever Positive: Shortness Of Breath, Cough - productive Positive: Vomiting All Other Systems Reviewed And Are Negative: Yes Physical Exam - Summary Physical Exam Summary: VITAL SIGNS: Reviewed. GENERAL: Patient is an elderly fragile ill looking lying in the stretcher. Patient is not in any acute respiratory distress. HEAD AND FACE: No signs of trauma. No ecchymosis, hematomas or skull depressions. EYES: PERRLA, EOMI x 2, No injected conjunctiva, no nystagmus. EARS: Hearing grossly intact. Ear canals and tympanic membranes are within normal limits. MOUTH: Oropharynx within normal limits. NECK: Supple, trachea is midline, no adenopathy, no JVD, no carotid bruit, no c- spine tenderness, neck with full ROM. CHEST: Symmetric, no tenderness at palpation LUNGS: bilateral diffuse crakles and no breath sounds in the right lower lung. CVS: Regular rate and rhythm, S1 and S2 present, no murmurs or gallops appreciated. ABDOMEN: Soft, non-tender. No signs of distention. No rebound no guarding, and no masses palpated. Bowel sounds are normal. EXTREMITIES: FROM in all major joints, no edema, no cyanosis or clubbing. NEURO: Alert and oriented x 3. No acute neurological deficits. Speech is normal and follows commands. SKIN: Dry and warm Triage Information Reviewed: Yes Vital Signs On Initial Exam: Initial Vitals Temp Pulse Resp BP Pulse Ox 99.8 F 106 22 85/35 90 12/06/16 13:41 12/06/16 13:41 12/06/16 13:41 12/06/16 13:41 12/06/16 13:41 Vital Signs Reviewed: Yes - [place] Coma Scale Coma Scale Total: 15 Diagnostics - Vital Signs Vital Signs Temp Pulse Resp BP Pulse Ox 12/06/16 14:58 97.9 F 101 20 86/40 97 12/06/16 13:41 99.8 F 106 22 85/35 90 - Laboratory Result Diagrams: 12/07/16 05:40 12/07/16 05:40 Lab Statement: Any lab studies that have been ordered have been reviewed, and results considered in the medical decision making process. - Radiology CXR Xray Interpretation: No Acute Changes - IMPRESSION: 1. MILD CARDIOMEGALY, UNCHANGED. 2. R INFILTRATE AND PLEURAL EFFUSION, UNCHANGED. Radiology Interpretation Completed By: Radiologist - EKG 1 Cardiac Rate: NL - 96BPM EKG Rhythm: Sinus Rhythm ST Segment: Normal - NO ST ELEVATION EKG Interpretation: LOW VOLTAGE EKG Course/Dx - Course Assessment/Plan: A 66 y/o F presents to ED with c/o SOB onset approx 0800. Associated sx: productive cough, vomiting, fever. Recent PNA approx 3 weeks ago in L lung. Pert PMHx: esophageal CA, she is no longer on chemo or radiation, finished on 06/02/16. Pt spoke with her oncologist, Dr. Randall, today. Test results show anemia, thrombocytopenia, BNP of 772, CRProtein of 45, and trop of 0.05. CXR shows R lower lung PNA. Pt started on Levaquin. Pt seems to have acute exacerbation of CHF, and her trop is increased, therefore we have to r/o acute coronary syndrome. Discussed case with Dr. Kiran, who will conduct services for further work-up and management. - Diagnoses Differential Diagnosis/HQI/PQRI: Positive: Bronchitis, CHF, Pneumonia, Pulmonary Edema Provider Diagnoses: Pneumonia - Physician Notifications Discussed Care of Patient With: Carlos Frances Time Discussed With Above Provider: 16:27 - recommends admit Discharge - Discharge Plan Condition: Stable Disposition: ADMITTED TO [facility] Consult Consult: [id number]: Consult with Dr. Kiran, hospitalist, will admit pt. The documentation as recorded by the Jean tolentino SooYoung accurately reflects the service I personally performed and the decisions made by , Yaya Warner MD.
[2016-12-07] MEDS: Enoxaparin(*) 60 MG/0.6 ML SYR SUBCUT SCH ×2 (08:24→20:54)
[2016-12-07] MEDS: Potassium Chlor TAB* 20 MEQ TAB.ER PO SCH ×2 (08:24→20:54)
[2016-12-07] MEDS: Furosemide TAB* 20 MG PO SCH (08:25)
[2016-12-07] MEDS: Fludrocortisone Acetate TAB* 0.1 MG PO SCH (08:25)
[2016-12-07] MEDS: Magnesium Oxide TAB* 400 MG PO SCH ×2 (08:25→20:54)
--- NOTE | 2016-12-07 10:02 | PN ---
Progress Note - Progress Note SOAP: Subjective: []Feeling a little better since admitted. Yesterday very SOB with increased chest pressure (which has been long standing). Lots of yellow sputum. Not really having diarrhea and no cramping or foul smell per pt. and . No pain issues. Meications: Acetaminophen (Tylenol Tab*) 650 mg PO Q4H PRN PRN Reason: FEVER/PAIN Amiodarone HCl (Cordarone Tab*) 100 mg PO BEDTIME [facility] Last Admin: 12/06/16 21:21 Dose: 100 mg Enoxaparin Sodium (Lovenox(*)) 60 mg SUBCUT BID [facility] Last Admin: 12/07/16 08:24 Dose: 60 mg Fludrocortisone Acetate (Florinef Tab*) 0.2 mg PO QAM [facility] Last Admin: 12/07/16 08:25 Dose: 0.2 mg Furosemide (Lasix Tab*) 20 mg PO DAILY [facility] Last Admin: 12/07/16 08:25 Dose: 20 mg Guaifenesin/Codeine Phosphate (Robitussin Ac 100mg-10mg*) 5 ml PO Q6H PRN PRN Reason: COUGH Last Admin: 12/07/16 09:12 Dose: 5 ml Heparin Sodium (Porcine) (Heparin Flush Port (Ivad)) 5 ml FLUSH DAILY [facility] PRN Reason: Protocol Last Admin: 12/07/16 08:27 Dose: 5 ml Hydrocortisone Sodium Succinate (Solu-Cortef*) 100 mg IV Q8H [facility] Last Admin: 12/07/16 08:27 Dose: 100 mg Azithromycin 500 mg/ Sodium (Chloride) 250 mls @ 250 mls/hr IVPB Q24H [facility] Last Admin: 12/06/16 19:40 Dose: 250 mls/hr Ceftriaxone Sodium 1,000 mg/ (Sodium Chloride) 50 mls @ 200 mls/hr IVPB 1800 DIANN Lorazepam (Ativan Tab(*)) 0.5 mg PO BEDTIME PRN PRN Reason: ANXIETY Magnesium Oxide (Magox 400 Tab*) 1,200 mg PO BID [facility] Last Admin: 12/07/16 08:25 Dose: 1,200 mg Oxycodone HCl (Roxycodone Tab*) 5 mg PO QID PRN PRN Reason: PAIN Potassium Chloride (Klor Con Er Tab*) 40 meq PO BID [facility] Last Admin: 12/07/16 08:24 Dose: 40 meq Zolpidem Tartrate (Ambien Tab*) 10 mg PO BEDTIME PRN PRN Reason: SLEEP Last Admin: 12/06/16 22:41 Dose: 10 mg Objective: [] Vital Signs Temp Pulse Resp BP Pulse Ox 97.6 F 93 20 94/52 96 12/07/16 07:51 12/07/16 07:51 12/07/16 07:51 12/07/16 07:51 12/07/16 09:25 A&Ox3, EOMI, LOVELACE, neuro grossly non-focal HRR, SR on tele LS with dim. right base, left clear +BS, abd. soft and non-tender Laboratory Results - last 24 hr 12/06/16 12/06/16 12/06/16 15:40 16:00 16:00 WBC 5.1 RBC 2.60 L Hgb 7.8 L Hct 24 L MCV 91 MCH 30 MCHC 33 RDW 19 H Plt Count 111 L MPV Not Reportable Neut % (Auto) 80.7 Lymph % (Auto) 6.1 L [place] % (Auto) 12.9 H Eos % (Auto) 0.1 Baso % (Auto) 0.2 Absolute Neuts (auto) 4.1 Absolute Lymphs (auto) 0.3 L Absolute Monos (auto) 0.7 Absolute Eos (auto) 0 Absolute Basos (auto) 0 Absolute Nucleated RBC 0.01 Nucleated RBC % 0.1 Normal RBC Morphology Not Reportable Hypochromasia 2+ Microcytosis 1+ Schistocytes 1+ ESR 52 H INR (Anticoag Therapy) 1.39 H APTT 289.0 H* Fibrinogen 429 H Sodium Potassium Chloride Carbon Dioxide Anion Gap BUN Creatinine Est GFR ( Amer) Est GFR (Non-Af Amer) BUN/Creatinine Ratio Glucose Lactic Acid Calcium Total Bilirubin AST ALT Alkaline Phosphatase Troponin I C-Reactive Protein B-Natriuretic Peptide Total Protein Albumin Globulin Albumin/Globulin Ratio Urine Color Yellow Urine Appearance Clear Urine pH 7.0 Ur Specific [place] 1.015 Urine Protein Negative Urine Ketones Negative Urine Blood Negative Urine Nitrate Negative Urine Bilirubin Negative Urine Urobilinogen Negative Ur Leukocyte Esterase Trace H Urine WBC (Auto) Trace(0-5/hpf) Urine RBC (Auto) Absent Ur Squamous Epith Cells Present H Urine Bacteria Absent Urine Glucose Negative 12/06/16 12/06/16 12/06/16 16:00 16:00 16:00 WBC RBC Hgb Hct MCV MCH MCHC RDW Plt Count MPV Neut % (Auto) Lymph % (Auto) [place] % (Auto) Eos % (Auto) Baso % (Auto) Absolute Neuts (auto) Absolute Lymphs (auto) Absolute Monos (auto) Absolute Eos (auto) Absolute Basos (auto) Absolute Nucleated RBC Nucleated RBC % Normal RBC Morphology Hypochromasia Microcytosis Schistocytes ESR INR (Anticoag Therapy) APTT Fibrinogen Sodium 136 Potassium 3.8 Chloride 98 L Carbon Dioxide 33 H Anion Gap 5 BUN 15 Creatinine 0.84 Est GFR ( Amer) 86.7 Est GFR (Non-Af Amer) 67.4 BUN/Creatinine Ratio 17.9 Glucose 110 H Lactic Acid 0.8 Calcium 9.0 Total Bilirubin 1.20 H AST 9 L ALT 5 L Alkaline Phosphatase 121 H Troponin I 0.05 H* C-Reactive Protein 45.00 H B-Natriuretic Peptide 772 H Total Protein 5.6 L Albumin 3.4 Globulin 2.2 Albumin/Globulin Ratio 1.5 Urine Color Urine Appearance Urine pH Ur Specific [place] Urine Protein Urine Ketones Urine Blood Urine Nitrate Urine Bilirubin Urine Urobilinogen Ur Leukocyte Esterase Urine WBC (Auto) Urine RBC (Auto) Ur Squamous Epith Cells Urine Bacteria Urine Glucose 12/06/16 12/06/16 12/06/16 18:26 21:20 21:20 WBC RBC Hgb Hct MCV MCH MCHC RDW Plt Count MPV Neut % (Auto) Lymph % (Auto) [place] % (Auto) Eos % (Auto) Baso % (Auto) Absolute Neuts (auto) Absolute Lymphs (auto) Absolute Monos (auto) Absolute Eos (auto) Absolute Basos (auto) Absolute Nucleated RBC Nucleated RBC % Normal RBC Morphology Hypochromasia Microcytosis Schistocytes ESR INR (Anticoag Therapy) APTT Fibrinogen Sodium Potassium Chloride Carbon Dioxide Anion Gap BUN Creatinine Est GFR ( Amer) Est GFR (Non-Af Amer) BUN/Creatinine Ratio Glucose Lactic Acid 1.0 Calcium Total Bilirubin AST ALT Alkaline Phosphatase Troponin I 0.05 H* 0.04 H* C-Reactive Protein B-Natriuretic Peptide Total Protein Albumin Globulin Albumin/Globulin Ratio Urine Color Urine Appearance Urine pH Ur Specific [place] Urine Protein Urine Ketones Urine Blood Urine Nitrate Urine Bilirubin Urine Urobilinogen Ur Leukocyte Esterase Urine WBC (Auto) Urine RBC (Auto) Ur Squamous Epith Cells Urine Bacteria Urine Glucose 12/07/16 12/07/16 12/07/16 05:40 05:40 05:40 WBC 4.6 RBC 2.54 L Hgb 7.6 L Hct 23 L MCV 91 MCH 30 MCHC 33 RDW 19 H Plt Count 90 L MPV Neut % (Auto) 88.9 H Lymph % (Auto) 3.6 L [place] % (Auto) 7.2 Eos % (Auto) 0.1 Baso % (Auto) 0.2 Absolute Neuts (auto) 4.1 Absolute Lymphs (auto) 0.2 L Absolute Monos (auto) 0.3 Absolute Eos (auto) 0 Absolute Basos (auto) 0 Absolute Nucleated RBC 0 Nucleated RBC % 0.1 Normal RBC Morphology Hypochromasia Microcytosis Schistocytes ESR INR (Anticoag Therapy) 1.47 H APTT Fibrinogen Sodium 137 Potassium 3.8 Chloride 97 L Carbon Dioxide 33 H Anion Gap 7 BUN 17 Creatinine 0.77 Est GFR ( Amer) 95.9 Est GFR (Non-Af Amer) 74.5 BUN/Creatinine Ratio 22.1 H Glucose 127 H Lactic Acid Calcium 8.5 L Total Bilirubin AST ALT Alkaline Phosphatase Troponin I C-Reactive Protein B-Natriuretic Peptide Total Protein Albumin Globulin Albumin/Globulin Ratio Urine Color Urine Appearance Urine pH Ur Specific [place] Urine Protein Urine Ketones Urine Blood Urine Nitrate Urine Bilirubin Urine Urobilinogen Ur Leukocyte Esterase Urine WBC (Auto) Urine RBC (Auto) Ur Squamous Epith Cells Urine Bacteria Urine Glucose Assessment: []66 yo female with complicated medical history currently admitted with pneumonia, sputum culture with gram + cocci and bacilli, starting to improve since admission and IV abx. Plan: []1. PNA: cont. current coverage until culture identifies source 2. SOB: r/t PNA and small pleural effusion, cont. supplemental O2 3. Diarrhea: r/t magnesium, NOT c.diff, no isolation 4. MDS: follow counts 5. Adrenal insufficiency: will cont. high dose steroids for now, though apt to stop them within approx. 24 hrs 6. Cardiomyopathy and A.Fib: controlled, follow
[2016-12-07] MEDS ORDERED: Cyanocobalamin INJ * 1,000 MCG/ML VIAL 1 ML VIAL IM ONE (14:00)
[2016-12-07] MEDS: cefTRIAXone VIAL(*) 1,000 MG in NS 0.9% 50 ML* 50 ML IVPB SCH (17:01)
[2016-12-07] MEDS: Azithromycin IV(*) 500 MG in NS 0.9% 250 ML* 250 ML IVPB SCH (17:55)
[2016-12-07] MEDS: Amiodarone TAB* 200 MG PO SCH (20:52)
[2016-12-07] MEDS: Zolpidem TAB* 10 MG PO PRN (21:53)
[2016-12-08] MEDS: guaiFENesin/CODIEN 100MG-10MG* 5 ML UDC PO PRN ×2 (00:14→09:50)
[2016-12-08] MEDS: Hydrocortisone INJ* 100 MG VIAL IV SCH ×2 (03:03→08:37)
[2016-12-08 03:37] LABS: BUN/Creatinine Ratio 29.9 (8-20); Calcium 8.8 mg/dL (8.6-10.3); EGFR African American 112.6 (>60); EGFR Non-African American 87.5 (>60); Magnesium 1.8 mg/dL (1.9-2.7); Potassium 3.8 mmol/L (3.5-5.0)
[2016-12-08 04:01] LABS: Hematocrit 22 % (35-47); Hemoglobin 7.2 g/dl (12.0-16.0); Mean Corpuscular HGB Conc 33 g/dl (31-36); Mean Corpuscular Hemoglobin 30 pg (27-31); Mean Corpuscular Volume 91 fL (80-97); Mean Platelet Volume 11 um3 (7.4-10.4); Red Blood Count 2.42 10^6/ul (4.0-5.4); Red Cell Distribution Width 19 % (10.5-15); White Blood Count 3.8 10^3/ul (3.5-10.8)
[2016-12-08 04:20] LABS: Add Diff/Slide Review? Slide Review Added; Comments Flag Yes
[2016-12-08 04:35] LABS: Platelet Morphology Large; RBC Morphology Normal (Normal)
[2016-12-08] MEDS: Magnesium Oxide TAB* 400 MG PO SCH ×2 (08:26→20:21)
[2016-12-08] MEDS: Potassium Chlor TAB* 20 MEQ TAB.ER PO SCH ×2 (08:33→20:26)
[2016-12-08] MEDS: Fludrocortisone Acetate TAB* 0.1 MG PO SCH (08:36)
[2016-12-08] MEDS: Furosemide TAB* 20 MG PO SCH (08:46)
[2016-12-08] MEDS ORDERED: Furosemide IV* 10 MG/ML 2 ML VIAL (20 MG) IV ONE (09:53)
[2016-12-08] MEDS: Enoxaparin(*) 60 MG/0.6 ML SYR SUBCUT SCH ×2 (09:54→20:31)
--- NOTE | 2016-12-08 10:06 | PN ---
Progress Note - Progress Note SOAP: Subjective: overall feels much better than she did on Tuesday, but still requiring facemask at 7L for breathing. no diarrhea (2 soft stools daily). no further nausea or vomiting (clearly reports post-tussis vomiting). overall very weak. Objective: Vital Signs Temp Pulse Resp BP Pulse Ox 98.7 F 87 22 92/36 99 12/08/16 07:28 12/08/16 07:28 12/08/16 07:28 12/08/16 07:28 12/08/16 07:57 chronically ill appearing perr eomi op dry diffuse rhonchi s1 s2 nl soft nt +bs large, anasarcic right breast clean port 1+ LE edema to sacrum A+O x 3, globally weak but nonfocal Laboratory Results - last 24 hr 12/08/16 12/08/16 03:15 03:15 WBC 3.8 RBC 2.42 L Hgb 7.2 L Hct 22 L MCV 91 MCH 30 MCHC 33 RDW 19 H Plt Count 135 L MPV 11 H Neut % (Auto) 77.7 Lymph % (Auto) 7.0 L [place] % (Auto) 15.0 H Eos % (Auto) 0.1 Baso % (Auto) 0.2 Absolute Neuts (auto) 3.0 Absolute Lymphs (auto) 0.3 L Absolute Monos (auto) 0.6 Absolute Eos (auto) 0 Absolute Basos (auto) 0 Absolute Nucleated RBC 0.01 Nucleated RBC % 0.1 Platelet Morphology Large Normal RBC Morphology Normal Sodium 136 Potassium 3.8 Chloride 98 L Carbon Dioxide 35 H Anion Gap 3 BUN 20 Creatinine 0.67 Est GFR ( Amer) 112.6 Est GFR (Non-Af Amer) 87.5 BUN/Creatinine Ratio 29.9 H Glucose 126 H Calcium 8.8 Magnesium 1.8 L Assessment: 66 yo F w metastatic esophageal CA off treatment related to MDS and poor performance status, presenting with likely aspiration pneumonia/pneumonitis. She has a very tenuous respiratory status with very little room to move on treatment. Her course has been complicated by diastolic heart failure with very low systolic pressures making diuresis difficult. She has a known small tracheo-esophageal fistula with chronic aspiration. I have discussed, as always , with Prince and her that she is difficult to treat, and unfortunately I am not sure that we will make her respiratory status better. Fortunately her cancer has not progressed, though clinically this is of little utility for her. She is still very interested in being full code and treating whatever we can treat. She understands that this does NOT include her cancer. Her goal is to try to get her oxygen requirements back down so that she can return home, and to that end I will get a pulmonary consult. She is currently on stress dose steroids, though her hypotension is long standing and she looks fairly good to me and so I will taper that off quickly. She does seem better from a respiratory standpoint on it, so I will go to 60 of prednisone today and discuss with Dr. Mcneil. In terms of antibiotics, she is better on this current regimen, though I do get concerned about over treating with antibiotics given her history of c diff requiring a fecal transplant. I will discuss with Dr. Hickey. I wonder if there is a continuous suppressive regimen that she could be on (?doxycycline). She still appears wet on exam, though clearly closer to baseline. I will give her a one time dose of IV lasix. UE DVT: at port, with significant colateralization cont lovenox full code
--- NOTE | 2016-12-08 13:32 | CONS ---
CONSULTATION REPORT: DATE OF CONSULT: 12/08/16 REQUESTING PHYSICIAN: Dr. Randall. CONSULTING SERVICE: Infectious Disease. REASON FOR CONSULTATION: Pneumonia. IMPRESSION: 1. Pneumonia, infiltrate at the right base on CT scan with hypoxia, cough, and dyspnea in the setting of a tracheoesophageal fistula and dysphagia, aspiration pneumonia is high in the differential, could also be community acquired pneumonia in the setting of mild immunocompromised state given past chemotherapy , lung cancer, radiation therapy. 2. 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 3. Metastatic esophageal cancer, treated with chemotherapy and radiation. RECOMMENDATION: 1. Continue ceftriaxone and azithromycin. 2. Try and get a swallow evaluation with Speech Therapy. We discussed long- term antibiotics as a sort of prophylaxis for aspiration given frequency and the possibility there is no reversible problem. HISTORY OF PRESENT ILLNESS: This is a 66-year-old woman with history of esophageal cancer treated with chemotherapy, radiation and with an esophagotracheal fistula admitted with pneumonia. She was treated as an outpatient with doxycycline for two weeks about a month ago for cough, fever, dyspnea. Few days after stopping it, she had return of fever, cough, and dyspnea. She also has malaise and myalgia. Because of worsening fever, she came to the ER last night. She had white count of 4. She was afebrile. She was hypoxemic, started on supplemental oxygen, IV fluids, ceftriaxone, azithromycin. CT of the chest was obtained that showed no pulmonary embolus. There was small pericardial effusion, mediastinal lymphadenopathy, small left pleural effusion, paramediastinal and peripheral infiltrates in the right lung, esophageal wall thickening which is unchanged. This morning, she is still on oxygen. Her energy and appetite a little bit better. She is still coughing. There is nothing coming up. She does not think she bring up anything for a sputum culture. Blood cultures were sent and are negative. Urine culture is negative. Urine legionella and pneumococcal antigens were negative. Her sputum culture from yesterday shows normal khurram and yeast. She does not cough when she eats or drinks, sometimes feels like food gets stuck and is hard to swallow it. Eventually, it does go down. PAST MEDICAL HISTORY: 1. Metastatic esophageal cancer treated with radiation chemotherapy. 2. Recurrent C. difficile diarrhea. 3. Atrial fibrillation. 4. Hypertension. 5. Status post cholecystectomy. 6. Status post right PleurX catheter, which has since been removed. 7. Status post right inguinal hernia repair. MEDICATIONS: 1. Tylenol. 2. Amiodarone. 3. Enoxaparin. 4. Lorazepam at bedtime. 5. Ambien. 6. Azithromycin 500 mg daily. 7. Ceftriaxone 1 g a day. 8. Prednisone 60 mg daily. ALLERGIES: To METOPROLOL. FAMILY HISTORY: No recurrent infections. SOCIAL HISTORY: She lives in [place] with her . She has no travel or sick contacts. REVIEW OF SYSTEMS: A full review of systems was negative except as noted above. PHYSICAL EXAM: Vital Signs: Temperature is 37, heart rate 87, respiratory rate 20, blood pressure 90/36, O2 sat 100% on 7 L. In general, she is awake, not in distress. Neurologic: She is oriented x3. Follows all commands. HEENT : There is no conjunctival hemorrhage. Oropharynx without lesions. Neck: Supple without nuchal rigidity. Lymph Nodes: There is no cervical, supraclavicular, inguinal, axillary, or epitrochlear lymphadenopathy. Heart: Regular rate and rhythm without murmurs, rubs, or gallops. Chest: Right chest port without surrounding erythema. Lungs have decreased breath sounds at the right base without wheezes, rales, or rhonchi. Abdomen: Soft, nontender, nondistended. Skin: There is no rashes or splinter hemorrhages. Musculoskeletal: There is no spine tenderness to palpation. DIAGNOSTIC STUDIES/LAB DATA: White blood cell count 3.8, hemoglobin 7, platelets 135, MCV is 90. Creatinine is 0.6, troponin 0.04, CRP 45. Urinalysis negative. Please see impressions and recommendations outlined above. Thanks for asking me to see Ms. Huitron in consultation. [id number]/[facility] #: [id number] [facility]SE[facility]
--- NOTE | 2016-12-08 16:12 | CONS ---
PULMONARY CONSULTATION REPORT: DATE OF CONSULT: 12/08/16 CONSULTATION REQUESTED BY: Dr. Randall. REASON FOR CONSULTATION: Evaluation of hypoxemia and shortness of breath. HISTORY OF PRESENT ILLNESS: The patient is a 66-year-old female with history of esophageal cancer, atrial fibrillation, right upper extremity DVT, hypertension, arthritis, myelodysplastic syndrome, CHF, adrenal insufficiency, who was recently treated with doxycycline for presumed pneumonia, did not improve with progressively worsening cough and productive of off-colored phlegm , febrile to T-max of 103 at home, generalized malaise and aching. The patient' s shortness of breath was worsening and she decided to come into the emergency room for further evaluation. The patient was noted to be hypoxemic and her O2 was increased. The patient had CTA of the chest performed upon admission. I have personally reviewed the images - the patient did not have any evidence of filling defects in the pulmonary vessels, evidence of small pericardial effusion and mediastinal adenopathy that is unchanged. The patient also with evidence of multiple airspace opacities bilaterally, predominantly in the right lung and chronic interstitial markings, which are unchanged. The patient also with paramediastinal increased density on the right lung, which is unchanged. There is significant volume loss in the right base. Small left pleural effusion is also unchanged. The patient is currently on O2 supplementation on 6 L. The patient reports slight improvement in her breathing. She is not having significant cough at this time. The patient is continued on doxycycline. Her prior CT scans revealed similar findings with more dense opacification in the right lower lobe. PAST MEDICAL HISTORY: 1. Esophageal cancer. 2. AFib. 3. DVT of right upper extremity. 4. Hypertension. 5. Arthritis. 6. Myelodysplastic syndrome. 7. CHF. 8. Adrenal insufficiency. 9. Tracheoesophageal fistula. PAST SURGICAL HISTORY: 1. Tonsillectomy. 2. Port placement. 3. Pericardial window placement. MEDICATIONS: 1. Morphine. 2. Ativan. 3. Spironolactone. 4. Zofran. 5. Potassium. 6. Oxycodone. 7. Guaifenesin with codeine. 8. Magnesium. 9. Lasix. 10. Florinef. 11. Lovenox. 12. Cortef. 13. Ambien. 14. Compazine. 15. Amiodarone. 16. Tylenol. ALLERGIES TO MEDICATIONS: LOPRESSOR. FAMILY HISTORY: Mother has cancer, father has bone cancer. SOCIAL HISTORY: Former smoker, no alcohol or drug abuse. REVIEW OF SYSTEMS: All 14 systems reviewed and as per HPI. PHYSICAL EXAM: The patient is sitting up in chair, in no apparent distress, eating lunch, at bedside. Vital Signs: Temperature 98.7, pulse 87 beats per minute, respiratory rate 22 per minute, O2 sat 100% on 6 L, blood pressure 85/44. HEENT: Pupils equal, reactive to light. Mucous membranes moist. Neck: Supple, trachea in midline. Lungs: Rhonchi bilaterally and diminished breath sounds at right base. Cardiovascular: S1, S2 present, irregular. No murmurs. Abdomen: Soft, nontender, nondistended. Bowel sounds present. Extremities: Edema present in lower extremities, normal strength. Skin: No rash or bruise. Neurologic: No focal deficits. DIAGNOSTIC STUDIES/LAB DATA: WBC count 3.8, hemoglobin 7.2, hematocrit 22, platelet count 135. Sodium 136, potassium 3.8, chloride 98, bicarb 35, BUN 20, creatinine 0.6. Troponin elevated at 0.05., BNP 772. CT scan of the chest as described above in HPI. IMPRESSION AND RECOMMENDATIONS: 66-year-old female with esophageal cancer, off treatment related to myelodysplastic syndrome with recurrent aspiration pneumonias, pneumonitis secondary to tracheoesophageal fistula resulting in chronic aspiration, admitted with worsening shortness of breath and hypoxemia that is worsened. The patient with chronic aspiration with possible dense opacity in the right lower lobe, likely secondary to further episodes of aspiration. The patient is currently being treated with Rocephin and Zithromax, ID evaluation to follow. Dr. Randall started the patient on 60 mg of prednisone, which seems to have helped the patient with her breathing. Would recommend continuing with prednisone; however, would consider a lower dose if possible. She is on DVT treatment dose. The patient is on amiodarone for chronic atrial fibrillation. This is less likely to be amiodarone related toxicity given her history and progressive infiltrates with underlying ongoing aspiration. I do not see an evidence of eosinophilia on peripheral smear, which also makes amiodarone toxicity need to be less likely. The patient is mildly anemic, might benefit from 1 unit PRBC transfusion, which would also help with picking up her oxygen levels. I would also recommend incentive spirometry. Unfortunately, her aspiration episodes could not be prevented. So, we would continue with conservative management at this time. Titrate FiO2 as tolerated. Thank you for allowing me to participate in the care of your patient. Will follow up with you. [id number]/[facility] #: [id number] OSEAS
[2016-12-08] MEDS: cefTRIAXone VIAL(*) 1,000 MG in NS 0.9% 50 ML* 50 ML IVPB SCH (17:46)
[2016-12-08] MEDS: predniSONE TAB* 20 MG PO SCH (17:46)
[2016-12-08] MEDS: Azithromycin IV(*) 500 MG in NS 0.9% 250 ML* 250 ML IVPB SCH (20:10)
[2016-12-08] MEDS: Amiodarone TAB* 200 MG PO SCH (20:18)
[2016-12-08] MEDS: Zolpidem TAB* 10 MG PO PRN (21:48)
[2016-12-08] MEDS: oxyCODONE TAB* 5 MG TAB PO PRN (22:52)
[2016-12-09] MEDS: guaiFENesin/CODIEN 100MG-10MG* 5 ML UDC PO PRN ×4 (04:28→22:11)
[2016-12-09] MEDS: Enoxaparin(*) 60 MG/0.6 ML SYR SUBCUT SCH ×2 (08:05→21:07)
[2016-12-09] MEDS: Potassium Chlor TAB* 20 MEQ TAB.ER PO SCH ×2 (08:09→21:02)
[2016-12-09] MEDS: Magnesium Oxide TAB* 400 MG PO SCH ×2 (08:12→21:02)
[2016-12-09] MEDS: Fludrocortisone Acetate TAB* 0.1 MG PO SCH (08:15)
[2016-12-09] MEDS: Furosemide TAB* 20 MG PO SCH (08:16)
--- NOTE | 2016-12-09 10:13 | PN ---
Progress Note - Progress Note SOAP: Subjective: []Feeling better today then yesterday, though still SOB and feeling she needs significant O2. Aware of recommendations from Dr. Hickey and Dr. Mcneil. Notes feet are less swollen. Intermittent chest heaviness/pain continues. BMs regular, soft about 2x/day. No N/V. Doesn't understand the idea of palliative care. Doesn't want to stop fighting. Medications: Acetaminophen (Tylenol Tab*) 650 mg PO Q4H PRN PRN Reason: FEVER/PAIN Amiodarone HCl (Cordarone Tab*) 100 mg PO BEDTIME [facility] Last Admin: 12/08/16 20:18 Dose: 100 mg Enoxaparin Sodium (Lovenox(*)) 60 mg SUBCUT BID [facility] Last Admin: 12/09/16 08:05 Dose: 60 mg Fludrocortisone Acetate (Florinef Tab*) 0.2 mg PO QAM [facility] Last Admin: 12/09/16 08:15 Dose: 0.2 mg Furosemide (Lasix Tab*) 20 mg PO DAILY [facility] Last Admin: 12/09/16 08:16 Dose: 20 mg Guaifenesin/Codeine Phosphate (Robitussin Ac 100mg-10mg*) 5 ml PO Q6H PRN PRN Reason: COUGH Last Admin: 12/09/16 04:28 Dose: 5 ml Heparin Sodium (Porcine) (Heparin Flush Port (Ivad)) 5 ml FLUSH DAILY [facility] PRN Reason: Protocol Last Admin: 12/09/16 08:08 Dose: 5 ml Azithromycin 500 mg/ Sodium (Chloride) 250 mls @ 250 mls/hr IVPB Q24H [facility] Last Admin: 12/08/16 20:10 Dose: 250 mls/hr Ceftriaxone Sodium 1,000 mg/ (Sodium Chloride) 50 mls @ 200 mls/hr IVPB 1800 [facility] Last Admin: 12/08/16 17:46 Dose: 200 mls/hr Lorazepam (Ativan Tab(*)) 0.5 mg PO BEDTIME PRN PRN Reason: ANXIETY Magnesium Oxide (Magox 400 Tab*) 1,200 mg PO BID [facility] Last Admin: 12/09/16 08:12 Dose: 1,200 mg Oxycodone HCl (Roxycodone Tab*) 5 mg PO QID PRN PRN Reason: PAIN Last Admin: 12/08/16 22:52 Dose: 5 mg Potassium Chloride (Klor Con Er Tab*) 40 meq PO BID [facility] Last Admin: 12/09/16 08:09 Dose: 40 meq Prednisone (Deltasone Tab*) 60 mg PO 1700 [facility] Last Admin: 12/08/16 17:46 Dose: 60 mg Zolpidem Tartrate (Ambien Tab*) 10 mg PO BEDTIME PRN PRN Reason: SLEEP Last Admin: 12/08/16 21:48 Dose: 10 mg Objective: [] Vital Signs Temp Pulse Resp BP Pulse Ox 98.2 F 83 16 96/47 91 12/09/16 07:50 12/09/16 07:50 12/09/16 07:50 12/09/16 07:50 12/09/16 08:24 A&Ox3, EOMI, LOVELACE, neuro grossly non-focal HRR, SR on Tele with rate controlled LS diminished bilat (R>L) with scattered wheezes and sonorous rhonchi to right +BS, abd. soft and non-tender +PP=bilat., no edema Assessment: []66 yo female with stage IV esophageal cancer and multiple co-morbidities admitted with pneumonia and slowly improving on IV abx. 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 Extensive discussion with pt. and (Jordy) regarding pt.'s overall prognosis and goals of care. Reviewed definition of palliative care (of which Prince currently falls under the umbrella of and she appreciated further understanding of this) and hospice care (which she is not ready for d/t her wishes to continue weekly blood count monitoring). Reviewed pt.'s code status and discussed my concern that resuscitation measures would likely not be fruitful and that if she required intubation I do not think her lung function would recover. I also discussed that while I think we can improve her current resp. status I believe a significant component is related to the obstruction component which is chronic and therefore means her dyspnea will likely be her most challenging symptom. Prince asked very specific questions regarding what full code entailed and I provided a review to the best of my abilities. I attempted to answer all question and Prince appreciated the discussion becoming very tearful at the end of our conversation stating, "I don't' want to suffer." Jordy then stated he would not want to make the decision to withdraw life support and would like her to make the decision when she was capable, however also noted his full support of her wishes. Provided emotional support and reviewed that none of this represents "giving up", supportive listening provided Plan: []1. Pneumonia: Continue abx. at least through today (D3), consider d/c with prophylactic abx. Doxycycline 100 mg PO BID -- Add albuterol/Ipatropium nebs PRN d/t wheezes with chronic obstruction, if beneficial may consider inhaler on d/c -- Cont. incentive nathaniel -- Wean O2, goal SATs =/> 90% but does not need levels >94% -- Resume home morphine concentrate PRN SOB 2. MDS: check labs tomorrow, if hmg </=7 consider 1 unit, but hold off for now 3. Heart Failure: cont. daily lasix, add addition dose if transfused 4. Esophageal Cancer: stable by imaging, however with co-morbidities cont.'d decline. Check pre-albumin as prognostic indicator 5. Adrenal insufficency: stable, cont. current steroids but agree with quick taper. Disposition: goal of decreasing O2 </= 4L/min prior to d/c, likely 1-2 more days 45 min spent with pt., majority of time face to face counseling
[2016-12-09] MEDS ORDERED: Morphine ORAL CONCENTRATE* 5 MG/0.25 ML ORAL.SYRIN PO PRN (12:32)
--- NOTE | 2016-12-09 13:26 | PN ---
Progress Note - Progress Note SOAP: Subjective: DOS: 12/09/16 CC: cough HPI: 66 year old woman with hx metastatic esophageal cancer admitted with dyspnea and cough after the same which had resolved with doxycycline. Some cough today, dyspnea improving, no fever, rash or diarrhea. Seen by speech therapy no Objective: [] Vital Signs Temp 36.8 C 12/09/16 07:50 Pulse 83 12/09/16 07:50 Resp 16 12/09/16 07:50 BP 96/47 12/09/16 07:50 Pulse Ox 99 12/09/16 11:05 Intake & Output 12/08/16 12/09/16 12/09/16 18:59 06:59 18:59 Intake Total 1160 384 Output Total 200 Balance 1160 184 Weight 150 lb 12.8 oz Intake: IV Fluids 64 ABX - AZITHROMYCIN 20 ABX - CEFTRIAXONE 44 IVPB 320 ABX - AZITHROMYCIN 260 ABX - CEFTRIAXONE 60 Oral 1160 0 Output: Urine 200 Other: # Bowel Movements 1 0 Estimated Stool Amount Medium Medium # Voids 0 Gen:awake, no distress HEENT:PERRL, MMM Neck:Supple Heart:RRR no murmur Lungs:decr BS R base Abd:+BS NTND soft Skin: no rash MSK: no spine tenderness NEuro: Ox3 Microbiology 12/06/16 16:00 Aerobic Blood Culture - Preliminary Blood Venous No Growth Day 2 Anaerobic Blood Culture - Preliminary No Growth Day 2 Blood Culture - Final 12/06/16 15:38 Aerobic Blood Culture - Preliminary Blood Venous No Growth Day 2 Anaerobic Blood Culture - Preliminary No Growth Day 2 Blood Culture - Final 12/06/16 22:40 Gram Stain - Final Sputum Sputum Culture - Final YEAST Normal Palma Assessment: 1. Pneumonia, likely aspiration related 2. acute hypoxemic respiratory failure, present on admission 3. metastatic esophageal cancer hx chemotherapy and radiation therapy Plan: 1. continue ceftriaxone and azithromycin (can change to PO); will plan on half-way doxycycline on discharge. Discussed with Catina Sebastian NP
[2016-12-09] MEDS: predniSONE TAB* 20 MG PO SCH (16:46)
[2016-12-09] MEDS: cefTRIAXone VIAL(*) 1,000 MG in NS 0.9% 50 ML* 50 ML IVPB SCH (16:55)
[2016-12-09] MEDS: Azithromycin IV(*) 500 MG in NS 0.9% 250 ML* 250 ML IVPB SCH (20:56)
[2016-12-09] MEDS: Amiodarone TAB* 200 MG PO SCH (21:00)
[2016-12-09] MEDS: Zolpidem TAB* 10 MG PO PRN (22:11)
[2016-12-09] MEDS: Albuterol/Ipratropium NEB.SOL* Albuterol 2.5 MG/Ipratropium 0.5 MG 3 ML INH PRN (22:35)
[2016-12-10 06:27] LABS: Hematocrit 25 % (35-47); Hemoglobin 8.1 g/dl (12.0-16.0); Mean Corpuscular HGB Conc 32 g/dl (31-36); Mean Corpuscular Hemoglobin 30 pg (27-31); Mean Corpuscular Volume 93 fL (80-97); Mean Platelet Volume 10 um3 (7.4-10.4); Red Blood Count 2.71 10^6/ul (4.0-5.4); Red Cell Distribution Width 19 % (10.5-15); White Blood Count 5.5 10^3/ul (3.5-10.8)
[2016-12-10 06:30] LABS: Comments Flag Yes
[2016-12-10 06:44] LABS: Albumin 3.3 g/dL (3.2-5.2); BUN/Creatinine Ratio 28.2 (8-20); Calcium 8.9 mg/dL (8.6-10.3); EGFR African American 105.3 (>60); EGFR Non-African American 81.9 (>60); Globulin 2.2 g/dL (2-4); Potassium 4.6 mmol/L (3.5-5.0); Total Bilirubin 0.4 mg/dL (0.2-1.0); Total Protein 5.5 g/dL (6.4-8.9)
[2016-12-10 06:50] LABS: Add Diff/Slide Review? Slide Review Added; Hypochromasia 1+; Macrocytosis 1+; Microcytosis 1+; Polychromasia 1+
[2016-12-10 06:51] LABS: Platelet Morphology Large
[2016-12-10] MEDS: Potassium Chlor TAB* 20 MEQ TAB.ER PO SCH (08:28)
[2016-12-10] MEDS: Magnesium Oxide TAB* 400 MG PO SCH ×2 (08:28→20:44)
[2016-12-10] MEDS: Enoxaparin(*) 60 MG/0.6 ML SYR SUBCUT SCH ×2 (08:32→20:44)
[2016-12-10] MEDS: Fludrocortisone Acetate TAB* 0.1 MG PO SCH (08:32)
[2016-12-10] MEDS: Furosemide TAB* 20 MG PO SCH (08:32)
[2016-12-10] MEDS: guaiFENesin/CODIEN 100MG-10MG* 5 ML UDC PO PRN (10:03)
[2016-12-10] MEDS: Albuterol/Ipratropium NEB.SOL* Albuterol 2.5 MG/Ipratropium 0.5 MG 3 ML INH PRN (10:09)
[2016-12-10] MEDS ORDERED: guaiFENesin/CODIEN 100MG-10MG* 5 ML UDC PO PRN (14:31)
--- NOTE | 2016-12-10 15:25 | CONS ---
CC: Hermelindo Villa MD; Catina Sebastian NP * PALLIATIVE CARE CONSULTATION: DATE OF CONSULT: 12/10/16 REFERRING PHYSICIAN: Catina Sebastian NP. PRIMARY CARE PHYSICIAN: Hermelindo Villa MD. HOSPITAL COURSE: This is a 66-year-old female with past medical history of esophageal cancer, recurrent pneumonia, with a TE fistula and chronic aspiration , on 3.5 to 4 L at home, who presented to the emergency room on 12/06/16 for cough, shortness of breath, and fever. At that time, the patient was diagnosed with pneumonia and placed on broad-spectrum antibiotics. Clinically, she has improvement. She has been seen by Pulmonary and Infectious Disease. Unfortunately, with her history of chemotherapy, she has had bone marrow suppression and is no longer a candidate for any further chemo or treatment for her esophageal cancer, which, fortunately, has been stable. The patient is eligible for hospice at this time; however, the patient is preferring to do palliative care and not yet enroll in hospice. She would like to keep seeing Dr. Randall and getting her transfusions every 2 weeks as needed and wants to continue with her VNS services. Her biggest complaint is having a persistent dry cough, which is worse in the morning. She has wheezed off and on, has used a nebulizer at home, which intermittently helps her. She has had a decrease in appetite. Her weight has not changed, although she states she has a lot of extra fluid weight and she states she has intermittent chest pain as well. Otherwise, remaining review of systems is negative. The plan for the patient is to go home tomorrow on long-term suppressive antibiotic therapy for her recurrent pneumonia in the setting of chronic aspiration. PAST MEDICAL HISTORY: 1. Esophageal cancer, status post chemotherapy and radiation, no longer a candidate for any further treatment, followed by Dr. Randall. 2. History of recurrent pneumonia, complicated by TE fistula with chronic aspiration. 3. 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 4. Atrial fibrillation. 5. MDS. 6. History of CHF with preserved EF. 7. History of PleurX catheter with a chronic pleural effusion, which has since been removed. 8. History of a pericardial window. 9. History of a feeding tube. As mentioned, recurrent pneumonia with chronic aspiration, on oxygen at 3.5 to 4 L at home. 10. History of inguinal hernia repair. 11. History of cholecystectomy. INPATIENT MEDICATIONS: 1. Tylenol 650 mg every 4 hours as needed. 2. DuoNeb q.4 hours as needed. 3. Amiodarone 100 mg at bedtime. 4. Doxycycline 100 mg p.o. b.i.d. 5. Lovenox 60 mg subcu b.i.d. 6. Fludrocortisone 0.2 in the morning. 7. Lasix 20 mg daily. 8. Lorazepam 0.5 mg at bedtime. 9. Magnesium oxide at 1200 mg p.o. b.i.d. 10. Morphine 4 mg every 4 hours as needed. 11. Potassium chloride 40 mEq daily. 12. Ambien 10 mg at bedtime. 13. Guaifenesin/codeine 5 mL q.6 hours as needed. 14. Oxycodone four times a day p.r.n. 15. Prednisone 60 mg daily. ALLERGIES: METOPROLOL. SOCIAL HISTORY: The patient lives at home with her , Jordy, who is her healthcare proxy. She is a former smoker. No alcohol use. She lives in rented home where she ambulates with a walker, uses a wheelchair. She has 1 grown child who lives in [place]. Her MOLST form has not been completed. When discussing her MOLST form with me, she states she would like to be a DNR/ DNI. FAMILY HISTORY: Mother from cancer. Father from bone cancer. REVIEW OF SYSTEMS: As mentioned in the HPI. PHYSICAL EXAM: Vitals: Temperature 98.2, pulse rate 99, respiratory rate 22, oxygen saturation 100% on 5 L, blood pressure 91/51. General: No acute distress, resting comfortably, with her at the bedside. HEENT: Pupils equal and reactive. Anicteric. Head normocephalic. Oropharynx: Mucous membranes are moist. Neck: Supple. No lymphadenopathy. Cardiac: Regular rate and rhythm. Soft systolic murmur heard throughout. Respiratory: Diminished breath sounds, mainly at the bases. No wheezes, rhonchi or rales. Abdomen: Soft, nontender, nondistended. Extremities: No clubbing, cyanosis, or edema. +1 DPs. Neurological: Alert and oriented x3. No focal neurologic deficits. DIAGNOSTIC STUDIES/LAB DATA: White count 5.5, hemoglobin 8.1, hematocrit 25, platelets 135. Sodium 138, potassium 4.6, chloride 100, bicarb 34, BUN 20, creatinine 0.71. ASSESSMENT: This is a 66-year-old female with a past medical history of esophageal cancer, no longer a candidate for treatment, with diastolic heart failure and tracheoesophageal fistula, with chronic aspiration, recurrent pneumonia, and respiratory failure, who presented to the emergency room with shortness of breath, was diagnosed with pneumonia, clinically improving. On my encounter, the patient is not yet ready to enroll in hospice. She wants to keep going to see Dr. Randall and getting transfusions as needed. She would like to be referred to the Palliative Care Path Referral Program and to follow up accordingly. She did confirm with me that she would like to be a DNR/DNI and her MOLST form has been completed. At this time, I will increase her guaifenesin/Codeine cough to q.4 hours as needed for her persistent cough. Thank you for this consultation. I will follow along with you. PATIENT TIME: Greater than 90 minutes were spent doing the consultation, more than half that time spent in direct patient contact. [id number]/[facility] #: [id number] OESAS
[2016-12-10] MEDS: predniSONE TAB* 20 MG PO SCH (16:43)
[2016-12-10] MEDS: oxyCODONE TAB* 5 MG TAB PO PRN (18:36)
[2016-12-10] MEDS: DOXYcycline CAP(*) 100 MG PO SCH (20:43)
[2016-12-10] MEDS: Amiodarone TAB* 200 MG PO SCH (20:44)
[2016-12-11] MEDS: Zolpidem TAB* 10 MG PO PRN (00:27)
[2016-12-11 08:26] LABS: Comments Flag Yes; Hematocrit 24 % (35-47); Hemoglobin 7.7 g/dl (12.0-16.0); Mean Corpuscular HGB Conc 32 g/dl (31-36); Mean Corpuscular Hemoglobin 30 pg (27-31); Mean Corpuscular Volume 92 fL (80-97); Red Cell Distribution Width 19 % (10.5-15); White Blood Count 4.1 10^3/ul (3.5-10.8)
[2016-12-11 08:27] LABS: Add Diff/Slide Review? Slide Review Added
[2016-12-11 08:48] LABS: Mean Platelet Volume 10 um3 (7.4-10.4)
[2016-12-11 08:53] LABS: Hypochromasia 2+; Platelet Morphology Large; Polychromasia 1+
[2016-12-11] MEDS ORDERED: Potassium Chloride LIQUID* 20 MEQ PACKET PO SCH (09:00)
[2016-12-11] MEDS: Furosemide TAB* 20 MG PO SCH (09:42)
[2016-12-11] MEDS: DOXYcycline CAP(*) 100 MG PO SCH (09:42)
[2016-12-11] MEDS: Fludrocortisone Acetate TAB* 0.1 MG PO SCH (09:42)
[2016-12-11] MEDS: Magnesium Oxide TAB* 400 MG PO SCH (09:43)
[2016-12-11] MEDS: Enoxaparin(*) 60 MG/0.6 ML SYR SUBCUT SCH (09:43)
[2016-12-11 12:41] VITALS: BP 90/49
== END 2016-12-11 13:50 | disposition home or self-care (01) | DRG 177 ==
LOC: ED 13:36 → MEDTELE 17:15
PROVIDERS: ADMIT Internal Medicine; ATTEND Internal Medicine Hematology & Oncology
DX: J69.0 Pneumonitis due to inhalation of food and vomit (principal); J96.01 Acute respiratory failure with hypoxia; J86.0 Pyothorax with fistula; J90 Pleural effusion, not elsewhere classified; I11.0 Hypertensive heart disease with heart failure; I50.30 Unspecified diastolic (congestive) heart failure; C15.9 Malignant neoplasm of esophagus, unspecified; B96.89 Other specified bacterial agents as the cause of diseases classified elsewhere; E27.40 Unspecified adrenocortical insufficiency; I82.621 Acute embolism and thrombosis of deep veins of right upper extremity; I48.91 Unspecified atrial fibrillation; D46.9 Myelodysplastic syndrome, unspecified; M19.90 Unspecified osteoarthritis, unspecified site; Z79.1 Long term (current) use of non-steroidal anti-inflammatories (NSAID); Z79.891 Long term (current) use of opiate analgesic; Z79.899 Other long term (current) drug therapy; Z88.8 Allergy status to other drugs, medicaments and biological substances; Z80.8 Family history of malignant neoplasm of other organs or systems; Z87.891 Personal history of nicotine dependence; Z92.21 Personal history of antineoplastic chemotherapy; Z92.3 Personal history of irradiation; Z66 Do not resuscitate
CPT/HCPCS: 36415; 71020; 71275; 80048; 80053; 81003; 81015; 83605; 83735; 83880; 84134; 84484; 85025; 85384; 85610; 85652; 85730; 86140; 87040; 87070; 87086; 87205; 87899; 93005; 94640; 94760; 99232; 99233; A9270-GY; G8996-GN-CH; G8997-GN-CH; G8998-GN-CH; J0456; J0696; J1642; J1650; J1720; J1940; J3420; J7512; Q9967

== ENCOUNTER 2016-12-15 07:31 | Inpatient (IN) | payer MEDICARE, OTHER ==
[2016-12-15 08:33] LABS: Hematocrit 22 % (35-47); Hemoglobin 7.3 g/dl (12.0-16.0); Mean Corpuscular HGB Conc 33 g/dl (31-36); Mean Corpuscular Hemoglobin 30 pg (27-31); Mean Corpuscular Volume 92 fL (80-97); Red Blood Count 2.42 10^6/ul (4.0-5.4); Red Cell Distribution Width 20 % (10.5-15); White Blood Count 7.5 10^3/ul (3.5-10.8)
[2016-12-15 08:43] LABS: Add Diff/Slide Review? Slide Review Added; Comments Flag Yes
[2016-12-15 08:47] LABS: Albumin 3.2 g/dL (3.2-5.2); BUN/Creatinine Ratio 16.5 (8-20); C Reactive Protein 110.87 mg/L (< 5.00); Calcium 8.7 mg/dL (8.6-10.3); EGFR African American 93.1 (>60); EGFR Non-African American 72.4 (>60); Globulin 2.2 g/dL (2-4); Total Bilirubin 1.1 mg/dL (0.2-1.0); Total Protein 5.4 g/dL (6.4-8.9)
[2016-12-15] MEDS ORDERED: Levofloxacin 750 MG IVPREMIX(* 750 MG/150 ML BAG IVPB ONE (08:55)
--- NOTE | 2016-12-15 09:02 | RAD ---
HISTORY: Shortness of breath, cough COMPARISONS: December 06, 2016 VIEWS: 2: Frontal and lateral views of the chest. FINDINGS: CARDIOMEDIASTINAL SILHOUETTE: The cardiac silhouette is enlarged. The cardiomediastinal silhouette is otherwise normal. MONICA: The monica are normal. PLEURA: There is a small right pleural effusion LUNG PARENCHYMA: There is a diffuse reticular pattern with indistinct pulmonary vessels. There is confluent alveolar opacification of the right lung base. This has developed from the previous examination ABDOMEN: The upper abdomen is clear. There is no subphrenic gas. BONES AND SOFT TISSUES: No bone or soft tissue abnormalities are noted. OTHER: A right-sided chest port is noted with the tip overlying the superior vena cava IMPRESSION: 1. CARDIOMEGALY. 2. PROGRESSIVE RIGHT LOWER LUNG CONSOLIDATION. 3. SMALL RIGHT PLEURAL EFFUSION. 4. PULMONARY INTERSTITIAL EDEMA
[2016-12-15 09:29] LABS: Troponin I 0.04 ng/mL (<0.04)
[2016-12-15 10:17] LABS: Urine Bacteria Absent (Absent); Urine Bilirubin Negative (Negative); Urine Glucose Negative (Negative); Urine Nitrite Negative (Negative)
[2016-12-15] MEDS ORDERED: Cefepime(*) 1 GM in NS 0.9% 50 ML* 50 ML IVPB ONE (11:00)
[2016-12-15] MEDS ORDERED: Furosemide IV* 10 MG/ML 2 ML VIAL (20 MG) IV SLOW PU ONE (11:11)
[2016-12-15] MEDS ORDERED: Morphine ORAL.SOLN 10 mg* 2 MG/ML UDC 5 ml PO PRN (11:56)
[2016-12-15] MEDS ORDERED: LORazepam TAB(*) 0.5 MG PO PRN (11:56)
[2016-12-15] MEDS ORDERED: Prochlorperazine TAB* 10 MG PO PRN (11:56)
[2016-12-15] MEDS ORDERED: oxyCODONE TAB* 5 MG TAB PO PRN (11:56)
[2016-12-15] MEDS ORDERED: Iodixanol* (CONTRAST) 320 MG/ML 100 ML SDV IV ONE (12:36)
--- NOTE | 2016-12-15 13:33 | RAD ---
HISTORY: Pneumonia COMPARISONS: December 06, 2016 TECHNIQUE: Multiple contiguous axial CT scans of the chest were obtained with intravenous contrast. Coronal and sagittal multiplanar reformations are also submitted for review. FINDINGS: NECK AND THYROID: The lower neck and thyroid are unremarkable. CHEST WALL: There is no lower cervical, axillary, or supraclavicular lymphadenopathy by size criteria. Right-sided chest port is noted HEART AND PERICARDIUM: The heart is unremarkable. AORTA AND PULMONARY VASCULATURE: There is a small pericardial effusion MEDIASTINUM: There is no mediastinal lymphadenopathy by size criteria. MONICA: Again noted are parasagittal fibrotic changes AIRWAY AND ESOPHAGUS: There is diffuse mucosal thickening of the esophagus. LUNG PARENCHYMA: Again noted is the central fibrotic change. There is a rounded enhancing lesion of the medial right lower lung within the area of fibrosis measuring 2.2 x 3 x 2.8 cm in size. There are stable interstitial fibrotic changes. PLEURA: There is stable pleural thickening on the right. There is a small left pleural effusion, decreased from the previous examination UPPER ABDOMEN: The upper abdomen is unremarkable. BONES AND SOFT TISSUES: Degenerative changes are noted OTHER: None. IMPRESSION: 1. AGAIN NOTED ARE TREATMENT EFFECT CHANGES OF THE LOWER LUNGS, GREATER ON THE RIGHT THAN ON THE LEFT WITH ASSOCIATED RIGHT PLEURAL THICKENING AND FIBROTIC CHANGES OF THE LOWER LUNGS. 2. ADDITIONALLY, THERE IS A ROUNDED ENHANCING LESION WITHIN THE AREA OF FIBROSIS OF THE RIGHT LOWER LUNG MEASURING UP TO 3 CM IN SIZE. GIVEN THE HISTORY OF MALIGNANCY, THIS CONCERNING FOR NEOPLASM. RECOMMEND CONSIDERATION OF FURTHER EVALUATION WITH PET/CT AND/OR TISSUE SAMPLING. 3. SMALL PERICARDIAL EFFUSION. PRELIMINARY FINDINGS WERE DISCUSSED WITH KURTIS RIVAS AT APPROXIMATELY 1:30 PM ON DECEMBER 15, 2016..
[2016-12-15] MEDS: Hydrocortisone TAB* 5 MG PO SCH ×2 (14:53→21:02)
[2016-12-15] MEDS: Cefepime(*) 2 GM in NS 0.9% 50 ML* 50 ML IVPB SCH (14:53)
[2016-12-15] MEDS: guaiFENesin/CODIEN 100MG-10MG* 5 ML UDC PO PRN (17:21)
[2016-12-15] MEDS: Albuterol/Ipratropium NEB.SOL* Albuterol 2.5 MG/Ipratropium 0.5 MG 3 ML INH PRN (17:49)
--- NOTE | 2016-12-15 19:08 | ED ---
Stan Salvador Aidan, scribed for Yaya Warner MD on 12/15/16 at 0841 . Shortness of Breath - HPI Summary HPI Summary: 66 y/o female presents to the ED with a complaint of acute, constant, moderate SOB. Associated symptoms include weakness, a fever of 100.4, and diffuse abdominal pain. 11 days ago, she was seen in the ED for pneumonia and was given doxy, which did not seem to alleviate her symptoms. According to her , she was unable to get her O2 up to 85 at home today. - History of Current Complaint Chief Complaint: EDGeneral Time Seen by Provider: 12/15/16 07:56 Hx Obtained From: Patient Onset/Duration: Sudden Onset, Lasting Days, Still Present Timing: Constant Current Severity: Moderate Dyspnea At: Rest Aggrevating Factors: Nothing - unknown Alleviating Factors: Nothing - unknown Associated Signs & Symptoms: Fever - 100.4, and diffuse abdominal pain - Risk Factors Pulmonary Embolism: Smoking - former smoker Cardiac: Smoking - former smoker Tuberculosis: Smoking - former smoker - Allergy/Home Medications Allergies/Adverse Reactions: Allergies Allergy/AdvReac Type Severity Reaction Status Date / Time Metoprolol Allergy Intermediate Rash Verified 12/02/16 13:34 PMH/Surg Hx/FS Hx/Imm Hx Endocrine/Hematology History: Reports: Hx Anticoagulant Therapy, Hx Blood Transfusions, Hx Anemia, Other Endocrine/Hematological Disorders - chronic normocyte anemia, adrenal insufficiency Denies: Hx Diabetes, Hx Systemic Lupus Erythematosus Cardiovascular History: Reports: Hx Congestive Heart Failure, Hx Hypertension, Hx Syncope, Other Cardiovascular Problems/Disorders - pericardial effusion window Denies: Hx Aneurysm, Hx Angina, Hx Congenital Heart Disease, Hx Pacemaker/ICD Respiratory History: Reports: Hx Lung Cancer, Hx Pleural Effusion - Chronic, Hx Pneumonia, Hx Pulmonary Embolism, Hx Sleep Apnea - unconfirmed, Other Respiratory Problems/Disorders - PT STATES LUNG CA/ESOPHAGUS CA Denies: Hx Asthma GI History: Reports: Hx Gall Bladder Disease, Hx Gastroesophageal Reflux Disease , Other GI Disorders - DIFFICULTY SWALLOWING SOMETIME ESPECIALLY WITH PILLS R/T THE CANCER History: Denies: Hx Dialysis, Hx Renal Disease Musculoskeletal History: Reports: Hx Arthritis - SLIGHT, Hx Rheumatoid Arthritis Sensory History: Reports: Hx Contacts or Glasses Denies: Hx Cataracts, Hx Eye Injury, Hx Eye Prosthesis, Hx Glaucoma, Hx Legally Blind, Hx Macular Degeneration, Hx Vision Problem, Hx Deafness, Hx Hearing Aid, Hx Hearing Problem, Other Sensory Impairments Opthamlomology History: Reports: Hx Contacts or Glasses Denies: Hx Cataracts, Hx Eye Injury, Hx Eye Prosthesis, Hx Glaucoma, Hx Legally Blind, Hx Macular Degeneration, Hx Vision Problem, Other Sensory Impairments Neurological History: Reports: Hx Headaches, Other Neuro Impairments/Disorders - HX OF DIZZINESS, Syncope Psychiatric History: Denies: Hx Panic Disorder - Cancer History Cancer Type, Location and Year: esphogeal, lung cancer Hx Chemotherapy: Yes Hx Radiation Therapy: Yes Hx Palliative Cancer Treatment: No - Surgical History Surgery Procedure, Year, and Place: TONSILLECTOMY A CHILD. PEG tube - NO LONGER IN,. 2002 CYST REMOVED FROM RIGHT FOOT, [facility] [place]. 04/2015 PLEURX CATHETER INSERTION, [facility] [place]. 05/2015 PERICARDIAL WINDOW, [facility] [place]. 10/06/2015 INSERTION OF CATHETER TO DRAIN GALLBLADDER, [facility] [place] Hx Anesthesia Reactions: No - Immunization History Date of Tetanus Vaccine: up to date Date of Influenza Vaccine: up to date Infectious Disease History: No Infectious Disease History: Reports: Hx Clostridium Difficile Denies: Hx Hepatitis, Hx Human Immunodeficiency Virus (HIV), Hx of Known/ Suspected MRSA, Hx Shingles, Hx Tuberculosis, Hx Known/Suspected VRE, Hx Known/ Suspected VRSA, History Other Infectious Disease, Traveled Outside the in Last 30 Days - Family History Known Family History: Positive: Other - neg: breast CA Negative: Diabetes Family History: Per H&P from 05/12/16, both parents have no current problems. - Social History Occupation: Retired Lives: With Family Alcohol Use: None Hx Substance Use: No Substance Use Type: Reports: None Hx Tobacco Use: Yes Smoking Status (MU): Former Smoker Type: Cigarettes Amount Used/How Often: 1/2 PPD FOR ABOUT 30+ YEARS Length of Time of Smoking/Using Tobacco: 30 YEARS Have You Smoked in the Last Year: No Review of Systems Positive: Fever. Negative: Chills, Fatigue, Skin Diaphoresis Eyes: Negative ENT: Negative Cardiovascular: Negative Positive: Shortness Of Breath. Negative: Cough Positive: Abdominal Pain. Negative: Vomiting, Diarrhea, Nausea Genitourinary: Negative Musculoskeletal: Negative Skin: Negative Neurological: Negative Psychological: Normal All Other Systems Reviewed And Are Negative: Yes Physical Exam - Summary Physical Exam Summary: VITAL SIGNS: Reviewed. GENERAL: Patient is an elderly fragile ill looking lying in the stretcher. Patient is not in any acute respiratory distress. HEAD AND FACE: No signs of trauma. No ecchymosis, hematomas or skull depressions. EYES: PERRLA, EOMI x 2, No injected conjunctiva, no nystagmus. EARS: Hearing grossly intact. Ear canals and tympanic membranes are within normal limits. MOUTH: Oropharynx within normal limits. NECK: Supple, trachea is midline, no adenopathy, no JVD, no carotid bruit, no c- spine tenderness, neck with full ROM. CHEST: Symmetric, no tenderness at palpation LUNGS: bilateral diffuse crackles and no breath sounds in the right lower lung. CVS: Regular rate and rhythm, S1 and S2 present, no murmurs or gallops appreciated. ABDOMEN: Soft, non-tender. No signs of distention. No rebound no guarding, and no masses palpated. Bowel sounds are normal. EXTREMITIES: FROM in all major joints, no edema, no cyanosis or clubbing. NEURO: Alert and oriented x 3. No acute neurological deficits. Speech is normal and follows commands. SKIN: Dry and warm Triage Information Reviewed: Yes Vital Signs On Initial Exam: Initial Vitals Temp Pulse Resp BP Pulse Ox 100.4 F 111 18 93/42 100 12/15/16 07:41 12/15/16 07:41 12/15/16 07:41 12/15/16 07:41 12/15/16 07:41 Vital Signs Reviewed: Yes Diagnostics - Vital Signs Vital Signs Temp Pulse Resp BP Pulse Ox 12/15/16 07:41 100.4 F 108 18 93/42 99 - Laboratory Lab Results: Lab Results 12/15/16 12/15/16 12/15/16 Range/Units 07:50 07:50 07:50 WBC 7.5 (3.5-10.8) 10^3/ul RBC 2.42 L (4.0-5.4) 10^6/ul Hgb 7.3 L (12.0-16.0) g/dl Hct 22 L (35-47) % MCV 92 (80-97) fL MCH 30 (27-31) pg MCHC 33 (31-36) g/dl RDW 20 H (10.5-15) % Plt Count Pending MPV Pending Neut % (Auto) 74.0 (38-83) % Lymph % (Auto) 8.8 L (25-47) % [place] % (Auto) 15.9 H (1-9) % Eos % (Auto) 0.2 (0-6) % Baso % (Auto) 1.1 (0-2) % Absolute Neuts (auto) 5.6 (1.5-7.7) 10^3/ul Absolute Lymphs (auto) 0.7 L (1.0-4.8) 10^3/ul Absolute Monos (auto) 1.2 H (0-0.8) 10^3/ul Absolute Eos (auto) 0 (0-0.6) 10^3/ul Absolute Basos (auto) 0.1 (0-0.2) 10^3/ul Absolute Nucleated RBC 0.04 10^3/ul Nucleated RBC % 0.5 Sodium 135 (133-145) mmol/L Potassium 4.0 (3.5-5.0) mmol/L Chloride 94 L (101-111) mmol/L Carbon Dioxide 36 H (22-32) mmol/L Anion Gap 5 (2-11) mmol/L BUN 13 (6-24) mg/dL Creatinine 0.79 (0.51-0.95) mg/dL Est GFR ( Amer) 93.1 (>60) Est GFR (Non-Af Amer) 72.4 (>60) BUN/Creatinine Ratio 16.5 (8-20) Glucose 100 (70-100) mg/dL Lactic Acid 0.8 (0.5-2.0) mmol/L Calcium 8.7 (8.6-10.3) mg/dL Total Bilirubin 1.10 H (0.2-1.0) mg/dL AST 10 L (13-39) U/L ALT 8 (7-52) U/L Alkaline Phosphatase 89 (34-104) U/L Total Creatine Kinase 13 (10-223) U/L Troponin I Pending C-Reactive Protein 110.87 H (< 5.00) mg/L Total Protein 5.4 L (6.4-8.9) g/dL Albumin 3.2 (3.2-5.2) g/dL Globulin 2.2 (2-4) g/dL Albumin/Globulin Ratio 1.5 (1-3) Result Diagrams: 12/15/16 07:50 06/14/17 07:50 Lab Statement: Any lab studies that have been ordered have been reviewed, and results considered in the medical decision making process. - Radiology CHEST X-RAY Xray Interpretation: Positive (See Comments) - IMPRESSION: 1. CARDIOMEGALY. 2. PROGRESSIVE RIGHT LOWER LUNG CONSOLIDATION. 3. SMALL RIGHT PLEURAL EFFUSION. 4. PULMONARY INTERSTITIAL EDEMA - CT CHEST CT CT Interpretation: Positive (See Comments) - IMPRESSION: 1. AGAIN NOTED ARE TREATMENT EFFECT CHANGES OF THE LOWER LUNGS, GREATER ON THE RIGHT THAN ON THE LEFT WITH ASSOCIATED RIGHT PLEURAL THICKENING AND FIBROTIC CHANGES OF THE LOWER LUNGS. 2. ADDITIONALLY, THERE IS A ROUNDED ENHANCING LESION WITHIN THE AREA OF FIBROSIS OF THE RIGHT LOWER LUNG MEASURING UP TO 3 CM IN SIZE. GIVEN THE HISTORY OF MALIGNANCY, THIS CONCERNING FOR NEOPLASM. RECOMMEND CONSIDERATION OF FURTHER EVALUATION WITH PET/CT AND/OR TISSUE SAMPLING. 3. SMALL PERICARDIAL EFFUSION. PRELIMINARY FINDINGS WERE DISCUSSED WITH KURTIS RIVAS AT APPROXIMATELY 1:30 PM ON DECEMBER 15, 2016.. CT Interpretation Completed By: Radiologist Course/Dx - Course Course Of Treatment: 66 y/o female presents to the ED with a complaint of acute , constant, moderate SOB. Associated symptoms include weakness, a fever of 100.4, and diffuse abdominal pain. 11 days ago, she was seen in the ED for pneumonia and was given doxy, which did not seem to alleviate her symptoms. According to her , she was unable to get her O2 up to 85 at home today. . In the ED course an IV access was obtained. Patient was placed in a radiation physicist. Patient was started with gently IV fluids since patient has hx of CHF. Labs within normal limits except for chronic anemia , increased troponin, CHF exacerbation. Troponin #1: 0.04. EKG shows a NSR at w/o ST elevations. CXR impression: IMPRESSION: 1. CARDIOMEGALY. 2. PROGRESSIVE RIGHT LOWER LUNG CONSOLIDATION. 3. SMALL RIGHT PLEURAL EFFUSION. 4. PULMONARY INTERSTITIAL EDEMA. . . In the ED course she was started with Levaquin and Cefepime, for possible pneumonia. She has CHF exacerbation but patient is hypotensive. Therefore I cannot give Lasix. I discussed the case with Dr. Frances (Oncology) and he agreed to admit patient to his services for further assessment. - Diagnoses Differential Diagnosis/HQI/PQRI: Positive: Asthma, Bronchitis, CHF, Pneumonia Provider Diagnoses: Pneumonia, Sepsis, Elevated troponin I level, CHF exacerbation - Physician Notifications Discussed Care of Patient With: Eddie Frances MD Time Discussed With Above Provider: 09:15 - Dr. Frances will admit the patient Instructed by Provider To: Admit As Inpatient Discharge - Discharge Plan Condition: Stable Disposition: ADMITTED TO [facility] Discharge Disposition Comment: The patient will be admitted to Dr. Frances. The documentation as recorded by the Stan tolentino Aidan accurately reflects the service I personally performed and the decisions made by Timmy burris Walter, MD.
[2016-12-15] MEDS: Amiodarone TAB* 200 MG PO SCH (21:02)
[2016-12-15] MEDS: Magnesium Oxide TAB* 400 MG PO SCH (21:02)
[2016-12-15] MEDS: Enoxaparin(*) 60 MG/0.6 ML SYR SUBCUT SCH (21:03)
[2016-12-15] MEDS: Zolpidem TAB* 10 MG PO PRN (21:29)
[2016-12-16] MEDS: Cefepime(*) 2 GM in NS 0.9% 50 ML* 50 ML IVPB SCH (01:41)
[2016-12-16 05:23] LABS: Hematocrit 21 % (35-47); Hemoglobin 6.8 g/dl (12.0-16.0); Mean Corpuscular HGB Conc 32 g/dl (31-36); Mean Corpuscular Hemoglobin 30 pg (27-31); Mean Corpuscular Volume 92 fL (80-97); Red Blood Count 2.28 10^6/ul (4.0-5.4); Red Cell Distribution Width 20 % (10.5-15); White Blood Count 5.3 10^3/ul (3.5-10.8)
[2016-12-16 05:24] LABS: Comments Flag Yes
[2016-12-16 05:38] LABS: Calcium 8.5 mg/dL (8.6-10.3); EGFR African American 90.4 (>60); EGFR Non-African American 70.3 (>60); Globulin 2.2 g/dL (2-4); Potassium 3.7 mmol/L (3.5-5.0); Total Bilirubin 0.9 mg/dL (0.2-1.0); Total Protein 5.2 g/dL (6.4-8.9)
[2016-12-16] MEDS: Albuterol/Ipratropium NEB.SOL* Albuterol 2.5 MG/Ipratropium 0.5 MG 3 ML INH PRN ×2 (08:13→15:07)
[2016-12-16] MEDS: Enoxaparin(*) 60 MG/0.6 ML SYR SUBCUT SCH ×2 (08:33→20:46)
[2016-12-16] MEDS: Fludrocortisone Acetate TAB* 0.1 MG PO SCH (08:34)
[2016-12-16] MEDS: Magnesium Oxide TAB* 400 MG PO SCH ×2 (08:35→20:45)
[2016-12-16] MEDS: Potassium Chloride LIQUID* 20 MEQ PACKET PO SCH (08:36)
[2016-12-16] MEDS: Hydrocortisone TAB* 5 MG PO SCH ×3 (08:44→20:45)
--- NOTE | 2016-12-16 09:47 | PN ---
Progress Note - Progress Note SOAP: Subjective: feels "terrible" today. reports that she felt better with discharge, went home and felt "very sick" on the doxycycline (vomited it frequently). Came in yesterday fevers and increased shortness of breath. Objective: Vital Signs Temp Pulse Resp BP Pulse Ox 98.3 F 95 14 85/57 98 12/16/16 07:27 12/16/16 08:15 12/16/16 08:15 12/16/16 07:27 12/16/16 08:15 sitting up, chronically ill appearing perr eomi op moist diffuse rhonchi s1 s2 nl soft nt +Bs 1+ LE edema right breast engorgement port clean A+O x 3, nonfcaol neurological exam Laboratory Results - last 24 hr 12/15/16 12/15/16 12/16/16 09:50 15:00 04:45 WBC RBC Hgb Hct MCV MCH MCHC RDW Plt Count Sodium Potassium Chloride Carbon Dioxide Anion Gap BUN Creatinine Est GFR ( Amer) Est GFR (Non-Af Amer) BUN/Creatinine Ratio Glucose Lactic Acid 0.9 Calcium Total Bilirubin AST ALT Alkaline Phosphatase B-Natriuretic Peptide 1353 H Total Protein Albumin Globulin Albumin/Globulin Ratio Urine Color Yellow Urine Appearance Clear Urine pH 6.0 Ur Specific [place] 1.013 Urine Protein Negative Urine Ketones Negative Urine Blood 1+ H Urine Nitrate Negative Urine Bilirubin Negative Urine Urobilinogen Negative Ur Leukocyte Esterase 3+ H Urine WBC (Auto) 1+(6-10/hpf) H Urine RBC (Auto) Trace(0-2/hpf) Ur Squamous Epith Cells Present H Urine Bacteria Absent Hyaline Casts Present H Urine Glucose Negative Blood Type Crossmatch 12/16/16 12/16/16 12/16/16 04:45 04:45 04:45 WBC 5.3 RBC 2.28 L Hgb 6.8 L Hct 21 L MCV 92 MCH 30 MCHC 32 RDW 20 H Plt Count 107 L Sodium 135 Potassium 3.7 Chloride 94 L Carbon Dioxide 37 H Anion Gap 4 BUN 13 Creatinine 0.81 Est GFR ( Amer) 90.4 Est GFR (Non-Af Amer) 70.3 BUN/Creatinine Ratio 16.0 Glucose 96 Lactic Acid Calcium 8.5 L Total Bilirubin 0.90 AST 7 L ALT 6 L Alkaline Phosphatase 81 B-Natriuretic Peptide Total Protein 5.2 L Albumin 3.0 L Globulin 2.2 Albumin/Globulin Ratio 1.4 Urine Color Urine Appearance Urine pH Ur Specific [place] Urine Protein Urine Ketones Urine Blood Urine Nitrate Urine Bilirubin Urine Urobilinogen Ur Leukocyte Esterase Urine WBC (Auto) Urine RBC (Auto) Ur Squamous Epith Cells Urine Bacteria Hyaline Casts Urine Glucose Blood Type A Positive Crossmatch See Detail Acetaminophen (Tylenol Tab*) 650 mg PO Q6H PRN PRN Reason: PAIN OR TEMPERATURE Albuterol/Ipratropium (Duoneb (Albuterol 2.5 Mg/Ipratropium 0.5 Mg)) 1 neb INH Q4H PRN PRN Reason: SOB/WHEEZING Last Admin: 12/16/16 08:13 Dose: 1 neb Amiodarone HCl (Cordarone Tab*) 100 mg PO BEDTIME [facility] Last Admin: 12/15/16 21:02 Dose: 100 mg Enoxaparin Sodium (Lovenox(*)) 60 mg SUBCUT BID [facility] Last Admin: 12/16/16 08:33 Dose: 60 mg Fludrocortisone Acetate (Florinef Tab*) 0.2 mg PO QAM [facility] Last Admin: 12/16/16 08:34 Dose: 0.2 mg Guaifenesin/Codeine Phosphate (Robitussin Ac 100mg-10mg*) 5 ml PO Q6H PRN PRN Reason: COUGH Last Admin: 12/15/16 17:21 Dose: 5 ml Heparin Sodium (Porcine) (Heparin Flush Port ([place])) 5 ml FLUSH DAILY [facility] Last Admin: 12/16/16 08:34 Dose: 5 ml Hydrocortisone (Cortef Tab*) 5 mg PO TID [facility] Last Admin: 12/16/16 08:44 Dose: 5 mg Cefepime HCl 2 gm/ Sodium (Chloride) 50 mls @ 100 mls/hr IVPB Q12H [facility] Last Admin: 12/16/16 01:41 Dose: 100 mls/hr Lorazepam (Ativan Tab(*)) 0.5 mg PO BEDTIME PRN PRN Reason: ANXIETY Magnesium Oxide (Magox 400 Tab*) 1,200 mg PO BID [facility] Last Admin: 12/16/16 08:35 Dose: 1,200 mg Morphine Sulfate (Morphine Oral.Soln 10 Mg*) 5 mg PO Q6H PRN PRN Reason: PAIN Ondansetron HCl (Zofran Tab*) 4 mg PO Q4H PRN PRN Reason: NAUSEA Oxycodone HCl (Roxycodone Tab*) 5 mg PO QID PRN PRN Reason: PAIN Potassium Chloride (Klor-Con Liquid*) 40 meq PO DAILY [facility] Last Admin: 12/16/16 08:36 Dose: 40 meq Prochlorperazine (Compazine Tab*) 10 mg PO Q6H PRN PRN Reason: NAUSEA Zolpidem Tartrate (Ambien Tab*) 10 mg PO BEDTIME PRN PRN Reason: SLEEP Last Admin: 12/15/16 21:29 Dose: [address] chest: personally reviewed, increasing enhancing region right lower lobe in area of prior radiation fibrosis Assessment: 66 yo F w metastatic esophageal cancer currently off of therapy 2/2 poor performance status and treatment related MDS, course also complicated by difficult to manage diastolic heart failure with very low systolic blood pressures, now with recent admissions/treatments of likely aspiration pneumonia presenting with recurrent fevers and SOB. Her imaging is concerning for either progressive malignancy or an abscess. Plan: I have discussed with Dr. Hickey and will discuss with Dr. Mcneil to see if she would be a candidate for a diagnostic procedure to help delineate infection vs. progressive disease. I did discuss with Prince and her at length that I again do not think she is strong enough to tolerate therapy for her cancer and would strongly recommend hospice. They are clearly not ready. They would like to try treating this if it is an infection. -cont cefepime for now -ID and pulm consults diastolic heart failure: acute on chronic exacerbation, treatment limited by hypotension -cont low dose lasix DNR/DNI but wants medical interventions.
--- NOTE | 2016-12-16 10:09 | PN ---
Progress Note - Progress Note SOAP: Subjective: DOS: 12/16/16 CC: shortness of breath HPI: 66 yo woman with recent admission for PNA, improved with ceftriaxone, thought to be a component of aspiration, went home on doxycycline which caused vomiting and she did not keep it down, now with malaise, cough, shortness of breath. No fever this morning, no rash or diarrhea. Objective: [] Vital Signs Temp 36.8 C 12/16/16 07:27 Pulse 95 12/16/16 08:15 Resp 14 12/16/16 08:15 BP 85/57 12/16/16 07:27 Pulse Ox 98 12/16/16 08:15 Intake & Output 12/15/16 12/16/16 12/16/16 18:59 06:59 18:59 Intake Total 410 400 240 Output Total 650 Balance 410 -250 240 Weight 150 lb Intake: IV Fluids 160 ns 10 IVPB 50 ns 50 Oral 200 400 240 Output: Liquid Stool 650 Other: Estimated Void Medium Small Medium # Bowel Movements 0 2 Estimated Stool Amount Medium # Voids 1 2 1 Gen:awake, no discomfort [place]:Awake, oriented x3 HEENT:PERRL, MMM Neck:supple Heart:RRR no murmur Lungs:BL expiratory wheeze, decr BS at bases Abd:+BS NTND soft Skin: No rash MSK: no spine tenderness Laboratory Results - last 24 hr 12/15/16 12/15/16 12/16/16 09:50 15:00 04:45 WBC RBC Hgb Hct MCV MCH MCHC RDW Plt Count Sodium Potassium Chloride Carbon Dioxide Anion Gap BUN Creatinine Est GFR ( Amer) Est GFR (Non-Af Amer) BUN/Creatinine Ratio Glucose Lactic Acid 0.9 Calcium Total Bilirubin AST ALT Alkaline Phosphatase B-Natriuretic Peptide 1353 H Total Protein Albumin Globulin Albumin/Globulin Ratio Urine Color Yellow Urine Appearance Clear Urine pH 6.0 Ur Specific [place] 1.013 Urine Protein Negative Urine Ketones Negative Urine Blood 1+ H Urine Nitrate Negative Urine Bilirubin Negative Urine Urobilinogen Negative Ur Leukocyte Esterase 3+ H Urine WBC (Auto) 1+(6-10/hpf) H Urine RBC (Auto) Trace(0-2/hpf) Ur Squamous Epith Cells Present H Urine Bacteria Absent Hyaline Casts Present H Urine Glucose Negative Blood Type Antibody Screen Crossmatch 12/16/16 12/16/1617 04:45 04:45 04:45 WBC 5.3 RBC 2.28 L Hgb 6.8 L Hct 21 L MCV 92 MCH 30 MCHC 32 RDW 20 H Plt Count 107 L Sodium 135 Potassium 3.7 Chloride 94 L Carbon Dioxide 37 H Anion Gap 4 BUN 13 Creatinine 0.81 Est GFR ( Amer) 90.4 Est GFR (Non-Af Amer) 70.3 BUN/Creatinine Ratio 16.0 Glucose 96 Lactic Acid Calcium 8.5 L Total Bilirubin 0.90 AST 7 L ALT 6 L Alkaline Phosphatase 81 B-Natriuretic Peptide Total Protein 5.2 L Albumin 3.0 L Globulin 2.2 Albumin/Globulin Ratio 1.4 Urine Color Urine Appearance Urine pH Ur Specific [place] Urine Protein Urine Ketones Urine Blood Urine Nitrate Urine Bilirubin Urine Urobilinogen Ur Leukocyte Esterase Urine WBC (Auto) Urine RBC (Auto) Ur Squamous Epith Cells Urine Bacteria Hyaline Casts Urine Glucose Blood Type A Positive Antibody Screen Negative Crossmatch See Detail Assessment: 1. fever, cough, hypoxia; pneumonia given recurrence off of antibiotics, concern as well for underlying mass that could be malignancy or abscess 2. hx esophageal cancer, XRT 3. elevated CRP 4. thrombocytopenia Plan: 1. change cefepime to ceftriaxone, follow her symptoms, exam, CRP; if all improving can plan on long course IV treatment. Agree with pulmonology evaluation for ?BAL or biopsy of mass. Sputum culture ordered. Discussed with Dr Randall 35 minutes floor time >50% face to face time in counseling with patient and regarding next steps in diagnosis and treatment.
[2016-12-16] MEDS ORDERED: Furosemide IV* 10 MG/ML 2 ML VIAL (20 MG) IV SLOW PU ONE (11:11)
[2016-12-16] MEDS: guaiFENesin/CODIEN 100MG-10MG* 5 ML UDC PO PRN (11:11)
--- NOTE | 2016-12-16 14:49 | CONS ---
PULMONARY CONSULTATION REPORT: DATE OF CONSULT: 12/16/16 CONSULTATION REQUESTED BY: Dr. Randall. REASON FOR CONSULTATION: Evaluation of abnormal CT chest, hypoxemia and shortness of breath. HISTORY OF PRESENT ILLNESS: The patient is a 66-year-old female with history of esophageal cancer, atrial fibrillation, myelodysplastic syndrome, CHF, adrenal insufficiency known to me from recent inpatient evaluation and she was admitted for similar complaints. The patient has history of recurrent aspiration due to the esophageal issues. She was treated for aspiration pneumonia and was discharged on doxycycline. The patient apparently did fine for 2 days, started having worsening symptoms with worsening shortness of breath and cough and decided to come back to the emergency room for evaluation. The patient had CT of the chest performed on admission. I have personally reviewed the images - the patient with fibrotic changes, predominantly in the right lower lobe compared to the left, pleural thickening, thickening of left lower lobe bronchi and evidence of interstitial thickening. The patient also with evidence of thickened esophagus. The patient also with dense nodular lesion in the right lower lobe area. The patient has been requiring increased O2 supplementation. The patient is on therapeutic dose of Lovenox. She is also started on broad-spectrum antibiotics. The patient reports no significant improvement since admission. She is dyspneic with minimal movement currently. The patient denies fevers or chills. No other new complaints since the last admission. The patient reports mild cough with difficulty expectorating the phlegm. PAST MEDICAL HISTORY: 1. Esophageal cancer. 2. AFib, on amiodarone. 3. DVT of right upper extremity. 4. Hypertension. 5. Arthritis. 6. Myelodysplastic syndrome. 7. CHF. 8. Adrenal insufficiency, on medications. 9. Tracheoesophageal fistula. PAST SURGICAL HISTORY: 1. Tonsillectomy. 2. Port placement. 3. Pericardial window placement. MEDICATIONS: 1. Morphine. 2. Ativan. 3. Spironolactone. 4. Zofran. 5. Potassium. 6. Oxycodone. 7. Guaifenesin with codeine. 8. Magnesium. 9. Lasix. 10. Florinef. 11. Lovenox. 12. Cortef. 13. Ambien. 14. Compazine. 15. Amiodarone. 16. Tylenol. ALLERGIES: LOPRESSOR. FAMILY HISTORY: Reviewed, mother with malignancy and father with bone cancer. SOCIAL HISTORY: Former smoker, quit long time ago. No alcohol or drug abuse. REVIEW OF SYSTEMS: All 14 systems reviewed and as per HPI. PHYSICAL EXAMINATION: The patient in bed, in no apparent distress, eating lunch. Vital Signs: Temperature 98.3, pulse 95 beats per minute, respiratory rate is 16 per minute, O2 sat 98% on 5 L, blood pressure 85/57. HEENT: Pupils equal, reactive to light. Mucous membranes moist. Respiratory: Diminished breaths sounds at bases, inspiratory squeaks present. Cardiovascular: S1, S2 present. Irregular. Abdomen: Soft, nontender, nondistended. Bowel sounds present. Extremities: Edema in lower extremities. Skin: No rash or bruits. Neurological: No focal deficits. DIAGNOSTIC STUDIES/LAB DATA: WBC count of 5.3, hemoglobin of 6.8, the patient receiving transfusion, hematocrit 21, platelet count 107,000. INR 1.47. Sodium 135, potassium 3.7, chloride 94, bicarb 37, BUN 13, creatinine 0.81, calcium 8.5, total protein 5.2, albumin 3.0. CT of the chest as described above in the HPI. IMPRESSION AND RECOMMENDATIONS: 66-year-old female with history of esophageal cancer with tracheoesophageal fistula with progressive lung scarring and fibrotic changes with worsening dyspnea and hypoxemia, recently treated for aspiration pneumonia. Her current CT does not suggest another aspiration pneumonia, moreover, it does appear to be more in favor of bronchiolitis obliterans organizing pneumonia on top of the changes that she had chronically. The patient is high risk for bronchoscopy or CT-guided biopsy. Her lungs does appear very stiff from the chronic process she has been having and radiation she received in the past. She is a very high risk for postprocedure pneumothorax and also her lung might remain uninflated for a long time after the procedure. I would manage conservatively. I would recommend prednisone for management of bronchiolitis obliterans organizing pneumonia and exacerbation of interstitial lung disease. Continue with O2 supplementation. She has pancytopenia and is receiving transfusion which should help with her breathing and oxygenation status. I would consider changing amiodarone, at this stage if she probably can afford to be in atrial fibrillation than have toxicity from medication given labile lung status at this time. She might benefit from positive pressure noninvasive ventilation if she is significantly tachypneic. At this point, she does not seem to be in distress. She is comfortable at current O2 levels. Thank you for allowing me to participate in the care of your patient. [id number]/[facility] #: [id number] OSEAS
[2016-12-16] MEDS ORDERED: Furosemide IV* 10 MG/ML 2 ML VIAL (20 MG) IV ONE (15:00)
[2016-12-16] MEDS: cefTRIAXone VIAL(*) 1,000 MG in NS 0.9% 50 ML* 50 ML IVPB SCH (15:03)
[2016-12-16] MEDS: Amiodarone TAB* 200 MG PO SCH (20:45)
[2016-12-16] MEDS: Zolpidem TAB* 10 MG PO PRN (21:55)
[2016-12-17 06:33] LABS: Hematocrit 25 % (35-47); Hemoglobin 8.3 g/dl (12.0-16.0); Mean Corpuscular HGB Conc 33 g/dl (31-36); Mean Corpuscular Hemoglobin 30 pg (27-31); Mean Corpuscular Volume 92 fL (80-97); Mean Platelet Volume 10 um3 (7.4-10.4); Red Blood Count 2.72 10^6/ul (4.0-5.4); Red Cell Distribution Width 19 % (10.5-15); White Blood Count 6.9 10^3/ul (3.5-10.8)
[2016-12-17 06:34] LABS: Add Diff/Slide Review? Slide Review Added; Comments Flag Yes
[2016-12-17 06:49] LABS: Albumin 3.1 g/dL (3.2-5.2); BUN/Creatinine Ratio 17.6 (8-20); Calcium 8.6 mg/dL (8.6-10.3); EGFR African American 100.4 (>60); Globulin 2.5 g/dL (2-4); Magnesium 1.7 mg/dL (1.9-2.7); Potassium 4.1 mmol/L (3.5-5.0); Total Bilirubin 0.8 mg/dL (0.2-1.0); Total Protein 5.6 g/dL (6.4-8.9)
[2016-12-17] MEDS: Albuterol/Ipratropium NEB.SOL* Albuterol 2.5 MG/Ipratropium 0.5 MG 3 ML INH PRN ×2 (08:26→20:00)
[2016-12-17] MEDS: Potassium Chloride LIQUID* 20 MEQ PACKET PO SCH (08:46)
[2016-12-17] MEDS: Magnesium Oxide TAB* 400 MG PO SCH ×2 (08:48→21:17)
[2016-12-17] MEDS: Fludrocortisone Acetate TAB* 0.1 MG PO SCH (08:55)
[2016-12-17] MEDS: Hydrocortisone TAB* 5 MG PO SCH ×3 (08:55→21:17)
[2016-12-17] MEDS: predniSONE TAB* 20 MG PO SCH (08:56)
[2016-12-17] MEDS: Enoxaparin(*) 60 MG/0.6 ML SYR SUBCUT SCH ×2 (08:56→21:17)
[2016-12-17] MEDS ORDERED: Morphine ORAL.SOLN 10 mg* 2 MG/ML UDC 5 ml PO PRN (09:28)
--- NOTE | 2016-12-17 09:46 | PN ---
Progress Note - Progress Note SOAP: Subjective: []More SOB today, feels terrible. O2 via mask maintaining SATs, however tachypnic and pt. doesn't feel as though she can catch her breath. Can barely talk. Yesterday Dr. Mcneil suggested BiPAP should pt. become more dyspneic and is interested in this. Pt. states, "I have to try something." Alos having diarrhea and complaining of stomach ache. Medications: Acetaminophen (Tylenol Tab*) 650 mg PO Q6H PRN PRN Reason: PAIN OR TEMPERATURE Albuterol/Ipratropium (Duoneb (Albuterol 2.5 Mg/Ipratropium 0.5 Mg)) 1 neb INH Q4H PRN PRN Reason: SOB/WHEEZING Last Admin: 12/17/16 08:26 Dose: 1 neb Amiodarone HCl (Cordarone Tab*) 100 mg PO BEDTIME [facility] Last Admin: 12/16/16 20:45 Dose: 100 mg Enoxaparin Sodium (Lovenox(*)) 60 mg SUBCUT BID [facility] Last Admin: 12/17/16 08:56 Dose: 60 mg Fludrocortisone Acetate (Florinef Tab*) 0.2 mg PO QAM [facility] Last Admin: 12/17/16 08:55 Dose: 0.2 mg Guaifenesin/Codeine Phosphate (Robitussin Ac 100mg-10mg*) 5 ml PO Q6H PRN PRN Reason: COUGH Last Admin: 12/16/16 11:11 Dose: 5 ml Heparin Sodium (Porcine) (Heparin Flush Port (Ivad)) 5 ml FLUSH DAILY [facility] Last Admin: 12/17/16 08:56 Dose: 5 ml Hydrocortisone (Cortef Tab*) 5 mg PO TID [facility] Last Admin: 12/17/16 08:55 Dose: 5 mg Ceftriaxone Sodium 1,000 mg/ (Sodium Chloride) 50 mls @ 200 mls/hr IVPB Q24H [facility] Last Admin: 12/16/16 15:03 Dose: 200 mls/hr Lorazepam (Ativan Tab(*)) 0.5 mg PO BEDTIME PRN PRN Reason: ANXIETY Magnesium Oxide (Magox 400 Tab*) 1,200 mg PO BID [facility] Last Admin: 12/17/16 08:48 Dose: 1,200 mg Morphine Sulfate (Morphine Oral.Soln 10 Mg*) 5 mg PO Q2HR PRN PRN Reason: Dyspnea/Pain Ondansetron HCl (Zofran Tab*) 4 mg PO Q4H PRN PRN Reason: NAUSEA Oxycodone HCl (Roxycodone Tab*) 5 mg PO QID PRN PRN Reason: PAIN Potassium Chloride (Klor-Con Liquid*) 40 meq PO DAILY [facility] Last Admin: 12/17/16 08:46 Dose: 40 meq Prednisone (Deltasone Tab*) 40 mg PO DAILY DIANN Last Admin: 12/17/16 08:56 Dose: 40 mg Prochlorperazine (Compazine Tab*) 10 mg PO Q6H PRN PRN Reason: NAUSEA Zolpidem Tartrate (Ambien Tab*) 10 mg PO BEDTIME PRN PRN Reason: SLEEP Last Admin: 12/16/16 21:55 Dose: 10 mg Objective: [] Vital Signs Temp Pulse Resp BP Pulse Ox 98.7 F 109 30 86/42 96 12/17/16 04:23 12/17/16 08:28 12/17/16 08:44 12/17/16 04:23 12/17/16 08:28 A&Ox3, EOMI, ill appearing in acute resp. distress HRR, distant heart sounds LS with rhonchi throughout, tachypnic ++BS, abd. soft and non-tender +PP=bilat. with slight edema noted Laboratory Results - last 24 hr 12/16/16 12/16/16 12/17/16 04:45 14:23 05:20 WBC 6.9 RBC 2.72 L Hgb 8.3 L Hct 25 L MCV 92 MCH 30 MCHC 33 RDW 19 H Plt Count 90 L MPV 10 Neut % (Auto) 77.6 Lymph % (Auto) 7.9 L [place] % (Auto) 13.9 H Eos % (Auto) 0.2 Baso % (Auto) 0.4 Absolute Neuts (auto) 5.4 Absolute Lymphs (auto) 0.5 L Absolute Monos (auto) 1.0 H Absolute Eos (auto) 0 Absolute Basos (auto) 0 Absolute Nucleated RBC 0.01 Nucleated RBC % 0.2 Sodium Potassium Chloride Carbon Dioxide Anion Gap BUN Creatinine Est GFR ( Amer) Est GFR (Non-Af Amer) BUN/Creatinine Ratio Glucose Calcium Magnesium Total Bilirubin AST ALT Alkaline Phosphatase Total Protein Albumin Globulin Albumin/Globulin Ratio Blood Type A Positive Antibody Screen Negative Crossmatch See Detail Donor Unit # [id number] Post-Trans Blood Type A Positive Post-Trans IRIS Negative Reaction Interpretation 12/17/16 05:20 WBC RBC Hgb Hct MCV MCH MCHC RDW Plt Count MPV Neut % (Auto) Lymph % (Auto) [place] % (Auto) Eos % (Auto) Baso % (Auto) Absolute Neuts (auto) Absolute Lymphs (auto) Absolute Monos (auto) Absolute Eos (auto) Absolute Basos (auto) Absolute Nucleated RBC Nucleated RBC % Sodium 138 Potassium 4.1 Chloride 95 L Carbon Dioxide 38 H Anion Gap 5 BUN 13 Creatinine 0.74 Est GFR ( Amer) 100.4 Est GFR (Non-Af Amer) 78.0 BUN/Creatinine Ratio 17.6 Glucose 95 Calcium 8.6 Magnesium 1.7 L Total Bilirubin 0.80 AST 7 L ALT 5 L Alkaline Phosphatase 92 Total Protein 5.6 L Albumin 3.1 L Globulin 2.5 Albumin/Globulin Ratio 1.2 Blood Type Antibody Screen Crossmatch Donor Unit # Post-Trans Blood Type Post-Trans IRIS Reaction Interpretation Assessment: []66 yo f with metastatic esophageal cancer and complicated PMH with recurrent admissions for pneumonia felt to be r/t known fistula. Unfortunately she has not improved with supportive measures and clinically appears in fluid overload with respiratory distress, as such we will transfer her to the ICU for more respiratory support. Difficult to diurese with adrenal insufficiency causing hypotension and question if large component is r/t infection. Plan: []1. Respiratory Distress: transfer to ICU, consult post hole digger use of BiPAP vs. high flow/vapotherm, discussed with Dr. Chicas 2. Diastolic Heart Failure with resp. distress: STAT Portable CXR and BNP, consult cardiology re: HF and question of amiodarone as component causing pulm toxicity. Discussed with Dr. Hagan who agrees holding Amiodarone reasonable, they will follow her and discuss with post hole digger. Cont. daily wts and strict I &Os. 3. Pneumonia: Cont. IV Cetriaxone, appreciate ID input 4. Electrolytes Imbalance: stable, OK to hold PO supplements today and will avoid IV replacement with fluid overload and monitor labs closely. 5. MDS: stable, follow counts DNR/DNI but wants medical interventions
--- NOTE | 2016-12-17 10:01 | RAD ---
Indication: Shortness of breath. Single frontal view of the chest performed at 0938 hours was reviewed. Comparison is made with previous exam dated December 15, 2016. Cardiomegaly persists. Interstitial edema appears to be improved. Right pleural effusion is present. Right basilar density persists. IMPRESSION: CARDIOMEGALY WITH PERSISTENT INTERSTITIAL EDEMA AND PERSISTENT RIGHT BASILAR INFILTRATE.
[2016-12-17] MEDS: Ondansetron TAB* 4 MG PO PRN (10:18)
[2016-12-17] MEDS: Acetaminophen TAB* 325 MG PO PRN (11:19)
--- NOTE | 2016-12-17 11:29 | CONSULT ---
Consult Consult: CRITICAL CARE MEDICINE DATE: 12/17/16 TIME: 1045 REFERRING PROVIDER: Jaz. REASON/CHIEF COMPLAINT: acute hypoxic resp failure HISTORY OF PRESENT ILLNESS: 66 F with satge IV esophageal ca s/p xrt and chemotx with admission x3 for pna over last 6 months per family, with eval this admission concerning for aspiration vs advancing interstial lung disease and component of diastolic hf. Difficulties with wob. Transfer to icu for hfo2 and icu consult. REVIEW OF SYSTEMS: As per HPI. she feels better already on HFO2. weak otherwise. PAST MEDICAL HISTORY: As per HPI. afib on amio, htn, arthritis, mds MEDICATIONS: Reviewed. ALLERGIES: Metoprolol SOCIAL HISTORY: Reviewed. present FAMILY HISTORY: Noncontributory at present. PHYSICAL EXAM: Vital Signs: Reviewed. Neurologic: awake, comm HEENT: anicteric, mmm Cardiovascular: distant, no rub, S1, S2, tachy, no m Respiratory: Dec bs R>L, and a scant rale Abdomen: soft, nt Extremities: warm LABS: Reviewed. IMAGING: Reviewed. MEDICATIONS: Reviewed. ASSESSMENT/PLAN: 66 F with acute hypoxic resp failure with increased space and wob with signs of fibrosis and interstial changes, as well as scarring post xrt and associated fluid burden, with (agree with pulm) potential [place] plus min interstial contribution from amiodarone needs. As d/w pt and her family. Not an easy fixable state with bipap as we don't see much to recruit. However, HFO2 has already alleviated mush of her wob and this would be the need presently. Can trial intermittent metaneb to see if any recruitment able. Try to avoid NIV unless her wob not alleviated. Vol status is not too dramatic and see if she can have diastolic relaxation with less cardiac demand from her wob. Agree with steroids per pulm. cards will eval and consider dc amio. on full anticoag. Would still like to see her hr slower but see how her metabolic demands can decreased with HFO2 therapy. Give her time today and see how she equilibrates. Supportive and preventative care as ordered. Care per primary service Disposition: ICU today, and hopefully can return to floor as early as tomorrow. Code Status: DNR/DNI Critical Care Time: 42min Semaj Chicas DO
[2016-12-17] MEDS: cefTRIAXone VIAL(*) 1,000 MG in NS 0.9% 50 ML* 50 ML IVPB SCH (15:21)
--- NOTE | 2016-12-17 15:39 | PN ---
Progress Note - Progress Note Note: Pulm consult f/u note 12/17/16. Pt seen and examined at bedside. Pt was transferred to ICU yesterday for worsening resp failure. She was initiated on high flow O2. reports feeling better today. Active Medications Generic Name Dose Route Start Last Admin Trade Name Freq PRN Reason Stop Dose Admin Acetaminophen 650 mg 12/15/16 11:56 12/17/16 11:19 Tylenol Tab* PO 650 mg Q6H PRN Administration PAIN OR TEMPERATURE Albuterol/Ipratropium 1 neb 12/15/16 11:56 12/17/16 08:26 Duoneb (Albuterol 2.5 Mg/Ipratropium 0.5 Mg) INH 1 neb Q4H PRN Administration SOB/WHEEZING Enoxaparin Sodium 60 mg 12/15/16 21:00 12/17/16 08:56 Lovenox(*) SUBCUT 60 mg BID DIANN Administration Fludrocortisone Acetate 0.2 mg 12/16/16 09:00 12/17/16 08:55 Florinef Tab* PO 0.2 mg QAM DIANN Administration Guaifenesin/Codeine Phosphate 5 ml 12/15/16 11:56 12/16/16 11:11 Robitussin Ac 100mg-10mg* PO 5 ml Q6H PRN Administration COUGH Heparin Sodium (Porcine) 5 ml 12/15/16 20:00 12/17/16 08:56 Heparin Flush Port (Ivad) FLUSH 5 ml DAILY DIANN Administration Hydrocortisone 5 mg 12/15/16 14:00 12/17/16 13:57 Cortef Tab* PO 5 mg TID DIANN Administration Ceftriaxone Sodium 1,000 mg/ 50 mls @ 200 mls/hr 12/16/16 15:00 12/17/16 15: 21 Sodium Chloride IVPB 200 mls/hr Q24H DIANN Administration Lorazepam 0.5 mg 12/15/16 11:56 Ativan Tab(*) PO BEDTIME PRN ANXIETY Magnesium Oxide 800 mg 12/17/16 21:00 Magox 400 Tab* PO BID DIANN Morphine Sulfate 5 mg 12/17/16 09:28 Morphine Oral.Soln 10 Mg* PO Q2HR PRN Dyspnea/Pain Ondansetron HCl 4 mg 12/15/16 11:56 12/17/16 10:18 Zofran Tab* PO 4 mg Q4H PRN Administration NAUSEA Oxycodone HCl 5 mg 12/15/16 11:56 Roxycodone Tab* PO QID PRN PAIN Prednisone 40 mg 12/17/16 09:00 12/17/16 08:56 Deltasone Tab* PO 40 mg DAILY DIANN Administration Prochlorperazine 10 mg 12/15/16 11:56 Compazine Tab* PO Q6H PRN NAUSEA Zolpidem Tartrate 10 mg 12/15/16 11:56 12/16/16 21:55 Ambien Tab* PO 10 mg BEDTIME PRN Administration SLEEP Vital Signs Temp Pulse Resp BP Pulse Ox 99.2 F 93 21 87/40 100 12/17/16 12:44 12/17/16 15:00 12/17/16 15:00 12/17/16 15:00 12/17/16 15:00 Gen:Aler, awake, in NAD HEENT:PERRLA, mucus membrane moist Neck:supple, no accessory muscle usage Heart:RRR no murmur Lungs:B/l expiratory wheeze, decreased BS at bases Abd:+BS NTND soft Skin: No rash MSK: no spine tenderness Neuro: No focal defecits Skin: No rash, no cyanosis Laboratory Results - last 24 hr 12/16/16 12/17/16 12/17/16 14:23 05:20 05:20 WBC 6.9 RBC 2.72 L Hgb 8.3 L Hct 25 L MCV 92 MCH 30 MCHC 33 RDW 19 H Plt Count 90 L MPV 10 Neut % (Auto) 77.6 Lymph % (Auto) 7.9 L [place] % (Auto) 13.9 H Eos % (Auto) 0.2 Baso % (Auto) 0.4 Absolute Neuts (auto) 5.4 Absolute Lymphs (auto) 0.5 L Absolute Monos (auto) 1.0 H Absolute Eos (auto) 0 Absolute Basos (auto) 0 Absolute Nucleated RBC 0.01 Nucleated RBC % 0.2 Sodium 138 Potassium 4.1 Chloride 95 L Carbon Dioxide 38 H Anion Gap 5 BUN 13 Creatinine 0.74 Est GFR ( Amer) 100.4 Est GFR (Non-Af Amer) 78.0 BUN/Creatinine Ratio 17.6 Glucose 95 Calcium 8.6 Magnesium 1.7 L Total Bilirubin 0.80 AST 7 L ALT 5 L Alkaline Phosphatase 92 B-Natriuretic Peptide Total Protein 5.6 L Albumin 3.1 L Globulin 2.5 Albumin/Globulin Ratio 1.2 Donor Unit # [id number] Post-Trans Blood Type A Positive Post-Trans IRIS Negative Reaction Interpretation 12/17/16 05:20 WBC RBC Hgb Hct MCV MCH MCHC RDW Plt Count MPV Neut % (Auto) Lymph % (Auto) [place] % (Auto) Eos % (Auto) Baso % (Auto) Absolute Neuts (auto) Absolute Lymphs (auto) Absolute Monos (auto) Absolute Eos (auto) Absolute Basos (auto) Absolute Nucleated RBC Nucleated RBC % Sodium Potassium Chloride Carbon Dioxide Anion Gap BUN Creatinine Est GFR ( Amer) Est GFR (Non-Af Amer) BUN/Creatinine Ratio Glucose Calcium Magnesium Total Bilirubin AST ALT Alkaline Phosphatase B-Natriuretic Peptide 1053 H Total Protein Albumin Globulin Albumin/Globulin Ratio Donor Unit # Post-Trans Blood Type Post-Trans IRIS Reaction Interpretation I/R: 66 y o f with h/o esophageal cancer, tracheo esophageal fistula, with h/o recurrent asp PNA, readmitted for worsening SOB after being treated for asp PNA recently. 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
--- NOTE | 2016-12-17 17:49 | PN ---
Progress Note - Progress Note SOAP: Subjective: DOS: 12/17/16 CC: shortness of breath HPI: 66 yo woman with recent admission for PNA, improved with ceftriaxone, thought to be a component of aspiration, went home on doxycycline which caused vomiting and she did not keep it down, now with malaise, cough, shortness of breath. Moved to ICU with increased WOB and worsening hypoxia. Feels better with high flow O2. No cough. Objective: [] Vital Signs Temp 37.3 C 12/17/16 15:40 Pulse 84 12/17/16 16:00 Resp 22 12/17/16 16:00 BP 97/51 12/17/16 16:00 Pulse Ox 100 12/17/16 16:00 Intake & Output 12/16/16 12/17/16 12/17/16 18:59 06:59 18:59 Intake Total 993 890 500 Output Total 400 300 Balance 993 490 200 Intake: IVPB 50 ns 50 Oral 670 890 500 Packed Cells 273 Output: Urine 200 300 Liquid Stool 200 Other: Estimated Void Medium Medium Medium Date of Last Bowel 12/17/16 Movement # Bowel Movements 0 0 1 Estimated Stool Amount Large Large # Voids 2 1 1 Gen:awake, no discomfort Nueo:Awake, oriented x3 HEENT:PERRL, MMM Neck:supple Heart:RRR no murmur Lungs:BL expiratory wheeze, decr BS at bases Abd:+BS NTND soft Skin: No rash MSK: no spine tenderness Laboratory Results - last 24 hr 12/17/16 12/17/16 12/17/16 05:20 05:20 05:20 WBC 6.9 RBC 2.72 L Hgb 8.3 L Hct 25 L MCV 92 MCH 30 MCHC 33 RDW 19 H Plt Count 90 L MPV 10 Neut % (Auto) 77.6 Lymph % (Auto) 7.9 L [place] % (Auto) 13.9 H Eos % (Auto) 0.2 Baso % (Auto) 0.4 Absolute Neuts (auto) 5.4 Absolute Lymphs (auto) 0.5 L Absolute Monos (auto) 1.0 H Absolute Eos (auto) 0 Absolute Basos (auto) 0 Absolute Nucleated RBC 0.01 Nucleated RBC % 0.2 Sodium 138 Potassium 4.1 Chloride 95 L Carbon Dioxide 38 H Anion Gap 5 BUN 13 Creatinine 0.74 Est GFR ( Amer) 100.4 Est GFR (Non-Af Amer) 78.0 BUN/Creatinine Ratio 17.6 Glucose 95 Calcium 8.6 Magnesium 1.7 L Total Bilirubin 0.80 AST 7 L ALT 5 L Alkaline Phosphatase 92 B-Natriuretic Peptide 1053 H Total Protein 5.6 L Albumin 3.1 L Globulin 2.5 Albumin/Globulin Ratio 1.2 Assessment: 1. 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 Also elevated BNP 2. hx esophageal cancer, XRT 3. elevated CRP 4. thrombocytopenia Plan: 1. continue ceftriaxone, corticosteroids per pulmonology. Sputum culture pending. If not improving other options include anaerobic coverage for aspiration component of pneumonia.
--- NOTE | 2016-12-17 21:06 | CONS ---
CC: Dr. Frances; Dr. Randall; Dr. Walden CARDIOLOGY EVALUATION REPORT: DATE OF CONSULT: 12/17/16 CONSULTING PROVIDER: Catina Sebastian NP PATIENT OF: Dr. Frances and Dr. Walden. REASON FOR EVALUATION: Pericardial effusion, shortness of breath. HISTORY OF PRESENT ILLNESS: This is a complicated 66-year-old woman, who has a history of esophageal cancer (s/p chemo and RT), diagnosed approximately 3 or 4 years ago. She has undergone chemotherapy and radiation therapy and also had a pericardial effusion, treated with pericardial window approximately 3 years ago. She has had shortness of breath since 3 or 4 years ago, which has increased over the last year and a half. It was thought that she had some chronic lung disease related to her radiation and chemotherapy and possible metastatic disease. She was admitted earlier this week on 12.15 with worsening dyspnea and low grade fever a few days after discharge for pneurmonia. When she first was admitted, treated with Lasix and prednisone. She became more dyspneic this am and was transferred to the ICU. She has been followed by Dr. 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 It was thought that she responded to high-flow oxygen and is improving. When she first was admitted, treated with Lasix and prednisone. She was seen by Dr. Chicas today , who has been coordinating her care while she is in the intensive care unit. Overall, she seems to be doing better this evening as per 's description. Her is at the bedside. She said that she has had recurrent aspiration pneumonias and has been hospitalized for pneumonia 3 times in the last several months. She was hospitalized in June with pneumonia and was aggressively hydrated and developed congestive heart failure at that time, was thought related to volume overload and diastolic dysfunction. She had an echocardiogram performed on June 30, which revealed an EF of 55% to 60%, septum hypokinetic with septal bounce, abnormal diastolic function, normal left atrial size, RV function normal, RV mildly dilated, mild MR, trace TR, no signs of hemodynamic compromise, circumferential pericardial effusion, maximum diameter 1.4 cm, there was a large pleural effusion and compared with the images of September 2015, no significant change. She is also followed by Dr. Hickey. Of note, she was admitted on the . She was in the hospital for 5 days for pneumonia in early December and discharged on December 11 on doxycycline 100 mg b.i.d. due to concern of aspiration, related to a known small fistula. PAST MEDICAL HISTORY: Includes metastatic esophageal cancer in July of 2013. She had a mediastinal mass, treated with etoposide and RTU with a good response. She has also had carbo, Taxol, Avastin, and radiation, multiple chemo agents in January of 2015. She had cholelithiasis, treated with drain for several weeks. She had pericardial window placed in the past. C. diff in the past. Thrombocytopenia in May 2016. Bone marrow consistent with MDS 5q admission for heart failure in June 2016 after being treated for pneumonia and in July for heart failure severe C. difficile. history of atrial fibrillation in the past and had been chronically on amiodarone for several years. A "clot" which sounds like it is in the left subclavian. Hypertension in the past, but she had been hypotensive more recently. Arthritis. possible adrenal insufficiency. PAST SURGICAL HISTORY: Includes tonsillectomy; pericardial window, she has a port; hernia repair. MEDICATIONS: As an inpatient include: 1. Acetaminophen. 2. Albuterol. 3. DuoNeb. 4. Ceftriaxone. 5. Enoxaparin. 6. Lovenox 60 mg b.i.d. 7. Florinef 0.2 mg q.a.m. 8. Guaifenesin/codeine. 9. Heparin flush of her port. 10. Hydrocortisone 5 mg t.i.d. 11. Lorazepam 0.5 mg bedtime p.r.n. anxiety. 12. Mag oxide 800 mg b.i.d. 13. Morphine sulfate 5 mg q.2 p.r.n. 14. Zofran 4 mg q.4 p.r.n. 15. Oxycodone 5 mg four times a day p.r.n. 16. Prednisone 40 mg a day. 17. Compazine 10 mg q.6. 18. Ambien 10 mg at bedtime p.r.n. ALLERGIES: She reports her allergies as METOPROLOL. She had a rash after receiving multiple CT scans at [facility], but it was not clear that the rash was due to metoprolol or to the contrast agents. FAMILY HISTORY: Includes a mother who had valvular disease and in her 70s. No premature coronary artery disease. SOCIAL HISTORY: She reports rare alcohol use. She used to smoke, quit 4 years ago. REVIEW OF SYSTEMS: She does get occasional chest pressure which can last for a day and is somewhat positional. That has been going on for a year and a half, not associated with gas or diaphoresis. She has had no AFib in several years. When she had it, she was aware of the irregular heartbeat, but no syncope or chest discomfort. She reports that she is able to lie on her side at night, but she has more secretions and sits up during the day. PHYSICAL EXAM: She is a well-developed, well-nourished female, appears comfortable, in no apparent distress. Blood pressure 90/49, pulse 88, O2 sats 100% on high-flow oxygen. No significant JVD. Carotids 2+ without bruits. No cervical adenopathy or thyromegaly. Cardiac Exam: S1 and S2, distant. No clear murmurs, gallops, or rubs. Port is in place on the right. Chest: Diffuse rhonchi and expiratory wheezes. Extremities: No significant edema. Distal pulses diminished but present. Motor strength 5/5 bilaterally. Deep tendon reflexes 2/4. Alert and oriented x3. DIAGNOSTIC STUDIES/LAB DATA: EKG from the revealed sinus rhythm at 92 with low voltage, poor R-wave progression, possible anterior PR, diffuse nonspecific ST-T changes, possible RVH and similar to December 06. She had a CT scan from December 15, which revealed treatment effects on the lower lungs, greater on the right than left associated with right pleural thickening, fibrotic changes to lower lungs. There is a round enhancing lesion within the area of fibrosis of the right lower lung measuring up to 3 cm in size, given the history of malignancy is concerning for neoplasm. Recommend consideration of further evaluation, PET and CT, and/or tissue sampling. Small pericardial effusion and I reviewed the study with Dr. Chicas, significant scarring and loss of lung volume. Her echocardiogram from June was reviewed above and revealed EF of 55% to 60 %, hypokinetic septum with septal bounce, abnormal diastolic function, mild MR, trace TR, [id number] circumferential pericardial effusion measuring 1.4 cm , no evidence of hemodynamic compromise similar to the previous of September 2015. Her labs include white count of 6.9, hemoglobin of 8.3, hematocrit 25, platelet count of 90. Sodium 138, potassium 4.1, BUN of 13, creatinine of 0.74, mag low at 1.7. BNP was 1459 on admission, down to 1053 today. Her I's and O's showed that she was positive on December 17, 1399, so far positive 200. IMPRESSION AND PLAN: My impression is that Ms. Huitron has multiple medical problems including metastatic esophageal cancer as well as underlying lung disease, which could be due to infection, bronchiolitis obliterans organizing pneumonia, recurrent aspirations as well as radiation toxicity, and she has severe anemia. There is also possibly component of diastolic heart failure. Her prognosis is guarded and I believe that most of her symptoms are pulmonary rather than cardiac at this point. However, it is possible that the amiodarone could be contributing to lung dysfunction. I discussed with Catina Sebastian, SONG, and with Dr. Chicas, and the family. In addition, it is possible she has had progression of her pericardial effusion. For the time being, I have recommended the followin. I suggested a repeat echocardiogram at some point. 2. I suggested holding amiodarone temporarily to see if that contributes to improvement in her lung function. She understands the potential for recurrent atrial fibrillation; however, it will probably take several days to weeks for the amiodarone to be eliminated from her system. 3. I would repeat her EKG. 4. I will rediscuss the case with Dr. Walden, who returns on Tuesday. 5. Her prognosis remains guarded. [id number]/[facility] #: [id number] [facility]ITAL CENTERSaravanan
[2016-12-18 06:58] LABS: Hematocrit 23 % (35-47); Hemoglobin 7.6 g/dl (12.0-16.0); Mean Corpuscular HGB Conc 32 g/dl (31-36); Mean Corpuscular Hemoglobin 30 pg (27-31); Mean Corpuscular Volume 93 fL (80-97); Red Blood Count 2.51 10^6/ul (4.0-5.4); Red Cell Distribution Width 18 % (10.5-15); White Blood Count 6.1 10^3/ul (3.5-10.8)
[2016-12-18 07:00] LABS: Albumin 3.1 g/dL (3.2-5.2); BUN/Creatinine Ratio 26.2 (8-20); Calcium 8.7 mg/dL (8.6-10.3); Comments Flag Yes; EGFR African American 125.4 (>60); EGFR Non-African American 97.5 (>60); Globulin 2.4 g/dL (2-4); Magnesium 1.9 mg/dL (1.9-2.7); Potassium 4.5 mmol/L (3.5-5.0); Total Bilirubin 0.7 mg/dL (0.2-1.0); Total Protein 5.5 g/dL (6.4-8.9)
[2016-12-18 07:01] LABS: Add Diff/Slide Review? Slide Review Added
[2016-12-18] MEDS: Albuterol/Ipratropium NEB.SOL* Albuterol 2.5 MG/Ipratropium 0.5 MG 3 ML INH PRN ×3 (07:40→19:38)
[2016-12-18] MEDS: Hydrocortisone TAB* 5 MG PO SCH ×3 (08:15→21:33)
[2016-12-18] MEDS: Magnesium Oxide TAB* 400 MG PO SCH ×2 (08:16→21:33)
[2016-12-18] MEDS: Enoxaparin(*) 60 MG/0.6 ML SYR SUBCUT SCH ×2 (08:16→21:33)
[2016-12-18] MEDS: predniSONE TAB* 20 MG PO SCH (08:16)
[2016-12-18] MEDS: Fludrocortisone Acetate TAB* 0.1 MG PO SCH (08:16)
--- NOTE | 2016-12-18 08:23 | PN ---
Progress Note - Progress Note SOAP: Subjective: feels markedly better today on the vapotherm. they did just titrate down slightly. Objective: Vital Signs Temp Pulse Resp BP Pulse Ox 98.4 F 90 23 109/58 97 12/18/16 07:24 12/18/16 08:00 12/18/16 08:00 12/18/16 07:00 12/18/16 08:00 sitting up in much less respiratory distress perr eomi op dry no thrush clearer today s1 s2 nl soft nt +Bs 1+ LE edema, notably less large engorged right breast clean port A+O x3, nonfocal neurological exam Laboratory Results - last 24 hr 12/16/16 12/16/16 12/17/16 04:45 14:23 05:20 WBC RBC Hgb Hct MCV MCH MCHC RDW Neut % (Auto) Lymph % (Auto) [place] % (Auto) Eos % (Auto) Baso % (Auto) Absolute Neuts (auto) Absolute Lymphs (auto) Absolute Monos (auto) Absolute Eos (auto) Absolute Basos (auto) Absolute Nucleated RBC Nucleated RBC % Sodium Potassium Chloride Carbon Dioxide Anion Gap BUN Creatinine Est GFR ( Amer) Est GFR (Non-Af Amer) BUN/Creatinine Ratio Glucose Calcium Magnesium Total Bilirubin AST ALT Alkaline Phosphatase B-Natriuretic Peptide 1053 H Total Protein Albumin Globulin Albumin/Globulin Ratio Blood Type A Positive Antibody Screen Negative Crossmatch See Detail Transfusion React Rpt Reaction Interpretation 12/18/16 12/18/16 12/18/16 06:15 06:15 06:15 WBC 6.1 RBC 2.51 L Hgb 7.6 L Hct 23 L MCV 93 MCH 30 MCHC 32 RDW 18 H Neut % (Auto) 83.6 H Lymph % (Auto) 3.1 L [place] % (Auto) 11.6 H Eos % (Auto) 0.5 Baso % (Auto) 1.2 Absolute Neuts (auto) 5.1 Absolute Lymphs (auto) 0.2 L Absolute Monos (auto) 0.7 Absolute Eos (auto) 0 Absolute Basos (auto) 0.1 Absolute Nucleated RBC 0.01 Nucleated RBC % 0.2 Sodium 138 Potassium 4.5 Chloride 96 L Carbon Dioxide 38 H Anion Gap 4 BUN 16 Creatinine 0.61 Est GFR ( Amer) 125.4 Est GFR (Non-Af Amer) 97.5 BUN/Creatinine Ratio 26.2 H Glucose 103 H Calcium 8.7 Magnesium 1.9 Total Bilirubin 0.70 AST 5 L ALT 6 L Alkaline Phosphatase 78 B-Natriuretic Peptide 1445 H Total Protein 5.5 L Albumin 3.1 L Globulin 2.4 Albumin/Globulin Ratio 1.3 Blood Type Antibody Screen Crossmatch Transfusion React Rpt Reaction Interpretation Acetaminophen (Tylenol Tab*) 650 mg PO Q6H PRN PRN Reason: PAIN OR TEMPERATURE Last Admin: 12/17/16 11:19 Dose: 650 mg Albuterol/Ipratropium (Duoneb (Albuterol 2.5 Mg/Ipratropium 0.5 Mg)) 1 neb INH Q4H PRN PRN Reason: SOB/WHEEZING Last Admin: 12/18/16 07:40 Dose: 1 neb Enoxaparin Sodium (Lovenox(*)) 60 mg SUBCUT BID [facility] Last Admin: 12/18/16 08:16 Dose: 60 mg Fludrocortisone Acetate (Florinef Tab*) 0.2 mg PO QAM [facility] Last Admin: 12/18/16 08:16 Dose: 0.2 mg Guaifenesin/Codeine Phosphate (Robitussin Ac 100mg-10mg*) 5 ml PO Q6H PRN PRN Reason: COUGH Last Admin: 12/16/16 11:11 Dose: 5 ml Heparin Sodium (Porcine) (Heparin Flush Port (Ivad)) 5 ml FLUSH DAILY [facility] Last Admin: 12/18/16 07:41 Dose: Not Given Hydrocortisone (Cortef Tab*) 5 mg PO TID [facility] Last Admin: 12/18/16 08:15 Dose: 5 mg Ceftriaxone Sodium 1,000 mg/ (Sodium Chloride) 50 mls @ 200 mls/hr IVPB Q24H [facility] Last Admin: 12/17/16 15:21 Dose: 200 mls/hr Lorazepam (Ativan Tab(*)) 0.5 mg PO BEDTIME PRN PRN Reason: ANXIETY Magnesium Oxide (Magox 400 Tab*) 800 mg PO BID [facility] Last Admin: 12/18/16 08:16 Dose: 800 mg Morphine Sulfate (Morphine Oral.Soln 10 Mg*) 5 mg PO Q2HR PRN PRN Reason: Dyspnea/Pain Ondansetron HCl (Zofran Tab*) 4 mg PO Q4H PRN PRN Reason: NAUSEA Last Admin: 12/17/16 10:18 Dose: 4 mg Oxycodone HCl (Roxycodone Tab*) 5 mg PO QID PRN PRN Reason: PAIN Prednisone (Deltasone Tab*) 40 mg PO DAILY [facility] Last Admin: 12/18/16 08:16 Dose: 40 mg Prochlorperazine (Compazine Tab*) 10 mg PO Q6H PRN PRN Reason: NAUSEA Zolpidem Tartrate (Ambien Tab*) 10 mg PO BEDTIME PRN PRN Reason: SLEEP Last Admin: 12/16/16 21:55 Dose: 10 mg Assessment: Complicated 66 yo F w metastatic esophageal cancer currently off of therapy 2/2 poor performance status and treatment related MDS admitted with recurrent fevers and SOB. Her imaging is concerning for either progressive malignancy, an abscess, or BOOP. Plan: Respiratory: she certainly seems better today with the steroids and vapotherm. The question will be whether or not we will be able to get her back to a manageable level of oxygen consistent with going home. -cont ceftriaxone for now -appreciate critical care management of respiratory status and pulmonary consultation -morphine PRN diastolic heart failure: acute on chronic exacerbation, treatment limited by hypotension -cont low dose lasix -amiodarone on hold -likely echo in near future adrenal insuff: cont florinef and hydro DNR/DNI but wants medical interventions.
[2016-12-18 09:16] LABS: Platelet Morphology Large
--- NOTE | 2016-12-18 10:17 | PN ---
Progress Note - Progress Note Note: CRITICAL CARE MEDICINE DATE: 12/18/16 TIME: 950 SUBJECTIVE: Patient seen and examined. present. PHYSICAL EXAM: Vital Signs: Reviewed. Neurologic: awake, comm HEENT: anicteric, mmm Cardiovascular: distant, S1, S2, HR ~90. Respiratory: Dec bs but clearer Abdomen: soft, nt Extremities: warm LABS: Reviewed. IMAGING: Reviewed. MEDICATIONS: Reviewed. ASSESSMENT/PLAN: 66 F with acute hypoxic resp failure- rescued with hfo2. Can wean off to salter today. wob fine. underlying fibrosis and ?MULTIMEDIA COORDINATOR or steroid responsive acute interstial dz still the question. No other immediate fix. should be ok for now. We disucssed her poor reserve, her chronic metabolic compensation and metabolic demands of cancer. Explianed niv and leving option available if ever in crisis in the future. Maintain DNR/DNI. Consults and primary f/u, Potential floor later today. Supportive and preventative care as ordered. Care per primary service Disposition: ICU this am and maybe floor this afternoon. Code Status: DNR/DNI Critical Care Time: 25min FAsh Chicas DO
[2016-12-18] MEDS: cefTRIAXone VIAL(*) 1,000 MG in NS 0.9% 50 ML* 50 ML IVPB SCH (14:53)
[2016-12-18] MEDS: Zolpidem TAB* 10 MG PO PRN (21:33)
--- NOTE | 2016-12-19 07:59 | PN ---
Subjective Date of Service: 12/19/16 Interval History: Mild cough during the night, but states her breathing is better. Appetite OK. Walked to commode. Denies pain. No new c/o. Objective Active Medications: Acetaminophen (Tylenol Tab*) 650 mg PO Q6H PRN PRN Reason: PAIN OR TEMPERATURE Last Admin: 12/17/16 11:19 Dose: 650 mg Albuterol/Ipratropium (Duoneb (Albuterol 2.5 Mg/Ipratropium 0.5 Mg)) 1 neb INH Q4H PRN PRN Reason: SOB/WHEEZING Last Admin: 12/18/16 19:38 Dose: 1 neb Enoxaparin Sodium (Lovenox(*)) 60 mg SUBCUT BID [facility] Last Admin: 12/18/16 21:33 Dose: 60 mg Fludrocortisone Acetate (Florinef Tab*) 0.2 mg PO QAM [facility] Last Admin: 12/18/16 08:16 Dose: 0.2 mg Guaifenesin/Codeine Phosphate (Robitussin Ac 100mg-10mg*) 5 ml PO Q6H PRN PRN Reason: COUGH Last Admin: 12/16/16 11:11 Dose: 5 ml Heparin Sodium (Porcine) (Heparin Flush Port (Ivad)) 5 ml FLUSH DAILY [facility] Last Admin: 12/18/16 07:41 Dose: Not Given Hydrocortisone (Cortef Tab*) 5 mg PO TID [facility] Last Admin: 12/18/16 21:33 Dose: 5 mg Ceftriaxone Sodium 1,000 mg/ (Sodium Chloride) 50 mls @ 200 mls/hr IVPB Q24H [facility] Last Admin: 12/18/16 14:53 Dose: 200 mls/hr Lorazepam (Ativan Tab(*)) 0.5 mg PO BEDTIME PRN PRN Reason: ANXIETY Magnesium Oxide (Magox 400 Tab*) 800 mg PO BID [facility] Last Admin: 12/18/16 21:33 Dose: 800 mg Morphine Sulfate (Morphine Oral.Soln 10 Mg*) 5 mg PO Q2HR PRN PRN Reason: Dyspnea/Pain Ondansetron HCl (Zofran Tab*) 4 mg PO Q4H PRN PRN Reason: NAUSEA Last Admin: 12/17/16 10:18 Dose: 4 mg Oxycodone HCl (Roxycodone Tab*) 5 mg PO QID PRN PRN Reason: PAIN Prednisone (Deltasone Tab*) 40 mg PO DAILY DIANN Last Admin: 12/18/16 08:16 Dose: 40 mg Prochlorperazine (Compazine Tab*) 10 mg PO Q6H PRN PRN Reason: NAUSEA Zolpidem Tartrate (Ambien Tab*) 10 mg PO BEDTIME PRN PRN Reason: SLEEP Last Admin: 12/18/16 21:33 Dose: 10 mg Vital Signs 12/18/16 12/18/16 12/18/16 07:58 08:00 09:00 Temperature Pulse Rate 90 85 Respiratory 12 23 21 Rate Blood Pressure 94/54 95/55 (mmHg) O2 Sat by Pulse 97 100 Oximetry 12/18/16 12/18/16 12/18/16 10:00 11:00 11:20 Temperature Pulse Rate 92 96 16 Respiratory 20 20 99 Rate Blood Pressure 109/56 99/42 (mmHg) O2 Sat by Pulse 100 95 90 Oximetry 12/18/16 12/18/16 12/18/16 11:45 12:00 12:10 Temperature 99 F Pulse Rate 84 Respiratory 19 20 Rate Blood Pressure 101/59 (mmHg) O2 Sat by Pulse 99 Oximetry 12/18/16 12/18/16 12/18/16 13:00 13:05 14:00 Temperature Pulse Rate 89 87 Respiratory 24 24 20 Rate Blood Pressure 110/52 107/57 (mmHg) O2 Sat by Pulse 98 100 Oximetry 12/18/16 12/18/16 12/18/16 14:40 15:00 15:04 Temperature Pulse Rate 89 86 Respiratory 20 22 12 Rate Blood Pressure 88/55 90/54 (mmHg) O2 Sat by Pulse 100 99 Oximetry 12/18/16 12/18/16 12/18/16 15:54 15:56 16:00 Temperature 98.8 F 97.9 F Pulse Rate 83 Respiratory 0 Rate Blood Pressure 98/51 (mmHg) O2 Sat by Pulse 100 Oximetry 12/18/16 12/18/16 12/18/16 16:15 17:00 17:10 Temperature Pulse Rate 85 Respiratory 20 11 22 Rate Blood Pressure 107/58 (mmHg) O2 Sat by Pulse 99 Oximetry 12/18/16 12/18/16 12/18/16 18:00 18:10 19:00 Temperature Pulse Rate 81 91 Respiratory 21 21 18 Rate Blood Pressure 110/63 111/58 (mmHg) O2 Sat by Pulse 100 100 Oximetry 12/18/16 12/18/16 12/18/16 19:32 19:38 20:00 Temperature 99.1 F Pulse Rate 90 96 Respiratory 20 12 Rate Blood Pressure 101/53 (mmHg) O2 Sat by Pulse 99 97 Oximetry 12/18/16 12/18/16 12/18/16 21:00 22:00 23:00 Temperature Pulse Rate 88 85 84 Respiratory 22 19 16 Rate Blood Pressure 100/56 101/50 115/65 (mmHg) O2 Sat by Pulse 99 100 100 Oximetry 12/18/16 12/18/16 12/18/16 23:11 23:15 23:24 Temperature Pulse Rate 81 Respiratory 16 14 18 Rate Blood Pressure (mmHg) O2 Sat by Pulse 100 Oximetry 12/18/16 12/19/16 12/19/16 23:48 00:00 01:00 Temperature 98.5 F Pulse Rate 84 83 Respiratory 15 15 Rate Blood Pressure 80/48 (mmHg) O2 Sat by Pulse 100 99 Oximetry 12/19/16 12/19/16 12/19/16 01:01 02:00 03:00 Temperature Pulse Rate 81 81 80 Respiratory 14 13 14 Rate Blood Pressure 85/44 93/40 58/41 (mmHg) O2 Sat by Pulse 99 100 100 Oximetry 12/19/16 12/19/16 12/19/16 03:01 04:00 05:00 Temperature Pulse Rate 79 87 Respiratory 14 15 15 Rate Blood Pressure 87/42 101/56 89/47 (mmHg) O2 Sat by Pulse 100 100 Oximetry 12/19/16 12/19/16 12/19/16 05:10 06:00 07:00 Temperature Pulse Rate 81 83 Respiratory 8 13 0 Rate Blood Pressure 98/44 90/48 (mmHg) O2 Sat by Pulse 100 100 Oximetry 12/19/16 07:41 Temperature 98.1 F Pulse Rate Respiratory Rate Blood Pressure (mmHg) O2 Sat by Pulse Oximetry Oxygen Devices in Use Now: Nasal Cannula Appearance: Alert, partly up in bed. In fair spirits. Looks comfortable. No cough during my visit. Eyes: No Scleral Icterus Neck: NL Appearance and Movements; NL JVP, No Thyroid Enlargement, Masses Respiratory: Symmetrical Chest Expansion and Respiratory Effort - scattered rhonchi all lung vang Cardiovascular: NL Sounds; No Murmurs; No JVD, RRR, No Edema, - Extremities: No Edema, No Clubbing, Cyanosis, - Skin: No Rash or Ulcers, No Nodules or Sclerosis, - Neurological: Alert and Oriented x 3, NL Sensation - Voice chronically hoarse. Speech volume low but clear and appropriate. No tremor. Result Diagrams: 12/18/16 06:15 12/18/16 06:15 Additional Lab and Data: Lab Results 12/15/16 12/15/16 12/15/16 Range/Units 07:50 07:50 07:50 WBC 7.5 (3.5-10.8) 10^3/ul RBC 2.42 L (4.0-5.4) 10^6/ul Hgb 7.3 L (12.0-16.0) g/dl Hct 22 L (35-47) % MCV 92 (80-97) fL MCH 30 (27-31) pg MCHC 33 (31-36) g/dl RDW 20 H (10.5-15) % Plt Count Pending MPV Pending Neut % (Auto) 74.0 (38-83) % Lymph % (Auto) 8.8 L (25-47) % [place] % (Auto) 15.9 H (1-9) % Eos % (Auto) 0.2 (0-6) % Baso % (Auto) 1.1 (0-2) % Absolute Neuts (auto) 5.6 (1.5-7.7) 10^3/ul Absolute Lymphs (auto) 0.7 L (1.0-4.8) 10^3/ul Absolute Monos (auto) 1.2 H (0-0.8) 10^3/ul Absolute Eos (auto) 0 (0-0.6) 10^3/ul Absolute Basos (auto) 0.1 (0-0.2) 10^3/ul Absolute Nucleated RBC 0.04 10^3/ul Nucleated RBC % 0.5 Sodium 135 (133-145) mmol/L Potassium 4.0 (3.5-5.0) mmol/L Chloride 94 L (101-111) mmol/L Carbon Dioxide 36 H (22-32) mmol/L Anion Gap 5 (2-11) mmol/L BUN 13 (6-24) mg/dL Creatinine 0.79 (0.51-0.95) mg/dL Est GFR ( Amer) 93.1 (>60) Est GFR (Non-Af Amer) 72.4 (>60) BUN/Creatinine Ratio 16.5 (8-20) Glucose 100 (70-100) mg/dL Lactic Acid 0.8 (0.5-2.0) mmol/L Calcium 8.7 (8.6-10.3) mg/dL Total Bilirubin 1.10 H (0.2-1.0) mg/dL AST 10 L (13-39) U/L ALT 8 (7-52) U/L Alkaline Phosphatase 89 (34-104) U/L Total Creatine Kinase 13 (10-223) U/L Troponin I Pending C-Reactive Protein 110.87 H (< 5.00) mg/L Total Protein 5.4 L (6.4-8.9) g/dL Albumin 3.2 (3.2-5.2) g/dL Globulin 2.2 (2-4) g/dL Albumin/Globulin Ratio 1.5 (1-3) Microbiology and Other Data: Microbiology 12/16/16 00:55 Aerobic Blood Culture - Preliminary Blood Venous No Growth Day 3 Anaerobic Blood Culture - Preliminary No Growth Day 3 Blood Culture - Final 12/15/16 15:00 Aerobic Blood Culture - Preliminary Blood Line No Growth Day 3 Anaerobic Blood Culture - Preliminary No Growth Day 3 Blood Culture - Final 12/17/16 08:30 Gram Stain - Final Sputum Sputum Culture - Preliminary YEAST 12/16/16 14:23 Transfusion Reaction Culture - Preliminary Blood Bag No Growth Day 2 Transfusion Reaction Gram Stain - Final 12/17/16 11:26 Nasal Screen MRSA (PCR)(KAYLYNN) - Final Nasal Mrsa Negative Assess/Plan/Problems-Billing Assessment: - Patient Problems (1) BOOP (bronchiolitis obliterans with organizing pneumonia) Current Visit: Yes Status: Acute Code(s): J84.89 - OTHER SPECIFIED INTERSTITIAL PULMONARY DISEASES SNOMED Code(s): 116600824 Comment: Continue prednisone 40 mg daily, ceftriaxone. Transfer to medical floor. (2) Esophageal cancer Current Visit: No Status: Acute Priority: High Onset Date: 03/31/15 Comment: Management per Oncology. ? treatment related MDS. (3) Diastolic congestive heart failure Current Visit: Yes Status: Acute Code(s): I50.30 - UNSPECIFIED DIASTOLIC ( CONGESTIVE) HEART FAILURE SNOMED Code(s): 929238494 Comment: LVEF 55-60 06/30/16. Compensated. Not on IV fluids at present. (4) Atrial fibrillation Current Visit: Yes Status: Acute Code(s): I48.91 - UNSPECIFIED ATRIAL FIBRILLATION SNOMED Code(s): 93336529 Comment: Amiodarone on hold.
[2016-12-19] MEDS: Albuterol/Ipratropium NEB.SOL* Albuterol 2.5 MG/Ipratropium 0.5 MG 3 ML INH PRN (08:03)
[2016-12-19] MEDS: Magnesium Oxide TAB* 400 MG PO SCH ×2 (08:51→20:31)
[2016-12-19] MEDS: Hydrocortisone TAB* 5 MG PO SCH ×3 (08:51→20:30)
[2016-12-19] MEDS: predniSONE TAB* 20 MG PO SCH (08:52)
[2016-12-19] MEDS: Fludrocortisone Acetate TAB* 0.1 MG PO SCH (08:52)
[2016-12-19] MEDS: Enoxaparin(*) 60 MG/0.6 ML SYR SUBCUT SCH ×2 (09:00→20:31)
--- NOTE | 2016-12-19 12:59 | ECHO ---
Patient: GIOVANNI RADFORD [facility] Rec#: [id number] : 1950 Date: 12/19/2016 Age: 66y Height: 154.9 cm / 61.0 in Weight: 68 kg / 149.9 lbs Sex: F BSA: 1.7 Room#: ICU 13 Admit Date#: 12/15/2016 Type: Inpatient Referring: Carlos Hagan MD Reading: Carlos Hagan MD Aircraft Armorer: Avril Redding RN RDCS CC: Hermelindo Villa MD Transthoracic Echocardiogram Indication: Pericardial effusion, SOB BP: 98/44 HR: 96 Rhythm: NSR Findings History: Metastatic esophageal cancer, chemotherapy, radiation therapy, HTN, chronic pleural effusion, pericardial effusion, A. fib, former smoker Technical Comments: The study is technically limited due to the patient's smoking history. The study was technically limited due to the patient's inability to lay in the left lateral decubitus position. Completed at 1205. Left Ventricle: The left ventricular chamber size is normal. Global left ventricular wall motion and contractility are within normal limits. There is normal left ventricular systolic function. The estimated ejection fraction is 55-60%. There is septal flattening of the interventricular septum consistent with right ventricular volume or pressure overload. Abnormal left ventricular diastolic function is observed. The left ventricular diastolic filling pattern is consistent with pseudonormalization. The patient was unable to perform a Valsalva maneuver. Left Atrium: The left atrium is mildly dilated. Right Ventricle: The right ventricular cavity size is normal. The right ventricular global systolic function is moderately reduced. Right Atrium: The right atrium is slightly dilated. Aortic Valve: The aortic valve is trileaflet. The aortic valve leaflets are mildly thickened. Systolic excursion of the aortic valve cusps is reduced. There is aortic annular calcification. There is mild aortic regurgitation. There is no evidence of aortic stenosis. Mitral Valve: There is mitral annular calcification. The mitral valve leaflets are mildly thickened. There is mild to moderate mitral regurgitation. There is no evidence of mitral stenosis. Tricuspid Valve: The tricuspid valve leaflets are normal. There is mild tricuspid regurgitation. Unable to estimate the right ventricular systolic pressure. Pulmonic Valve: The pulmonic valve appears normal. There is trace to mild pulmonic regurgitation. There is no pulmonic stenosis. Pericardium: A pericardial effusion is visualized.More prominent anteriorly. Pericardial effusion measures 1.1 cm anteriorly and 0.7 cm posteriorly in RENETTA view, 1.1 cm posteriorly in PSA, 1.1 cm adjacent to the RV in the A4C, 0.5 cm anteriorly and 0.7cm posteriorly in the subcostal view. Respiratory variation 7% for mitral E peak. LVOT sanjay did not vary significantly. There are no signs of significant hemodynamic compromise.by doppler or 2d. The study is consistent with a septal bounce. Aorta: There is no dilatation of the ascending aorta. There is no dilatation of the aortic arch. There is no dilation of the aortic root. Pulmonary Artery: The main pulmonary artery is not well visualized. Venous: The inferior vena cava appears normal in size. There is no change in the dimension of the inferior vena cava with respiration consistent with markedly increased right atrial pressure. Conclusions The study was technically limited due to the patient's inability to lay in the left lateral decubitus position. Completed at 1205. The estimated ejection fraction is 55-60%. There is septal flattening of the interventricular septum consistent with right ventricular volume or pressure overload. The left ventricular diastolic filling pattern is consistent with pseudonormalization. The right ventricular global systolic function is moderately reduced. The right atrium is slightly dilated. The aortic valve leaflets are mildly thickened. There is mild aortic regurgitation. There is mild to moderate mitral regurgitation. There is mild tricuspid regurgitation. There is trace to mild pulmonic regurgitation. There are no signs of significant hemodynamic compromise by doppler or 2d. The study is consistent with a septal bounce. Similar to 06/2016. Measurements Name Value Normal Range RVDdMajor (2D) 3 cm (2.2 - 4.4) RAd ISD 4CH 5 cm (3.4 - 4.9) RA (A4C)W 3.1 cm (2.9 - 4.6) IVSd (2D) 1 cm (0.6 - 1) LVPWd (2D) 1 cm (0.6 - 1) LVIDd (2D) 4 cm (3.6 - 5.4) LVIDs (2D) 2.6 cm - LV FS (2D) 35 % (25 - 45) Aortic Annulus 1.9 cm (1.4 - 2.6) Ao root diameter (2D) 2.5 cm (2.1 - 3.5) Ascending Ao 3.1 cm (2.1 - 3.4) Aortic arch 2.2 cm (1.8 - 3.4) LA dimension (AP) 2D 2.8 cm (2.3 - 3.8) LAd ISD 4CH 4.9 cm (2.9 - 5.3) LA ISD 4CH W 3.8 cm (2.5 - 4.5) Name Value Normal Range LA ESV SP 4CH (A/L) 47 ml - LA ESV SP 2CH (A/L) 33 ml - LA ESV BP (A/L) 42 ml - LA ESV BP (A/L) index 25.1 ml/m2 - LA ESV SP 4CH (MOD) 44 ml - LA ESV SP 2CH (MOD) 32 ml - Name Value Normal Range MV E-wave Vmax 1.4 m/sec - MV deceleration time 1.5 msec - MV A-wave Vmax 0.87 m/sec - MV E:A ratio 1.6 ratio - LV septal e' Vmax 0.04 m/sec - LV lateral e' Vmax 0.05 m/sec - LV E:e' septal ratio 35 ratio - LV E:e' lateral ratio 28 ratio - Name Value Normal Range AV Vmax 1.8 m/sec - AV VTI 34.7 cm - AV peak gradient 13 mmHg - AV mean gradient 9 mmHg - LVOT Vmax 1.2 m/sec - LVOT VTI 19.7 cm - LVOT peak gradient 5.4 mmHg - LVOT mean gradient 2.7 mmHg - TRISTAN Vmax 0.76 m/sec - Name Value Normal Range IVC diameter 1 cm - Name Value Normal Range PV Vmax 0.92 m/sec -
[2016-12-19] MEDS: cefTRIAXone VIAL(*) 1,000 MG in NS 0.9% 50 ML* 50 ML IVPB SCH (15:18)
[2016-12-19] MEDS: Zolpidem TAB* 10 MG PO PRN (20:30)
[2016-12-20] MEDS: Fludrocortisone Acetate TAB* 0.1 MG PO SCH (09:07)
[2016-12-20] MEDS: Hydrocortisone TAB* 5 MG PO SCH ×3 (09:07→20:59)
[2016-12-20] MEDS: predniSONE TAB* 20 MG PO SCH (09:09)
[2016-12-20] MEDS: Magnesium Oxide TAB* 400 MG PO SCH ×2 (09:10→20:59)
[2016-12-20] MEDS: Enoxaparin(*) 60 MG/0.6 ML SYR SUBCUT SCH ×2 (09:12→20:59)
[2016-12-20] MEDS: Albuterol/Ipratropium NEB.SOL* Albuterol 2.5 MG/Ipratropium 0.5 MG 3 ML INH PRN (13:34)
[2016-12-20] MEDS: cefTRIAXone VIAL(*) 1,000 MG in NS 0.9% 50 ML* 50 ML IVPB SCH (15:57)
[2016-12-21] MEDS: Zolpidem TAB* 10 MG PO PRN (00:11)
[2016-12-21 05:42] LABS: Hematocrit 25 % (35-47); Hemoglobin 7.8 g/dl (12.0-16.0); Mean Corpuscular HGB Conc 32 g/dl (31-36); Mean Corpuscular Hemoglobin 30 pg (27-31); Mean Corpuscular Volume 94 fL (80-97); Red Cell Distribution Width 19 % (10.5-15); White Blood Count 6.1 10^3/ul (3.5-10.8)
[2016-12-21 05:53] LABS: Albumin 2.9 g/dL (3.2-5.2); BUN/Creatinine Ratio 28.8 (8-20); Calcium 8.6 mg/dL (8.6-10.3); EGFR African American 150.8 (>60); EGFR Non-African American 117.3 (>60); Potassium 3.9 mmol/L (3.5-5.0); Total Bilirubin 0.5 mg/dL (0.2-1.0); Total Protein 4.9 g/dL (6.4-8.9)
[2016-12-21 06:04] LABS: Add Diff/Slide Review? Slide Review Added; Comments Flag Yes
[2016-12-21 06:31] LABS: Hypochromasia 1+; Schistocytes 1+
[2016-12-21] MEDS: Fludrocortisone Acetate TAB* 0.1 MG PO SCH (09:45)
[2016-12-21] MEDS: Enoxaparin(*) 60 MG/0.6 ML SYR SUBCUT SCH ×2 (09:45→21:34)
[2016-12-21] MEDS: Magnesium Oxide TAB* 400 MG PO SCH ×2 (09:45→21:33)
[2016-12-21] MEDS: Hydrocortisone TAB* 5 MG PO SCH ×3 (09:45→21:32)
[2016-12-21] MEDS: predniSONE TAB* 20 MG PO SCH (09:46)
--- NOTE | 2016-12-21 12:23 | PN ---
Progress Note - Progress Note SOAP: Subjective: []Feels a little better day by day. Still very weak and really hasn't been able to amb. much. Denies chest pain or pressure at this time. Winded very easily. notes she gets anxious after prednisone. Medications: Acetaminophen (Tylenol Tab*) 650 mg PO Q6H PRN PRN Reason: PAIN OR TEMPERATURE Last Admin: 12/17/16 11:19 Dose: 650 mg Albuterol/Ipratropium (Duoneb (Albuterol 2.5 Mg/Ipratropium 0.5 Mg)) 1 neb INH Q4H PRN PRN Reason: SOB/WHEEZING Last Admin: 12/20/16 13:34 Dose: 1 neb Enoxaparin Sodium (Lovenox(*)) 60 mg SUBCUT BID [facility] Last Admin: 12/21/16 09:45 Dose: 60 mg Fludrocortisone Acetate (Florinef Tab*) 0.2 mg PO QAM [facility] Last Admin: 12/21/16 09:45 Dose: 0.2 mg Guaifenesin/Codeine Phosphate (Robitussin Ac 100mg-10mg*) 5 ml PO Q6H PRN PRN Reason: COUGH Last Admin: 12/16/16 11:11 Dose: 5 ml Heparin Sodium (Porcine) (Heparin Flush Port (Ivad)) 5 ml FLUSH DAILY [facility] Last Admin: 12/21/16 09:45 Dose: 5 ml Hydrocortisone (Cortef Tab*) 5 mg PO TID [facility] Last Admin: 12/21/16 09:45 Dose: 5 mg Ceftriaxone Sodium 1,000 mg/ (Sodium Chloride) 50 mls @ 200 mls/hr IVPB Q24H [facility] Last Admin: 12/20/16 15:57 Dose: 200 mls/hr Lorazepam (Ativan Tab(*)) 0.5 mg PO BEDTIME PRN PRN Reason: ANXIETY Magnesium Oxide (Magox 400 Tab*) 800 mg PO BID [facility] Last Admin: 12/21/16 09:45 Dose: 800 mg Morphine Sulfate (Morphine Oral.Soln 10 Mg*) 5 mg PO Q2HR PRN PRN Reason: Dyspnea/Pain Ondansetron HCl (Zofran Tab*) 4 mg PO Q4H PRN PRN Reason: NAUSEA Last Admin: 06/16/17 10:18 Dose: 4 mg Oxycodone HCl (Roxycodone Tab*) 5 mg PO QID PRN PRN Reason: PAIN Prednisone (Deltasone Tab*) 40 mg PO DAILY DIANN Last Admin: 12/21/16 09:46 Dose: 40 mg Prochlorperazine (Compazine Tab*) 10 mg PO Q6H PRN PRN Reason: NAUSEA Zolpidem Tartrate (Ambien Tab*) 10 mg PO BEDTIME PRN PRN Reason: SLEEP Last Admin: 12/21/16 00:11 Dose: 10 mg Objective: [] Vital Signs Temp Pulse Resp BP Pulse Ox 98.2 F 81 18 96/51 100 12/21/16 07:22 12/21/16 07:22 12/21/16 08:00 12/21/16 07:22 12/21/16 07:22 A&Ox3, EOMI, LOVELACE, neuro grossly non-focal HRR, distant heart sounds, no murmur noted LS dim. right lower, left with scatter fine crackles to base +BS, abd. soft and non-tender +edema LEs bilat. Laboratory Results - last 24 hr 12/21/16 12/21/16 12/21/16 05:25 05:25 05:25 WBC 6.1 RBC 2.60 L Hgb 7.8 L Hct 25 L MCV 94 MCH 30 MCHC 32 RDW 19 H Plt Count 90 L Neut % (Auto) 80.1 Lymph % (Auto) 8.4 L [place] % (Auto) 11.2 H Eos % (Auto) 0.1 Baso % (Auto) 0.2 Absolute Neuts (auto) 4.9 Absolute Lymphs (auto) 0.5 L Absolute Monos (auto) 0.7 Absolute Eos (auto) 0 Absolute Basos (auto) 0 Absolute Nucleated RBC 0.01 Nucleated RBC % 0.1 Normal RBC Morphology Not Reportable Hypochromasia 1+ Elliptocytes 1+ Schistocytes 1+ Sodium 139 Potassium 3.9 Chloride 98 L Carbon Dioxide 39 H Anion Gap 2 BUN 15 Creatinine 0.52 Est GFR ( Amer) 150.8 Est GFR (Non-Af Amer) 117.3 BUN/Creatinine Ratio 28.8 H Glucose 92 Calcium 8.6 Total Bilirubin 0.50 AST 9 L ALT 10 Alkaline Phosphatase 100 B-Natriuretic Peptide 1032 H Total Protein 4.9 L Albumin 2.9 L Globulin 2.0 Albumin/Globulin Ratio 1.5 Assessment: []66 yo f with complicated medical history and now recurrent pneumonia r/t known esophageal-trachea fistula, pulmonary fibrosis, and heart failure. She is slowly recovering. Plan: []PT eval. today, cont. abx., cont. prednisone at current dose for 2 more days then start taper very slowly.
--- NOTE | 2016-12-21 14:01 | PN ---
Progress Note - Progress Note SOAP: Subjective: DOS: 12/21/16 CC: shortness of breath HPI: 66 yo woman with recent admission for PNA, improved with ceftriaxone, thought to be a component of aspiration, went home on doxycycline which caused vomiting and she did not keep it down, now with malaise, cough, shortness of breath. Worsened initially, now improving, cough better, no CP, fever, or rash. Breathing better than over the weekend, does get SOB with walking. Objective: [] Vital Signs Temp 36.8 C 12/21/16 07:22 Pulse 81 12/21/16 07:22 Resp 18 12/21/16 08:00 BP 96/51 12/21/16 07:22 Pulse Ox 100 12/21/16 07:22 Intake & Output 12/20/16 12/21/16 12/21/16 18:59 06:59 18:59 Intake Total 1270 750 Balance 1270 750 Intake: Oral 1270 750 Other: Estimated Void Medium # Bowel Movements 0 # Voids 1 2 Gen:awake, no discomfort Nueo:Awake, oriented x3 HEENT:PERRL, MMM Neck:supple Heart:RRR no murmur Lungs:BL expiratory wheeze, decr BS at bases Abd:+BS NTND soft Skin: No rash MSK: no spine tenderness Laboratory Results - last 24 hr 12/21/16 12/21/16 12/21/16 05:25 05:25 05:25 WBC 6.1 RBC 2.60 L Hgb 7.8 L Hct 25 L MCV 94 MCH 30 MCHC 32 RDW 19 H Plt Count 90 L Neut % (Auto) 80.1 Lymph % (Auto) 8.4 L Will % (Auto) 11.2 H Eos % (Auto) 0.1 Baso % (Auto) 0.2 Absolute Neuts (auto) 4.9 Absolute Lymphs (auto) 0.5 L Absolute Monos (auto) 0.7 Absolute Eos (auto) 0 Absolute Basos (auto) 0 Absolute Nucleated RBC 0.01 Nucleated RBC % 0.1 Normal RBC Morphology Not Reportable Hypochromasia 1+ Elliptocytes 1+ Schistocytes 1+ Sodium 139 Potassium 3.9 Chloride 98 L Carbon Dioxide 39 H Anion Gap 2 BUN 15 Creatinine 0.52 Est GFR ( Amer) 150.8 Est GFR (Non-Af Amer) 117.3 BUN/Creatinine Ratio 28.8 H Glucose 92 Calcium 8.6 Total Bilirubin 0.50 AST 9 L ALT 10 Alkaline Phosphatase 100 B-Natriuretic Peptide 1032 H Total Protein 4.9 L Albumin 2.9 L Globulin 2.0 Albumin/Globulin Ratio 1.5 Assessment: 1. fever, cough, hypoxemic respiratory failure; pneumonia, concern as well for underlying mass that could be malignancy or abscess, Dr Mcneil raised BOOP/COMMIS CHEF as possibly contributing as well as sequelae of radiation therapy. 2. hx esophageal cancer, XRT 3. elevated CRP 4. thrombocytopenia Plan: 1. continue ceftriaxone day 11/[address] scan. Corticosteroids per pulmonology.
[2016-12-21] MEDS: Albuterol/Ipratropium NEB.SOL* Albuterol 2.5 MG/Ipratropium 0.5 MG 3 ML INH PRN ×2 (14:20→21:48)
[2016-12-21] MEDS: cefTRIAXone VIAL(*) 1,000 MG in NS 0.9% 50 ML* 50 ML IVPB SCH (15:14)
[2016-12-22] MEDS: Fludrocortisone Acetate TAB* 0.1 MG PO SCH (09:53)
[2016-12-22] MEDS: Acetaminophen TAB* 325 MG PO PRN (09:53)
[2016-12-22] MEDS: Enoxaparin(*) 60 MG/0.6 ML SYR SUBCUT SCH ×2 (09:53→20:40)
[2016-12-22] MEDS: Hydrocortisone TAB* 5 MG PO SCH ×2 (09:54→16:17)
[2016-12-22] MEDS: Magnesium Oxide TAB* 400 MG PO SCH ×2 (09:54→20:38)
[2016-12-22] MEDS: predniSONE TAB* 20 MG PO SCH (09:54)
--- NOTE | 2016-12-22 11:22 | PN ---
Progress Note - Progress Note SOAP: Subjective: []Feeling OK. Frustrated with hospital "life". Feeling a little stronger day by day. Had PT this AM and still very weak, not able to amb. very far at all. Harsh wet cough producing sputum at times. Using incentive spirometer. "gun shy" about pt.'s H&H. Medications: Acetaminophen (Tylenol Tab*) 650 mg PO Q6H PRN PRN Reason: PAIN OR TEMPERATURE Last Admin: 12/22/16 09:53 Dose: 650 mg Albuterol/Ipratropium (Duoneb (Albuterol 2.5 Mg/Ipratropium 0.5 Mg)) 1 neb INH Q4H PRN PRN Reason: SOB/WHEEZING Last Admin: 12/21/16 21:48 Dose: 1 neb Enoxaparin Sodium (Lovenox(*)) 60 mg SUBCUT BID [facility] Last Admin: 12/22/16 09:53 Dose: 60 mg Fludrocortisone Acetate (Florinef Tab*) 0.2 mg PO QAM [facility] Last Admin: 12/22/16 09:53 Dose: 0.2 mg Guaifenesin/Codeine Phosphate (Robitussin Ac 100mg-10mg*) 5 ml PO Q6H PRN PRN Reason: COUGH Last Admin: 12/16/16 11:11 Dose: 5 ml Heparin Sodium (Porcine) (Heparin Flush Port (Ivad)) 5 ml FLUSH DAILY [facility] Last Admin: 12/22/16 11:17 Dose: 5 ml Hydrocortisone (Cortef Tab*) 5 mg PO TID [facility] Last Admin: 12/22/16 09:54 Dose: 5 mg Ceftriaxone Sodium 1,000 mg/ (Sodium Chloride) 50 mls @ 200 mls/hr IVPB Q24H [facility] Last Admin: 12/21/16 15:14 Dose: 200 mls/hr Lorazepam (Ativan Tab(*)) 0.5 mg PO BEDTIME PRN PRN Reason: ANXIETY Magnesium Oxide (Magox 400 Tab*) 800 mg PO BID [facility] Last Admin: 12/22/16 09:54 Dose: 800 mg Morphine Sulfate (Morphine Oral.Soln 10 Mg*) 5 mg PO Q2HR PRN PRN Reason: Dyspnea/Pain Ondansetron HCl (Zofran Tab*) 4 mg PO Q4H PRN PRN Reason: NAUSEA Last Admin: 12/17/16 10:18 Dose: 4 mg Oxycodone HCl (Roxycodone Tab*) 5 mg PO QID PRN PRN Reason: PAIN Prednisone (Deltasone Tab*) 40 mg PO DAILY [facility] Last Admin: 12/22/16 09:54 Dose: 40 mg Prochlorperazine (Compazine Tab*) 10 mg PO Q6H PRN PRN Reason: NAUSEA Zolpidem Tartrate (Ambien Tab*) 10 mg PO BEDTIME PRN PRN Reason: SLEEP Last Admin: 12/21/16 00:11 Dose: 10 mg Objective: [] Vital Signs Temp Pulse Resp BP Pulse Ox 98.1 F 86 16 101/40 100 12/22/16 07:27 12/22/16 07:27 12/22/16 07:27 12/22/16 07:27 12/22/16 07:27 A&Ox3, EOMI, LOVELACE, neuro grossly non-focal HRR, distant heart sounds, S1S2 without murmur noted LS dim. R>L with scatter fine wheeze +BS, abd. soft and non-tender Assessment: []66 yo f with complicated medical history inpatient d/t recurrent pneumonia. Plan: []1. BOOP: plan Ceftriaxone x28 (day 6 today) per ID with penitentiary steroids per pulmonology (likely @ 5 mg intervals qweek as tolerated) 2. MDS: check counts tomorrow, no transfusion today Disposition: goal home tomorrow if cleared by PT and set up for abx.
--- NOTE | 2016-12-22 13:03 | PN ---
Progress Note - Progress Note Note: Pulm consult f/u note 12/22/16. Pt seen and examined at bedside. Interim events noted. Reports improvement in breathing. Active Medications Generic Name Dose Route Start Last Admin Trade Name Freq PRN Reason Stop Dose Admin Acetaminophen 650 mg 12/15/16 11:56 12/22/16 09:53 Tylenol Tab* PO 650 mg Q6H PRN Administration PAIN OR TEMPERATURE Albuterol/Ipratropium 1 neb 12/15/16 11:56 12/21/16 21:48 Duoneb (Albuterol 2.5 Mg/Ipratropium 0.5 Mg) INH 1 neb Q4H PRN Administration SOB/WHEEZING Enoxaparin Sodium 60 mg 12/15/16 21:00 12/22/16 09:53 Lovenox(*) SUBCUT 60 mg BID DIANN Administration Fludrocortisone Acetate 0.2 mg 12/16/16 09:00 12/22/16 09:53 Florinef Tab* PO 0.2 mg QAM DIANN Administration Guaifenesin/Codeine Phosphate 5 ml 12/15/16 11:56 12/16/16 11:11 Robitussin Ac 100mg-10mg* PO 5 ml Q6H PRN Administration COUGH Heparin Sodium (Porcine) 5 ml 12/15/16 20:00 12/22/16 11:17 Heparin Flush Port (Ivad) FLUSH 5 ml DAILY DIANN Administration Hydrocortisone 5 mg 12/15/16 14:00 12/22/16 09:54 Cortef Tab* PO 5 mg TID DIANN Administration Ceftriaxone Sodium 1,000 mg/ 50 mls @ 200 mls/hr 12/16/16 15:00 12/21/16 15: 14 Sodium Chloride IVPB 200 mls/hr Q24H DIANN Administration Magnesium Oxide 800 mg 12/17/16 21:00 12/22/16 09:54 Magox 400 Tab* PO 800 mg BID DIANN Administration Morphine Sulfate 5 mg 12/17/16 09:28 Morphine Oral.Soln 10 Mg* PO Q2HR PRN Dyspnea/Pain Ondansetron HCl 4 mg 12/15/16 11:56 12/17/16 10:18 Zofran Tab* PO 4 mg Q4H PRN Administration NAUSEA Prednisone 40 mg 12/17/16 09:00 12/22/16 09:54 Deltasone Tab* PO 40 mg DAILY DIANN Administration Prochlorperazine 10 mg 12/15/16 11:56 Compazine Tab* PO Q6H PRN NAUSEA Zolpidem Tartrate 10 mg 12/15/16 11:56 12/21/16 00:11 Ambien Tab* PO 10 mg BEDTIME PRN Administration SLEEP Vital Signs Temp Pulse Resp BP Pulse Ox 98.1 F 86 16 101/40 100 12/22/16 07:27 12/22/16 07:27 12/22/16 07:27 12/22/16 07:27 12/22/16 07:27 Gen:Aler, awake, in NAD, sitting up in chair HEENT:PERRLA, mucus membrane moist Neck:supple, no accessory muscle usage Heart:RRR no murmur Lungs:No wheeze, decreased BS at bases Abd:+BS NT,ND soft Skin: No rash MSK: no spine tenderness Neuro: No focal defecits Skin: No rash, no cyanosis I/R: 66 y o f with h/o esophageal cancer, tracheo esophageal fistula, with h/o recurrent asp PNA, readmitted for worsening SOB after being treated for asp PNA recently. CT chest suggestive of basal fibrosis, stiff lungs and dense consolidation peripherally likely suggestive of BOOP/DREDGE OR BARGE SHORE HAND Pt improved significantly, needing less FiO2 now Will taper steroids slowly by 5 mg each week c/w bronchodilators c/w abx Will f/u in 2 weeks after d/c in pulm clinic
[2016-12-22] MEDS: Albuterol/Ipratropium NEB.SOL* Albuterol 2.5 MG/Ipratropium 0.5 MG 3 ML INH PRN (15:06)
[2016-12-22] MEDS: cefTRIAXone VIAL(*) 1,000 MG in NS 0.9% 50 ML* 50 ML IVPB SCH (16:03)
[2016-12-22] MEDS: Zolpidem TAB* 10 MG PO PRN (21:38)
[2016-12-23 05:45] LABS: Hematocrit 24 % (35-47); Hemoglobin 7.9 g/dl (12.0-16.0); Mean Corpuscular HGB Conc 33 g/dl (31-36); Mean Corpuscular Hemoglobin 30 pg (27-31); Mean Corpuscular Volume 93 fL (80-97); Red Blood Count 2.62 10^6/ul (4.0-5.4); Red Cell Distribution Width 19 % (10.5-15); White Blood Count 7.3 10^3/ul (3.5-10.8)
[2016-12-23 05:51] LABS: Add Diff/Slide Review? Slide Review Added; Comments Flag Yes
[2016-12-23 05:56] LABS: Albumin 2.9 g/dL (3.2-5.2); Calcium 8.4 mg/dL (8.6-10.3); EGFR African American 161.5 (>60); EGFR Non-African American 125.6 (>60); Globulin 1.9 g/dL (2-4); Total Bilirubin 0.4 mg/dL (0.2-1.0); Total Protein 4.8 g/dL (6.4-8.9)
[2016-12-23 06:36] LABS: BUN/Creatinine Ratio 28.6 (8-20)
[2016-12-23] MEDS: Ondansetron TAB* 4 MG PO PRN (08:14)
[2016-12-23 08:17] LABS: Platelet Morphology Large
[2016-12-23] MEDS: predniSONE TAB* 20 MG PO SCH (08:21)
[2016-12-23] MEDS: Magnesium Oxide TAB* 400 MG PO SCH (08:21)
[2016-12-23] MEDS: Enoxaparin(*) 60 MG/0.6 ML SYR SUBCUT SCH (08:21)
[2016-12-23] MEDS: Fludrocortisone Acetate TAB* 0.1 MG PO SCH (08:22)
[2016-12-23] MEDS ORDERED: Hydrocortisone TAB* 5 MG PO SCH (09:30)
[2016-12-23 13:45] VITALS: BP 118/50
[2016-12-23] MEDS ORDERED: cefTRIAXone VIAL(*) 1,000 MG in NS 0.9% 50 ML* 50 ML IVPB SCH (14:00)
[2016-12-23] MEDS: cefTRIAXone VIAL(*) 1,000 MG in NS 0.9% 50 ML* 50 ML IVPB SCH (14:18)
--- NOTE | 2016-12-24 05:53 | DS ---
CC: Dr. Mcneil; Dr. Hickey * DISCHARGE SUMMARY: DATE OF ADMISSION: 12/15/16 DATE OF DISCHARGE: 12/23/16 DISCHARGE DIAGNOSES: 1. BOOP (bronchiolitis obliterans organizing pneumonia): On IV antibiotics and steroids. 2. Adrenal insufficiency: Continue Florinef, hold hydrocortisone with above prednisone for BOOP. 3. Diastolic heart failure: Clinically stable, following closely. 4. Esophageal cancer: Off treatment, following. 5. Myelodysplastic syndrome: Treatment related, following counts. DISCHARGE MEDICATIONS: 1. Prednisone 5 mg tab, 35 mg x7 days tapering by 5 mg q.7 days as instructed by Dr. Mcneil. 2. Ondansetron 4 mg p.o. q.4 hours p.r.n. nausea. 3. Magnesium oxide 1200 mg p.o. b.i.d. 4. Prochlorperazine 10 mg p.o. q.6 hours p.r.n. nausea. 5. Florinef 0.2 mg p.o. q.a.m. 6. Furosemide 20 mg p.o. q.a.m. 7. Oxycodone 5 mg p.o. four times a day p.r.n. pain. 8. Lovenox 60 mg subcu b.i.d. 9. Ambien 10 mg q.h.s. p.r.n. sleep. 10. Lorazepam 0.5 mg p.o. q.h.s. p.r.n. anxiety. 11. DuoNeb 1 neb inhaled q.4 hours p.r.n. shortness of breath/wheezing. 12. Acetaminophen 650 mg p.o. q.6 hours p.r.n. pain or temperature, call for any fevers prior to taking. 13. Robitussin A-C 100/10 mg, 5 mL p.o. q.6 hours p.r.n. cough. 14. Morphine oral concentrate 5 mg p.o. q.4 hours p.r.n. pain or shortness of breath. Stop: Hydrocortisone, amiodarone, doxycycline and potassium chloride. HOSPITAL COURSE: Please see admission note for full H and P; however, briefly, Ms. Huitrno is well known to our service due to her unfortunate diagnosis of metastatic esophageal cancer with multiple complications over the last year. Ms. Huitron presented to the ER on 12/15/16 with progressive shortness of breath following a previous hospitalization (discharged 4 days earlier) for pneumonia. In the ER, she was worked up for progressive pneumonia and CHF exacerbation. Dr. Hickey was involved in her care from admission due to her prior discharge plan with prophylactic doxycycline. On December 16, Dr. Mcneil was consulted regarding potential workup of pneumonia versus mass at which time Dr. Mcneil felt she may need BiPAP or further high-flow oxygen should her respiratory status decline. The following day on December 18, Ms. Huitron developed significant tachypnea with more shortness of breath, feeling unable to talk, and she was subsequently transferred to the ICU in respiratory distress for consultation with grinder tender and consideration for high-flow oxygen versus Vapotherm. Dr. Chicas was consulted as well as Dr. Hagan. At the same time, her amiodarone was stopped as it was felt there was a potential for pulmonary toxicity. Later that day, she received an echocardiogram which revealed a reasonable ejection fraction at 55% to 60%, however, with some reduction in systolic function as well as mild valve disease and a small pericardial effusion. Ultimately during ICU stay, Critical Care seemed to determine that Ms. Huitron's diagnosis represented bronchiolitis obliterans with organizing pneumonia. As per Dr. Mcneil's recommendation, initially steroids were continued. She was transferred out of the ICU on 12/19/16. Over the next several days, Ms. Huitron continued to improve with IV ceftriaxone, high-dose prednisone, and supportive care. Yesterday, she received a physical therapy evaluation showing some deconditioning but with good ambulatory ability. At this point, Ms. Huitron feels ready to go home with plan of care as addressed previously. She will continue ceftriaxone 1 g IV q.24 hours for total of 28 days (tomorrow being day 8). She will also continue high-dose prednisone tapering down by 5 mg weekly tomorrow starting at 35 mg. She will follow up with Dr. Mcneil and Dr. Hickey in approximately 2 weeks to evaluate response to antibiotics and steroids for treatment of her diagnosis of BOOP. Ms. Huitron will follow up with weekly labs in the infusion suite with her antibiotics and will see Dr. Randall in the end of January with CT chest followup in the same time. On discharge, Ms. Huitron will stop her hydrocortisone (for adrenal insufficiency) , will plan to resume once prednisone is completed. She will continue her Florinef as previously prescribed. Plan of care was reviewed at length with both patient and her . All questions have been answered. TIME SPENT: Greater than 40 minutes spent with greater than 50% [id number] to counseling. KURTIS RIVAS, SONG [id number]/CPS #: [id number] OSEAS
== END 2016-12-23 15:15 | disposition home health service (06) | DRG 196 ==
LOC: ED 07:31 → MED 11:02 → ICU 12-17 10:38 → MED 12-19 12:18
PROVIDERS: ADMIT Internal Medicine Hematology & Oncology; ATTEND Internal Medicine Hematology & Oncology
PROC: 30233N1 Transfusion of Nonautologous Red Blood Cells into Peripheral Vein, Percutaneous Approach (ICD-10-PCS; principal; 2016-12-16)
DX: J84.89 Other specified interstitial pulmonary diseases (principal); I50.33 Acute on chronic diastolic (congestive) heart failure; J86.0 Pyothorax with fistula; J96.01 Acute respiratory failure with hypoxia; D61.818 Other pancytopenia; C79.9 Secondary malignant neoplasm of unspecified site; I11.0 Hypertensive heart disease with heart failure; E27.40 Unspecified adrenocortical insufficiency; C15.9 Malignant neoplasm of esophagus, unspecified; I50.32 Chronic diastolic (congestive) heart failure; M19.90 Unspecified osteoarthritis, unspecified site; I48.91 Unspecified atrial fibrillation; D46.9 Myelodysplastic syndrome, unspecified; Z66 Do not resuscitate; G47.30 Sleep apnea, unspecified; K21.9 Gastro-esophageal reflux disease without esophagitis; M06.9 Rheumatoid arthritis, unspecified; J44.9 Chronic obstructive pulmonary disease, unspecified; I95.9 Hypotension, unspecified; E87.8 Other disorders of electrolyte and fluid balance, not elsewhere classified; Z88.8 Allergy status to other drugs, medicaments and biological substances; Z87.891 Personal history of nicotine dependence; Z92.21 Personal history of antineoplastic chemotherapy; Z87.01 Personal history of pneumonia (recurrent); Z85.118 Personal history of other malignant neoplasm of bronchus and lung; Z86.711 Personal history of pulmonary embolism; Z92.3 Personal history of irradiation; Z82.49 Family history of ischemic heart disease and other diseases of the circulatory system; Z86.718 Personal history of other venous thrombosis and embolism; Z80.8 Family history of malignant neoplasm of other organs or systems; Z79.01 Long term (current) use of anticoagulants
CPT/HCPCS: 36415; 71010; 71020; 71260; 80053; 81003; 81015; 82550; 83605; 83735; 83880; 84484; 85025; 85027; 86078; 86140; 86850; 86900; 86901; 86922; 87040; 87070; 87086; 87205; 87641; 93005; 93306; 94640; 94667; 94668; 94760; 99223; 99231; 99232; 99233; A9270-GY; J0692; J0696; J1642; J1650; J1940; J7512; P9040; Q9967

== ENCOUNTER 2016-12-30 13:08 | Inpatient (IN) | payer MEDICARE, OTHER ==
[2016-12-30 14:30] LABS: Hematocrit 21 % (35-47); Hemoglobin 6.8 g/dl (12.0-16.0); Mean Corpuscular HGB Conc 32 g/dl (31-36); Mean Corpuscular Hemoglobin 30 pg (27-31); Mean Corpuscular Volume 94 fL (80-97); Red Blood Count 2.25 10^6/ul (4.0-5.4); Red Cell Distribution Width 20 % (10.5-15); White Blood Count 7.8 10^3/ul (3.5-10.8)
[2016-12-30 14:31] LABS: Comments Flag Yes
[2016-12-30 14:32] LABS: Add Diff/Slide Review? Slide Review Added
[2016-12-30 14:42] LABS: BUN/Creatinine Ratio 27.9 (8-20); Calcium 8.5 mg/dL (8.6-10.3); EGFR African American 110.7 (>60); Potassium 3.8 mmol/L (3.5-5.0); Total Bilirubin 1.2 mg/dL (0.2-1.0)
[2016-12-30 14:50] LABS: Troponin I 0.07 ng/mL (<0.04)
--- NOTE | 2016-12-30 14:52 | RAD ---
Indication: Fever, shortness of breath, weakness. History of congestive heart failure as well as lung and esophageal cancer. Previous pericardial window. Comparison: December 17, 2016 chest radiograph and December 15, 2016 CT. Technique: Upright AP 1430 hours Report: Diffuse prominence of the interstitial markings with thickened peripheral interlobular septa. Small RIGHT larger than LEFT dependent pleural effusions with proportional basilar atelectasis. Patchy consolidation in the RIGHT lung becoming more confluent at the lower lung zone similar to the prior exam. Negative for pneumothorax. Cardiomegaly. Grossly unremarkable central pulmonary vasculature. Tip of RIGHT chest port at level of RIGHT atrium. IMPRESSION: 1. Stigmata of interstitial pulmonary edema. 2. RIGHT lung consolidation may represent pneumonia or tumor with lymphangitic spread given the clinical context.
[2016-12-30] MEDS ORDERED: Prochlorperazine TAB* 10 MG PO PRN (15:06)
[2016-12-30] MEDS ORDERED: Morphine ORAL CONCENTRATE* 5 MG/0.25 ML ORAL.SYRIN PO PRN (15:06)
[2016-12-30] MEDS ORDERED: guaiFENesin/CODIEN 100MG-10MG* 5 ML UDC PO PRN (15:06)
[2016-12-30] MEDS ORDERED: Albuterol/Ipratropium NEB.SOL* Albuterol 2.5 MG/Ipratropium 0.5 MG 3 ML INH PRN (15:06)
[2016-12-30] MEDS ORDERED: Zolpidem TAB* 10 MG PO PRN (15:06)
[2016-12-30] MEDS ORDERED: oxyCODONE TAB* 5 MG TAB PO PRN (15:06)
[2016-12-30] MEDS ORDERED: Furosemide IV* 10 MG/ML 2 ML VIAL (20 MG) IV SLOW PU ONE (15:42)
[2016-12-30 16:46] LABS: C Reactive Protein 65.33 mg/L (< 5.00)
[2016-12-30] MEDS: Acetaminophen TAB* 325 MG PO PRN (17:20)
--- NOTE | 2016-12-30 20:25 | ED ---
Shannon Salvador Edward, scribed for Manpreet Bautista MD on 12/30/16 at 1409 . Complex/Multi-Sys Presentation - HPI Summary HPI Summary: 66 y/o female presents to ED c/o generalized weakness, fatigue and a fever ( high 103.4). The symptoms started this morning. Patient still feels weak and fatigued now. Associated sx: severe cough, SOB and unsteadiness. PMHx PNA (seen in the ED last week for it). Patient states she started taking ABX yesterday. - History Of Current Complaint Chief Complaint: EDShortnessOfBreath Time Seen by Provider: 12/30/16 14:00 Hx Obtained From: Patient Onset/Duration: Lasting Hours - This morning, Still Present Timing: Constant Associated Signs And Symptoms: Positive: Weakness, SOB, Cough, Fever - High 103.4 per , Other - Fatigue, unsteadiness Related History: Recent Illness - PNA - Allergies/Home Medications Allergies/Adverse Reactions: Allergies Allergy/AdvReac Type Severity Reaction Status Date / Time Metoprolol Allergy Intermediate Rash Verified 12/28/16 13:28 PMH/Surg Hx/FS Hx/Imm Hx Previously Healthy: No Endocrine/Hematology History: Reports: Hx Anticoagulant Therapy, Hx Blood Transfusions, Hx Anemia, Other Endocrine/Hematological Disorders - chronic normocyte anemia, adrenal insufficiency Denies: Hx Diabetes, Hx Systemic Lupus Erythematosus Cardiovascular History: Reports: Hx Congestive Heart Failure, Hx Hypertension, Hx Syncope, Other Cardiovascular Problems/Disorders - pericardial effusion window Denies: Hx Aneurysm, Hx Angina, Hx Congenital Heart Disease, Hx Pacemaker/ICD Respiratory History: Reports: Hx Lung Cancer, Hx Pleural Effusion - Chronic, Hx Pneumonia, Hx Pulmonary Embolism, Hx Sleep Apnea - unconfirmed, Other Respiratory Problems/Disorders - PT STATES LUNG CA/ESOPHAGUS CA Denies: Hx Asthma GI History: Reports: Hx Gall Bladder Disease, Hx Gastroesophageal Reflux Disease , Other GI Disorders - DIFFICULTY SWALLOWING SOMETIME ESPECIALLY WITH PILLS R/T THE CANCER History: Denies: Hx Dialysis, Hx Renal Disease Musculoskeletal History: Reports: Hx Arthritis - SLIGHT, Hx Rheumatoid Arthritis Sensory History: Reports: Hx Contacts or Glasses Denies: Hx Cataracts, Hx Eye Injury, Hx Eye Prosthesis, Hx Glaucoma, Hx Legally Blind, Hx Macular Degeneration, Hx Vision Problem, Hx Deafness, Hx Hearing Aid, Hx Hearing Problem, Other Sensory Impairments Opthamlomology History: Reports: Hx Contacts or Glasses Denies: Hx Cataracts, Hx Eye Injury, Hx Eye Prosthesis, Hx Glaucoma, Hx Legally Blind, Hx Macular Degeneration, Hx Vision Problem, Other Sensory Impairments Neurological History: Reports: Hx Headaches, Other Neuro Impairments/Disorders - HX OF DIZZINESS, Syncope Psychiatric History: Denies: Hx Panic Disorder - Cancer History Cancer Type, Location and Year: esphogeal, lung cancer Hx Chemotherapy: Yes Hx Radiation Therapy: Yes Hx Palliative Cancer Treatment: No - Surgical History Surgery Procedure, Year, and Place: TONSILLECTOMY A CHILD. PEG tube - NO LONGER IN,. 2002 CYST REMOVED FROM RIGHT FOOT, [facility] [place]. 04/2015 PLEURX CATHETER INSERTION, [facility] [place]. 05/2015 PERICARDIAL WINDOW, [facility] [place]. 10/06/2015 INSERTION OF CATHETER TO DRAIN GALLBLADDER, [facility] Anesthesia Reactions: No - Immunization History Date of Tetanus Vaccine: up to date Date of Influenza Vaccine: up to date Infectious Disease History: No Infectious Disease History: Reports: Hx Clostridium Difficile Denies: Hx Hepatitis, Hx Human Immunodeficiency Virus (HIV), Hx of Known/ Suspected MRSA, Hx Shingles, Hx Tuberculosis, Hx Known/Suspected VRE, Hx Known/ Suspected VRSA, History Other Infectious Disease, Traveled Outside the [place] in Last 30 Days - Family History Known Family History: Positive: Other - neg: breast CA Negative: Diabetes Family History: Per H&P from 05/12/16, both parents have no current problems. - Social History Alcohol Use: None Hx Substance Use: No Substance Use Type: Reports: None Hx Tobacco Use: Yes Smoking Status (MU): Former Smoker Type: Cigarettes Amount Used/How Often: 1/2 PPD FOR ABOUT 30+ YEARS Length of Time of Smoking/Using Tobacco: 30 YEARS Have You Smoked in the Last Year: No Review of Systems Positive: Fever Eyes: Negative ENT: Negative Cardiovascular: Negative Positive: Shortness Of Breath, Cough Gastrointestinal: Negative Genitourinary: Negative Musculoskeletal: Negative Skin: Negative Neurological: Other - Fatigue, unsteadiness Positive: Weakness Psychological: Normal All Other Systems Reviewed And Are Negative: Yes Physical Exam Triage Information Reviewed: Yes Vital Signs On Initial Exam: Initial Vitals BP 81/40 12/30/16 13:16 Vital Signs Reviewed: Yes Appearance: Positive: Well-Appearing, No Pain Distress Skin: Positive: Warm, Skin Color Reflects Adequate Perfusion, Dry Head/Face: Positive: Normal Head/Face Inspection Eyes: Positive: Normal ENT: Positive: Normal ENT inspection Neck: Positive: Supple, Nontender Respiratory/Lung Sounds: Positive: Clear to Auscultation, Breath Sounds Present , Other - Mild crackles Cardiovascular: Positive: RRR Abdomen Description: Positive: Nontender, Soft Bowel Sounds: Positive: Present Musculoskeletal: Positive: Normal, Other - Pitting edema in bilateral ankles Neurological: Positive: Normal Psychiatric: Positive: Normal, Affect/Mood Appropriate Diagnostics - Vital Signs Vital Signs Temp Pulse Resp BP Pulse Ox 12/30/16 13:30 91 21 73/37 98 12/30/16 13:18 94 21 96 12/30/16 13:17 98.1 F 93 20 81/40 97 12/30/16 13:16 81/40 - Laboratory Lab Results: Lab Results 12/30/16 12/30/16 12/30/16 Range/Units 14:10 14:10 14:10 WBC 7.8 (3.5-10.8) 10^3/ul RBC 2.25 L (4.0-5.4) 10^6/ul Hgb 6.8 L (12.0-16.0) g/dl Hct 21 L (35-47) % MCV 94 (80-97) fL MCH 30 (27-31) pg MCHC 32 (31-36) g/dl RDW 20 H (10.5-15) % Plt Count 62 L (150-450) 10^3/ul MPV Not Reportable Neut % (Auto) 86.7 H (38-83) % Lymph % (Auto) 3.5 L (25-47) % Rincon % (Auto) 9.6 H (1-9) % Eos % (Auto) 0 (0-6) % Baso % (Auto) 0.2 (0-2) % Absolute Neuts (auto) 6.8 (1.5-7.7) 10^3/ul Absolute Lymphs (auto) 0.3 L (1.0-4.8) 10^3/ul Absolute Monos (auto) 0.7 (0-0.8) 10^3/ul Absolute Eos (auto) 0 (0-0.6) 10^3/ul Absolute Basos (auto) 0 (0-0.2) 10^3/ul Absolute Nucleated RBC 0.01 10^3/ul Nucleated RBC % 0.2 INR (Anticoag Therapy) 1.29 H (0.89-1.11) APTT 42.6 H (26.0-36.3) seconds Sodium 140 (133-145) mmol/L Potassium 3.8 (3.5-5.0) mmol/L Chloride 97 L (101-111) mmol/L Carbon Dioxide 40 H (22-32) mmol/L Anion Gap 3 (2-11) mmol/L BUN 19 (6-24) mg/dL Creatinine 0.68 (0.51-0.95) mg/dL Est GFR ( Amer) 110.7 (>60) Est GFR (Non-Af Amer) 86.0 (>60) BUN/Creatinine Ratio 27.9 H (8-20) Glucose 128 H (70-100) mg/dL Lactic Acid (0.5-2.0) mmol/L Calcium 8.5 L (8.6-10.3) mg/dL Total Bilirubin 1.20 H (0.2-1.0) mg/dL AST 11 L (13-39) U/L ALT 15 (7-52) U/L Alkaline Phosphatase 90 (34-104) U/L Troponin I 0.07 H* (<0.04) ng/mL C-Reactive Protein 65.33 H (< 5.00) mg/L B-Natriuretic Peptide ( - 100) pg/mL Total Protein 5.0 L (6.4-8.9) g/dL Albumin 3.0 L (3.2-5.2) g/dL Globulin 2.0 (2-4) g/dL Albumin/Globulin Ratio 1.5 (1-3) Blood Type Antibody Screen Crossmatch 12/30/16 12/30/16 12/30/16 Range/Units 14:10 14:10 14:10 WBC (3.5-10.8) 10^3/ul RBC (4.0-5.4) 10^6/ul Hgb (12.0-16.0) g/dl Hct (35-47) % MCV (80-97) fL MCH (27-31) pg MCHC (31-36) g/dl RDW (10.5-15) % Plt Count (150-450) 10^3/ul MPV Neut % (Auto) (38-83) % Lymph % (Auto) (25-47) % Rincon % (Auto) (1-9) % Eos % (Auto) (0-6) % Baso % (Auto) (0-2) % Absolute Neuts (auto) (1.5-7.7) 10^3/ul Absolute Lymphs (auto) (1.0-4.8) 10^3/ul Absolute Monos (auto) (0-0.8) 10^3/ul Absolute Eos (auto) (0-0.6) 10^3/ul Absolute Basos (auto) (0-0.2) 10^3/ul Absolute Nucleated RBC 10^3/ul Nucleated RBC % INR (Anticoag Therapy) (0.89-1.11) APTT (26.0-36.3) seconds Sodium (133-145) mmol/L Potassium (3.5-5.0) mmol/L Chloride (101-111) mmol/L Carbon Dioxide (22-32) mmol/L Anion Gap (2-11) mmol/L BUN (6-24) mg/dL Creatinine (0.51-0.95) mg/dL Est GFR ( Amer) (>60) Est GFR (Non-Af Amer) (>60) BUN/Creatinine Ratio (8-20) Glucose (70-100) mg/dL Lactic Acid 0.8 (0.5-2.0) mmol/L Calcium (8.6-10.3) mg/dL Total Bilirubin (0.2-1.0) mg/dL AST (13-39) U/L ALT (7-52) U/L Alkaline Phosphatase (34-104) U/L Troponin I (<0.04) ng/mL C-Reactive Protein (< 5.00) mg/L B-Natriuretic Peptide 1209 H ( - 100) pg/mL Total Protein (6.4-8.9) g/dL Albumin (3.2-5.2) g/dL Globulin (2-4) g/dL Albumin/Globulin Ratio (1-3) Blood Type A Positive Antibody Screen Negative Crossmatch See Detail Result Diagrams: 12/30/16 14:10 12/30/16 14:10 Lab Statement: Any lab studies that have been ordered have been reviewed, and results considered in the medical decision making process. - Radiology CHEST XRAY Xray Interpretation: Positive (See Comments) - 1. Stigmata of interstitial pulmonary edema. 2. RIGHT lung consolidation may represent pneumonia or tumor with lymphangitic spread given the clinical context. Radiology Interpretation Completed By: Radiologist Complex Multi-Symp Course/Dx Course Of Treatment: Ms. Huitron presented with the acute onset of a fever, SOB and profound fatigue starting today. She took tylenol and on arrival was feeling a bit better and only fatigued. 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 She was given her dose of Rocephin here and fluids and Oncology was contacted. - Diagnoses Provider Diagnoses: Pneumonia Discharge - Discharge Plan Condition: Stable Disposition: ADMITTED TO [facility] documentation as recorded by the Shannon tolentino Edward accurately reflects the service I personally performed and the decisions made by me, Manpreet Bautista MD.
[2016-12-30] MEDS: Enoxaparin(*) 60 MG/0.6 ML SYR SUBCUT SCH (21:34)
[2016-12-30] MEDS: Magnesium Oxide TAB* 400 MG PO SCH (21:35)
--- NOTE | 2016-12-31 04:00 | HP ---
HISTORY AND PHYSICAL: DATE OF ADMISSION: 12/30/16 CHIEF COMPLAINT: Shortness of breath with severe weakness, fever to 100.8. HISTORY OF PRESENT ILLNESS: Ms. Huitron was recently discharged from the hospital on 12/18/16 having had stayed in the hospital for a pneumonia and was placed on IV ceftriaxone with home intravenous doses on a daily basis, status post concern for atypical pneumonia. She presented today with severe weakness, unable to get off the couch, and temperatures last night to 100.8, and one temperature of 101.2 per the . This is an extenuation of her shortness of breath and bronchiolitis/BOOP and she has had extensive palliative conversations and signed a [facility] document on her past admission. She presents today with similar findings and will be admitted for progressive weakness and more shortness of breath and fever. She will also have a repeat consult with Infectious Disease as she may need changing of her antibiotic care and Dr. Hickey has been called. Her cancer history is significant for esophageal cancer metastatic. 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 PAST MEDICAL HISTORY: Significant for arthritis, esophageal cancer, atrial fibrillation, she was found to have a blood clot and is on life-long Lovenox, hypertension. PAST SURGICAL HISTORY: Significant for tonsillectomy. MEDICATIONS: 1. Tylenol 325 mg as needed. 2. Ambien 10 mg orally at bedtime. 3. Amiodarone was discontinued. 4. Compazine 10 mg every 6 hours as needed for nausea. 5. Cortef 5 mg. 6. Florinef 2 tablets 0.1 mg oral each morning. 7. Lasix 20 mg orally daily. 8. Robitussin A-C 5 mL as needed for cough every 6 hours. 9. Lovenox 60 mg twice daily. 10. Magnesium 400 mg as needed. 11. Roxanol 5 to 10 mg every 6 hours as needed. 12. Oxycodone 5 mg 4 times daily as needed for pain. 13. Oxygen 3 to 5 L nasal cannula to keep O2 sats above 90%. 14. Zofran as needed p.r.n. nausea. 15. prednisone 35 mg po qd, plan to taper to 30 mg tomorrow ALLERGIES: To METOPROLOL. FAMILY HISTORY: Noncontributory. SOCIAL HISTORY: She lives with a very supportive . No longer smokes, but had half packs of smoking for 45 years. Drank occasionally, but drinks no longer. REVIEW OF SYSTEMS: Fourteen-point review includes: 1. Fevers and sweats. 2. Severe fatigue. 3. Shortness of breath. HEENT: Negative. Hematologic: History of myelodysplastic syndrome and DVT. Breast: No abnormalities except for lymphedema in the right breast. Respiratory: History of pneumonia, shortness of breath, and cough. Cardiovascular: History of CHF and AFib. Gastrointestinal: Diarrhea secondary to antibiotic therapy. Genitourinary: Nonspecific. Musculoskeletal: Weakness. Neurological: No complaints. Psychiatric: The patient is recalcitrant to hospice and palliative therapy, but otherwise, no significant psychogenic abnormalities. PHYSICAL EXAMINATION CONSTITUTIONAL: She is alert and oriented x3. Affect is appropriate. VITAL SIGNS: Recorded in the emergency room record. The patient is afebrile at this time. HEENT: Pupils are equal, round, reactive to light and accommodation. RESPIRATORY: Decreased breath sounds in the bases, right greater than left. CARDIOVASCULAR: Tachycardia with distant heart sounds. BREASTS: Right breast is edematous, however, stable. ABDOMEN: Bowel sounds are heard in all 4 quadrants. Soft and nontender. EXTREMITIES: 2+ to 3+ bilateral edema, at least to the knees, pitting. NEUROLOGICAL: Expresses dizziness, but however, she is lying in bed comfortably in the emergency room. PSYCHIATRIC: Alert and oriented x3. LABORATORY DATA: Labs are in the emergency room record. ASSESSMENT AND PLAN: This is a 66-year-old white female with recurrent pneumonia, currently on IV ceftriaxone therapy with recurrent fevers. We will initiate a new consult with Dr. Louie Hickey. We will continue her IV ceftriaxone for now. She will be transfused with 1 unit of packed cells and Lasix to follow as her hemoglobin is 6.8 and she has myelodysplastic syndrome. She will continue her do not resuscitate coding and oxygen to keep her O2 sats above 90%. The above was discussed with Dr. Gisela Randall and she is aware of this. HEATHER MITCHELL [id number]/[facility] #: [id number] Attending addendum: she was taking steroids at home as prescribed, making fever more concerning. she will be seen in consultation by Dr. Hickey, and crp was ordered. We will also ask Dr. Mcneil to continue to follow closely with her as she has been doing. OSEAS
[2016-12-31 05:24] LABS: Hematocrit 24 % (35-47); Hemoglobin 8.2 g/dl (12.0-16.0); Mean Corpuscular HGB Conc 34 g/dl (31-36); Mean Corpuscular Hemoglobin 31 pg (27-31); Mean Corpuscular Volume 91 fL (80-97); Mean Platelet Volume 9 um3 (7.4-10.4); Red Blood Count 2.67 10^6/ul (4.0-5.4); Red Cell Distribution Width 19 % (10.5-15); White Blood Count 5.5 10^3/ul (3.5-10.8)
[2016-12-31 05:25] LABS: Add Diff/Slide Review? Slide Review Added; Comments Flag Yes
[2016-12-31 05:37] LABS: BUN/Creatinine Ratio 29.9 (8-20); Calcium 8.6 mg/dL (8.6-10.3); EGFR African American 112.6 (>60); EGFR Non-African American 87.5 (>60); Globulin 2.1 g/dL (2-4); Potassium 3.7 mmol/L (3.5-5.0); Total Bilirubin 0.8 mg/dL (0.2-1.0); Total Protein 5.1 g/dL (6.4-8.9)
[2016-12-31 05:59] LABS: Hypochromasia 2+; Macrocytosis 1+; Microcytosis 1+
[2016-12-31 06:00] LABS: Platelet Morphology Large
[2016-12-31] MEDS: predniSONE TAB* 10 MG PO SCH (08:54)
[2016-12-31] MEDS: Fludrocortisone Acetate TAB* 0.1 MG PO SCH (08:54)
[2016-12-31] MEDS: Magnesium Oxide TAB* 400 MG PO SCH ×2 (08:54→21:16)
[2016-12-31] MEDS: Furosemide TAB* 20 MG PO SCH (08:56)
[2016-12-31] MEDS: Enoxaparin(*) 60 MG/0.6 ML SYR SUBCUT SCH ×2 (08:59→21:22)
--- NOTE | 2016-12-31 21:57 | PN ---
Progress Note - Progress Note Date of Service: 12/31/16 SOAP: Subjective: CC: fever HPI: 66 year old woman with right lung mass and infiltrate being treated with ceftriaxone via port for possible lung abscess. Had return of fever, tachycardia, dyspnea, and weakness. Found to be anemic, lung imaging stable, CRP decreased. No fever here. Feels back to her usual self without significant change in treatment. No fever, rash, or diarrhea. Objective: [] Vital Signs Temp 36.9 C 12/31/16 19:45 Pulse 88 12/31/16 19:45 Resp 16 12/31/16 19:45 BP 91/50 12/31/16 19:45 Pulse Ox 100 12/31/16 19:45 Intake & Output 12/31/16 12/31/16 01/01/17 06:59 18:59 06:59 Intake Total 230 1155 Balance 230 1155 Weight 155 lb 11.2 oz Intake: IV Fluids 15 NS (0.9%) 15 IVPB 110 ABX - CEFTRIAXONE 110 Oral 230 1030 Other: Estimated Void Large Medium # Bowel Movements 0 0 # Voids 2 1 Gen:awake, no distress HEENT:PERRL, MMM Neck:supple Heart:RRR no murmur Lungs: decr BS right base, no rales Abd:+BS NTND soft Skin: no rash MSK: no spine tenderness Laboratory Results - last 24 hr 12/30/16 12/31/16 12/31/16 14:10 04:50 04:50 WBC 5.5 RBC 2.67 L Hgb 8.2 L Hct 24 L MCV 91 MCH 31 MCHC 34 RDW 19 H Plt Count 40 L D MPV 9 Neut % (Auto) 76.7 Lymph % (Auto) 9.8 L Mcminn % (Auto) 12.9 H Eos % (Auto) 0.2 Baso % (Auto) 0.4 Absolute Neuts (auto) 4.2 Absolute Lymphs (auto) 0.5 L Absolute Monos (auto) 0.7 Absolute Eos (auto) 0 Absolute Basos (auto) 0 Absolute Nucleated RBC 0.02 Nucleated RBC % 0.4 Platelet Morphology Large Normal RBC Morphology Not Reportable Hypochromasia 2+ Microcytosis 1+ Macrocytosis 1+ Sodium 140 Potassium 3.7 Chloride 96 L Carbon Dioxide 40 H Anion Gap 4 BUN 20 Creatinine 0.67 Est GFR ( Amer) 112.6 Est GFR (Non-Af Amer) 87.5 BUN/Creatinine Ratio 29.9 H Glucose 94 Calcium 8.6 Total Bilirubin 0.80 AST 11 L ALT 16 Alkaline Phosphatase 85 Total Protein 5.1 L Albumin 3.0 L Globulin 2.1 Albumin/Globulin Ratio 1.4 Blood Type A Positive Antibody Screen Negative Crossmatch See Detail Assessment: 1. fever, has not recurred here, doubt port infection or drug fever 2. Anemia, had transfusion 3. lung mass ?infection or malignancy 4. chronic hypoxemic respiratory failure 5. Hypoalbuminemia 6. thromboctyopenia 7. adrenal insufficiency Plan: 1. continue ceftriaxone at same dose, set up for home infusion; if fever recurs there could be an issue of something being infused at home ie abx formulation 35 minutes floor time >50% face to face with patient and discussing work up to this point, recommendation for antibiotic treatment, and plans for more gravy in her food.
[2017-01-01] MEDS: Acetaminophen TAB* 325 MG PO PRN (06:01)
[2017-01-01] MEDS: Furosemide TAB* 20 MG PO SCH (08:17)
[2017-01-01] MEDS: predniSONE TAB* 10 MG PO SCH (08:17)
[2017-01-01] MEDS: Fludrocortisone Acetate TAB* 0.1 MG PO SCH (08:17)
[2017-01-01] MEDS: Magnesium Oxide TAB* 400 MG PO SCH (08:17)
[2017-01-01] MEDS: Enoxaparin(*) 60 MG/0.6 ML SYR SUBCUT SCH (08:18)
--- NOTE | 2017-01-01 08:25 | DS ---
- Discharge Summary ADMIT DATE:12/30/16 DISCHARGE DATE: 01/01/2017 DISCHARGE DIAGNOSIS: 1. fever, unclear etiology 2. SOB, improved, diagnosis of BOOP 3. symptomatic anemia 4. metastatic esophageal CA DISCHARGE MEDICATIONS: Acetaminophen (Tylenol Tab*) 650 mg PO Q6H PRN PRN Reason: PAIN OR TEMPERATURE Last Admin: 01/01/17 06:01 Dose: 650 mg Fludrocortisone Acetate (Florinef Tab*) 0.2 mg PO QAM [facility] Last Admin: 01/01/17 08:17 Dose: 0.2 mg Furosemide (Lasix Tab*) 20 mg PO DAILY [facility] Last Admin: 01/01/17 08:17 Dose: 20 mg Guaifenesin/Codeine Phosphate (Robitussin Ac 100mg-10mg*) 5 ml PO Q6H PRN PRN Reason: COUGH Ceftriaxone Sodium 2 gm/ (Sodium Chloride) 100 mls @ 200 mls/hr IVPB Q24H [facility] Last Admin: 12/31/16 15:50 Dose: 200 mls/hr Magnesium Oxide (Magox 400 Tab*) 1,200 mg PO BID [facility] Last Admin: 01/01/17 08:17 Dose: 1,200 mg Morphine Sulfate (Morphine Oral Concentrate*) 5 mg PO Q4H PRN PRN Reason: Pain or SOB Oxycodone HCl (Roxycodone Tab*) 5 mg PO QID PRN PRN Reason: PAIN Prednisone (Deltasone Tab*) 30 mg PO DAILY WITH MEAL [facility] Last Admin: 01/01/17 08:17 Dose: 30 mg Prochlorperazine (Compazine Tab*) 10 mg PO Q6H PRN PRN Reason: NAUSEA Zolpidem Tartrate (Ambien Tab*) 10 mg PO BEDTIME PRN PRN Reason: SLEEP HOLD LOVENOX UNTIL TUESDAY, IF NO EPISTAXIS, RESUME DISCHARGE FOLLOW UP: Dr. Randall's office as previously scheduled HOSPITAL COURSE: Prince was admitted 2 days ago with one episode of fevers followed by increasing SOB and confusion. She was pancultured (negative) and maintained on same antibiotics with improvement despite no clear intervention. She did have a transfusion which seemed to help with her shortness of breath. The night prior to discharge she had significant epistaxis, which apparently stopped relatively easily with pressure and ice. She is noted to have worsening thrombocytopenia ( though has been lower than this level in the past). She will be discharged off of her lovenox and if her epistaxis does not return we will rechallenge Tuesday. She will resume her home infusion of ceftriaxone tomorrow. if her fever recurs we will need to investigate the antibiotic source. She will continue her planned prednisone taper per previous plan for BOOP. >30 mins spent, >50% in face to face counseling
[2017-01-01 08:36] LABS: Hematocrit 25 % (35-47); Hemoglobin 8.4 g/dl (12.0-16.0); Mean Corpuscular HGB Conc 33 g/dl (31-36); Mean Corpuscular Hemoglobin 31 pg (27-31); Mean Corpuscular Volume 92 fL (80-97); Red Blood Count 2.75 10^6/ul (4.0-5.4); Red Cell Distribution Width 18 % (10.5-15); White Blood Count 6.7 10^3/ul (3.5-10.8)
[2017-01-01 08:39] LABS: Add Diff/Slide Review? Slide Review Added; Comments Flag Yes
[2017-01-01 08:48] LABS: Albumin 2.9 g/dL (3.2-5.2); BUN/Creatinine Ratio 29.3 (8-20); Calcium 8.3 mg/dL (8.6-10.3); EGFR Non-African American 103.4 (>60); Globulin 2.2 g/dL (2-4); Magnesium 1.6 mg/dL (1.9-2.7); Potassium 3.2 mmol/L (3.5-5.0); Total Bilirubin 0.9 mg/dL (0.2-1.0); Total Protein 5.1 g/dL (6.4-8.9)
[2017-01-01 09:05] LABS: Hypochromasia 1+; Macrocytosis 1+; Microcytosis 1+
[2017-01-01 09:10] LABS: Platelet Morphology Large
[2017-01-01] MEDS ORDERED: KCL 20 MEQ/100 ML IVPREMIX* 20 MEQ/100 ML BAG IV ONE (09:11)
[2017-01-01] MEDS ORDERED: Magnesium Sulfate 2 GM IV IVPB ONE (10:00)
[2017-01-01] MEDS ORDERED: Potassium Chloride LIQUID* 20 MEQ PACKET PO ONE (10:00)
[2017-01-01 15:37] VITALS: BP 86/49
== END 2017-01-01 16:15 | disposition home or self-care (01) | DRG 197 ==
LOC: ED 13:08 → MED 15:04
PROVIDERS: ADMIT Internal Medicine Hematology & Oncology; ATTEND Internal Medicine Hematology & Oncology
PROC: 30233N1 Transfusion of Nonautologous Red Blood Cells into Peripheral Vein, Percutaneous Approach (ICD-10-PCS; principal; 2016-12-30)
DX: J84.89 Other specified interstitial pulmonary diseases (principal); E27.40 Unspecified adrenocortical insufficiency; J96.11 Chronic respiratory failure with hypoxia; I11.0 Hypertensive heart disease with heart failure; C79.9 Secondary malignant neoplasm of unspecified site; C15.9 Malignant neoplasm of esophagus, unspecified; D69.6 Thrombocytopenia, unspecified; I50.9 Heart failure, unspecified; E88.09 Other disorders of plasma-protein metabolism, not elsewhere classified; D53.9 Nutritional anemia, unspecified; I48.91 Unspecified atrial fibrillation; D46.9 Myelodysplastic syndrome, unspecified; R04.0 Epistaxis; R50.9 Fever, unspecified; K21.9 Gastro-esophageal reflux disease without esophagitis; Z66 Do not resuscitate; R91.8 Other nonspecific abnormal finding of lung field; M06.9 Rheumatoid arthritis, unspecified; M19.90 Unspecified osteoarthritis, unspecified site; Z92.3 Personal history of irradiation; Z88.8 Allergy status to other drugs, medicaments and biological substances; Z86.711 Personal history of pulmonary embolism; Z92.21 Personal history of antineoplastic chemotherapy; Z79.52 Long term (current) use of systemic steroids; Z86.19 Personal history of other infectious and parasitic diseases; Z87.891 Personal history of nicotine dependence
CPT/HCPCS: 36415; 71010; 80053; 83605; 83735; 83880; 84484; 85025; 85610; 85730; 86140; 86850; 86900; 86901; 86922; 87040; 87070; 87077; 87205; 96365; 99239; A9270-GY; J0696; J1642; J1650; J1940; J3480; J7512; P9040

== ENCOUNTER 2017-01-21 12:37 | Inpatient (IN) | payer MEDICARE, OTHER ==
[2017-01-21] MEDS ORDERED: Morphine INJ* 2 MG/ML 1 ML SYRINGE IV PRN (12:43)
[2017-01-21] MEDS ORDERED: Ondansetron TAB* 4 MG PO PRN (12:46)
[2017-01-21] MEDS ORDERED: Acetaminophen TAB* 325 MG PO PRN (12:46)
[2017-01-21] MEDS ORDERED: Albuterol 2.5 MG/3 ML NEB.SOL* (0.083%) INH PRN ×2 (12:51→16:45)
[2017-01-21] MEDS ORDERED: Prochlorperazine TAB* 10 MG PO PRN (12:52)
[2017-01-21] MEDS ORDERED: oxyCODONE TAB* 5 MG TAB PO PRN (12:52)
[2017-01-21] MEDS: cefTRIAXone VIAL(*) 1,000 MG in NS 0.9% 50 ML* 50 ML IVPB SCH (16:38)
[2017-01-21] MEDS: predniSONE TAB* 5 MG PO SCH (16:39)
[2017-01-21] MEDS: Zolpidem TAB* 10 MG PO PRN (20:26)
[2017-01-21] MEDS: Enoxaparin(*) 60 MG/0.6 ML SYR SUBCUT SCH (20:26)
[2017-01-21] MEDS ORDERED: Magnesium Oxide TAB* 400 MG PO SCH (21:00)
[2017-01-21] MEDS ORDERED: NS 0.9% 500 ML BAG* 500 ML IV ONE (21:00)
[2017-01-22 05:47] LABS: Hematocrit 26 % (35-47); Hemoglobin 8.4 g/dl (12.0-16.0); Mean Corpuscular HGB Conc 32 g/dl (31-36); Mean Corpuscular Hemoglobin 30 pg (27-31); Mean Corpuscular Volume 93 fL (80-97); Red Cell Distribution Width 18 % (10.5-15); White Blood Count 6.6 10^3/ul (3.5-10.8)
[2017-01-22 05:49] LABS: Add Diff/Slide Review? Slide Review Added; Comments Flag Yes
[2017-01-22 05:53] LABS: BUN/Creatinine Ratio 33.3 (8-20); Calcium 9.2 mg/dL (8.6-10.3); EGFR African American 120.9 (>60); Potassium 4.4 mmol/L (3.5-5.0)
[2017-01-22] MEDS ORDERED: Levalbuterol 1.25MG/0.5ML NEB INH PRN (08:06)
--- NOTE | 2017-01-22 08:17 | PN ---
Progress Note - Progress Note Date of Service: 01/22/17 SOAP: Subjective: []A little better overnight. Had several medication changes at home. Had come off IV ABX and kimberlyn of Prednisone to 15 mg daily. Became more SOB and felt weaker. Eating was ok. Had HR racing to 120s frequently and could feel palpitations. No fevers. Acetaminophen (Tylenol Tab*) 650 mg PO Q6H PRN PRN Reason: PAIN OR TEMPERATURE Diltiazem HCl (Cardizem Tab*) 30 mg PO Q6HR COUNT INCLUDES THE [facility] Enoxaparin Sodium (Lovenox(*)) 60 mg SUBCUT Q12HR COUNT INCLUDES THE [facility] Last Admin: 01/21/17 20:26 Dose: 60 mg Fludrocortisone Acetate (Florinef Tab*) 0.2 mg PO QAM DIANN Ceftriaxone Sodium 1,000 mg/ (Sodium Chloride) 50 mls @ 200 mls/hr IVPB Q24H COUNT INCLUDES THE [facility] Last Admin: 01/21/17 16:38 Dose: 200 mls/hr Levalbuterol HCl (Xopenex 1.25 Mg/0.5 Ml Neb.Em*) 1.25 mg INH Q6H PRN PRN Reason: SOB/WHEEZING Magnesium Oxide (Magox 400 Tab*) 800 mg PO BID DIANN Morphine Sulfate (Morphine Inj (Syringe)*) 2 mg IV Q4H PRN PRN Reason: PAIN - MILD Ondansetron HCl (Zofran Tab*) 4 mg PO Q6HR PRN PRN Reason: NAUSEA Oxycodone HCl (Roxycodone Tab*) 5 mg PO QID PRN PRN Reason: PAIN Potassium Chloride (Klor Con Er Tab*) 20 meq PO DAILY DIANN Prednisone (Deltasone Tab*) 30 mg PO DAILY COUNT INCLUDES THE [facility] PRN Reason: Taper Stop: 03/04/17 12:59 Last Admin: 01/21/17 16:39 Dose: 30 mg Prochlorperazine (Compazine Tab*) 10 mg PO Q6H PRN PRN Reason: NAUSEA Zolpidem Tartrate (Ambien Tab*) 10 mg PO BEDTIME PRN PRN Reason: SLEEP Last Admin: 01/21/17 20:26 Dose: 10 mg Objective: [] Vital Signs Temp Pulse Resp BP Pulse Ox 98.1 F 102 16 98/66 98 01/22/17 04:50 01/22/17 04:50 07/22/17 04:50 01/22/17 04:50 01/22/17 04:50 HEENT: Mucosa moist, pale Decreased BS BL, no wheezing RRR HR 110 on exam S1S2 distant ABD NT/NT and no HSM Ext +2 edema, R > L Assessment: []66 year old with metastatic esophogeal cancer, MDS, BOOP who has been in and out of hospital with weakness and SOB. Admitted yesterday for the same. Had increased HR on admission, pressures have been stable. No fevers in hospital or at home. Plan: []1. Go back up on Prednisone to 30 mg po daily. 2. Continued tachycardia and off amioderone for lung disease, metoprolol for rash. Will try low dose of Cardizem 30 q 6 and hold for low blood pressure. Change Albuteral to Xopenex nebs. 3. Continue IV ABX in hospital. 4. Try and d/c tomorrow and plan CT on Tuesday and follow up Wed with Dr. Randall. 5. DNR/DNI, unclear if will transition to hospice next week.
[2017-01-22] MEDS: Enoxaparin(*) 60 MG/0.6 ML SYR SUBCUT SCH ×2 (08:36→20:01)
[2017-01-22] MEDS: Fludrocortisone Acetate TAB* 0.1 MG PO SCH (08:36)
[2017-01-22] MEDS: Magnesium Oxide TAB* 400 MG PO SCH ×2 (08:37→20:02)
[2017-01-22] MEDS: predniSONE TAB* 5 MG PO SCH (08:37)
[2017-01-22] MEDS: Potassium Chlor TAB* 20 MEQ TAB.ER PO SCH (08:38)
[2017-01-22] MEDS: Diltiazem TAB* 30 MG PO SCH ×2 (12:58→17:27)
[2017-01-22] MEDS: cefTRIAXone VIAL(*) 1,000 MG in NS 0.9% 50 ML* 50 ML IVPB SCH (16:47)
[2017-01-22] MEDS: Zolpidem TAB* 10 MG PO PRN ×2 (20:03→20:04)
[2017-01-23] MEDS: Diltiazem TAB* 30 MG PO SCH ×3 (03:47→11:42)
[2017-01-23 05:29] LABS: Hematocrit 24 % (35-47); Hemoglobin 7.8 g/dl (12.0-16.0); Mean Corpuscular HGB Conc 32 g/dl (31-36); Mean Corpuscular Hemoglobin 30 pg (27-31); Mean Corpuscular Volume 94 fL (80-97); Red Blood Count 2.59 10^6/ul (4.0-5.4); Red Cell Distribution Width 18 % (10.5-15); White Blood Count 4.9 10^3/ul (3.5-10.8)
[2017-01-23 05:41] LABS: BUN/Creatinine Ratio 36.2 (8-20); Calcium 8.6 mg/dL (8.6-10.3); EGFR Non-African American 103.4 (>60); Magnesium 1.5 mg/dL (1.9-2.7); Potassium 3.7 mmol/L (3.5-5.0)
[2017-01-23 05:45] LABS: Add Diff/Slide Review? Slide Review Added; Comments Flag Yes
[2017-01-23] MEDS: predniSONE TAB* 5 MG PO SCH (07:54)
[2017-01-23] MEDS: Enoxaparin(*) 60 MG/0.6 ML SYR SUBCUT SCH (07:55)
[2017-01-23] MEDS: Magnesium Oxide TAB* 400 MG PO SCH (07:55)
[2017-01-23] MEDS: Potassium Chlor TAB* 20 MEQ TAB.ER PO SCH (07:55)
[2017-01-23] MEDS: Fludrocortisone Acetate TAB* 0.1 MG PO SCH (07:55)
[2017-01-23 12:15] VITALS: BP 108/55
--- NOTE | 2017-01-23 12:28 | PN ---
Progress Note - Progress Note Date of Service: 01/23/17 Note: Time spent on discharge 45 minutes.
[2017-01-23] MEDS ORDERED: Diltiazem CD CAP* 180 MG PO SCH (13:00)
--- NOTE | 2017-01-24 10:31 | DS ---
CC: Dr. Randall * DISCHARGE SUMMARY: DATE OF ADMISSION: 01/21/17 DATE OF DISCHARGE: 01/23/17 HISTORY OF PRESENT ILLNESS: This 66-year-old woman was admitted with shortness of breath. She has metastatic esophageal cancer and is under the care of Dr. Randall. She was recently in the hospital with bronchiolitis obliterans with organizing pneumonia. She had been on a tapering dose of prednisone, she got more short of breath. She did not have any fevers. She was increased by being given intravenous ceftriaxone as well as increasing her dose of prednisone. She did well in the hospital and was probably at her baseline. I note that she has oxygen at home. FINAL DIAGNOSES: 1. Metastatic esophageal cancer. 2. Bronchiolitis obliterans organizing pneumonia. 3. Atrial fibrillation. DISCHARGE MEDICATIONS: 1. Diltiazem CD 180 mg daily. 2. Prednisone 30 mg daily. 3. Ondansetron 4 mg every 6 hours p.r.n. 4. Magnesium oxide 1200 mg b.i.d. 5. Prochlorperazine 10 mg every 6 hours p.r.n. 6. Fludrocortisone 0.2 mg daily. 7. Furosemide 20 mg daily. 8. Oxycodone 5 mg q.i.d. p.r.n. pain. 9. Acetaminophen 650 mg every 6 hours p.r.n. 10. Morphine oral concentrate 5 mg every 4 hours p.r.n. 11. Guaifenesin/codeine 100/10, 5 mL every 6 hours p.r.n. cough. 12. Potassium chloride 20 mEq daily. 13. Zolpidem 10 mg h.s. 14. Enoxaparin 60 mg q.12 hours. [id number]/[facility] #: [id number] [facility]
== END 2017-01-23 13:15 | disposition home or self-care (01) | DRG 197 ==
LOC: OBSVTOIN 14:12 → MED 14:12 → MEDTELE 01-22 10:41
PROVIDERS: ADMIT Internal Medicine Hematology & Oncology; ATTEND Internal Medicine
DX: J84.89 Other specified interstitial pulmonary diseases (principal); C15.4 Malignant neoplasm of middle third of esophagus; Z99.81 Dependence on supplemental oxygen; I11.0 Hypertensive heart disease with heart failure; I50.9 Heart failure, unspecified; D46.9 Myelodysplastic syndrome, unspecified; M19.90 Unspecified osteoarthritis, unspecified site; I48.91 Unspecified atrial fibrillation; R21 Rash and other nonspecific skin eruption; Z87.891 Personal history of nicotine dependence; Z79.52 Long term (current) use of systemic steroids
CPT/HCPCS: 36415; 36430; 36592; 80048; 80053; 83735; 84134; 85025; 85060; 94640; 94760; 99214; 99219; 99232; A9270-GY; G0463; J0696; J1642; J1650; J2270; J7512; P9016

== ENCOUNTER 2017-02-19 08:49 | Inpatient (IN) | payer MEDICARE, OTHER ==
--- NOTE | 2017-02-19 09:34 | RAD ---
HISTORY: Shortness of breath COMPARISONS: February 14, 2017 VIEWS:1: Single frontal portable view of the chest at 9:05 AM FINDINGS: LINES AND TUBES: There is right-sided chest port from a subclavian approach with the tip overlying the ureteral junction CARDIOMEDIASTINAL SILHOUETTE: The cardiomediastinal silhouette is normal for portable technique. PLEURA: The costophrenic angles are sharp. No pleural abnormalities are noted. LUNG PARENCHYMA: There is progressive alveolar opacification of the right lung, with near complete opacification. ABDOMEN: The upper abdomen is clear. There is no subphrenic gas. BONES AND SOFT TISSUES: No bone or soft tissue abnormalities are noted. IMPRESSION: FURTHER PROGRESSIVE CONSOLIDATION OF THE RIGHT LUNG WITH NEAR COMPLETE OPACIFICATION OF THE RIGHT LUNG
[2017-02-19 09:49] LABS: Hematocrit 20 % (35-47); Hemoglobin 6.5 g/dl (12.0-16.0); Mean Corpuscular HGB Conc 33 g/dl (31-36); Mean Corpuscular Hemoglobin 31 pg (27-31); Mean Corpuscular Volume 93 fL (80-97); Red Blood Count 2.12 10^6/ul (4.0-5.4); Red Cell Distribution Width 17 % (10.5-15); White Blood Count 8.2 10^3/ul (3.5-10.8)
[2017-02-19 09:51] LABS: Add Diff/Slide Review? Slide Review Added; Comments Flag Yes
[2017-02-19 10:07] LABS: ALT 7 U/L (7-52); AST 7 U/L (13-39); Albumin 3.2 g/dL (3.2-5.2); Alkaline Phosphatase 113 U/L (34-104); Anion Gap 7 mmol/L (2-11); BUN/Creatinine Ratio 31.2 (8-20); Blood Urea Nitrogen 24 mg/dL (6-24); C Reactive Protein 98.26 mg/L (< 5.00); CO2 Carbon Dioxide 38 mmol/L (22-32); Chloride 95 mmol/L (101-111); Creatine Kinase < 10 U/L (10-223); EGFR African American 95.6 (>60); EGFR Non-African American 74.3 (>60); Glucose 125 mg/dL (70-100); Lipase < 10 U/L (11.0-82.0); Magnesium 1.3 mg/dL (1.9-2.7); Potassium 3.8 mmol/L (3.5-5.0); Sodium 140 mmol/L (133-145); Total Protein 5.2 g/dL (6.4-8.9)
[2017-02-19 10:11] LABS: Platelet Morphology Large
[2017-02-19 10:12] LABS: Troponin I 0.06 ng/mL (<0.04)
[2017-02-19 10:48] LABS: PCO2 Arterial 62 mmHg (35-45)
[2017-02-19] MEDS ORDERED: Magnesium Sulf 4 GM/100 ML IV* 4,000 MG/100 ML BAG IVPB ONE (11:09)
[2017-02-19] MEDS ORDERED: Furosemide IV* 10 MG/ML VIAL (40 MG) IV ONE (11:09)
[2017-02-19 11:15] LABS: TSH (Thyroid Stimulating Horm) 4.53 mcIU/mL (0.34-5.60)
[2017-02-19] MEDS ORDERED: Morphine INJ* 2 MG/ML 1 ML SYRINGE IV PRN (11:21)
--- NOTE | 2017-02-19 12:31 | ED ---
Jethro Salvador Rebecca, scribed for Bryan Spears MD on 02/19/17 at 0910 . Shortness of Breath - HPI Summary HPI Summary: Pt is a 67 y/o F BIBA who presents to ED c/o SOB. SOB characterized as dyspnea at rest and per , sx began at 0400 this morning. Additionally notes bilateral edema. reports she typically uses 4L O2 at home, but yesterday he increased it to 5L when she began desaturating. This morning, her O2 saturation at home was 80-81%. Last nebulizer treatment was last night. Current stage 4 esophageal CA patient at Dr. Randall's office. The office was called this morning by the pt's , making the office aware that the pt is presenting to the ED. - History of Current Complaint Chief Complaint: EDShortnessOfBreath Time Seen by Provider: 02/19/17 08:54 Hx Obtained From: Patient, Family/Foundry Superintendant - Onset/Duration: Still Present, Worse Since - 0400 this morning Dyspnea At: Rest Aggrevating Factors: Nothing Alleviating Factors: Nothing Associated Signs & Symptoms: Edema - Bilateral - Allergy/Home Medications Allergies/Adverse Reactions: Allergies Allergy/AdvReac Type Severity Reaction Status Date / Time Metoprolol Allergy Intermediate Rash Verified 01/24/17 14:44 Home Medications: Home Medications Bumetanide 2 mg PO DAILY 02/19/17 [History Confirmed 02/19/17] Morphine ORAL CONCENTRATE* 5 mg PO QID MDD 20 mg 02/19/17 [History Confirmed ] PMH/Surg Hx/FS Hx/Imm Hx Endocrine/Hematology History: Reports: Hx Anticoagulant Therapy, Hx Blood Transfusions, Hx Anemia, Other Endocrine/Hematological Disorders - chronic normocyte anemia, adrenal insufficiency Denies: Hx Diabetes, Hx Systemic Lupus Erythematosus Cardiovascular History: Reports: Hx Congestive Heart Failure, Hx Syncope, Other Cardiovascular Problems/Disorders - pericardial effusion window Denies: Hx Aneurysm, Hx Angina, Hx Congenital Heart Disease, Hx Hypertension - HYPOTENSIVE, Hx Pacemaker/ICD Respiratory History: Reports: Hx Lung Cancer, Hx Pleural Effusion - Chronic, Hx Pneumonia, Hx Pulmonary Embolism, Hx Sleep Apnea - unconfirmed, Other Respiratory Problems/Disorders - PT STATES LUNG CA/ESOPHAGUS CA Denies: Hx Asthma GI History: Reports: Hx Gall Bladder Disease, Hx Gastroesophageal Reflux Disease , Other GI Disorders - DIFFICULTY SWALLOWING SOMETIME ESPECIALLY WITH PILLS R/T THE CANCER History: Denies: Hx Dialysis, Hx Renal Disease Musculoskeletal History: Reports: Hx Arthritis - SLIGHT, Hx Rheumatoid Arthritis Sensory History: Reports: Hx Contacts or Glasses - reading glasses Denies: Hx Cataracts, Hx Eye Injury, Hx Eye Prosthesis, Hx Glaucoma, Hx Legally Blind, Hx Macular Degeneration, Hx Vision Problem, Hx Deafness, Hx Hearing Aid, Hx Hearing Problem, Other Sensory Impairments Opthamlomology History: Reports: Hx Contacts or Glasses - reading glasses Denies: Hx Cataracts, Hx Eye Injury, Hx Eye Prosthesis, Hx Glaucoma, Hx Legally Blind, Hx Macular Degeneration, Hx Vision Problem, Other Sensory Impairments Neurological History: Reports: Hx Headaches, Other Neuro Impairments/Disorders - HX OF DIZZINESS, Syncope Psychiatric History: Denies: Hx Panic Disorder - Cancer History Cancer Type, Location and Year: esphogeal, lung cancer Hx Chemotherapy: Yes Hx Radiation Therapy: Yes Hx Palliative Cancer Treatment: No - Surgical History Surgery Procedure, Year, and Place: TONSILLECTOMY A CHILD. PEG tube - NO LONGER IN,. 2002 CYST REMOVED FROM RIGHT FOOT, [facility] [place]. 04/2015 PLEURX CATHETER INSERTION, [facility] [place]. 05/2015 PERICARDIAL WINDOW, [facility] [place]. 10/06/2015 INSERTION OF CATHETER TO DRAIN GALLBLADDER, [facility] [place] Anesthesia Reactions: No - Immunization History Date of Tetanus Vaccine: up to date Date of Influenza Vaccine: up to date Infectious Disease History: Reports: Hx Clostridium Difficile - earlier this year, then negative Denies: Hx Hepatitis, Hx Human Immunodeficiency Virus (HIV), Hx of Known/ Suspected MRSA, Hx Shingles, Hx Tuberculosis, Hx Known/Suspected VRE, Hx Known/ Suspected VRSA, History Other Infectious Disease, Traveled Outside the in Last 30 Days - Family History Known Family History: Positive: Other - neg: breast CA Negative: Diabetes - Social History Alcohol Use: None Hx Substance Use: No Substance Use Type: Reports: None Hx Tobacco Use: Yes Smoking Status (MU): Former Smoker Type: Cigarettes Amount Used/How Often: 1/2 PPD FOR ABOUT 30+ YEARS Length of Time of Smoking/Using Tobacco: 30 YEARS Have You Smoked in the Last Year: No Review of Systems Positive: Shortness Of Breath - dyapnea at rest Positive: Edema - Bilateral All Other Systems Reviewed And Are Negative: Yes Physical Exam - Summary Physical Exam Summary: General: Moderate to severe respiratory distress. Skin: warm, color reflects adequate perfusion, dry Head: normal Eyes: EOMI, ARNAV ENT: normal Neck: supple, nontender Respiratory: Wet rhonchi bilaterally, breath sounds present Cardiovascular: RRR Abdomen: soft, nontender Bowel: present Musculoskeletal: strength/ROM intact, edema coming all the way up to the abdomen Neurological: normal, sensory/motor intact, A&O x3 Psychological: affect/mood appropriate Triage Information Reviewed: Yes Vital Signs On Initial Exam: Initial Vitals Pulse Resp Pulse Ox 137 27 89 02/19/17 09:15 02/19/17 09:15 02/19/17 09:15 Vital Signs Reviewed: Yes Diagnostics - Vital Signs Vital Signs Temp Pulse Resp BP Pulse Ox 02/19/17 11:00 131 15 76/32 96 02/19/17 10:33 32 02/19/17 10:30 125 27 78/39 94 02/19/17 10:14 84/40 02/19/17 10:00 135 27 80/33 98 02/19/17 09:45 103.4 F 139 32 146/134 97 02/19/17 09:30 138 26 146/134 94 02/19/17 09:15 137 27 89 - Laboratory Lab Results: Lab Results 02/19/17 02/19/17 02/19/17 Range/Units 09:32 09:32 09:32 WBC 8.2 (3.5-10.8) 10^3/ul RBC 2.12 L (4.0-5.4) 10^6/ul Hgb 6.5 L (12.0-16.0) g/dl Hct 20 L (35-47) % MCV 93 (80-97) fL MCH 31 (27-31) pg MCHC 33 (31-36) g/dl RDW 17 H (10.5-15) % Plt Count 56 L (150-450) 10^3/ul MPV Not Reportable Neut % (Auto) 79.8 (38-83) % Lymph % (Auto) 14.3 L (25-47) % Traverse % (Auto) 5.4 (1-9) % Eos % (Auto) 0.1 (0-6) % Baso % (Auto) 0.4 (0-2) % Absolute Neuts (auto) 6.6 (1.5-7.7) 10^3/ul Absolute Lymphs (auto) 1.2 (1.0-4.8) 10^3/ul Absolute Monos (auto) 0.4 (0-0.8) 10^3/ul Absolute Eos (auto) 0 (0-0.6) 10^3/ul Absolute Basos (auto) 0 (0-0.2) 10^3/ul Absolute Nucleated RBC 0 10^3/ul Nucleated RBC % 0.1 Platelet Morphology Large Normal RBC Morphology Not Reportable INR (Anticoag Therapy) 1.52 H (0.89-1.11) APTT TNP ABG pH (7.35-7.45) ABG pCO2 (35-45) mmHg ABG pO2 (80-100) mmHg ABG HCO3 (19-31) mmol/L ABG O2 Saturation (95-98) % ABG Base Excess (-2.0-2.0) Carbon Monoxide Screen (<3.5) % Sodium 140 (133-145) mmol/L Potassium 3.8 (3.5-5.0) mmol/L Chloride 95 L (101-111) mmol/L Carbon Dioxide 38 H (22-32) mmol/L Anion Gap 7 (2-11) mmol/L BUN 24 (6-24) mg/dL Creatinine 0.77 (0.51-0.95) mg/dL Est GFR ( Amer) 95.6 (>60) Est GFR (Non-Af Amer) 74.3 (>60) BUN/Creatinine Ratio 31.2 H (8-20) Glucose 125 H (70-100) mg/dL Lactic Acid (0.5-2.0) mmol/L Calcium 9.0 (8.6-10.3) mg/dL Magnesium 1.3 L (1.9-2.7) mg/dL Total Bilirubin 1.00 (0.2-1.0) mg/dL AST 7 L (13-39) U/L ALT 7 (7-52) U/L Alkaline Phosphatase 113 H (34-104) U/L Total Creatine Kinase < 10 L (10-223) U/L CK-MB (CK-2) 0.8 (0.6-6.3) ng/mL Troponin I 0.06 H* (<0.04) ng/mL C-Reactive Protein 98.26 H (< 5.00) mg/L B-Natriuretic Peptide ( - 100) pg/mL Total Protein 5.2 L (6.4-8.9) g/dL Albumin 3.2 (3.2-5.2) g/dL Globulin 2.0 (2-4) g/dL Albumin/Globulin Ratio 1.6 (1-3) Lipase < 10 L (11.0-82.0) U/L TSH 4.53 (0.34-5.60) mcIU/mL Blood Type Antibody Screen Crossmatch 02/19/17 02/19/17 02/19/17 Range/Units 09:32 09:32 09:32 WBC (3.5-10.8) 10^3/ul RBC (4.0-5.4) 10^6/ul Hgb (12.0-16.0) g/dl Hct (35-47) % MCV (80-97) fL MCH (27-31) pg MCHC (31-36) g/dl RDW (10.5-15) % Plt Count (150-450) 10^3/ul MPV Neut % (Auto) (38-83) % Lymph % (Auto) (25-47) % Traverse % (Auto) (1-9) % Eos % (Auto) (0-6) % Baso % (Auto) (0-2) % Absolute Neuts (auto) (1.5-7.7) 10^3/ul Absolute Lymphs (auto) (1.0-4.8) 10^3/ul Absolute Monos (auto) (0-0.8) 10^3/ul Absolute Eos (auto) (0-0.6) 10^3/ul Absolute Basos (auto) (0-0.2) 10^3/ul Absolute Nucleated RBC 10^3/ul Nucleated RBC % Platelet Morphology Normal RBC Morphology INR (Anticoag Therapy) (0.89-1.11) APTT ABG pH (7.35-7.45) ABG pCO2 (35-45) mmHg ABG pO2 (80-100) mmHg ABG HCO3 (19-31) mmol/L ABG O2 Saturation (95-98) % ABG Base Excess (-2.0-2.0) Carbon Monoxide Screen 3.9 H (<3.5) % Sodium (133-145) mmol/L Potassium (3.5-5.0) mmol/L Chloride (101-111) mmol/L Carbon Dioxide (22-32) mmol/L Anion Gap (2-11) mmol/L BUN (6-24) mg/dL Creatinine (0.51-0.95) mg/dL Est GFR ( Amer) (>60) Est GFR (Non-Af Amer) (>60) BUN/Creatinine Ratio (8-20) Glucose (70-100) mg/dL Lactic Acid 4.0 H* (0.5-2.0) mmol/L Calcium (8.6-10.3) mg/dL Magnesium (1.9-2.7) mg/dL Total Bilirubin (0.2-1.0) mg/dL AST (13-39) U/L ALT (7-52) U/L Alkaline Phosphatase (34-104) U/L Total Creatine Kinase (10-223) U/L CK-MB (CK-2) (0.6-6.3) ng/mL Troponin I (<0.04) ng/mL C-Reactive Protein (< 5.00) mg/L B-Natriuretic Peptide 1165 H ( - 100) pg/mL Total Protein (6.4-8.9) g/dL Albumin (3.2-5.2) g/dL Globulin (2-4) g/dL Albumin/Globulin Ratio (1-3) Lipase (11.0-82.0) U/L TSH (0.34-5.60) mcIU/mL Blood Type Antibody Screen Crossmatch 02/19/17 02/19/17 Range/Units 09:32 10:35 WBC (3.5-10.8) 10^3/ul RBC (4.0-5.4) 10^6/ul Hgb (12.0-16.0) g/dl Hct (35-47) % MCV (80-97) fL MCH (27-31) pg MCHC (31-36) g/dl RDW (10.5-15) % Plt Count (150-450) 10^3/ul MPV Neut % (Auto) (38-83) % Lymph % (Auto) (25-47) % Traverse % (Auto) (1-9) % Eos % (Auto) (0-6) % Baso % (Auto) (0-2) % Absolute Neuts (auto) (1.5-7.7) 10^3/ul Absolute Lymphs (auto) (1.0-4.8) 10^3/ul Absolute Monos (auto) (0-0.8) 10^3/ul Absolute Eos (auto) (0-0.6) 10^3/ul Absolute Basos (auto) (0-0.2) 10^3/ul Absolute Nucleated RBC 10^3/ul Nucleated RBC % Platelet Morphology Normal RBC Morphology INR (Anticoag Therapy) (0.89-1.11) APTT ABG pH 7.44 (7.35-7.45) ABG pCO2 62 H (35-45) mmHg ABG pO2 48 L* (80-100) mmHg ABG HCO3 36.3 H (19-31) mmol/L ABG O2 Saturation 87.8 L (95-98) % ABG Base Excess 15.0 H (-2.0-2.0) Carbon Monoxide Screen (<3.5) % Sodium (133-145) mmol/L Potassium (3.5-5.0) mmol/L Chloride (101-111) mmol/L Carbon Dioxide (22-32) mmol/L Anion Gap (2-11) mmol/L BUN (6-24) mg/dL Creatinine (0.51-0.95) mg/dL Est GFR ( Amer) (>60) Est GFR (Non-Af Amer) (>60) BUN/Creatinine Ratio (8-20) Glucose (70-100) mg/dL Lactic Acid (0.5-2.0) mmol/L Calcium (8.6-10.3) mg/dL Magnesium (1.9-2.7) mg/dL Total Bilirubin (0.2-1.0) mg/dL AST (13-39) U/L ALT (7-52) U/L Alkaline Phosphatase (34-104) U/L Total Creatine Kinase (10-223) U/L CK-MB (CK-2) (0.6-6.3) ng/mL Troponin I (<0.04) ng/mL C-Reactive Protein (< 5.00) mg/L B-Natriuretic Peptide ( - 100) pg/mL Total Protein (6.4-8.9) g/dL Albumin (3.2-5.2) g/dL Globulin (2-4) g/dL Albumin/Globulin Ratio (1-3) Lipase (11.0-82.0) U/L TSH (0.34-5.60) mcIU/mL Blood Type A Positive Antibody Screen Negative Crossmatch See Detail Result Diagrams: 02/19/17 09:32 02/19/17 09:32 Lab Statement: Any lab studies that have been ordered have been reviewed, and results considered in the medical decision making process. - Radiology CXR Xray Interpretation: No Acute Changes - FURTHER PROGRESSIVE CONSOLIDATION OF THE RIGHT LUNG WITH NEAR COMPLETE OPACIFICATION OF THE RIGHT LUNG Radiology Interpretation Completed By: Radiologist Re-Evaluation - Re-Evaluation First Eval Re-Evaluation Time: 09:14 Comment: Explained that Dr. lobo will be evaluating the pt in the ED. Course/Dx - Course Assessment/Plan: Pt is a 67 y/o F BIBA who presents to ED c/o SOB. SOB characterized as dyspnea at rest and per , sx began at 0400 this morning. Additionally notes bilateral edema. reports she typically uses 4L O2 at home, but yesterday he increased it to 5L when she began desaturating. This morning, her O2 saturation at home was 80-81%. Last nebulizer treatment was last night. Current stage [address] esophageal CA patient at Dr. Randall's office. Troponin of 0.06, lactic acid of 4.0. CXR reveals FURTHER PROGRESSIVE CONSOLIDATION OF THE RIGHT LUNG WITH NEAR COMPLETE. OPACIFICATION OF THE RIGHT LUNG. Discussed care of pt with Dr. Fidel Gonzales who will evaluate the pt in the ED. Upon evaluation, Dr. Gonzales has admitted the pt. DISCUSSED WITH DR GONZALES WHO ADMITTED THE PATIENT. CRITICAL CARE TIME LESS THAN 30 MINUTES. - Diagnoses Provider Diagnoses: Hypoxia, CHF (congestive heart failure), Hypomagnesemia - Physician Notifications Discussed Care of Patient With: Fidel Gonzales Time Discussed With Above Provider: 09:09 Instructed by Provider To: Other - Will evaluate pt in the ED. Upon evaluation, has accepted pt for admission at 1104. Discharge - Discharge Plan Condition: Critical Disposition: ADMITTED TO [facility] The documentation as recorded by the Jethro tolentino Rebecca accurately reflects the service I personally performed and the decisions made by me, Bryan Spears MD.
[2017-02-19] MEDS: methylPREDNISolone 125 MG* 2 ML VIAL IV SCH ×2 (13:27→20:52)
[2017-02-19] MEDS: Morphine ORAL CONCENTRATE* 5 MG/0.25 ML ORAL.SYRIN PO SCH ×3 (13:27→20:57)
--- NOTE | 2017-02-19 13:37 | HP ---
HISTORY AND PHYSICAL: DATE OF ADMISSION: 02/19/17 REASON FOR ADMISSION: Anemia and MDS as well as progressive esophageal cancer. HISTORY OF PRESENT ILLNESS: Mrs. Prince Huitron has been followed in our clinic for a long period of itn e with metastatic esophageal cancer as well as intrinsic pulmonary disease. She has had progressive disease and progressive shortness of breath. She also has a history of myelodysplasia with refract ory anemia. She currently is not a candidate for additional therapy for her cancer. She has had ltiple discussions with Dr. Randall about hospice. At this time, she would like to continue transf usions and does not want to give up active intervention, though she recognizes all treatment is pall iative. She was seen in clinic on the , at that time had increased shortness of breath as well as weight gain to 20 pounds. She had an increase in her diuretics and increase in morphine and again had a discussion about hospice. That worked for a few days. This morning at 4 a.m., she had marke d increase in shortness of breath as well as changes in mental status. That triggered coming to the emergency room. Her vital signs at home were stable. She runs with a blood pressure around 90/40, a heart rate around 120. She had been losing some weight on the increased diuretics. On presentatio n to the emergency room, she has been requiring a face mask to maintain oxygen saturations, she had a chem-3 that showed a creatinine of 0.77 slightly up from her baseline, CO2 of 38, hemoglobin of 6. 5, white count 8.2, platelets of 56, and hemoglobin is down from her baseline. She also has a lacti c acid mildly elevated at 4.0 and a BNP of 1200. She has got a pressure of 80s/40s, and a heart rate running approximately 130. No fevers at home or in the emergency room. She does have a chronic lo w-grade around 99, which has been stable. PAST MEDICAL HISTORY: 1. Esophageal cancer as noted above. 2. MDS. 3. Atrial fibrillation. 4. DVT. 5. Hypertension. 6. Arthritis. MEDICATIONS: At home, she takes: 1. Lovenox 60 mg subcu b.i.d. 2. Compazine p.r.n. 3. Ambien at night for bed. 4. Lasix 20 mg. 5. Bumex 2 mg a day. 6. She had been on various magnesium protocols causing constipation. 7. Morphine 5 to 10 mg p.o. ____ as an elixir. 8. Prednisone 5 mg daily. ALLERGIES: METOPROLOL rash on prior admission. FAMILY HISTORY: Tonsil and bone cancer in the family. SOCIAL HISTORY: Former smoker, . is with her and is her primary support. REVIEW OF SYSTEMS: Generally she feels very fatigued. She is sleepy. HEENT: Dry mouth. Pulmonar y: Progressive shortness of breath and she is short of breath at rest. Heart: No chest pain. GI: Not eating much from distention. : Urinating with the diuretics. Musculoskeletal: Arthritis, but immobile. Skin: Negative. A 14-point review of systems otherwise negative. PHYSICAL EXAMINATION VITAL SIGNS: BP 80/40, pulse 133, temperature 103.4. HEENT: Mucosa dry, no oral lesions, no lymphadenopathy. LUNGS: Decreased breath sounds bilaterally. Scattered crackles. Very little air movement. HEART: Tachycardic, 130s. ABDOMEN: Mildly distended. She has bowel sounds, nontender. EXTREMITIES: +2 edema bilaterally. NEUROLOGIC: She is answering questions, but not oriented and not very conversive. LABORATORY DATA: As noted above. ASSESSMENT AND PLAN: A 67-year-old female with end-stage esophageal cancer as well as myelodysplasi a. She comes in quite ill with a fever, progressive anemia, hypotensive, and tachycardic. Discusse d with the that I am very concerned she may during this admission. She is DNR and DNI. We will do what we can to improve how she feels and make her comfortable. 1. We will start ceftazidime 2 g q.12 and she is not neutropenic. 2. Transfuse 2 units of packed red blood cells. 3. Given elevated BMP and respiratory status, we will not either diurese her or give her additional fluids, just the blood. 4. Stress dose steroids, Solu-Medrol 60 q.8, given long-term prednisone use. 5. We will do morphine IV in addition to the oral morphine she had at home. 6. Transfuse magnesium 4 g today. 7. Continue Lovenox 60 mg subcu q.12. 8. Admission to telemetry, will not escalate care. [id number]/[facility] #: [id number]
[2017-02-19] MEDS: Acetaminophen TAB* 325 MG PO PRN (14:41)
[2017-02-19] MEDS: Enoxaparin(*) 60 MG/0.6 ML SYR SUBCUT SCH (20:55)
[2017-02-20] MEDS: methylPREDNISolone 125 MG* 2 ML VIAL IV SCH ×3 (05:25→21:05)
[2017-02-20 05:45] LABS: Hematocrit 26 % (35-47); Hemoglobin 8.7 g/dl (12.0-16.0); Mean Corpuscular HGB Conc 33 g/dl (31-36); Mean Corpuscular Hemoglobin 31 pg (27-31); Mean Corpuscular Volume 93 fL (80-97); Mean Platelet Volume 11 um3 (7.4-10.4); Red Blood Count 2.83 10^6/ul (4.0-5.4); Red Cell Distribution Width 16 % (10.5-15); White Blood Count 6.6 10^3/ul (3.5-10.8)
[2017-02-20 05:49] LABS: Add Diff/Slide Review? Slide Review Added; Comments Flag Yes
[2017-02-20 05:56] LABS: BUN/Creatinine Ratio 37.2 (8-20); Calcium 8.9 mg/dL (8.6-10.3); EGFR African American 75.9 (>60); Magnesium 2.4 mg/dL (1.9-2.7)
[2017-02-20] MEDS ORDERED: Zolpidem TAB* 10 MG PO PRN (07:44)
[2017-02-20] MEDS: Fludrocortisone Acetate TAB* 0.1 MG PO SCH (09:04)
[2017-02-20] MEDS: Enoxaparin(*) 60 MG/0.6 ML SYR SUBCUT SCH ×2 (09:05→21:06)
[2017-02-20] MEDS: Morphine ORAL CONCENTRATE* 5 MG/0.25 ML ORAL.SYRIN PO SCH ×4 (09:05→21:05)
--- NOTE | 2017-02-20 10:28 | PN ---
Progress Note - Progress Note Date of Service: 02/20/17 SOAP: Subjective: []Better today. Tolerated blood, no fevers. Breathing is ok, still very difficult. More awake and MS improved. Acetaminophen (Tylenol Tab*) 650 mg PO Q4H PRN PRN Reason: PAIN Last Admin: 02/19/17 14:41 Dose: 650 mg Enoxaparin Sodium (Lovenox(*)) 60 mg SUBCUT Q12HR [facility] Last Admin: 02/20/17 09:05 Dose: 60 mg Fludrocortisone Acetate (Florinef Tab*) 0.2 mg PO QAM [facility] Last Admin: 02/20/17 09:04 Dose: 0.2 mg Ceftazidime 2 gm/ Sodium (Chloride) 100 mls @ 200 mls/hr IVPB Q12H [facility] Last Admin: 02/20/17 01:41 Dose: 200 mls/hr Methylprednisolone Sodium Succinate (Solu-Medrol 125mg *) 60 mg IV Q8H [facility] Last Admin: 02/20/17 05:25 Dose: 60 mg Morphine Sulfate (Morphine Oral Concentrate*) 5 mg PO QID [facility] Last Admin: 02/20/17 09:05 Dose: 5 mg Morphine Sulfate (Morphine Inj (Syringe)*) 2 mg IV Q2H PRN PRN Reason: PAIN Last Admin: 02/20/17 05:45 Dose: 2 mg Zolpidem Tartrate (Ambien Tab*) 10 mg PO BEDTIME PRN PRN Reason: INSOMNIA Objective: [] Vital Signs Temp Pulse Resp BP Pulse Ox 97.6 F 96 20 107/51 100 02/20/17 07:32 02/20/17 07:32 02/20/17 09:05 02/20/17 07:32 02/20/17 07:32 HEENT No JVD Lungs with diffuse crackles and poor BS +BS, NT ND Ext w/ edema, warm Neuro AAOx3 Assessment: []67 year old with end stage esophageal cancer and MDS. Presented with fever, early sepsis and refractory anemia. Today fever down and tolerated transfusion. Plan: []1. No additional blood today 2 Continue IV ABx 3. Eating and a-feb, no IVF 4. Sleeping pill 5. Has not wanted hospice, will continue to discuss, DNR/DNI 6. Labs daily
[2017-02-20] MEDS: Levalbuterol 1.25MG/0.5ML NEB INH PRN (16:19)
[2017-02-21] MEDS: methylPREDNISolone 125 MG* 2 ML VIAL IV SCH ×3 (03:30→20:29)
[2017-02-21] MEDS: Levalbuterol 1.25MG/0.5ML NEB INH PRN (03:53)
[2017-02-21 05:25] LABS: Hematocrit 25 % (35-47); Hemoglobin 8.2 g/dl (12.0-16.0); Mean Corpuscular HGB Conc 33 g/dl (31-36); Mean Corpuscular Hemoglobin 31 pg (27-31); Mean Corpuscular Volume 94 fL (80-97); Mean Platelet Volume 11 um3 (7.4-10.4); Red Blood Count 2.67 10^6/ul (4.0-5.4); Red Cell Distribution Width 16 % (10.5-15); White Blood Count 4.8 10^3/ul (3.5-10.8)
[2017-02-21 05:27] LABS: Comments Flag Yes
[2017-02-21 05:57] LABS: Albumin 3.3 g/dL (3.2-5.2); BUN/Creatinine Ratio 42.7 (8-20); Calcium 9.1 mg/dL (8.6-10.3); EGFR African American 80.9 (>60); EGFR Non-African American 62.9 (>60); Globulin 2.1 g/dL (2-4); Potassium 3.9 mmol/L (3.5-5.0); Total Bilirubin 0.7 mg/dL (0.2-1.0); Total Protein 5.4 g/dL (6.4-8.9)
[2017-02-21] MEDS: Morphine ORAL CONCENTRATE* 5 MG/0.25 ML ORAL.SYRIN PO SCH ×4 (10:23→20:30)
[2017-02-21] MEDS: Fludrocortisone Acetate TAB* 0.1 MG PO SCH (10:23)
[2017-02-21] MEDS: Enoxaparin(*) 60 MG/0.6 ML SYR SUBCUT SCH ×2 (10:35→20:30)
[2017-02-22] MEDS: methylPREDNISolone 125 MG* 2 ML VIAL IV SCH (05:02)
[2017-02-22] MEDS: Acetaminophen TAB* 325 MG PO PRN ×2 (05:02→19:41)
[2017-02-22 05:18] LABS: Hematocrit 24 % (35-47); Mean Corpuscular HGB Conc 33 g/dl (31-36); Mean Corpuscular Hemoglobin 31 pg (27-31); Mean Corpuscular Volume 94 fL (80-97); Mean Platelet Volume 11 um3 (7.4-10.4); Red Blood Count 2.56 10^6/ul (4.0-5.4); Red Cell Distribution Width 16 % (10.5-15); White Blood Count 4.8 10^3/ul (3.5-10.8)
[2017-02-22 05:19] LABS: Add Diff/Slide Review? Slide Review Added; Comments Flag Yes
[2017-02-22 05:37] LABS: BUN/Creatinine Ratio 53.5 (8-20); Calcium 9.3 mg/dL (8.6-10.3); EGFR Non-African American 81.6 (>60); Potassium 4.3 mmol/L (3.5-5.0)
[2017-02-22] MEDS: Morphine ORAL CONCENTRATE* 5 MG/0.25 ML ORAL.SYRIN PO SCH ×4 (09:39→21:25)
[2017-02-22] MEDS: Enoxaparin(*) 60 MG/0.6 ML SYR SUBCUT SCH ×2 (09:40→21:25)
[2017-02-22] MEDS: Fludrocortisone Acetate TAB* 0.1 MG PO SCH (09:52)
[2017-02-22] MEDS: Magnesium Oxide TAB* 400 MG PO SCH (09:52)
--- NOTE | 2017-02-22 10:32 | PN ---
Progress Note - Progress Note Date of Service: 02/22/17 SOAP: Subjective: []Feeling better day by day. Still very weak. Doesn't remember coming to ER via EMS, but recalls events since admission. Breathing still hard, but better. Not really coughing that much. Doesn't feel ready to go home. Has a lot of reflux/gas with eating. Fluid retention essentially stable. Medications: Acetaminophen (Tylenol Tab*) 650 mg PO Q4H PRN PRN Reason: PAIN Last Admin: 02/22/17 05:02 Dose: 650 mg Enoxaparin Sodium (Lovenox(*)) 60 mg SUBCUT Q12HR [facility] Last Admin: 02/22/17 09:40 Dose: 60 mg Fludrocortisone Acetate (Florinef Tab*) 0.2 mg PO QAM [facility] Last Admin: 02/22/17 09:52 Dose: 0.2 mg Ceftazidime 2 gm/ Sodium (Chloride) 100 mls @ 200 mls/hr IVPB Q12H [facility] Last Admin: 02/22/17 00:33 Dose: 200 mls/hr Levalbuterol HCl (Xopenex 1.25 Mg/0.5 Ml Neb.Em*) 1.25 mg INH Q4H PRN PRN Reason: SHORTNESS OF BREATH Last Admin: 02/21/17 03:53 Dose: 1.25 mg Magnesium Oxide (Magox 400 Tab*) 800 mg PO DAILY [facility] Last Admin: 02/22/17 09:52 Dose: 800 mg Methylprednisolone Sodium Succinate (Solu-Medrol 125mg *) 60 mg IV Q12H [facility] Stop: 02/22/17 23:59 Morphine Sulfate (Morphine Oral Concentrate*) 5 mg PO QID [facility] Last Admin: 02/22/17 09:39 Dose: 5 mg Morphine Sulfate (Morphine Inj (Syringe)*) 2 mg IV Q2H PRN PRN Reason: PAIN Last Admin: 02/20/17 05:45 Dose: 2 mg Zolpidem Tartrate (Ambien Tab*) 10 mg PO BEDTIME PRN PRN Reason: INSOMNIA Objective: [] Vital Signs Temp Pulse Resp BP Pulse Ox 97.6 F 72 16 100/48 100 02/22/17 07:56 02/22/17 07:56 02/22/17 09:39 02/22/17 07:56 02/22/17 07:56 A&Ox3, EOMI, LOVELACE, neuro grossly non-focal HRR, S1S2 present, no murmur, slightly distant heart sounds LS markedly dim. to right and dull to percussion, left clear, slightly labored respirations +BS, abd. soft and on-tender +PP=bilat., +2 pitting edema to knees, no weeping noted today Laboratory Results - last 24 hr 02/22/17 02/22/17 02/22/17 05:04 05:04 05:04 WBC 4.8 RBC 2.56 L Hgb 8.0 L Hct 24 L MCV 94 MCH 31 MCHC 33 RDW 16 H Plt Count 38 L MPV 11 H Neut % (Auto) 93.1 H Lymph % (Auto) 2.0 L Butts % (Auto) 4.9 Eos % (Auto) 0 Baso % (Auto) 0 Absolute Neuts (auto) 4.4 Absolute Lymphs (auto) 0.1 L Absolute Monos (auto) 0.2 Absolute Eos (auto) 0 Absolute Basos (auto) 0 Absolute Nucleated RBC 0 Nucleated RBC % 0 Sodium 139 Potassium 4.3 Chloride 96 L Carbon Dioxide 40 H Anion Gap 3 BUN 38 H Creatinine 0.71 Est GFR ( Amer) 105.0 Est GFR (Non-Af Amer) 81.6 BUN/Creatinine Ratio 53.5 H Glucose 155 H Lactic Acid 1.4 Calcium 9.3 Magnesium 2.0 Assessment: []67 yo female with advanced esophageal cancer admitted with recurrent acute respiratory failure present on admission secondary to Pneumonia, resolving. Difficult course with heart failure and subsequent fluid overload despite elevated BUN/Cr ratio and anemia from MDS requiring frequent transfusions. No longer a candidate for chemotherapy. Plan: []1. 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 Check X- ray today. Cont. IV abx., suggest 5 days before transition to PO. --Dx BOOP completed abx. approx. 1 month ago and remained on slow steroid taper. Will start taper of stress steroids now from solumedrol TID to BID, if does well today may want to go to daily tomorrow. 2. Fluid Overload: r/t known CHF, will give one IV dose Bumex today as we can replace Mg. via IV tomorrow if needed (she was on 2 mg daily at home over the last week with good response following lasix failure), recheck BNP today 3. Anemia: secondary to MDS, stable for now, cont. to watch daily labs and transfuse r/t symptoms. 4. Thrombocytopenia: secondary to MDS, stable, no transfusion unless <10 or active bleeding DNR/DNI
[2017-02-22] MEDS ORDERED: Bumetanide IV* 0.25 MG/ML 4 ML VIAL SLOW PUSH ONE (10:40)
--- NOTE | 2017-02-22 14:30 | RAD ---
HISTORY: Follow-up right lung COMPARISONS: February 19, 2017 VIEWS:1: Single frontal portable view of the chest at 11:55 AM FINDINGS: LINES AND TUBES: A right-sided chest port is noted with the tip overlying the cavoatrial junction. CARDIOMEDIASTINAL SILHOUETTE: The cardiomediastinal silhouette is stable. PLEURA: There is blunting of the right costophrenic angle consistent with a small left pleural effusion. LUNG PARENCHYMA: There is confluent alveolar opacification of the right mid and lower lung vang. There has been some improved aeration compared to the February 19, 2017 examination. ABDOMEN: The upper abdomen is clear. There is no subphrenic gas. BONES AND SOFT TISSUES: No bone or soft tissue abnormalities are noted. IMPRESSION: PERSISTENT RIGHT LUNG CONSOLIDATION, SOMEWHAT IMPROVED COMPARED TO FEBRUARY 19, 2017
[2017-02-22] MEDS: Levalbuterol 1.25MG/0.5ML NEB INH PRN (15:22)
[2017-02-22] MEDS ORDERED: methylPREDNISolone 125 MG* 2 ML VIAL IV SCH (17:00)
[2017-02-23 05:52] LABS: Hemoglobin 7.8 g/dl (12.0-16.0); Mean Corpuscular Hemoglobin 31 pg (27-31); White Blood Count 4.4 10^3/ul (3.5-10.8)
[2017-02-23 05:54] LABS: Hematocrit 24 % (35-47); Mean Corpuscular HGB Conc 33 g/dl (31-36); Mean Corpuscular Volume 94 fL (80-97); Mean Platelet Volume 10 um3 (7.4-10.4); Red Blood Count 2.49 10^6/ul (4.0-5.4); Red Cell Distribution Width 16 % (10.5-15)
[2017-02-23 05:55] LABS: Comments Flag Yes
[2017-02-23 06:08] LABS: BUN/Creatinine Ratio 56.9 (8-20); Calcium 9.3 mg/dL (8.6-10.3); EGFR African American 116.2 (>60); EGFR Non-African American 90.4 (>60); Magnesium 1.8 mg/dL (1.9-2.7)
[2017-02-23] MEDS: Enoxaparin(*) 60 MG/0.6 ML SYR SUBCUT SCH (07:35)
[2017-02-23] MEDS: Fludrocortisone Acetate TAB* 0.1 MG PO SCH (10:05)
[2017-02-23] MEDS: Magnesium Oxide TAB* 400 MG PO SCH (10:06)
[2017-02-23] MEDS: Morphine ORAL CONCENTRATE* 5 MG/0.25 ML ORAL.SYRIN PO SCH ×4 (10:06→21:31)
[2017-02-23] MEDS: methylPREDNISolone 125 MG* 2 ML VIAL IV SCH (10:11)
[2017-02-23 13:04] LABS: Mean Platelet Volume 10 um3 (7.4-10.4)
[2017-02-23 13:08] LABS: Comments Flag Yes
--- NOTE | 2017-02-23 13:56 | DS ---
- Discharge Summary Admission Date: 02/19/17 Discharge Date: 02/24/17 Discharge Diagnosis: 1. Acute Respiratory Failure: resolving 2. Pneumonia: resolving 3. Anemia: chronic r/t MDS, will follow as outpatient 4. Thrombocytopenia: chronic r/t MDS, will follow as outpatient Discharge Medications: 1. Acetaminophen 650 mg PO q4hrs PRN pain 2. Levalbuterol 1.25mg/0.5mL inh q4hrs PRN SOB 3. Florinef 0.2 mg PO qAM 4. Bumetanide 1 mg PO QOD PRN dyspnea/fluid retention 5. Morphine oral concentrate 5 mg PO q2hrs pRN pain/dyspnea/hair hunger 6. Levaquin 750 mg PO daily x14 days Hospital Course: Please see admission note for full H&P, however briefly Mrs. 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 She has also struggled with cytopenias secondary to MDS. She presented to the ER via EMS on 02/19 with AMS following attempt to manage dyspnea as an outpatient. In the ER She had a hmg of 6.5, lactic acid of 4, BNP of 1165, and ABGs revealing respiratory failure. A chest x-ray in the ER revealed marked consolidation throughout the right lung and she was admitted with acute respiratory failure secondary to pneumonia. On admission it was felt that her condition was very guarded, however she remained a DNR/DNI per her prior wishes. Fortunately after approximately 24 hours of IV Ceftazidime and 2 units of PRBCs she showed significant improvement in both her mental status and dyspnea. She has not had further fevers. On 02/22 a repeat Chest X-ray showed some improvement in the right upper lobe, though continued consolidation otherwise. Throughout her stay she has had hypotension, consistent with known adrenal insufficiency. With marked improvement and known extensive disease unable to be treated d/t severe MDS and multiple medical problems plan for d/c on 02/24/17 was with the patient and her on 02/23/17. Plan was to complete 1 unit platelets and planned 1 unit PRBCs to infuse very slowly d/t known cardiac dysfunction. On d /c she will have received 5 days of IV abx. and will be d/cd home on Levaquin PO for another 2 weeks. She has, after multiple discussions during this and prior admissions and at outpatient visits, agreed to a hospice consult once she is home and this will be set up with our office. She is aware her prognosis is very limited (potentially weeks). In terms of follow-up she has a tentative f/ u with Dr. Randall on 03/10, however if she accepts hospice services we will cancel this. >40 min spent with >50% face to face counseling
[2017-02-23] MEDS: Acetaminophen TAB* 325 MG PO PRN (17:50)
[2017-02-24] MEDS: Fludrocortisone Acetate TAB* 0.1 MG PO SCH (08:40)
[2017-02-24] MEDS: Magnesium Oxide TAB* 400 MG PO SCH (08:41)
[2017-02-24 08:42] VITALS: BP 99/48
[2017-02-24] MEDS: methylPREDNISolone 125 MG* 2 ML VIAL IV SCH (08:46)
[2017-02-24] MEDS: Morphine ORAL CONCENTRATE* 5 MG/0.25 ML ORAL.SYRIN PO SCH ×2 (08:54→12:46)
== END 2017-02-24 14:00 | disposition hospice, home (50) | DRG 871 ==
LOC: ED 08:49 → MEDTELE 11:04
PROVIDERS: ADMIT Internal Medicine Hematology & Oncology; ATTEND Internal Medicine Hematology & Oncology
PROC: 30233N1 Transfusion of Nonautologous Red Blood Cells into Peripheral Vein, Percutaneous Approach (ICD-10-PCS; principal; 2017-02-19)
PROC: 30233R1 Transfusion of Nonautologous Platelets into Peripheral Vein, Percutaneous Approach (ICD-10-PCS; 2017-02-23)
DX: A41.9 Sepsis, unspecified organism (principal); J18.9 Pneumonia, unspecified organism; J96.01 Acute respiratory failure with hypoxia; J90 Pleural effusion, not elsewhere classified; C78.00 Secondary malignant neoplasm of unspecified lung; I11.0 Hypertensive heart disease with heart failure; C15.9 Malignant neoplasm of esophagus, unspecified; E27.40 Unspecified adrenocortical insufficiency; I50.9 Heart failure, unspecified; D69.6 Thrombocytopenia, unspecified; E83.42 Hypomagnesemia; M19.90 Unspecified osteoarthritis, unspecified site; M06.9 Rheumatoid arthritis, unspecified; D64.9 Anemia, unspecified; D46.9 Myelodysplastic syndrome, unspecified; I48.91 Unspecified atrial fibrillation; Z66 Do not resuscitate; L98.8 Other specified disorders of the skin and subcutaneous tissue; Z87.891 Personal history of nicotine dependence; Z86.718 Personal history of other venous thrombosis and embolism; Z86.711 Personal history of pulmonary embolism; Z88.8 Allergy status to other drugs, medicaments and biological substances
CPT/HCPCS: 36415; 36600; 71010; 80048; 80053; 82375; 82550; 82553; 82803; 83605; 83690; 83735; 83880; 84443; 84484; 85025; 85027; 85049; 85610; 86140; 86850; 86900; 86901; 86922; 87040; 94640; 99223; 99232; 99239; A9270-GY; J0713; J1642; J1650; J2270; J2930; J3475; P9035; P9040

== ENCOUNTER → 2017-02-25 13:01 | Emergency (ER) | payer MEDICARE, OTHER ==
[~2017-02-25 13:01] MED LIST: Magnesium CITRATE* 300 ML BTL PO ONE
--- NOTE | 2017-02-25 14:26 | RAD ---
INDICATION: Constipation. COMPARISON: Comparison is made with a prior CT of the abdomen from June 15, 2016. TECHNIQUE: Frontal supine films of the abdomen were obtained. FINDINGS: The small bowel and colon appear nondistended. There is a moderate amount of retained stool which is most prominent in the rectum. IMPRESSION: 1. NO EVIDENCE FOR OBSTRUCTION. 2. MODERATE AMOUNT RETAINED STOOL.
[2017-02-25 15:35] VITALS: BP 94/44
--- NOTE | 2017-02-25 17:35 | ED ---
Kirk Salvador Angela, scribed for Manpreet Bautista MD on 02/25/17 at 1329 . Abdominal Pain/Female - HPI Summary HPI Summary: This pt is a 67 y/o female presenting to [facility] c/o abdominal pain and constipation. Pt was admitted to [facility] 3 days ago for hypoxia where she was given 1 unit of PBRCs and 1 unit of platelets. Pt was discharged yesterday from [facility] with Levaquin and IV antibiotics. Per , pt stood up today to go the bathroom, felt dizzy and had 1 of episode of syncope. Pt endorses distended abd and hemorrhoids. She denies chest pain, SOB, abd pain, back pain, fever. PMHx: current stage 4 esophageal CA. - History of Current Complaint Chief Complaint: EDAbdPain Stated Complaint: CONSTIPATION Time Seen by Provider: 02/25/17 13:18 Hx Obtained From: Patient, Family/Supervisor Correspondence Section - Onset/Duration: Still Present Timing: Constant Pain Intensity: 10 Pain Scale Used: 0-10 Numeric Radiates: No Aggravating Factor(s): Nothing Alleviating Factor(s): Nothing Associated Signs and Symptoms: Positive: Dizzy, Constipation. Negative: Fever, Chest Pain, Back Pain Allergies/Adverse Reactions: Allergies Allergy/AdvReac Type Severity Reaction Status Date / Time Metoprolol Allergy Intermediate Rash Verified 01/24/17 14:44 Home Medications: Home Medications Bumetanide TAB* [Bumex 1 MG TAB*] 1 mg PO DAILY PRN 02/25/17 [History Confirmed 02/25/17] PMH/Surg Hx/FS Hx/Imm Hx Endocrine/Hematology History: Reports: Hx Anticoagulant Therapy, Hx Blood Transfusions, Hx Anemia, Other Endocrine/Hematological Disorders - chronic normocyte anemia, adrenal insufficiency Denies: Hx Diabetes, Hx Systemic Lupus Erythematosus Cardiovascular History: Reports: Hx Congestive Heart Failure, Hx Syncope, Other Cardiovascular Problems/Disorders - pericardial effusion window Denies: Hx Aneurysm, Hx Angina, Hx Congenital Heart Disease, Hx Hypertension - HYPOTENSIVE, Hx Pacemaker/ICD Respiratory History: Reports: Hx Lung Cancer, Hx Pleural Effusion - Chronic, Hx Pneumonia, Hx Pulmonary Embolism, Hx Sleep Apnea - unconfirmed, Other Respiratory Problems/Disorders - PT STATES LUNG CA/ESOPHAGUS CA Denies: Hx Asthma GI History: Reports: Hx Gall Bladder Disease, Hx Gastroesophageal Reflux Disease , Other GI Disorders - DIFFICULTY SWALLOWING SOMETIME ESPECIALLY WITH PILLS R/T THE CANCER History: Denies: Hx Dialysis, Hx Renal Disease Musculoskeletal History: Reports: Hx Arthritis - SLIGHT, Hx Rheumatoid Arthritis Sensory History: Reports: Hx Contacts or Glasses - reading glasses Denies: Hx Cataracts, Hx Eye Injury, Hx Eye Prosthesis, Hx Glaucoma, Hx Legally Blind, Hx Macular Degeneration, Hx Vision Problem, Hx Deafness, Hx Hearing Aid, Hx Hearing Problem, Other Sensory Impairments Opthamlomology History: Reports: Hx Contacts or Glasses - reading glasses Denies: Hx Cataracts, Hx Eye Injury, Hx Eye Prosthesis, Hx Glaucoma, Hx Legally Blind, Hx Macular Degeneration, Hx Vision Problem, Other Sensory Impairments Neurological History: Reports: Hx Headaches, Other Neuro Impairments/Disorders - HX OF DIZZINESS, Syncope Psychiatric History: Denies: Hx Panic Disorder - Cancer History Cancer Type, Location and Year: esphogeal, lung cancer Hx Chemotherapy: Yes Hx Radiation Therapy: Yes Hx Palliative Cancer Treatment: No - Surgical History Surgery Procedure, Year, and Place: TONSILLECTOMY A CHILD. PEG tube - NO LONGER IN,. 2002 CYST REMOVED FROM RIGHT FOOT, [facility]. 04/2015 PLEURX CATHETER INSERTION, [facility] 05/2015 PERICARDIAL WINDOW, [facility]. 10/06/2015 INSERTION OF CATHETER TO DRAIN GALLBLADDER, [facility] Hx Anesthesia Reactions: No - Immunization History Date of Tetanus Vaccine: up to date Date of Influenza Vaccine: up to date Infectious Disease History: No Infectious Disease History: Reports: Hx Clostridium Difficile - earlier this year, then negative Denies: Hx Hepatitis, Hx Human Immunodeficiency Virus (HIV), Hx of Known/ Suspected MRSA, Hx Shingles, Hx Tuberculosis, Hx Known/Suspected VRE, Hx Known/ Suspected VRSA, History Other Infectious Disease, Traveled Outside the in Last 30 Days - Family History Known Family History: Positive: Other - neg: breast CA Negative: Diabetes Family History: Per H&P from 05/12/16, both parents have no current problems. - Social History Alcohol Use: None Hx Substance Use: No Substance Use Type: Reports: None Hx Tobacco Use: Yes Smoking Status (MU): Former Smoker Type: Cigarettes Amount Used/How Often: 1/2 PPD FOR ABOUT 30+ YEARS Length of Time of Smoking/Using Tobacco: 30 YEARS Have You Smoked in the Last Year: No Review of Systems Negative: Fever, Chills Positive: Abdominal Pain, Other - constipation Positive: Other - NEGATIVE: back pain Neurological: Other - POSITIVE: dizziness, 1 episode of syncope All Other Systems Reviewed And Are Negative: Yes Physical Exam Triage Information Reviewed: Yes Vital Signs On Initial Exam: Initial Vitals BP 101/35 02/25/17 13:09 Vital Signs Reviewed: Yes Appearance: Positive: Well-Appearing Skin: Positive: Warm, Skin Color Reflects Adequate Perfusion, Dry Head/Face: Positive: Normal Head/Face Inspection Eyes: Positive: Normal ENT: Positive: Normal ENT inspection Neck: Positive: Supple, Nontender Cardiovascular: Positive: RRR Abdomen Description: Positive: Soft, Other: - Tenderness Musculoskeletal: Positive: Normal Neurological: Positive: Normal Psychiatric: Positive: Normal - Karan Coma Scale Coma Scale Total: 15 Diagnostics - Vital Signs Vital Signs Temp Pulse Resp BP Pulse Ox 02/25/17 13:14 98 F 90 18 101/35 96 02/25/17 13:10 88 89 02/25/17 13:09 101/35 - Laboratory Lab Statement: Any lab studies that have been ordered have been reviewed, and results considered in the medical decision making process. - Radiology Abdomen XR Xray Interpretation: No Acute Changes - IMPRESSION: 1. No evidence for obstruction. 2. Moderate amount retained stool. ED physician has reviewed this radiology report and agrees. Radiology Interpretation Completed By: Radiologist Abdominal Pain Fem Course/Dx - Course Course Of Treatment: Ms. Huitron presented C/O constipation and being unable to pass stool for 5 days because of her pain medications. She had tried colace and miralax. She had hard stood at the tip of my finger on rectal exam and hard rectal stool seen on KUB. An enema allowed her to pass the hard stool and get some relief and I will give her some mag citrate to see if she can get a little cleaned out. - Diagnoses Provider Diagnoses: Constipation Discharge - Discharge Plan Condition: Stable Disposition: HOME Patient Education Materials: Constipation (ED) Referrals: Gisela Randall MD [Primary Care Provider] - Additional Instructions: Please follow up with your primary care provider to assure your symptoms are improving. The documentation as recorded by the Kirk tolentino Angela accurately reflects the service I personally performed and the decisions made by me, Manpreet Bautista MD.
== END | disposition home or self-care (01) ==
LOC: ED 13:01
DX: T18.128A Food in esophagus causing other injury, initial encounter (principal); X58.XXXA Exposure to other specified factors, initial encounter; Y93.9 Activity, unspecified; Y92.9 Unspecified place or not applicable
CPT/HCPCS: 74000; 99282; A9270-GY